=== PATIENT | male | born 1950 | race Caucasian/White ===

== ENCOUNTER → 2018-09-20 09:06 | Outpatient (CLI) | payer MEDICARE, SELFPAY ==
--- NOTE | 2018-09-20 09:11 | XR_ITS ---
XR chest 2V HISTORY: Preop ITS.REASON: Knee replacement ORDERING PHYSICIAN: GALINA Dobson PATIENT AGE: 68 years COMPARISON: PA and lateral chest 02/18/2017 FINDINGS: There is stable mild cardio megaly. The lung marin are well expanded and appear clear of infiltrate. There is no pleural fluid. There are mild degenerative changes mid thoracic spine. IMPRESSION: Mild cardio megaly, no acute chest pathology noted
[2018-09-20 09:32] LABS: Microscopic, Urine URINE MICROSCOPIC (MICROSCOPIC)
[2018-09-20 09:53] LABS: Appearance,Urine CLEAR (Clear); Bilirubin,Urine Negative (Negative); Blood, Urine Negative (Negative); Color,Urine YELLOW (Yellow); Glucose,Urine (UA) Negative (Negative); Ketones,Urine TRACE (Negative); Leukocyte Esterase,Urine Negative (Negative); Nitrate,Urine Negative (Negative); Protein,Urine TRACE (Negative); Specific Gravity, Urine 1.025 (1.005-1.030); Urobilinogen,Urine 0.2 EU/dl (0.2)
[2018-09-20 10:03] LABS: Activated Partial Thrombo Time 28.9 seconds (23.6-34.0); INR 0.99 (0.9-1.1); Prothrombin Time 10.2 seconds (9.4-11.8)
[2018-09-20 10:08] LABS: Basophils # 0.1 K/mm3 (0-0.2); Basophils % 0.7 % (0.1-2.0); Eosinophils # 0.4 K/mm3 (0.0-0.4); Eosinophils % 3.3 % (0.1-12.0); Hematocrit 46.6 % (42.0-52.0); Hemoglobin 15.2 g/dL (14.1-18.0); Lymphocytes # 3.2 K/mm3 (0.7-4.5); Lymphocytes % 25.9 % (10-50); Mean Corpuscular HGB Conc 32.7 g/dL (31.8-35.4); Mean Corpuscular Hemoglobin 29.6 pg (27.0-31.2); Mean Corpuscular Volume 90.4 fl (80-94); Mean Platelet Volume 7.9 fl (7.4-10.4); Monocytes # 0.6 K/mm3 (0.1-1.0); Neutrophils # 8.1 K/mm3 (1.8-7.8); Neutrophils % 65.1 % (37.0-80.0); Platelet Count 282 K/mm3 (142-424); Red Blood Count 5.15 M/mm3 (4.60-6.20); Red Cell Distribution Width 14.5 % (11.5-17.5); White Blood Count 12.5 K/mm3 (4.8-10.8)
[2018-09-20 10:38] LABS: Bacteria,Urine Trace /lpf; Squamous Epithelial Cell,Urine Occasional #/hpf (0-5)
[2018-09-20 11:27] LABS: Anion Gap 16.6 mEq/L (5-15); Blood Urea Nitrogen 20 mg/dL (7-18); Calcium 8.8 mg/dL (8.5-10.1); Carbon Dioxide 25 mmol/L (21.0-32.0); Chloride 101 mmol/L (98-107); Creatinine,Serum 1.29 mg/dL (0.70-1.30); Estimated Glomerular Filt Rate 56 ml/min (>60); GFR (African American) 67 ML/MIN (>60); Glucose 114 mg/dL (74-106); Potassium 4.6 mmoL/L (3.5-5.1); Sodium 138 mmol/L (136-145)
[2018-09-20 13:12] LABS: Hemoglobin A1C 6.2 % (0.0-7.0)
== END ==
PROVIDERS: PCP Physician Assistant; Visit Provider Physician Assistant
DX: Z01.818 Encounter for other preprocedural examination; M17.10 Unilateral primary osteoarthritis, unspecified knee; R73.9 Hyperglycemia, unspecified; T14.8XXA Other injury of unspecified body region, initial encounter; Z79.01 Long term (current) use of anticoagulants
CPT/HCPCS: 36415; 71046; 80048; 81001; 83036; 85025; 85610; 85730

== ENCOUNTER → 2019-07-11 13:24 | Outpatient (CLI) | payer MEDICARE, SELFPAY ==
[2019-07-11 14:39] LABS: Basophils # 0.1 K/mm3 (0-0.2); Basophils % 0.5 % (0.1-2.0); Eosinophils # 0.1 K/mm3 (0.0-0.4); Eosinophils % 1.3 % (0.1-12.0); Hematocrit 46.1 % (42.0-52.0); Hemoglobin 14.2 g/dL (14.1-18.0); Lymphocytes % 23.3 % (10-50); Mean Corpuscular HGB Conc 30.8 g/dL (31.8-35.4); Mean Corpuscular Volume 94.2 fl (80-94); Mean Platelet Volume 9.2 fl (7.4-10.4); Monocytes # 0.6 K/mm3 (0.1-1.0); Neutrophils # 5.7 K/mm3 (1.8-7.8); Neutrophils % 67.9 % (37.0-80.0); Platelet Count 324 K/mm3 (142-424); Red Blood Count 4.89 M/mm3 (4.60-6.20); Red Cell Distribution Width 15.2 % (11.5-17.5); White Blood Count 8.5 K/mm3 (4.8-10.8)
[2019-07-11 15:20] LABS: Alanine Aminotransferase 24 U/L (12-78); Albumin Level 3.9 gm/dL (3.4-5.0); Albumin/Globulin Ratio 1.1 (1.1-1.8); Alkaline Phosphatase 110 U/L (46-116); Anion Gap 16.3 mEq/L (5-15); Aspartate Amino Transferase 15 U/L (15-37); Bilirubin,Total 0.5 mg/dL (0.2-1.0); Blood Urea Nitrogen 23 mg/dL (7-18); Calcium 8.8 mg/dL (8.5-10.1); Carbon Dioxide 24 mmol/L (21.0-32.0); Chloride 100 mmol/L (98-107); Cholesterol 161 mg/dL (140-200); Creatinine,Serum 1.01 mg/dL (0.70-1.30); Estimated Glomerular Filt Rate 73 ml/min (>60); GFR (African American) 89 ML/MIN (>60); Globulin 3.5 gm/dl (1.3-3.2); Glucose 105 mg/dL (74-106); HDL Cholesterol 32 mg/dL (27-67); LDL Cholesterol 97 mg/dL (0-130); Potassium 4.3 mmoL/L (3.5-5.1); Prostate Specific Ag Screen 2.8 ng/mL (0.0-4.0); Sodium 136 mmol/L (136-145); Thyroid Stimulating Hormone 1.98 uIU/ml (0.358-3.740); Total Protein,Serum 7.4 gm/dL (6.4-8.2); Triglycerides 161 mg/dL (30-200); VLDL Cholesterol 32 mg/dL (0-40)
== END ==
PROVIDERS: Visit Provider Physician Assistant
DX: I10 Essential (primary) hypertension (principal); R73.9 Hyperglycemia, unspecified; Z12.5 Encounter for screening for malignant neoplasm of prostate
CPT/HCPCS: 80053; 80061; 84436; 84443; 85025; G0103

== ENCOUNTER → 2020-08-20 14:50 | Outpatient (CLI) | payer MEDICARE, SELFPAY ==
[2020-08-20 15:26] LABS: Basophils # 0.1 K/mm3 (0-0.2); Basophils % 0.6 % (0.1-2.0); Eosinophils # 0.2 K/mm3 (0.0-0.4); Hemoglobin 15.1 g/dL (14.1-18.0); Lymphocytes # 2.3 K/mm3 (0.7-4.5); Lymphocytes % 24.5 % (10-50); Mean Corpuscular HGB Conc 33.7 g/dL (31.8-35.4); Mean Corpuscular Hemoglobin 31.5 pg (27.0-31.2); Mean Corpuscular Volume 93.7 fl (80-94); Mean Platelet Volume 9.8 fl (7.4-10.4); Monocytes # 0.5 K/mm3 (0.1-1.0); Monocytes % 5.4 % (1.7-9.3); Neutrophils # 6.3 K/mm3 (1.8-7.8); Neutrophils % 67.4 % (37.0-80.0); Platelet Count 274 K/mm3 (142-424); Red Cell Distribution Width 14.6 % (11.5-17.5); White Blood Count 9.3 K/mm3 (4.8-10.8)
[2020-08-20 15:55] LABS: Alanine Aminotransferase 25 U/L (12-78); Albumin Level 4.2 g/dl (3.5-5.0); Albumin/Globulin Ratio 1.4 (1.1-1.8); Alkaline Phosphatase 101 U/L (38-126); Anion Gap 15.6 mEq/L (5-15); Aspartate Amino Transferase 27 U/L (17-59); Bilirubin,Total 0.7 mg/dl (0.2-1.3); Blood Urea Nitrogen 21 mg/dl (9-20); Calcium 9.2 mg/dl (8.4-10.2); Carbon Dioxide 24 mmol/L (22.0-30.0); Chloride 100 mmol/L (98-107); Chol/HDL Ratio 6.2 (1-3.5); Cholesterol 174 mg/dl (140-200); Estimated Glomerular Filt Rate 74 ml/min (>60); GFR (African American) 90 ML/MIN (>60); Globulin 2.9 g/dL (1.3-3.2); Glucose 157 mg/dl (74-100); HDL Cholesterol 28 mg/dl (40-60); Potassium 4.6 mmoL/L (3.5-5.1); Sodium 135 mmol/L (136-145); Total Protein,Serum 7.1 g/dl (6.3-8.2); Triglycerides 226 mg/dl (30-150); VLDL Cholesterol 45 mg/dL (0-40)
[2020-08-20 16:07] LABS: Direct LDL Cholesterol 121.48 mg/dL (100-129)
[2020-08-20 16:11] LABS: 25-OH Vitamin D, Total 35.9 ng/mL (30-100)
[2020-08-20 16:12] LABS: Free T4 (Free Thyroxine) 1.26 ng/dl (0.78-2.19)
[2020-08-20 16:26] LABS: Prostate Specific Ag Screen 3.3 ng/ml (0.0-4.0); Thyroid Stimulating Hormone 2.39 uIU/mL (0.465-4.68)
[2020-08-20 17:26] LABS: Hemoglobin A1C 6.3 % (4.0-6.0)
== END ==
PROVIDERS: Visit Provider Physician Assistant
DX: R73.9 Hyperglycemia, unspecified (principal); I50.9 Heart failure, unspecified; Z12.5 Encounter for screening for malignant neoplasm of prostate
CPT/HCPCS: 80053; 80061; 82306; 83036; 84439; 84443; 85025; G0103

== ENCOUNTER → 2021-08-10 17:59 | Outpatient (CLI) | payer MEDICARE, SELFPAY ==
[2021-08-10 18:22] LABS: Basophils # 0.1 K/mm3 (0-0.2); Basophils % 0.6 % (0.1-2.0); Eosinophils # 0.2 K/mm3 (0.0-0.4); Eosinophils % 1.5 % (0.1-12.0); Lymphocytes % 30.8 % (10-50); Mean Corpuscular HGB Conc 33.3 g/dL (31.8-35.4); Mean Corpuscular Hemoglobin 30.5 pg (27.0-31.2); Mean Corpuscular Volume 91.4 fl (80-94); Mean Platelet Volume 9.3 fl (7.4-10.4); Monocytes # 0.5 K/mm3 (0.1-1.0); Monocytes % 5.4 % (1.7-9.3); Neutrophils # 5.9 K/mm3 (1.8-7.8); Neutrophils % 61.7 % (37.0-80.0); Platelet Count 335 K/mm3 (142-424); Red Blood Count 4.92 M/mm3 (4.60-6.20); Red Cell Distribution Width 14.4 % (11.5-17.5); White Blood Count 9.6 K/mm3 (4.8-10.8)
[2021-08-10 18:58] LABS: Alanine Aminotransferase 27 U/L (12-78); Albumin Level 4.4 g/dl (3.5-5.0); Albumin/Globulin Ratio 1.3 (1.1-1.8); Alkaline Phosphatase 113 U/L (38-126); Anion Gap 12.7 mEq/L (5-15); Aspartate Amino Transferase 31 U/L (17-59); Bilirubin,Total 0.5 mg/dl (0.2-1.3); Blood Urea Nitrogen 17 mg/dl (9-20); Calcium 9.3 mg/dl (8.4-10.2); Carbon Dioxide 28 mmol/L (22.0-30.0); Chloride 101 mmol/L (98-107); Chol/HDL Ratio 4.3 (1-3.5); Cholesterol 124 mg/dl (140-200); Estimated Glomerular Filt Rate 83 ml/min (>60); GFR (African American) 101 ML/MIN (>60); Globulin 3.3 g/dL (1.3-3.2); Glucose 91 mg/dl (74-100); HDL Cholesterol 29 mg/dl (40-60); Potassium 4.7 mmoL/L (3.5-5.1); Sodium 137 mmol/L (136-145); Total Protein,Serum 7.7 g/dl (6.3-8.2); Triglycerides 143 mg/dl (30-150); VLDL Cholesterol 29 mg/dL (0-40)
[2021-08-10 19:09] LABS: Direct LDL Cholesterol 105.74 mg/dL (100-129)
[2021-08-10 19:14] LABS: Free T4 (Free Thyroxine) 1.15 ng/dl (0.78-2.19)
== END ==
PROVIDERS: Visit Provider Physician Assistant
DX: R53.83 Other fatigue (principal); E03.9 Hypothyroidism, unspecified
CPT/HCPCS: 80053; 80061; 84439; 84443; 85025

== ENCOUNTER → 2022-08-12 10:50 | Outpatient (CLI) | payer MEDICARE, SELFPAY ==
[2022-08-12 13:14] LABS: Basophils # 0.1 K/mm3 (0-0.2); Basophils % 0.8 % (0.1-2.0); Eosinophils # 0.3 K/mm3 (0.0-0.4); Eosinophils % 2.4 % (0.1-12.0); Hematocrit 46.6 % (42.0-52.0); Lymphocytes # 2.5 K/mm3 (0.7-4.5); Lymphocytes % 19.7 % (10-50); Mean Corpuscular HGB Conc 32.2 g/dL (31.8-35.4); Mean Corpuscular Hemoglobin 29.6 pg (27.0-31.2); Mean Corpuscular Volume 92.1 fl (80-94); Mean Platelet Volume 9.3 fl (7.4-10.4); Monocytes # 0.7 K/mm3 (0.1-1.0); Monocytes % 5.8 % (1.7-9.3); Neutrophils # 9.1 K/mm3 (1.8-7.8); Neutrophils % 71.4 % (37.0-80.0); Platelet Count 329 K/mm3 (142-424); Red Blood Count 5.06 M/mm3 (4.60-6.20); Red Cell Distribution Width 15.4 % (11.5-17.5); White Blood Count 12.7 K/mm3 (4.8-10.8)
[2022-08-12 13:21] LABS: Alanine Aminotransferase 26 U/L (12-78); Albumin Level 4.5 g/dl (3.5-5.0); Albumin/Globulin Ratio 1.6 (1.1-1.8); Alkaline Phosphatase 128 U/L (38-126); Anion Gap 18.6 mEq/L (5-15); Aspartate Amino Transferase 27 U/L (17-59); Bilirubin,Total 0.5 mg/dl (0.2-1.3); Blood Urea Nitrogen 23 mg/dl (9-20); Calcium 9.9 mg/dl (8.4-10.2); Carbon Dioxide 28 mmol/L (22.0-30.0); Chloride 98 mmol/L (98-107); Chol/HDL Ratio 6.3 (1-3.5); Cholesterol 182 mg/dl (140-200); Estimated Glomerular Filt Rate 66 ml/min (>60); GFR (African American) 80 ML/MIN (>60); Globulin 2.9 g/dL (1.3-3.2); Glucose 112 mg/dl (74-100); HDL Cholesterol 29 mg/dl (40-60); Potassium 4.6 mmoL/L (3.5-5.1); Sodium 140 mmol/L (136-145); Total Protein,Serum 7.4 g/dl (6.3-8.2); Triglycerides 250 mg/dl (30-150); VLDL Cholesterol 50 mg/dL (0-40)
[2022-08-12 13:32] LABS: Direct LDL Cholesterol 99.99 mg/dL (100-129)
[2022-08-12 13:51] LABS: Prostate Specific Ag Screen 3.2 ng/ml (0.0-4.0)
== END ==
PROVIDERS: PCP Physician Assistant; Visit Provider Physician Assistant
DX: I50.9 Heart failure, unspecified (principal); I10 Essential (primary) hypertension; E55.9 Vitamin D deficiency, unspecified; R05.9 Cough, unspecified; Z12.5 Encounter for screening for malignant neoplasm of prostate
CPT/HCPCS: 80053; 80061; 82306; 84443; 85025; G0103

== ENCOUNTER → 2023-07-20 15:54 | Outpatient (CLI) | payer MEDICARE, SELFPAY ==
[2023-07-20 14:33] LABS: Basophils % 0.4 % (0.1-2.0); Eosinophils # 0.2 K/mm3 (0.0-0.4); Eosinophils % 2.3 % (0.1-12.0); Hematocrit 45.6 % (42.0-52.0); Hemoglobin 15.5 g/dL (14.1-18.0); Lymphocytes # 2.8 K/mm3 (0.7-4.5); Lymphocytes % 30.2 % (10-50); Mean Corpuscular HGB Conc 33.9 g/dL (31.8-35.4); Mean Corpuscular Hemoglobin 30.7 pg (27.0-31.2); Mean Corpuscular Volume 90.5 fl (80-94); Mean Platelet Volume 8.3 fl (7.4-10.4); Monocytes # 0.5 K/mm3 (0.1-1.0); Monocytes % 5.5 % (1.7-9.3); Neutrophils # 5.6 K/mm3 (1.8-7.8); Neutrophils % 61.5 % (37.0-80.0); Platelet Count 243 K/mm3 (142-424); Red Blood Count 5.04 M/mm3 (4.60-6.20); Red Cell Distribution Width 14.4 % (11.5-17.5); White Blood Count 9.1 K/mm3 (4.8-10.8)
[2023-07-20 15:04] LABS: Alanine Aminotransferase 34 U/L (12-78); Albumin Level 4.3 g/dl (3.5-5.0); Albumin/Globulin Ratio 1.5 (1.1-1.8); Alkaline Phosphatase 106 U/L (38-126); Anion Gap 16.7 mEq/L (5-15); Aspartate Amino Transferase 31 U/L (17-59); Bilirubin,Total 0.6 mg/dl (0.2-1.3); Blood Urea Nitrogen 20 mg/dl (9-20); Calcium 9.2 mg/dl (8.4-10.2); Carbon Dioxide 24 mmol/L (22.0-30.0); Chloride 100 mmol/L (98-107); Chol/HDL Ratio 5.7 (1-3.5); Cholesterol 165 mg/dl (140-200); Estimated Glomerular Filt Rate 83 ml/min (>60); GFR (African American) 100 ML/MIN (>60); Globulin 2.8 g/dL (1.3-3.2); Glucose 111 mg/dl (74-100); HDL Cholesterol 29 mg/dl (40-60); Potassium 4.7 mmoL/L (3.5-5.1); Sodium 136 mmol/L (136-145); Total Protein,Serum 7.1 g/dl (6.3-8.2); Triglycerides 200 mg/dl (30-150); VLDL Cholesterol 40 mg/dL (0-40)
[2023-07-20 15:15] LABS: Direct LDL Cholesterol 103.07 mg/dL (100-129)
[2023-07-20 15:19] LABS: 25-OH Vitamin D, Total 25.9 ng/mL (30-100)
[2023-07-20 15:20] LABS: T4 (Thyroxine) 7.3 ug/dl (5.53-11.0)
[2023-07-21 15:25] LABS: Hemoglobin A1C 6.5 % (4.0-6.0)
== END ==
PROVIDERS: PCP Physician Assistant; Visit Provider Physician Assistant
DX: I11.0 Hypertensive heart disease with heart failure (principal); I50.9 Heart failure, unspecified; R73.9 Hyperglycemia, unspecified; E55.9 Vitamin D deficiency, unspecified; Z68.41 Body mass index [BMI] 40.0-44.9, adult
CPT/HCPCS: 80053; 80061; 82306; 83036; 84436; 84443; 85025

== ENCOUNTER 2024-05-29 14:30 | Outpatient (CLI) | payer MEDICARE, SELFPAY ==
--- NOTE | 2024-05-29 14:41 | CA_ITS ---
FINAL REPORT TECHNIQUE: Color Doppler, duplex Doppler and compression sonography of the right lower extremity venous system was performed. CLINICAL HISTORY: PT C/O LEG CRAMPS RLE,PAIN RT ANKLE/CALF,PT ON ASA FINDINGS: There is no evidence of deep venous thrombosis from the level of the groin to the calf. The veins are patent and compressible. 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 IMPRESSION: No evidence of deep venous thrombosis right lower extremity. 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 Reviewed, Interpreted and Dictated by Mike Puga III, MD Transcribed by Terri Garcia Authenticated and [facility]
[2024-05-29 16:48] LABS: Basophils # 0.1 K/mm3 (0-0.2); Basophils % 0.8 % (0.1-2.0); Eosinophils # 0.3 K/mm3 (0.0-0.4); Eosinophils % 3.3 % (0.1-12.0); Hematocrit 44.6 % (42.0-52.0); Hemoglobin 14.4 g/dL (14.1-18.0); Lymphocytes # 2.8 K/mm3 (0.7-4.5); Lymphocytes % 33.2 % (10-50); Mean Corpuscular HGB Conc 32.2 g/dL (31.8-35.4); Mean Corpuscular Hemoglobin 30.4 pg (27.0-31.2); Mean Corpuscular Volume 94.5 fl (80-94); Mean Platelet Volume 9.5 fl (7.4-10.4); Monocytes # 0.5 K/mm3 (0.1-1.0); Monocytes % 6.2 % (1.7-9.3); Neutrophils # 4.7 K/mm3 (1.8-7.8); Neutrophils % 56.4 % (37.0-80.0); Platelet Count 256 K/mm3 (142-424); Red Blood Count 4.72 M/mm3 (4.60-6.20); Red Cell Distribution Width 14.7 % (11.5-17.5); White Blood Count 8.4 K/mm3 (4.8-10.8)
[2024-05-29 17:07] LABS: Alanine Aminotransferase 70 U/L (12-78); Albumin/Globulin Ratio 1.4 (1.1-1.8); Alkaline Phosphatase 94 U/L (38-126); Anion Gap 12.2 mEq/L (5-15); Aspartate Amino Transferase 136 U/L (17-59); Bilirubin,Total 0.7 mg/dl (0.2-1.3); Blood Urea Nitrogen 18 mg/dl (9-20); Carbon Dioxide 23 mmol/L (22.0-30.0); Chloride 105 mmol/L (98-107); Chol/HDL Ratio 5.9 (1-3.5); Cholesterol 159 mg/dl (140-200); Estimated Glomerular Filt Rate 95 ml/min (>60); GFR (African American) 115 ML/MIN (>60); Globulin 2.8 g/dL (1.3-3.2); Glucose 98 mg/dl (74-100); HDL Cholesterol 27 mg/dl (40-60); Potassium 4.2 mmoL/L (3.5-5.1); Sodium 136 mmol/L (136-145); Total Protein,Serum 6.8 g/dl (6.3-8.2); Triglycerides 216 mg/dl (30-150); VLDL Cholesterol 43 mg/dL (0-40)
[2024-05-29 17:18] LABS: Direct LDL Cholesterol 96.17 mg/dL (100-129)
[2024-05-29 17:25] LABS: 25-OH Vitamin D, Total 61.3 ng/mL (30-100)
[2024-05-29 17:37] LABS: Prostate Specific Ag Screen 3.6 ng/ml (0.0-4.0); Thyroid Stimulating Hormone 1.82 uIU/mL (0.465-4.68)
== END 2024-05-29 23:59 | disposition home or self-care (01) ==
LOC: LAB 14:32
PROVIDERS: PCP Physician Assistant; Visit Provider Physician Assistant
DX: M79.661 Pain in right lower leg; R73.9 Hyperglycemia, unspecified; I10 Essential (primary) hypertension; Z12.5 Encounter for screening for malignant neoplasm of prostate; R53.83 Other fatigue; E78.5 Hyperlipidemia, unspecified; E55.9 Vitamin D deficiency, unspecified
CPT/HCPCS: 80053; 80061; 82306; 84443; 85025; 93971; G0103

== ENCOUNTER 2025-06-18 09:45 | Outpatient (CLI) | payer MEDICARE, SELFPAY ==
[2025-06-18 15:30] LABS: Hematocrit 45.2 % (42.0-52.0); Hemoglobin 14.6 g/dL (14.1-18.0); Immature Granulocytes % 0.2 %; Mean Corpuscular HGB Conc 32.3 g/dL (31.8-35.4); Mean Corpuscular Hemoglobin 29.2 pg (27.0-31.2); Mean Corpuscular Volume 90.4 fl (80-94); Nucleated Red Blood Cells % 0 %; Platelet Count 269 K/mm3 (142-424); Red Blood Count 5.00 M/mm3 (4.60-6.20); Red Cell Distribution Width-SD 49.3 fL; White Blood Count 8.2 K/mm3 (4.8-10.8)
[2025-06-18 16:09] LABS: Albumin Level 4.5 g/dl (3.5-5.0); Chloride 99 mmol/L (98-107)
[2025-06-18 16:10] LABS: Potassium 4.5 mmoL/L (3.5-5.1); Sodium 138 mmol/L (136-145)
[2025-06-18 16:12] LABS: Alanine Aminotransferase 25 U/L (12-78); Albumin/Globulin Ratio 1.7 (1.1-1.8); Anion Gap 17.5 mEq/L (5-15); Aspartate Amino Transferase 28 U/L (17-59); Blood Urea Nitrogen 17 mg/dl (9-20); Carbon Dioxide 26 mmol/L (22.0-30.0); Creatinine,Serum 0.90 mg/dl (0.66-1.25); Estimated Glomerular Filt Rate 82 ml/min (>60); GFR (African American) 100 ML/MIN (>60); Globulin 2.7 g/dL (1.3-3.2); Total Protein,Serum 7.2 g/dl (6.3-8.2)
[2025-06-18 16:13] LABS: Alkaline Phosphatase 99 U/L (38-126); Bilirubin,Total 0.7 mg/dl (0.2-1.3); Calcium 9.4 mg/dl (8.4-10.2); Cholesterol 165 mg/dl (140-200); Glucose 118 mg/dl (74-100); HDL Cholesterol 32 mg/dl (40-60); Triglycerides 167 mg/dl (30-150)
[2025-06-18 16:44] LABS: Hemoglobin A1C 6.5 % (4.0-6.0); Thyroid Stimulating Hormone 2.41 uIU/mL (0.465-4.68)
--- OUTSIDE RECORDS SUMMARY | 2025-06-19 09:55 | XMS_ITS | Encounter Summary ---
Author Organization [email or web address] ([place], [place], [place], [place]) Address [address] [place] [address] Care Team Providers Care Kitchen Cleaner Name Role Phone Unavailable Primary Care Provider Unavailabl e Encounter Details Date Type Department Care Team (Late st Contact Info) Description 10/10/2018 Transcribed Document [facility] Family Medicine [facility] [place] [address] ProviderFlaco MD [facility] [place] [address] Social History Tobacco Use Types Packs/Day Years Used Date Smoking Tobacco: Never Assessed Sex and Gender Information Value Date Recorded Sex Assigned at Male 03/23/2022 7:23 PM CDT Legal Sex Male 7:23 PM CDT Gender Identity Male 03/23/2022 7:23 PM CDT Sexual Orientation Not on file documented as of this encounter Miscellaneous Notes * Cerner Conversion Note - Historical ProviderMD - 10/10/2018 5:00 PM RADIOLOGICAL TECHNOLOGIST Pain Assessment Entered On: 10/11/2018 4:17 EST Performed On: 10/10/2018 19:34 EST by Julien Magallon Rn Intervention Information: acetaminophen Performed by Soniya Lomeli RN on 10/10/2018 18:34:00 EST acetaminophen,1000mg Oral Pain Assessment Pain Assessment : Follow-up assessment Pain Scale Goal : 3 Pain Scale Used : 0-10 Scale Julien Magallon Rn - 10/11/2018 4:17 EST Pain Scale Intensity : 2 Julien Magallon Rn - 10/11/2018 4:17 EST Image 4 - Images currently included in the form version of this document have not been included in the text rendition version of the form. documented in this encounter Plan of Treatment Not on file documented as of this encounter Visit Diagnoses Not on filedocumented in this encounter
--- OUTSIDE RECORDS SUMMARY | 2025-06-19 09:55 | XMS_ITS | Encounter Summary ---
Author Organization [employer] ([place], [place], [place], [place]) Address [address] [place] [address] Care Team Providers Care Molding Machine Tender Name Role Phone Unavailable Primary Care Provider Unavailabl e Encounter Details Date Type Department Care Team (Late st Contact Info) Description 10/11/2018 Transcribed Document [facility] Radiology [address] [place] [address] Rajwinder Gupta MD [address] [place] [address] [address] [place] [id number] Social History Tobacco Use Types Packs/Day Years Used Date Smoking Tobacco: Never Assessed Sex and Gender Information Value Date Recorded Sex Assigned at Male 03/23/2022 7:23 PM CDT Legal Sex Male 7:23 PM CDT Gender Identity Male 03/23/2022 7:23 PM CDT Sexual Orientation Not on file documented as of this encounter Miscellaneous Notes * Cerner Conversion Note - Rajwinder Gupta MD - 10/11/2018 9:51 AM EST DATE OF ADMISSION: 10/09/2018 DATE OF DISCHARGE: 10/11/2018 PRIMARY CARE PROVIDER: Dr. Ziggy Crow. PRINCIPAL DISCHARGE DIAGNOSES: 1. Right total knee arthroplasty. 2. Coronary artery disease. 3. Obesity. PRINCIPAL PROCEDURES: Patient underwent right total knee arthroplasty by Dr. Thorpe on 10/09/2018. ADMISSION HISTORY AND HOSPITAL COURSE: This is a 68-year-old white male with underlying history of CAD. He is followed by Dr. Kong and he has had a previous history of stent placement. Patient also has had progressive DJD with need for intervention. He did not have any prior history of DVT. Patient underwent the procedure as outlined above. During the post hospital stay, patient has continued to do well. He has participated with PT and OT. His blood pressure has been acceptable. His creatinine was at 1.1 and his hemoglobin has been stable. On the day of discharge, patient is doing well. Awake, alert, and oriented and afebrile with blood pressure 120/56, pulse ox is 93% on room air. Lung exam is clear to auscultation. Abdomen exam is benign and soft. At this time. It is felt that he has met with maximum inpatient hospital benefit and he is being discharged home. He has also been seen and evaluated and cleared for discharge by the Orthopedic Services. DISCHARGE DIET: Would be cardiac. DISCHARGE MEDICATIONS: 1. Tylenol 1000 mg t.i.d. for 1 week and then as needed p.r.n. for pain. 2. Baby aspirin 81 mg b.i.d. for the next 6 weeks. 3. Lipitor 20 mg daily. 4. Lisinopril 2.5 mg b.i.d. 5. Aldactone 25 mg b.i.d.; patient will start it if the blood pressure is at or above 105. 6. Bumex 2 mg daily to start after the next 2 days. 7. Colace 100 mg b.i.d. 8. Neurontin 300 mg at bedtime. 9. Metoprolol ER 50 mg at bedtime. 10. Sublingual nitroglycerin, which he takes p.r.n. 11. Oxycodone 5 mg q.4 h. p.r.n. for pain. 12. Tramadol 50 mg q.6 h. p.r.n. for pain. DISCHARGE ACTIVITY: Please see the attached discharge instructions by Dr. Thorpe's service with regards to discharge activity; although, the patient has been advised that he can bear weight as much as tolerated on the affected extremity with passive exertion exercises for 30 minutes t.i.d. and also to call the office if he had to have any drainage that is significant beyond the first seven days of surgery. Patient has also been advised about the signs and symptoms of DVT that he needs to watch for and to seek medical attention if he were to develop any of those. DISCHARGE FOLLOWUP: 1. With Kamaljit De La Torre on 10/26/2018 at 9:30 a.m. 2. All of the discharge instructions have been reviewed at length with the patient. TIME SPENT: In entirety towards the discharge dispositioning including review of the above discharge preparation and care coordination totals at 35 minutes. Rajwinder Gupta M.D. Dict: 10/11/2018 08:51:22 Trans: 10/12/2018 06:44:46 CC1: Rajwinder Gupta M.D. documented in this encounter Plan of Treatment Not on file documented as of this encounter Visit Diagnoses Not on filedocumented in this encounter
--- OUTSIDE RECORDS SUMMARY | 2025-06-19 09:55 | XMS_ITS | Encounter Summary ---
Author Organization [employer] ([place], [place], [place], [place]) Address [address] [place] [address] Care Team Providers Care Route Sales Representative Name Role Phone Unavailable Primary Care Provider Unavailabl e Encounter Details Date Type Department Care Team (Late st Contact Info) Description 10/11/2018 Transcribed Document [facility] [address] [place] [address] ProviderFlaco MD [address] [place] [address] Social History Tobacco Use Types Packs/Day Years Used Date Smoking Tobacco: Never Assessed Sex and Gender Information Value Date Recorded Sex Assigned at Male 03/23/2022 7:23 PM CDT Legal Sex Male 7:23 PM CDT Gender Identity Male 03/23/2022 7:23 PM CDT Sexual Orientation Not on file documented as of this encounter Miscellaneous Notes * Cerner Conversion Note - Historical ProviderMD - 10/11/2018 5:00 AM COUNTER WEIGHER Chart Check - Review Order Profile Entered On: 10/11/2018 4:19 EST Performed On: 10/11/2018 5:00 EST by Julien Magallon Rn Chart Check Chart Reviewed Date and Time : 10/11/2018 4:18 EST [employer] Initiated/Discontinued as Appropriate : Yes All Active Orders Reviewed : Yes Julien Magallon Rn - 10/11/2018 4:18 EST Electronically signed by M[facility] Conversion Load Out Person Cerner at 01/12/2023 10:18 PM CDT documented in this encounter Plan of Treatment Not on file documented as of this encounter Visit Diagnoses Not on filedocumented in this encounter
--- OUTSIDE RECORDS SUMMARY | 2025-06-19 09:55 | XMS_ITS | Encounter Summary ---
Author Organization [employer] ([place], [place], [place], [place]) Address [address] [place] [address] Care Team Providers Care Automobile Service Station Attendant Name Role Phone Unavailable Primary Care Provider Unavailabl e Encounter Details Date Type Department Care Team (Late st Contact Info) Description 10/11/2018 Transcribed Document [facility] [place] [facility] [place] [address] ProviderFlaco MD [facility] [place] [address] Social History Tobacco Use Types Packs/Day Years Used Date Smoking Tobacco: Never Assessed Sex and Gender Information Value Date Recorded Sex Assigned at Male 03/23/2022 7:23 PM CDT Legal Sex Male 7:23 PM CDT Gender Identity Male 03/23/2022 7:23 PM CDT Sexual Orientation Not on file documented as of this encounter Miscellaneous Notes * Cerner Conversion Note - Flaco ProviderMD - 10/11/2018 7:35 AM ANIMAL HEALTH TECHNICIAN Patient: PEDRO PICKARD Age: 68 Years Sex: Male : 1950 Subjective Patient is s/p right TKA. Pain is well controlled. No complaints Objective Vitals & Measurements T: 36.7 ??C HR: 96 HR: 77 (Monitored) RR: 16 BP: 120/56 MAP: 69 SpO2: 93% HT: 177.8 cm WT: 131.82 kg BMI: 41.7 Physical Exam Dressing clean, dry and intact N/V intact distally Gross motor function for the TA, EHL, gastroc and soleus intact No sign of DVT Lab Results Creatinine 1.16, improved from pre op 1.29 Assessment/Plan Unilateral primary osteoarthritis, right knee M17.11, Unilateral primary osteoarthritis, right knee M17.11 1. for discharge 2 . due to patient past medical history of CKD and CAD patient required inpatient hostpitalization 3. Normal therapy and PT protocol 4. Patient stable and ok for discharge documented in this encounter Plan of Treatment Not on file documented as of this encounter Visit Diagnoses Not on filedocumented in this encounter
--- OUTSIDE RECORDS SUMMARY | 2025-06-19 09:55 | XMS_ITS | Encounter Summary ---
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 Name Role Phone Unavailable Primary Care Provider Unavailabl e Encounter Details Date Type Department Care Team (Late st Contact Info) Description 10/11/2018 Transcribed Document [facility] Pending sale to [place] [address] ProviderFlaco MD [address] [place] [id number] Social History Tobacco Use Types Packs/Day Years Used Date Smoking Tobacco: Never Assessed Sex and Gender Information Value Date Recorded Sex Assigned at Male 03/23/2022 7:23 PM CDT Legal Sex Male 7:23 PM CDT Gender Identity Male 03/23/2022 7:23 PM CDT Sexual Orientation Not on file documented as of this encounter Miscellaneous Notes * Cerner Conversion Note - Flaco ProviderMD - 10/11/2018 10:44 AM 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 [address] , [place] [address] Patient Copy Patient Information: Name: PEDRO PICKARD Current Date: 10/11/2018 10:44:27 : 1950 Patient Address: [place] [address] Patient Attending Physician: DREA SIEGEL DO Primary Care Provider: BLU CRUZ (REF)MD-[facility] Primary Care Provider Discharge Diagnosis: Aftercare following knee joint replacement surgery Weight on Admission: 290 lb, 0 oz Comment: Follow-up Instructions: With: Address: When: MORAIMA NG [employer] [facility], [address] [address] [facility] (1) 9:30 AM Comments: Appointment has been made With: Address: When: Follow up with specialist Within 2 weeks Comments: Discharge Instructions: Diet after Discharge: Resume usual diet as tolerated, Do not drink any alcoholic beverages, Other: drink at least 8 glasses of water a day yo prevent constipation. Increase fiber and protein to promote healing. Activity after Discharge: No strenuous activities, No heavy lifting over 10 pounds, Full weight bearing, Other: use walker for each step until told otherwise for your safety per MD and PT. Sleep in knee immobilizer for at least 1-2 weeks Driving after Discharge: Do not drive Showering/Bathing: No tub bathing, soaking, or swimming, Other: May shower on the 3rd day after surgery. [employer] product Press & Seal should be used for showering because incision area must remain completely dry Notify Provider of: Call the surgeon for wound drainage that is present beyond 7 days after surgery. Wound/Incision Care after Discharge: Keep operative site/wound site clean and dry, Other: You may remove the BIB day after surgery and cover with 4x4 gauze squares and tubular netting .Change daily for 5-7 days ISREAL REMOVED IN OFFICE IN 2-3 WEEKS. Wound/Incision Care after Discharge Comment: Continue Tub exercise ([place] with rolled towel or Zero Knee) at home (30 minutes - 3 times per day minimum). The knee should be unsupported during tub exercise. Continue to perform Prone Hangs (as instructed by physical therapy) 3 times per day for 30 minutes each time with a 5 pound weight on ankle. CPM machine - Goal is knee flexion at 110 degrees ANNABEL. Limit standing and limit walking for 4 weeks. Get up 10 times per day and walk approximately 20 feet each time. Elevate the knee and the entire lower extremity for as much as possible for 4 weeks after surgery. Use ice liberally for 30 minutes 3-4 times per day for 4 weeks. May shower on the 3rd day after surgery. [employer] product Press & Seal should be used for showering because incision area must remain completely dry. Do not take any soaking baths until 1 month after surgery. Adhere to any weight bearing restrictions that have been ordered. Take your blood thinning medication as directed. An Bib wrap can be used to cover the wound to maintain compression and decrease swelling. Call the surgeon for wound drainage that is present beyond 7 days after surgery. Motion is more important than strength or walking distance during the first 6 weeks after surgery. Prescribed postoperative pain medications should be weaned as tolerated beginning 72 hours after surgery. Discontinue 12 hours medications first. Try to be off all narcotics by 14 days after surgery. Bilateral ANTONIO hose are to be worn at all times for DVT prophylaxis. Medical Equipment for Home Use: CPM RENTAL [facility] Critical Access Hospital Services: OUT PATIENT PHYSICAL THERAPY AT [facility] 10/12/2018 THURS. AT 8:30 AM [phone] Immunizations Documented During Stay: No Immunizations Found Pain Management: Gabapentin 300 mg tabs, Oxycodone 5mg, Tramadol 50mg tabs tabs will be used for postoperative pain control and should be weaned as the patient can tolerate. polar care 30 minutes on 3-4 times a day do place directly on skin Special Instructions: Bilateral ANTONIO hose are to be worn daily for blood clot prevention. You may remove these for daily skin inspections, but otherwise these are to be worn at all times. Aspirin 81mg twice a day for 45 days Heart Failure Discharge Instructions (if any): Stroke Related Discharge Instructions (if any): Warfarin Related Discharge Instructions (if any): Final Medication List: Printed Prescriptions aspirin (aspirin 81 mg oral delayed release tablet) 1 Tablet(s) Oral Two Times A Day. Refills: 0. docusate (Colace 100 mg oral capsule) 1 Capsule(s) Oral Two Times A Day. Refills: 0. gabapentin (gabapentin 300 mg oral capsule) 1 Capsule(s) Oral At Bedtime. Refills: 0. Other Medications acetaminophen (Tylenol) 1,000 Milligram(s) Oral Three Times A Day. for one week and then as needed for pain not to exceed 3000 mg/day. atorvastatin (Lipitor 20 mg oral tablet) 1 Tablet(s) Oral At Bedtime. Refills: 11. bumetanide (bumetanide 2 mg oral tablet) 1 Tablet(s) Oral Every Day. Patient Instructions: Do not rg for next 2 days lisinopril (lisinopril 2.5 mg oral tablet) 1 Tablet(s) Oral Two Times A Day. metoprolol (Metoprolol Succinate ER) 50 Milligram(s) Oral At Bedtime. nitroglycerin (Nitrostat 0.4 mg sublingual tablet) 1 Tablet(s) SubLINgual every 5 minutes as needed Chest Pain. If chest pain not relieved in 5 minutes after first dose, seek immediate medical attention Not to exceed 3 doses/15 min. Refills: 6. oxyCODONE (oxyCODONE 5 mg oral tablet) 1 Tablet(s) Oral Every 4 Hours as needed Pain (Moderate 4-6). spironolactone (spironolactone 25 mg oral tablet) 1 Tablet(s) Oral Two Times A Day. Start if yourBP is at or above 105. traMADol (traMADol 50 mg oral tablet) 1 Tablet(s) Oral Every 6 Hours. as needed for pain. Patient Allergies: No Known Allergies Medication Instructions: Take your medications faithfully. Do NOT skip medication. Do NOT stop taking medications without the direction of a physician. Carry a list of your medications with you at all times, and take this medication list with you to your first follow up visit. Report any side effects. Avoid herbal remedies unless discussed with your physician. As part of your treatment plan, your physician may have prescribed a limited course of a controlled substance. This medication may be given to help people with moderate or severe pain or for other medical conditions, but there are risks involved with treatment. Common side effects may include nausea, constipation, drowsiness, sweating, itching, dry mouth, and rash. More serious side effects may include cognitive and motor impairment, like problems with thinking, concentrating, alertness, and movement (e.g. slowed reflexes), and driving and operating heavy machinery can be dangerous. It is important for you to talk to your physician if you have these side effects or questions. These controlled substances can produce physical dependence and be habit-forming if taken for an extended period of time, which means that the body has gotten used to them and may experience withdrawal symptoms if they are abruptly stopped. Withdrawal symptoms can include runny nose, sweating, goose bumps, diarrhea, abdominal cramping, rapid heartbeat, difficulty sleeping, and nervousness. Patient education materials: Deep Vein Thrombosis A deep vein thrombosis (DVT) is a blood clot (thrombus) that usually occurs in a deep, larger vein of the lower leg or the pelvis, or in an upper extremity such as the arm. These are dangerous and can lead to serious and even life-threatening complications if the clot travels to the lungs. A DVT can damage the valves in your leg veins so that instead of flowing upward, the blood pools in the lower leg. This is called post-thrombotic syndrome, and it can result in pain, swelling, discoloration, and sores on the leg. What are the causes? A DVT is caused by the formation of a blood clot in your leg, pelvis, or arm. Usually, several things contribute to the formation of blood clots. A clot may develop when: ??? Your blood flow slows down. ??? Your vein becomes damaged in some way. ??? You have a condition that makes your blood clot more easily. What increases the risk? A DVT is more likely to develop in: ??? People who are older, especially over 60 years of age. ??? People who are overweight (obese). ??? People who sit or lie still for a long time, such as during long-distance travel (over 4 hours), bed rest, hospitalization, or during recovery from certain medical conditions like a stroke. ??? People who do not engage in much physical activity (sedentary lifestyle). ??? People who have chronic breathing disorders. ??? People who have a personal or family history of blood clots or blood clotting disease. ??? People who have peripheral vascular disease (PVD), diabetes, or some types of cancer. ??? People who have heart disease, especially if the person had a recent heart attack or has congestive heart failure. ??? People who have neurological diseases that affect the legs (leg paresis). ??? People who have had a traumatic injury, such as breaking a hip or leg. ??? People who have recently had major or lengthy surgery, especially on the hip, knee, or abdomen. ??? People who have had a central line placed inside a large vein. ??? People who take medicines that contain the hormone estrogen. These include control pills and hormone replacement therapy. ??? or during childbirth or the period. ??? Long plane flights (over 8 hours). What are the signs or symptoms? Symptoms of a DVT can include: ??? Swelling of your leg or arm, especially if one side is much worse. ??? Warmth and redness of your leg or arm, especially if one side is much worse. ??? Pain in your arm or leg. If the clot is in your leg, symptoms may be more noticeable or worse when you stand or walk. ??? A feeling of pins and needles, if the clot is in the arm. The symptoms of a DVT that has traveled to the lungs (pulmonary embolism, PE) usually start suddenly and include: ??? Shortness of breath while active or at rest. ??? Coughing or coughing up blood or blood-tinged mucus. ??? Chest pain that is often worse with deep breaths. ??? Rapid or irregular heartbeat. ??? Feeling light-headed or dizzy. ??? Fainting. ??? Feeling anxious. ??? Sweating. There may also be pain and swelling in a leg if that is where the blood clot started. These symptoms may represent a serious problem that is an emergency. Do not wait to see if the symptoms will go away. Get medical help right away. Call your local emergency services (911 in the [place] Do not drive yourself to the hospital.How is this diagnosed? Your health care provider will take a medical history and perform a physical exam. You may also have other tests, including: ??? Blood tests to assess the clotting properties of your blood. ??? Imaging tests, such as CT, ultrasound, MRI, X-ray, and other tests to see if you have clots anywhere in your body. How is this treated? After a DVT is identified, it can be treated. The type of treatment that you receive depends on many factors, such as the cause of your DVT, your risk for bleeding or developing more clots, and other medical conditions that you have. Sometimes, a combination of treatments is necessary. Treatment options may be combined and include: ??? Monitoring the blood clot with ultrasound. ??? Taking medicines by mouth, such as newer blood thinners (anticoagulants), thrombolytics, or warfarin. ??? Taking anticoagulant medicine by injection or through an IV tube. ??? Wearing compression stockings or using different types of?devices. ??? Surgery (rare) to remove the blood clot or to place a filter in your abdomen to stop the blood clot from traveling to your lungs. Treatments for a DVT are often divided into immediate treatment and long-term treatment (up to 3 months after DVT). You can work with your health care provider to choose the treatment program that is best for you. Follow these instructions at home: If you are taking a newer oral anticoagulant:??? Take the medicine every single day at the same time each day. ??? Understand what foods and drugs interact with this medicine. ??? Understand that there are no regular blood tests required when using this medicine. ??? Understand the side effects of this medicine, including excessive bruising or bleeding. Ask your health care provider or pharmacist about other possible side effects. If you are taking warfarin:??? Understand how to take warfarin and know which foods can affect how warfarin works in your body. ??? Understand that it is dangerous to take too much or too little warfarin. Too much warfarin increases the risk of bleeding. Too little warfarin continues to allow the risk for blood clots. ??? Follow your PT and INR blood testing schedule. The PT and INR results allow your health care provider to adjust your dose of warfarin. It is very important that you have your PT and INR tested as often as told by your health care provider. ??? Avoid major changes in your diet, or tell your health care provider before you change your diet. Arrange a visit with a registered dietitian to answer your questions. Many foods, especially foods that are high in vitamin K, can interfere with warfarin and affect the PT and INR results. Eat a consistent amount of foods that are high in vitamin K, such as: ? Spinach, kale, broccoli, cabbage, robert greens, turnip greens, Wall sprouts, peas, cauliflower, seaweed, and parsley. ? Beef liver and pork liver. ? Green tea. ? Soybean oil. ??? Tell your health care provider about any and all medicines, vitamins, and supplements that you take, including aspirin and other ptiu-jah-fyuzzso anti-inflammatory medicines. Be especially cautious with aspirin and anti-inflammatory medicines. Do not take those before you ask your health care provider if it is safe to do so. This is important because many medicines can interfere with warfarin and affect the PT and INR results. ??? Do notstart or stop taking any vpld-pfn-itcudhe or prescription medicine unless your health care provider or pharmacist tells you to do so. If you take warfarin, you will also need to do these things: ??? Hold pressure over cuts for longer than usual. ??? Tell your dentist and other health care providers that you are taking warfarin before you have any procedures in which bleeding may occur. ??? Avoid alcohol or drink very small amounts. Tell your health care provider if you change your alcohol intake. ??? Do notuse tobacco products, including cigarettes, chewing tobacco, and e-cigarettes. If you need help quitting, ask your health care provider. ??? Avoid contact sports. General instructions ??? Take pkcn-dwg-eqixtei and prescription medicines only as told by your health care provider. Anticoagulant medicines can have side effects, including easy bruising and difficulty stopping bleeding. If you are prescribed an anticoagulant, you will also need to do these things: ? Hold pressure over cuts for longer than usual. ? Tell your dentist and other health care providers that you are taking anticoagulants before you have any procedures in which bleeding may occur. ? Avoid contact sports. ??? Wear a medical alert bracelet or carry a medical alert card that says you have had a PE. ??? Ask your health care provider how soon you can go back to your normal activities. Stay active to prevent new blood clots from forming. ??? Make sure to exercise while traveling or when you have been sitting or standing for a long period of time. It is very important to exercise. Exercise your legs by walking or by tightening and relaxing your leg muscles often. Take frequent walks. ??? Wear compression stockings as told by your health care provider to help prevent more blood clots from forming. ??? Do notuse tobacco products, including cigarettes, chewing tobacco, and e-cigarettes. If you need help quitting, ask your health care provider. ??? Keep all follow-up appointments with your health care provider. This is important. How is this prevented? Take these actions to decrease your risk of developing another DVT: ??? Exercise regularly. For at least 30 minutes every day, engage in: ? Activity that involves moving your arms and legs. ? Activity that encourages good blood flow through your body by increasing your heart rate. ??? Exercise your arms and legs every hour during long-distance travel (over 4 hours). Drink plenty of water and avoid drinking alcohol while traveling. ??? Avoid sitting or lying in bed for long periods of time without moving your legs. ??? Maintain a weight that is appropriate for your height. Ask your health care provider what weight is healthy for you. ??? If you are a woman who is over 35 years of age, avoid unnecessary use of medicines that contain estrogen. These include control pills. ??? Do notsmoke, especially if you take estrogen medicines. If you need help quitting, ask your health care provider. If you are hospitalized, prevention measures may include: ??? Early walking after surgery, as soon as your health care provider says that it is safe. ??? Receiving anticoagulants to prevent blood clots.?If you cannot take anticoagulants, other options may be available, such as wearing compression stockings or using different types of devices. Get help right away if: ??? You have new or increased pain, swelling, or redness in an arm or leg. ??? You have numbness or tingling in an arm or leg. ??? You have shortness of breath while active or at rest. ??? You have chest pain. ??? You have a rapid or irregular heartbeat. ??? You feel light-headed or dizzy. ??? You cough up blood. ??? You notice blood in your vomit, bowel movement, or urine. These symptoms may represent a serious problem that is an emergency. Do not wait to see if the symptoms will go away. Get medical help right away. Call your local emergency services (911 in the [place] Do not drive yourself to the hospital. This information is not intended to replace advice given to you by your health care provider. Make sure you discuss any questions you have with your health care provider. Document Released: 09/12/2006 Document Revised: 02/17/2017 Document Reviewed: 01/07/2016 [employer] Interactive Patient Education ? 2017 [employer] Total Knee Replacement Total knee replacement is a surgery to replace your knee joint with a man-made (prosthetic) joint. The man-made joint is called a prosthesis. It replaces parts of the thigh bone (femur), lower leg bone (tibia), and kneecap (patella). This surgery is done to lessen pain and improve knee movement. What happens before the procedure? Ask your doctor about: ? Changing or stopping your normal medicines. This is especially important if you take diabetes medicines or blood thinners. ? Taking medicines such as aspirin and ibuprofen. These medicines can thin your blood. Do not take these medicines before your procedure if your doctor tells you not to. ??? Get all dental care that you need done before your procedure. Plan to not have dental work done for 3 months after your surgery. ??? Follow instructions from your doctor about what you cannot eat or drink. ??? Ask your doctor how your surgical site will be marked or identified. ??? You may be given antibiotic medicine to help prevent infection. ??? If your doctor prescribes physical therapy, do exercises as told. ??? Do notuse any tobacco products, such as cigarettes, chewing tobacco, or e-cigarettes. If you need help quitting, ask your doctor. ??? You may have a physical exam. ??? You may have tests, such as: ? X-rays. ? MRI. ? CT scan. ? Bone scans. ??? You may have a blood or urine sample taken. ??? Plan to have someone take you home after the procedure. ??? If you will be going home right after the procedure, plan to have someone with you for at least 24 hours. It is best to have someone help care for you for at least 4?6 weeks after surgery. What happens during the procedure? To reduce your risk of infection: ? Your health care team will wash or sanitize their hands. ? Your skin will be washed with soap. ??? An IV tube will be put into one of your veins. ??? You will be given one or more of the following: ? Sedative. This is a medicine that makes you relaxed. ? Local anesthetic. This is a medicine to numb the area. ? General anesthetic. This is a medicine that makes you fall asleep. ? Spinal anesthetic. This is a medicine that numbs your body below the waist. ? Regional anesthetic. This is a medicine that numbs everything below the injection site. ??? A cut (incision) will be made in your knee. ??? Damaged parts of your thigh bone, lower leg bone, and kneecap will be removed. ??? A piece of metal (liner) will be placed on your thigh bone. Pieces of plastic will be placed on your lower leg bone and the underside of your kneecap. ??? One or more small tubes (drains) may be placed near your cut to help drain fluid. ??? Your cut will be closed with stitches (sutures), skin glue, or skin tape (adhesive) strips. Medicine may be put on your cut. ??? A bandage (dressing) will be placed over your cut. The procedure may vary among doctors and hospitals. What happens after the procedure? Your blood pressure, heart rate, breathing rate, and blood oxygen level will be monitored often until the medicines you were given have worn off. ??? You may continue to get fluids and medicines through an IV tube. ??? You will have some pain. There will be medicines to help you. ??? You may have fluid coming from a drain. ??? You may have to wear special socks (compression stockings). These help to prevent blood clots and reduce swelling in your legs. ??? You will be told to move around as much as possible. ??? You may be given a continuous passive motion machine to use at home. You will be shown how to use this machine. ??? Do notdrive for 24 hours if you received a sedative. This information is not intended to replace advice given to you by your health care provider. Make sure you discuss any questions you have with your health care provider. Document Released: 12/04/2012 Document Revised: 05/16/2017 Document Reviewed: 08/18/2016 [employer] Interactive Patient Education ? 2017 [employer] Total Knee Replacement, Care After These instructions give you information about caring for yourself after your procedure. Your doctor may also give you more specific instructions. Call your doctor if you have any problems or questions after your procedure. Follow these instructions at home: Medicines ??? Take ejiw-exi-scazwfl and prescription medicines only as told by your doctor. ??? If you were prescribed an antibiotic medicine, take it as told by your doctor. Do not stop taking the antibiotic even if you start to feel better. ??? If you were prescribed a blood thinner (anticoagulant), take it as told by your doctor. If you have a splint or brace: ??? Wear the splint or brace as told by your doctor. Remove it only as told by your doctor. ??? Loosen the splint or brace if your toes tingle, get numb, or turn cold and blue. ??? Do notlet your splint or brace get wet if it is not waterproof. ??? Keep the splint or brace clean. Bathing ??? Do nottake baths, swim, or use a hot tub until your doctor says it is okay. Ask your doctor if you can take showers. You may only be allowed to take sponge baths for bathing. ??? If you have a splint or brace that is not waterproof, cover it with a watertight covering when you take a bath or a shower. ??? Keep your bandage (dressing) dry until your doctor says it can be taken off. Incision care and drain care ??? Check your cut from surgery (incision) and your drain every day for signs of infection. Check for: ? More redness, swelling, or pain. ? More fluid or blood. ? Warmth. ? Pus or a bad smell. ??? Follow instructions from your doctor about how to take care of your cut from surgery. Make sure you: ? Wash your hands with soap and water before you change your bandage. If you cannot use soap and water, use hand white work cleaner. ? Change your bandage as told by your doctor. ? Leave stitches (sutures), skin glue, or skin tape (adhesive) strips in place. They may need to stay in place for 2 weeks or longer. If tape strips get loose and curl up, you may trim the loose edges. Do not remove tape strips completely unless your doctor says it is okay. ??? If you have a drain, follow instructions from your doctor about caring for it. Do not remove the drain tube or any bandages unless your doctor says it is okay. Managing pain, stiffness, and swelling ??? If directed, put ice on your knee. ? Put ice in a plastic bag. ? Place a towel between your skin and the bag. ? Leave the ice on for 20 minutes, 2?3 times per day. ??? If directed, apply heat to the affected area as often as told by your doctor. Use the heat source that your doctor recommends, such as a moist heat pack or a heating pad. ? Place a towel between your skin and the heat source. ? Leave the heat on for 20?30 minutes. ? Remove the heat if your skin turns bright red. This is especially important if you are unable to feel pain, heat, or cold. You may have a greater risk of getting burned. ??? Move your toes often to avoid stiffness and to lessen swelling. ??? Raise (elevate) your knee above the level of your heart while you are sitting or lying down. ??? Wear elastic knee support for as long as told by your doctor. Driving ??? Do notdrive until your doctor says it is okay. Ask your doctor when it is safe to drive if you have a splint or brace on your knee. ??? Do notdrive or use heavy machinery while taking prescription pain medicine. ??? Do notdrive for 24 hours if you received a sedative. Activity ??? Do notlift anything that is heavier than 10 lb (4.5 kg) until your doctor says it is okay. ??? Do notplay contact sports until your doctor says it is okay. ??? Avoid high-impact activities, including running, jumping rope, and jumping jacks. ??? Avoid sitting for a long time without moving. Get up and move around at least every few hours. ??? If physical therapy was prescribed, do exercises as told by your doctor. ??? Return to your normal activities as told by your doctor. Ask your doctor what activities are safe for you. Safety ??? Do notuse your leg to support your body weight until your doctor says that you can. Use crutches or a walker as told by your doctor. General instructions ??? Do nothave any dental work done for at least 3 months after your surgery. When you do have dental work done, tell your dentist about your joint replacement. ??? Do notuse any tobacco products, such as cigarettes, chewing tobacco, or e-cigarettes. If you need help quitting, ask your doctor. ??? Wear special socks (compression stockings) as told by your doctor. ??? If you have been sent home with a knee joint motion machine (continuous passive motion machine), use it as told by your doctor. ??? Drink enough fluid to keep your pee (urine) clear or pale yellow. ??? If you have been told to lose weight, follow instructions from your doctor about how to do this safely. ??? Keep all follow-up visits as told by your doctor. This is important. Contact a doctor if: ??? You have more redness, swelling, or pain around your cut from surgery or your drain. ??? You have more fluid or blood coming from your cut from surgery or your drain. ??? Your cut from surgery or your drain area feels warm to the touch. ??? You have pus or a bad smell coming from your cut from surgery or your drain. ??? You have a fever. ??? Your cut breaks open after your doctor removes your stitches, skin glue, or skin tape strips. ??? Your new joint feels loose. ??? You have knee pain that does not go away. Get help right away if: ??? You have a rash. ??? You have pain in your calf or thigh. ??? You have swelling in your calf or thigh. ??? You have shortness of breath. ??? You have trouble breathing. ??? You have chest pain. ??? Your ability to move your knee is getting worse. This information is not intended to replace advice given to you by your health care provider. Make sure you discuss any questions you have with your health care provider. Document Released: 12/04/2012 Document Revised: 05/16/2017 Document Reviewed: 08/18/2016 [employer] Interactive Patient Education ? [address] [employer] [address] Thorpe's discharge plan for TKA ?? Continue Tub exercise ([place] with rolled towel or Zero Knee) at home (30 minutes - 3 times per day minimum). The knee should be unsupported during tub exercise. ?? Continue to perform Prone Hangs (as instructed by physical therapy) 3 times per day for 30 minutes each time with a 5 pound weight on ankle. ?? CPM machine - Goal is knee flexion at 110 degrees ANNABEL. ?? Limit standing and limit walking for 4 weeks. Get up 10 times per day and walk approximately 20 feet each time. ?? Elevate the knee and the entire lower extremity for as much as possible for 4 weeks after surgery. ?? Use ice liberally for 30 minutes 3-4 times per day for 4 weeks. May shower on the 3rd day after surgery. PRO[employer] product [employer] Se[employer] should be used for showering because incision area must remain completely dry. ?? Do not take any soaking baths until 1 month after surgery. ?? Adhere to any weight bearing restrictions that have been ordered. ?? Take your blood thinning medication as directed. ?? An Bib wrap can be used to cover the wound to maintain compression and decrease swelling. ?? Call the surgeon for wound drainage that is present beyond 7 days after surgery. ?? Motion is more important than strength or walking distance during the first 6 weeks after surgery. ?? Prescribed postoperative pain medications should be weaned as tolerated beginning 72 hours after surgery. Discontinue 12 hours medications first. Try to be off all narcotics by 14 days after surgery. ?? Bilateral ANTONIO hose are to be worn at all times for DVT prophylaxis. Knee Immobilizer A knee immobilizer, also known as a knee brace, supports your knee and keeps you from bending it. The knee brace may be a splint or a cast. Wear your knee brace and remove the knee brace as told by your doctor. Follow these instructions at home: ??? Use powder (such as baby or talcum powder) to help with sweat and rubbing. ??? Adjust the brace as often as needed while wearing it. It should be firm but not tight. Signs that the brace is too tight include: ? Puffiness (swelling). ? Numbness. ? Color change in your foot or ankle. ? Increased pain. ??? While resting, keep your leg above the level of your heart. Use pillows for support. ??? Remove the knee brace to bathe and sleep. Get help right away if: ??? There is more pain or puffiness in the knee, foot, or ankle. ??? You have problems because of the brace or the brace breaks. This information is not intended to replace advice given to you by your health care provider. Make sure you discuss any questions you have with your health care provider. Document Released: 06/21/2009 Document Revised: 02/17/2017 Document Reviewed: 05/06/2014 [employer] Interactive Patient Education ? 2017 [employer]. Infection Control in the Home If you have an infection or you are taking care of someone who has an infection, it is important to know how to keep the infection from spreading. Follow these guidelines to help stop the spread of infection, and talk to your health care provider. How are infections spread? In order for an infection to spread, the following must be present: ??? A germ. This may be a virus, bacteria, fungus, or parasite. ??? A place for the germ to live. This may be: ? On or in a person, animal, plant, or food. ? In soil or water. ? On surfaces, such as a door handle. ??? A susceptible host. This is a person or animal who does not have resistance (immunity) to the germ. ??? A way for the germ to enter the host. This may occur by: ? Direct contact. This may happen by making contact?such as shaking hands or hugging?with an infected person or animal. Some germs can also travel through the air and spread to you if an infected person coughs or sneezes on you or near you. ? Indirect contact. This is when the germ enters the host through contact with an infected object. Examples include eating contaminated food, drinking contaminated water, or touching a contaminated surface with your hands and then touching your face, nose, or mouth soon after that. How can I help to prevent infection from spreading? There are several things that you can do to help prevent infection from spreading. Hand Washing It is very important to wash your hands correctly, following these steps: 1. Wet your hands with clean, running water. 2. Apply soap to your hands. Liquid soap is better than bar soap. 3. Rub your hands together quickly to create lather. 4. Keep rubbing your hands together for at least 20 seconds. Thoroughly scrub all parts of your hands, including under your fingernails and between your fingers. 5. Rinse your hands with clean, running water until all of the soap is gone. 6. Dry your hands with an air dryer or a clean paper or cloth towel, or let your hands air-dry. Do not use your clothing or a soiled towel to dry your hands. 7. If you are in a public restroom, use your towel to turn off the water faucet and to open the bathroom door. Make sure to wash your hands: ??? Before: ? Visiting a baby or anyone with a weakened or lowered defense (immune) system. ? Putting in and taking out any contact lenses. ??? After: ? Working or playing outside. ? Touching an animal or its toys or leash. ? Handling livestock. ? Using the bathroom or helping a child or adult to use the bathroom. ? Using household all round butcher or toxic chemicals. ? Touching or taking out the garbage. ? Touching anything dirty around your home. ? Handling soiled clothes or rags. ? Taking care of a sick child. This includes touching used tissues, toys, and clothes. ? Sneezing, coughing, or blowing your nose. ? Using public transportation. ? Shaking hands. ? Using a phone, including your mobile phone. ? Touching money. ??? Before and after: ? Preparing food. ? Preparing a bottle for a baby. ? Feeding a baby or a young child. ? Eating. ? Visiting or taking care of someone who is sick. ? Changing a diaper. ? Changing a bandage (dressing) or taking care of an injury or wound. ? Giving or taking medicine. Taking Care of Your Home??? Make sure that you have enough cleaning supplies at all times. These include: ? Disinfectants. ? Reusable cleaning cloths. Wash these after each use. ? Paper towels. ? Utility gloves. Replace your gloves if they are cracked or torn or if they start to peel. ??? Use bleach safely. Never mix it with other cleaning products, especially those that contain ammonia. This mixture can create a dangerous gas that may be deadly. ??? Take care of your cleaning supplies. Toilet brushes, mops, and sponges can breed germs. Soak them in bleach and water for 5 minutes after each use. ??? Do notpour used mop water down the sink. Pour it down the toilet instead. ??? Maintain proper ventilation in your home. ??? If you have a pet, ensure that your pet stays clean. Do not let people with weak immune systems touch bird droppings, fish tank water, or a litter box. ? If you have a cat, be sure to change the litter every day. ??? In the bathroom, make sure you: ? Provide liquid soap. ? Change towels and washcloths frequently. Avoid sharing towels and washcloths. ? Change toothbrushes often and store them separately in a clean, dry place. ? Disinfect the toilet. ? Clean the tub, shower, and sink with standard cleaning products. ? Mop the floor with a standard school cleaner. ? Do notshare personal items, such as razors, toothbrushes, drinking glasses, deodorant, lomeli, brushes, towels, and washcloths. ??? In the kitchen, make sure you: ? Store food carefully. ? Refrigerate leftovers promptly in covered containers. ? Throw out stale or spoiled food. ? Clean the inside of your refrigerator each week. ? Keep your refrigerator set at 40?F (4?C) or less, and set your freezer at 0?F (?18?C) or less. ? Thaw foods in the refrigerator or microwave, not at room temperature. ? Serve foods at the proper temperature. Do not eat raw meat. Make sure it is cooked to the appropriate temperature.?Cook eggs until they are firm. ? Wash fruits and vegetables under running water. ? Use separate cutting boards, plates, and utensils for raw foods and cooked foods. ? Keep work surfaces clean. ? Use a clean spoon each time you sample food while cooking. ? Wash your dishes in hot, soapy water. Air-dry your dishes or use a acquisitions librarian. ? Do notshare forks, cups, or spoons during meals. ??? Wear gloves if laundry is visibly soiled. ??? Change linens each week or whenever they are soiled. ??? Do notshake soiled linens. Doing that may send germs into the air. Put dressings, sanitary or incontinence pads, diapers, and gloves in plastic garbage bags for disposal. This information is not intended to replace advice given to you by your health care provider. Make sure you discuss any questions you have with your health care provider. Document Released: 06/21/2009 Document Revised: 02/11/2017 Document Reviewed: 05/15/2015 [employer] Interactive Patient Education ? 2017 [employer] How to Use Compression Stockings Compression stockings are elastic socks that squeeze the legs. They help to increase blood flow to the legs, decrease swelling in the legs, and reduce the chance of developing blood clots in the lower legs. Compression stockings are often used by people who: ??? Are recovering from surgery. ??? Have poor circulation in their legs. ??? Are prone to getting blood clots in their legs. ??? Have varicose veins. ??? Sit or stay in bed for long periods of time. How to use compression stockings Before you put on your compression stockings: ??? Make sure that they are the correct size. If you do not know your size, ask your health care provider. ??? Make sure that they are clean, dry, and in good condition. ??? Check them for rips and tears. Do not put them on if they are ripped or torn. Put your stockings on first thing in the morning, before you get out of bed. Keep them on for as long as your health care provider advises. When you are wearing your stockings: ??? Keep them as smooth as possible. Do not allow them to bunch up. It is especially important to prevent the stockings from bunching up around your toes or behind your knees. ??? Do notroll the stockings downward and leave them rolled down. This can decrease blood flow to your leg. ??? Change them right away if they become wet or dirty. When you take off your stockings, inspect your legs and feet. Anything that does not seem normal may require medical attention. Look for: ??? Open sores. ??? Red spots. ??? Swelling. Information and tips ??? Do notstop wearing your compression stockings without talking to your health care provider first. ??? Wash your stockings every day with mild detergent in cold or warm water. Do not use bleach. Air-dry your stockings or dry them in a clothes dryer on low heat. ??? Replace your stockings every 3?6 months. ??? If skin moisturizing is part of your treatment plan, apply lotion or cream at night so that your skin will be dry when you put on the stockings in the morning. It is harder to put the stockings on when you have lotion on your legs or feet. Contact a health care provider if: Remove your stockings and seek medical care if: ??? You have a feeling of pins and needles in your feet or legs. ??? You have any new changes in your skin. ??? You have skin lesions that are getting worse. ??? You have swelling or pain that is getting worse. Get help right away if: ??? You have numbness or tingling in your lower legs that does not get better right after you take the stockings off. ??? Your toes or feet become cold and blue. ??? You develop open sores or red spots on your legs that do not go away. ??? You see or feel a warm spot on your leg. ??? You have new swelling or soreness in your leg. ??? You are short of breath or you have chest pain for no reason. ??? You have a rapid or irregular heartbeat. ??? You feel light-headed or dizzy. This information is not intended to replace advice given to you by your health care provider. Make sure you discuss any questions you have with your health care provider. Document Released: 07/10/2010 Document Revised: 02/09/2017 Document Reviewed: 08/20/2015 [employer] Interactive Patient Education ? 2017 [employer] How to walk with a walker The best way to walk with a walker depends on whether you are using a standard walker or a front-wheeled walker. A standard walker has rubber tips on the ends of all four legs. A front-wheeled walker has wheels on the ends of the front legs and rubber tips on the ends of the back legs. ??? Do notuse your walker on stairs or an escalator unless you have been trained by a physical therapist or unless your health care provider approves. To Walk With a Standard Walker: 1. network support technician your walker. Do not slide your standard walker. 2. Set down your walker, one step-length in front of you. Make sure that all four legs of the walker touch the ground at the same time. Your toes should be farther forward than the back legs of your walker. 3. Hold on to the walker for support, and step your weaker leg into the middle of the walker. 4. Step your stronger leg forward to land next to your weaker leg. 5. Repeat this process for each step. To Walk With a Front-Wheeled Walker:1. Slide your front-wheeled walker one step-length in front of you. Your toes should be farther forward than the back legs of your walker. 2. Hold on to the walker for support, and step your weaker leg into the middle of the walker. 3. Step your stronger leg forward to land next to your weaker leg. 4. Repeat the process for each step. Tips??? Always keep both feet within the width of the walker's legs or wheels. ??? When using your walker, you should not feel like you need to lean forward or to the side to keep your hands on the handgrips. ??? Make sure you are following any weight-bearing instructions that your health care provider has given you. ??? If you have a standard walker: ? Do notslide your walker when you are moving. ??? If you have a front-wheeled walker: ? Be careful not to let the walker get too far ahead of you as you walk. ? If your walker does not glide well over carpet, consider cutting an X into two tennis balls and placing the balls over the back legs of your walker. How to stand up with a walker 1. Put your walker in front of you. 2. Slide forward in your chair. 3. Position your legs so that your weaker leg is ahead of you and your stronger leg is bent and near your chair. 4. Position your hands. ??? If your chair has armrests, put each hand on an armrest. ??? If there are no armrests, put the hand opposite your weaker leg on the chair seat, and put the other hand on the center of the walker's crossbar. 5. Lean forward and push up from your chair. 6. Rise by straightening your stronger leg. 7. Steady yourself. 8. Carefully move your hands to the handgrips of the walker. Tips??? Do notpull on the walker when you stand up. This may cause it to tip. ??? Sit in a firm chair whenever you can. A low seat or an overstuffed chair or sofa is hard to get out of. How to sit down with a walker To Sit Down in a Seat That Has Armrests: 1. Back up toward your seat, using your walker, until you feel the back of your legs touch the chair. 2. Carefully reach your hands behind you and put each hand on an armrest. 3. Slowly lower yourself into the seat. To Sit Down in a Seat Without Armrests:1. Back up toward the side of the seat, using your walker, until you feel the back of your legs touch the chair. 2. Use one hand to hold on to the back of the chair, and use the other hand to hold on to the front of the seat. 3. Slowly lower yourself into the seat. How to use a walker on a curb or step To Use a Walker to Step Up:1. Put all four legs of the walker on the curb or step. 2. Get your feet as close to the curb or step as you can. 3. Test the steadiness of the walker by pressing down on the handgrips. 4. If the walker is steady, press down on it with your hands as you step up with your stronger leg. 5. Step up with your weaker leg. To Use a Walker to Step Down: 1. Put all four legs of the walker on the surface that is lower than the curb or step. 2. Get your feet as close to the curb or step as you can. 3. Test the steadiness of the walker by pressing down on the handgrips. 4. If the walker is steady, press down on it with your hands as you step down with your weaker leg. 5. Step down with your stronger leg. This information is not intended to replace advice given to you by your health care provider. Make sure you discuss any questions you have with your health care provider. Document Released: 09/12/2006 Document Revised: 02/09/2017 Document Reviewed: 03/26/2016 [employer] Interactive Patient Education ? 2017 [employer] Hand Washing Introduction Germs like bacteria, viruses, and parasites are found everywhere. They can be in the air and water, and they can be on surfaces like food, door handles, and your skin. Every day, your hands touch germs. Many of these germs can make you and your family sick. Washing your hands is one of the best ways to lower your risk of getting and sharing germs. When should I wash my hands or use a hand-washing alcohol gel? You should wash your hands whenever you think they are dirty. You should also wash your hands: ??? Before:? Visiting a baby or anyone with a weakened or lowered defense (immune) system. ? Putting in and taking out any contact lenses. ??? After:? Working or playing outside. ? Touching an animal or its toys or leash. ? Handling livestock, such as cows or sheep. ? Using the bathroom. ? Using household all round butcher or poisonous chemicals. ? Touching or taking out the garbage. ? Touching anything dirty around your home. ? Handling dirty clothes or rags. ? Taking care of a sick child. This includes touching used tissues, toys, and clothes. ? Sneezing, coughing, or blowing your nose. ? Using public transportation. ? Shaking hands. ? Using a phone, including your mobile phone. ? Touching money. ??? Before and after:? Preparing food. ? Preparing a bottle for a baby. ? Feeding a baby or young child. ? Eating. ? Visiting or taking care of someone who is sick. ? Changing a diaper. ? Changing a bandage (dressing). ? Taking care of an injury or wound. ? Giving or taking medicine. If you are preparing food, hand-washing alcohol gels are not recommended as a replacement for hand washing. What is the right way to wash my hands? Wet your hands with clean, running water. ??? Apply liquid soap or bar soap to your hands. ??? Rub your hands together quickly to create lather. ??? Keep rubbing your hands together for at least 20 seconds. Thoroughly scrub all parts of your hands, including under your fingernails and between your fingers. ??? Rinse your hands with clean, running water. Do this until all the soap is gone. ??? Dry your hands using an air dryer or a clean paper or cloth towel, or let your hands air-dry. Do not use your clothing or a dirty towel to dry your hands. ??? If you are in a public restroom, use your towel:? To turn off the water faucet. ? To open the bathroom door. This information is not intended to replace advice given to you by your health care provider. Make sure you discuss any questions you have with your health care provider. Document Released: 08/25/2009 Document Revised: 02/17/2017 Document Reviewed: 02/07/2015 ? 2017 [facility] Fall Prevention in the Home Introduction Falls can cause injuries. They can happen to people of all ages. There are many things you can do to make your home safe and to help prevent falls. What can I do on the outside of my home? Regularly fix the edges of walkways and driveways and fix any cracks. ??? Remove anything that might make you trip as you walk through a door, such as a raised step or threshold. ??? Trim any bushes or trees on the path to your home. ??? Use bright outdoor lighting. ??? Clear any walking paths of anything that might make someone trip, such as rocks or tools. ??? Regularly check to see if handrails are loose or broken. Make sure that both sides of any steps have handrails. ??? Any raised decks and porches should have guardrails on the edges. ??? Have any leaves, snow, or ice cleared regularly. ??? Use sand or salt on walking paths during winter. ??? Clean up any spills in your garage right away. This includes oil or grease spills. What can I do in the bathroom? Use night lights. ??? Install grab bars by the toilet and in the tub and shower. Do not use towel bars as grab bars. ??? Use non-skid mats or decals in the tub or shower. ??? If you need to sit down in the shower, use a plastic, non-slip stool. ??? Keep the floor dry. Clean up any water that spills on the floor as soon as it happens. ??? Remove soap buildup in the tub or shower regularly. ??? Attach bath mats securely with double-sided non-slip rug tape. ??? Do nothave throw rugs and other things on the floor that can make you trip. What can I do in the bedroom? Use night lights. ??? Make sure that you have a light by your bed that is easy to reach. ??? Do notuse any sheets or blankets that are too big for your bed. They should not hang down onto the floor. ??? Have a firm chair that has side arms. You can use this for support while you get dressed. ??? Do nothave throw rugs and other things on the floor that can make you trip. What can I do in the kitchen? Clean up any spills right away. ??? Avoid walking on wet floors. ??? Keep items that you use a lot in oohx-ai-kyppj places. ??? If you need to reach something above you, use a strong step stool that has a grab bar. ??? Keep electrical cords out of the way. ??? Do notuse floor kyrgyz or wax that makes floors slippery. If you must use wax, use non-skid floor wax. ??? Do nothave throw rugs and other things on the floor that can make you trip. What can I do with my stairs? Do notleave any items on the stairs. ??? Make sure that there are handrails on both sides of the stairs and use them. Fix handrails that are broken or loose. Make sure that handrails are as long as the stairways. ??? Check any carpeting to make sure that it is firmly attached to the stairs. Fix any carpet that is loose or worn. ??? Avoid having throw rugs at the top or bottom of the stairs. If you do have throw rugs, attach them to the floor with carpet tape. ??? Make sure that you have a light switch at the top of the stairs and the bottom of the stairs. If you do not have them, ask someone to add them for you. What else can I do to help prevent falls? Wear shoes that:? Do nothave high heels. ? Have rubber bottoms. ? Are comfortable and fit you well. ? Are closed at the toe. Do not wear sandals. ??? If you use a stepladder:? Make sure that it is fully opened. Do not climb a closed stepladder. ? Make sure that both sides of the stepladder are locked into place. ? Ask someone to hold it for you, if possible. ??? Clearly holly and make sure that you can see:? Any grab bars or handrails. ? First and last steps. ? Where the edge of each step is. ??? Use tools that help you move around (mobility aids) if they are needed. These include:? Canes. ? Walkers. ? Scooters. ? Crutches. ??? Turn on the lights when you go into a dark area. Replace any light bulbs as soon as they burn out. ??? Set up your furniture so you have a clear path. Avoid moving your furniture around. ??? If any of your floors are uneven, fix them. ??? If there are any pets around you, be aware of where they are. ??? Review your medicines with your doctor. Some medicines can make you feel dizzy. This can increase your chance of falling. Ask your doctor what other things that you can do to help prevent falls. This information is not intended to replace advice given to you by your health care provider. Make sure you discuss any questions you have with your health care provider. Document Released: 07/09/2010 Document Revised: 02/17/2017 Document Reviewed: 10/17/2015 ? 2017 [facility] Cryotherapy Introduction WHAT IS CRYOTHERAPY? Cryotherapy, or cold therapy, is a treatment that uses cold temperatures to treat an injury or medical condition. It includes using cold packs or ice packs to reduce pain and swelling. Only use cryotherapy if your doctor says it is okay. HOW DO I USE CRYOTHERAPY? Place a towel between the cold source and your skin. ??? Apply the cold source for no more than 20 minutes at a time. ??? Check your skin after 5 minutes to make sure there are no signs of a poor response to cold or skin damage. Check for:? White spots on your skin. Your skin may look blotchy or mottled. ? Skin that looks blue or pale. ? Skin that feels waxy or hard. ??? Repeat these steps as many times each day as told by your doctor. HOW CAN I MAKE A COLD PACK?When using a cold pack at home to reduce pain and swelling, you can use: ??? A silica gel cold pack that has been left in the freezer. You can buy this online or in stores. ??? A plastic bag of frozen vegetables. ??? A sealable plastic bag that has been filled with crushed ice. Always wrap the pack in a dry or damp towel to avoid direct contact with your skin. WHEN SHOULD I CALL MY DOCTOR?Call your doctor if: ??? You start to have white spots on your skin. This may give your skin a blotchy or mottled look. ??? Your skin turns blue or pale. ??? Your skin becomes waxy or hard. ??? Your swelling gets worse. This information is not intended to replace advice given to you by your health care provider. Make sure you discuss any questions you have with your health care provider. Document Released: 02/28/2009 Document Revised: 02/17/2017 Document Reviewed: 05/26/2016 ? 2017 Elsevier Medication Leaflets: aspirin (oral) ( pir in) Arthritis Pain, Aspir 81, Aspir-Low, Freddy Childrens Aspirin, Durlaza, Ecotrin, Ecpirin, Fasprin, Halfprin, Miniprin What is the most important information I should know about aspirin? You should not use aspirin if you have a bleeding disorder such as hemophilia, a recent history of stomach or intestinal bleeding, or if you are allergic to an NSAID (non-steroidal anti-inflammatory drug). Aspirin can cause Reba's syndrome, a serious and sometimes fatal condition in children. What is aspirin? Aspirin is a salicylate (ce-AQI-em-ate). It works by reducing substances in the body that cause pain, fever, and inflammation. Aspirin is used to treat pain, and reduce fever or inflammation. Aspirin is sometimes used to treat or prevent heart attacks, strokes, and chest pain (angina). Aspirin should be used for cardiovascular conditions only under the supervision of a doctor. Aspirin may also be used for purposes not listed in this medication guide. What should I discuss with my healthcare provider before taking aspirin? Do not give this medicine to a child or teenager with a fever, flu symptoms, or chicken pox. Aspirin can cause Reba's syndrome, a serious and sometimes fatal condition in children. You should not use aspirin if you are allergic to it, or if you have: ? a recent history of stomach or intestinal bleeding; ?? a bleeding disorder such as hemophilia; or ?? if you have ever had an asthma attack or severe allergic reaction after taking aspirin or an NSAID (non-steroidal anti-inflammatory drug). Tell your doctor if you have ever had: ? asthma or seasonal allergies; ?? stomach ulcers; ?? liver disease; ?? kidney disease; ?? a bleeding or blood clotting disorder; ?? gout; or ?? heart disease, high blood pressure, or congestive heart failure. Taking aspirin during late may cause bleeding in the mother or the baby during delivery. Tell your doctor if you are or plan to become . You should not breast-feed while using this medicine. How should I take aspirin? Use exactly as directed on the label, or as prescribed by your doctor. Take with food if aspirin upsets your stomach. Do not crush, chew, break, or open an enteric-coated or delayed-release pill. Swallow it whole. The chewable tablet form of aspirin must be chewed before swallowing. If you use the orally disintegrating tablet or the dispersible tablet, follow all dosing instructions provided with your medicine. If you need surgery, tell your surgeon you currently use this medicine. You may need to stop for a short time. Do not take this medicine if you smell a strong vinegar odor in the aspirin bottle. The medicine may no longer be effective. Store at room temperature away from moisture and heat. What happens if I miss a dose? Since aspirin is used when needed, you may not be on a dosing schedule. Skip any missed dose if it's almost time for your next dose. Do not use two doses at one time. What happens if I overdose? Seek emergency medical attention or call the Poison Help line at . Overdose symptoms may include temporary hearing loss, seizure (convulsions), or coma. What should I avoid while taking aspirin? Avoid alcohol. Heavy drinking can increase your risk of stomach bleeding. If you are taking aspirin to prevent heart attack or stroke, avoid also taking ibuprofen (Advil, Motrin). Ibuprofen may make aspirin less effective. If you must use both medications, take the ibuprofen at least 8 hours before or 30 minutes after you take the aspirin (non-enteric coated form). Ask a doctor or pharmacist before using other medicines for pain, fever, swelling, or cold/flu symptoms. They may contain ingredients similar to aspirin (such as magnesium salicylate, ibuprofen, ketoprofen, or naproxen). What are the possible side effects of aspirin? Get emergency medical help if you have signs of an allergic reaction: hives; difficult breathing; swelling of your face, lips, tongue, or throat. Stop using aspirin and call your doctor at once if you have: ? ringing in your ears, confusion, hallucinations, rapid breathing, seizure (convulsions); ?? severe nausea, vomiting, or stomach pain; ?? bloody or tarry stools, coughing up blood or vomit that looks like coffee grounds; ?? fever lasting longer than 3 days; or ?? swelling, or pain lasting longer than 10 days. Common side effects may include: ? upset stomach, heartburn; ?? drowsiness; or ?? mild headache. This is not a complete list of side effects and others may occur. Call your doctor for medical advice about side effects. You may report side effects to FDA at 8-043-NBE-7002. What other drugs will affect aspirin? Ask your doctor before using aspirin if you take an antidepressant. Taking certain antidepressants with aspirin may cause you to bruise or bleed easily. Ask a doctor or pharmacist before using aspirin with any other medications, especially: ? a blood thinner (warfarin, Coumadin, Jantoven), or other medication used to prevent blood clots; or ?? other salicylates such as Nuprin Backache Caplet, Kaopectate, KneeRelief, Pamprin Cramp Formula, Pepto-Bismol, Tricosal, Trilisate, and others. This list is not complete. Other drugs may affect aspirin, including prescription and cgkg-hxp-uamtheo medicines, vitamins, and herbal products. Not all possible drug interactions are listed here. Where can I get more information? Your pharmacist can provide more information about aspirin. Remember, keep this and all other medicines out of the reach of children, never share your medicines with others, and use this medication only for the indication prescribed. Every effort has been made to ensure that the information provided by [employer]. ('[employer]') is accurate, up-to-date, and complete, but no guarantee is made to that effect. Drug information contained herein may be time sensitive. [employer] information has been compiled for use by healthcare practitioners and consumers in the [place] and therefore [employer] does not warrant that uses outside of the [place] are appropriate, unless specifically indicated otherwise. [employer] drug information does not endorse drugs, diagnose patients or recommend therapy. [facility] drug information is an informational resource designed to assist licensed healthcare practitioners in caring for their patients and/or to serve consumers viewing this service as a supplement to, and not a substitute for, the expertise, skill, knowledge and judgment of healthcare practitioners. The absence of a warning for a given drug or drug combination in no way should be construed to indicate that the drug or drug combination is safe, effective or appropriate for any given patient. [facility] does not assume any responsibility for any aspect of healthcare administered with the aid of information [employer] provides. The information contained herein is not intended to cover all possible uses, directions, precautions, warnings, drug interactions, allergic reactions, or adverse effects. If you have questions about the drugs you are taking, check with your doctor, nurse or pharmacist. Copyright [id number] [employer]. Version: 15.. Revision Date: 12/26/2017. docusate (oral/rectal) (DOK ue sate) Colace, Diocto, Dioeze, Doc-Q-Lace, Docu, Docu Soft, Doculase, Docuprene, Docusil, Docusoft S, DocuSol, DOK, DSS, Dulcolax Stool Softener, Enemeez Mini, Rosalio-Tin, Octycine-250, Pedia-Lax Stool Softener, Saleem Stool Softener, Promolaxin, Silace, Surfak Stool Softener, Lynn-Q-Lax, Vacuant What is the most important information I should know about docusate? You should not use docusate if you have a blockage in your intestines. Do not use docusate while you are sick with nausea, vomiting, or severe stomach pain. You should not take mineral oil while using docusate. What is docusate? Docusate is a stool softener. It makes bowel movements softer and easier to pass. Docusate is used to treat or prevent constipation, and to reduce pain or rectal damage caused by hard stools or by straining during bowel movements. documented in this encounter Plan of Treatment Not on file documented as of this encounter Visit Diagnoses Not on filedocumented in this encounter
--- OUTSIDE RECORDS SUMMARY | 2025-06-19 09:55 | XMS_ITS | Encounter Summary ---
Author Organization [employer] ([place], [place], [place], [place]) Address [address] [place] [address] Care Team Providers Care Client Service Supervisor Name Role Phone Unavailable Primary Care Provider Unavailabl e Encounter Details Date Type Department Care Team (Late st Contact Info) Description 10/10/2018 Transcribed Document [facility] [place] [facility] [place] [address] ProviderFlaco MD [facility] [place] [address] Social History Tobacco Use Types [...] Conversion Note - Historical ProviderMD - 10/10/2018 9:49 AM 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 Pre Procedure Adult Entered On: 10/10/2018 9:52 EST Performed On: 10/10/2018 9:49 EST by RAMIRO BANUELOS RN Height and Weight, Clinical Dosing Height Source : Measured Height Entry Format : [place] Height, Feet : 5 ft(Converted to: 152 cm, 60 Inch) Height, Inches : 10 Inch(Converted to: 0 ft 10 Inch, 25.40 cm) Clinical Height : 177.8 cm Weight Source : Standing scale Weight Entry Format : [place] Clinical Dosing Weight : 131.82 kg Weight, Pounds : 290 lb Body Surface Area (BSA) : 2.45 m2 Body Mass Index : 41.7 kg/m2 (>HHI) [place] Body Weight : 72 kg RAMIRO BANUELOS RN - 10/10/2018 9:49 EST Health Histories Smoking Status : Never (less than 100 in lifetime; none in last 30 days) Smokeless Tobacco Status : Never RAMIRO BANUELOS RN - 10/10/2018 9:49 EST Social History (As Of: 10/10/2018 10:42:59 EST) Tobacco: Use in Last 12 Months: No. (Last Updated: 07/05/2017 07:01:11 EDT by HOWARD MENESES RN) Never (less than 100 in lifetime) Smoking Status. Never Smokeless Tobacco Status. (Last Updated: 09/29/2018 15:11:26 EST by Emily Taylor RN) Alcohol: Use in Last 12 Months: Yes. Days/Week: 2. # Drinks/Day: 2. Total Drinks/Week: 4. Date/Time of Last Drink: 08/12/13. (Last Updated: 08/17/2013 07:10:12 EST by CHERIE GOODMAN RN) Alcohol Use History Yes. Alcohol Use Frequency Socially. (Last Updated: 09/29/2018 15:11:44 EST by Emily Taylor RN) Substance Abuse: Drug Use Hx: No. Use in Last 12 Months: No. (Last Updated: 07/05/2017 07:01:37 EDT by HOWARD MENESES RN) Drug Use Hx: No. Use in Last 12 Months: No. (Last Updated: 09/29/2018 15:11:49 EST by Emily Taylor RN) Nutrition/Health: Regular, Caffeine intake amount: 4 cups per day - coffee. (Last Updated: 09/29/2018 15:12:06 EST by Emily Taylor RN) Home/Environment: Lives with Spouse. (Last Updated: 09/29/2018 15:12:23 EST by Emily Taylor RN) Infectious Disease History Infectious Disease History : Chicken pox/Shingles, Measles, Scarlet fever Isolation Needed : Standard Fever/Chills Last 48 Hours : No Travel To Regions with Travel Advisories : No Travel Outside [place] Within Last 30 Days : No Contact With Traveler to Advisory Region : No Exposure to Contagious Illness : No Tuberculosis Symptoms : None RAMIRO BANUELOS RN - 10/10/2018 9:49 EST Anesthesia/Transfusion History Family History of Anesthesia Reaction : No prior transfusion(s) Blood Transfusion Acceptable to Patient : Yes Transfusion History : Prior anesthesia without reaction Family History of Anesthesia Reaction : None RAMIRO BANUELOS RN - 10/10/2018 9:49 EST Functional Assessment Living Situation : Home Patient Lives With : Spouse Persons Assisting Patient at Home : Spouse Current Daily Living Assistance : None Sensory Deficits : None Current Home Treatments : None Home Equipment : None Professional Skilled Services : None Special Services and Community Resources : None RAMIRO BANUELOS RN - 10/10/2018 10:38 EST Mobility Assistance Prior to Admission : Independent SANDY Hx Falls Immediate/Within 3 Months : No RAMIRO BANUELOS RN - 10/10/2018 10:33 EST Psychosocial History Currently in Unsafe Situation : No Do You Have a Support System? : Yes Tried to Harm Yourself in the Past? : No Thoughts of Harming/Killing Yourself : No RAMIRO BANUELOS RN - 10/10/2018 9:49 EST Advance Directive Patient has Advance Directive *Q : Yes, Advance Directive not with the patient Advance Directive Type : Living will, Medical durable power of assistant county attorney (proxy) Medical Durable Power of Shadow Graph Weight Operator Name : No Copy Advance Directive Verified/on Chart : No RAMIRO BANUELOS RN - 10/10/2018 9:49 EST Teaching/Learning Assessment Barriers To Learning : None evident Individuals Taught : Patient, Spouse Readiness to Learn : Cooperative Baseline Knowledge of Topic : Good Readiness to Learn : Explanation, Printed materials Learning Style Preferences Patient : Printed materials, Verbal explanation Learning Style Preferences Family : Printed materials, Verbal explanation RAMIRO BANUELOS RN - 10/10/2018 9:49 EST Education Topics, Periop Preadmission Perioperative Education Grid Arrival Time/Place : Verbalizes understanding Falls : Verbalizes understanding IV's : Verbalizes understanding NPO Status/Directions : Verbalizes understanding Pain Management : Verbalizes understanding Preprocedure Preparations : Verbalizes understanding Preprocedure Tests/Labs : Verbalizes understanding Responsible Adult : Verbalizes understanding Take/Hold Medications Pre-Procedure : Verbalizes understanding RAMIRO BANUELOS RN - 10/10/2018 9:49 EST General Info Arrived From : Home Mode of Arrival on Unit : Ambulatory Patient Arrival Date/Time : 10/10/2018 8:45 EST Legal Guardian : Spouse Support Person/Patient Transitional Studies Instructor : Yes Support Person/Pt Rep Name : Radha spouse Support Person/Pt Rep Contact Information : [phone] Want Family/Rep/Phys Notified of Admit : No Emergency Contact #1 : Radha Pickard Emergency Contact #1 Emergency Contact #1 Relationship : spouse Emergency Contact #2 : . Emergency Contact #2 Phone Number : . Emergency Contact #2 Relationship : . Information Obtained From : Patient Primary Language : Amharic Preferred Communication Mode : Verbal Communication Barrier : None Currently Lactating : N/A Status : N/A RAMIRO BANUELOS RN - 10/10/2018 9:49 EST Sleep Apnea Risk Assmt Hx of Obstructive Sleep Apnea Diagnosis : No Snore Loudly : Yes Tired, Fatigued, or Sleepy During Day : No Observed Stopping Breathing During Sleep : No Have/Are Being Treated for Hypertension : Yes STOP Sleep Apnea Risk Level Score : 2 STOP Sleep Apnea Risk Level : High RAMIRO BANUELOS RN - 10/10/2018 9:49 EST Chris Scale Chris Sensory Perception : No impairment Chris Moisture : Rarely moist Chris Activity : Walks frequently Chris Mobility : Slightly limited Chris Nutrition : Excellent Chris Friction and Shear : No apparent problem Chris Score : 22 RAMIRO BANUELOS RN - 10/10/2018 9:49 EST Oxygen Therapy Oxygen Therapy Mode : Room air RAMIRO BANUELOS RN - 10/10/2018 9:49 EST Pain Assessment Pain Assessment : Initial assessment Pain Scale Used : 0-10 Scale RAMIRO BANUELOS RN - 10/10/2018 10:33 EST Fall Risk Scales ABCs Fall Injury Risk Identification : Surgery ABC Fall Injury Risk : Moderate to high injury risk SANDY Hx Falls Immediate/Within 3 Months : No Sandy Secondary Diagnosis : Yes SANDY Use of Ambulatory Aid : None SANDY IV Therapy or IV Access : Yes Sandy Gait/Transferring : Normal, bedrest, immobile Sandy Mental Status : Oriented to own ability Sandy Fall Risk Score : 35 SANDY Fall Scale Risk Level : 25-45 Medium Risk [place] Fall Interventions : Adequate lighting, Bed in low position, Call device within reach, Hourly comfort/safety rounds, Non-slip footwear, Personal items within reach, Upper side-rails up, Wheels locked RAMIRO BANUELOS, RN - 10/10/2018 10:38 EST Fall Risk Education Grid Call light use : Verbalizes understanding Nonskid Footwear Use : Verbalizes understanding Siderails use/risks : Verbalizes understanding RAMIRO BANUELOS RN - 10/10/2018 10:38 EST Barriers to Learning : None evident Individuals Taught : Patient, Spouse Readiness to Learn : Cooperative Baseline Knowledge of Topic : Good Teaching Method : Printed materials Learning Style Preferences Family : Printed materials, Verbal explanation Learning Style Preferences Patient : Printed materials, Verbal explanation Teaching Evaluation : Verbalizes understanding RAMIRO BANUELOS RN - 10/10/2018 10:38 EST Education Topics, Day of Surgery DayofSurgery Education Grid Anesthesia/Sedation : Verbalizes understanding Fall Risks : Verbalizes understanding Family Instructions : Verbalizes understanding IV's : Verbalizes understanding Medication Instructions : Verbalizes understanding Pain Management : Verbalizes understanding Responsible Adult : Verbalizes understanding RAMIRO BANUELOS RN - 10/10/2018 10:38 EST Valuables and Belongings Valuables and Belongings : Clothing, Personal devices Clothing : Common streetwear Clothing Disposition : With family Personal Device Disposition : With family, Other: OS CONTACT LENS Personal Devices : Contact lenses RAMIRO BANUELOS RN - 10/10/2018 10:33 EST Pain Scale Intensity : 0 RAMIRO BANUELOS RN - 10/10/2018 10:33 EST Image 4 - Images currently included in the form version of this document have not been included in the text rendition version of the form. [place] Coma Darek Best Motor Response : Obey commands [place] Best Verbal Response : Oriented Darek Eye Opening Response : Spontaneous Darek Coma Score : 15 RAMIRO BANUELOS RN - 10/10/2018 9:49 EST Electronically signed by Emanuel Mercedes Conversion Mechanical Facilities Technician Cerner at 01/12/2023 10:30 PM CDT documented in this encounter Plan of Treatment Not on file documented as of this encounter Visit Diagnoses Not on filedocumented in this encounter
--- OUTSIDE RECORDS SUMMARY | 2025-06-19 09:55 | XMS_ITS | Encounter Summary ---
Author Organization [email or web address] ([place], [place], [place], [place]) Address [address] [place] [address] Care Team Providers Care Supervisor Briar Shop Name Role Phone Unavailable Primary Care Provider Unavailabl e Encounter Details Date Type Department Care Team (Late st Contact Info) Description 10/11/[address] [facility] [place] [facility] [place] [address] ProviderFlaco MD [address] [place] [address] Social History Tobacco Use Types Packs/Day Years Used Date Smoking Tobacco: Never Assessed Sex and Gender Information Value Date Recorded Sex Assigned at Male 03/23/2022 7:23 PM CDT Legal Sex Male 7:23 PM CDT Gender Identity Male 03/23/2022 7:23 PM CDT Sexual Orientation Not on file documented as of this encounter Miscellaneous Notes * Cerner Conversion Note - Flaco ProviderMD - 10/11/2018 10:35 AM ICE CUTTER [address] , [place] [address] Patient Copy Patient Information: Name: PEDRO PICKARD Current Date: 10/11/2018 10:35:17 : 1950 Patient Address: [place] [id number] Patient Attending Physician: DREA SIEGEL DO Primary Care Provider: [facility] (REF[facility] Primary Care Provider Discharge Diagnosis: Aftercare following knee joint replacement surgery Weight on Admission: 290 lb, 0 oz Comment: Follow-up Instructions: With: Address: When: MORAIMA NG [facility], [address] [place] [address] [facility] (1) 9:30 AM Comments: Appointment [...] over 10 pounds, Full weight bearing, Other: Continue Jabari at home all times when not performing PT/HEP TID Prone Hangs, patient shown how to perform CPM machine 0-110 Goal- Knee flexion 110 degrees ANNABEL-Foll... Driving after Discharge: Do not drive Showering/Bathing: No tub bathing, soaking, or swimming, Other: May shower on the 3rd day after surgery. Glad [employer] product Press & Seal should be used for showering because incision area must remain completely dry Notify Provider of: Call the surgeon for wound drainage that is present beyond 7 days after surgery. Wound/Incision Care after Discharge: Keep operative site/wound site clean and dry, Other: You may remove the BIB day after surgery and cover with 4x4 gauze squares and tubular netting . ISREAL REMOVED IN OFFICE IN 2-3 WEEKS. Wound/Incision Care after Discharge Comment: Continue Tub exercise ([place] with rolled towel or Zero Knee) at [...] shower on the 3rd day after surgery. Glad brand product Press & Seal should be used [...] for Home Use: CPM RENTAL [facility] A WALKER [facility] Services: OUT PATIENT PHYSICAL THERAPY AT [facility] 10/12/2018 THURS. AT 8:30 AM [phone] Immunizations Documented During Stay: No Immunizations Found [...] kale, broccoli, cabbage, robert greens, turnip greens, [place] sprouts, peas, cauliflower, seaweed, and parsley. ? Beef liver and pork liver. ? Green tea. ? Soybean oil. ??? Tell your health care provider about any and all medicines, vitamins, and supplements that you take, including aspirin and other ryhx-yom-rvwwafu anti-inflammatory medicines. Be especially cautious with aspirin and anti-inflammatory medicines. Do not take those before you ask your health care provider if it is safe to do so. This is important because many medicines can interfere with warfarin and affect the PT and INR results. ??? Do notstart or stop taking any eaul-yiv-vlbrqaa or prescription medicine unless your health care [...] Avoid contact sports. General instructions ??? Take wxdv-qpl-elrfafs and prescription medicines only as told by [...] 09/12/2006 Document Revised: 02/17/2017 Document Reviewed: 01/07/2016 Elsevier Interactive Patient Education ? 2017 [employer] Total Knee Replacement Total knee replacement [...] 12/04/2012 Document Revised: 05/16/2017 Document Reviewed: 08/18/2016 Granular Interactive Patient Education ? 2017 [employer] Total Knee Replacement, Care After These instructions give you information about caring for yourself after your procedure. Your doctor may also give you more specific instructions. Call your doctor if you have any problems or questions after your procedure. Follow these instructions at home: Medicines ??? Take zdya-gil-hiosuvg and prescription medicines only as told by [...] cannot use soap and water, use hand digital traffic coordinator. ? Change your bandage as told by [...] 12/04/2012 Document Revised: 05/16/2017 Document Reviewed: 08/18/2016 Granular Interactive Patient Education ? [address] Thorpe's discharge plan for TKA ?? Continue Tub exercise ([place] with rolled towel or Zero Knee) at [...] shower on the 3rd day after surgery. [employer] product Press & Seal should be used [...] 06/21/2009 Document Revised: 02/17/2017 Document Reviewed: 05/06/2014 Granular Interactive Patient Education ? 2016 [employer]. Infection Control in the Home If you [...] to use the bathroom. ? Using household medical physicist or toxic chemicals. ? Touching or taking [...] ? Mop the floor with a standard parts cleaner. ? Do notshare personal items, such [...] water. Air-dry your dishes or use a environmental protection officer. ? Do notshare forks, cups, or spoons [...] 06/21/2009 Document Revised: 02/11/2017 Document Reviewed: 05/15/2015 Granular Interactive Patient Education ? 2017 [employer] How to Use Compression Stockings Compression [...] 07/10/2010 Document Revised: 02/09/2017 Document Reviewed: 08/20/2015 Granular Interactive Patient Education ? 2017 [employer] How to walk with a walker [...] To Walk With a Standard Walker: 1. flight superintendent your walker. Do not slide your standard [...] 03/26/2016 Elsevier Interactive Patient Education ? 2017 [employer] Hand Washing Introduction Germs like bacteria, [...] ? Using the bathroom. ? Using household medical physicist or poisonous chemicals. ? Touching or taking [...] Revised: 02/17/2017 Document Reviewed: 02/07/2015 ? 2017 Elsevier Fall Prevention in the Home Introduction Falls [...] items that you use a lot in yrjm-gl-gdzxy places. ??? If you need to reach something above you, use a strong step stool that has a grab bar. ??? Keep electrical cords out of the way. ??? Do notuse floor cook islander or wax that makes floors slippery. If [...] Revised: 02/17/2017 Document Reviewed: 10/17/2015 ? 2017 Elsevier Cryotherapy Introduction WHAT IS CRYOTHERAPY? Cryotherapy, or [...] Revised: 02/17/2017 Document Reviewed: 05/26/2016 ? 2017 Granular Medication Leaflets: aspirin (oral) ( pir in) [...] What is aspirin? Aspirin is a salicylate (zf-DDW-dm-ate). It works by reducing substances in the [...] may report side effects to FDA at 3-571-WNP-4592. What other drugs will affect aspirin? Ask [...] drugs may affect aspirin, including prescription and vjln-klt-ybxdnih medicines, vitamins, and herbal products. Not all [...] to ensure that the information provided by [employer]. ('[employer]') is accurate, up-to-date, and complete, but no guarantee is made to that effect. Drug information contained herein may be time sensitive. [employer] information has been compiled for use by healthcare practitioners and consumers in the [place] and therefore [employer] does not warrant that uses outside of the [place] are appropriate, unless specifically indicated otherwise. [employer] drug information does not endorse drugs, diagnose patients or recommend therapy. [employer] drug information is an informational resource designed [...] effective or appropriate for any given patient. [facility] does not assume any responsibility for any aspect of healthcare administered with the aid of information [employer] provides. The information contained herein is not intended to cover all possible uses, directions, precautions, warnings, drug interactions, allergic reactions, or adverse effects. If you have questions about the drugs you are taking, check with your doctor, nurse or pharmacist. Copyright 9743-7942 [employer]. Version: 15.. Revision Date: 12/26/2017. docusate (oral/rectal) [...]
--- OUTSIDE RECORDS SUMMARY | 2025-06-19 09:55 | XMS_ITS | Encounter Summary ---
Author Organization [facility] ([place], [place], [place], [place]) Address [address] [place] [address] Care Team Providers Care International Flight Attendant Name Role Phone Unavailable Primary Care Provider Unavailabl e Encounter Details Date Type Department Care Team (Late st Contact Info) Description 10/11/2018 Transcribed Document [facility] [place] Family Medicine [facility] [place] [address] ProviderFlaco MD [address] [place] [address] Social History Tobacco Use Types Packs/Day Years Used Date Smoking Tobacco: Never Assessed Sex and Gender Information Value Date Recorded Sex Assigned at Male 03/23/2022 7:23 PM CDT Legal Sex Male 7:23 PM CDT Gender Identity Male 03/23/2022 7:23 PM CDT Sexual Orientation Not on file documented as of this encounter Miscellaneous Notes * Cerner Conversion Note - Flaco ProviderMD - 10/11/2018 8:56 AM KNITTING INSPECTOR Nursing Discharge Summary Entered On: 10/11/2018 8:57 EST Performed On: 10/11/2018 8:56 EST by Judith Rodriguez RN Discharge Documentation Discharge Date/Time : 10/11/2018 11:15 EST Judith Rodriguez RN - 10/11/2018 10:42 EST Patient Disposition, General : Discharge Discharge To : Home with ambulatory/outpatient follow-up Mode Of Departure, General Discharge : Private vehicle Accompanied By, Discharge : Care provider IV Discontinued : Yes Personal Belongings With Patient : Yes Prescriptions Given to Patient : Yes Discharge Instructions Reviewed With, Opportunity For Questions Given : Patient, Care provider Patient Education Completed : Yes Number of Prescriptions Given : 5 Teaching Method : Demonstration, Explanation, Printed materials Teaching Evaluation : Verbalizes understanding Judith Rodriguez RN - 10/11/2018 8:56 EST Electronically signed by Mago [facility] Conversion Test Deskman Cerner at 01/12/2023 10:10 PM CDT documented in this encounter Plan of Treatment Not on file documented as of this encounter Visit Diagnoses Not on filedocumented in this encounter
--- OUTSIDE RECORDS SUMMARY | 2025-06-19 09:55 | XMS_ITS | Encounter Summary ---
Author Organization [employer] ([place], [place], [place], [place]) Address [address] [place] [address] Care Team Providers Care Service Plumber Name Role Phone Unavailable Primary Care Provider Unavailabl e Encounter Details Date Type Department Care Team (Late st Contact Info) Description 10/11/2018 Transcribed Document [facility] [place] [address] [place] [address] ProviderFlaco MD [address] [place] [address] Social History Tobacco Use Types [...] - Flaco ProviderMD - 10/11/2018 10:44 AM DAIRY PROCESSING SUPERVISOR Patient Education Materials Follows: Dr. Thorpe's discharge plan for TKA ?? Continue Tub exercise ([place] with rolled towel or Zero Knee) at [...] shower on the 3rd day after surgery. [employer] product Press & Seal should be used [...] worn at all times for DVT prophylaxis. Dermatology Cryotherapy Introduction WHAT IS CRYOTHERAPY? Cryotherapy, or [...] Revised: 02/17/2017 Document Reviewed: 05/26/2016 ? 2017 [place] [facility] Infection Control in the Home If you [...] to use the bathroom. ? Using household choir teacher or toxic chemicals. ? Touching or taking [...] ? Mop the floor with a standard ware cleaner. ? Do notshare personal items, such [...] water. Air-dry your dishes or use a nail professional. ? Do notshare forks, cups, or spoons [...] 06/21/2009 Document Revised: 02/11/2017 Document Reviewed: 05/15/2015 [employer] Patient Education ? 2017 [employer] Hand Washing Introduction Germs like bacteria, [...] ? Using the bathroom. ? Using household choir teacher or poisonous chemicals. ? Touching or taking [...] 02/17/2017 Document Reviewed: 02/07/2015 ? 2017 [employer] Deep Vein Thrombosis A deep vein thrombosis [...] kale, broccoli, cabbage, robert greens, turnip greens, [place] sprouts, peas, cauliflower, seaweed, and parsley. ? Beef liver and pork liver. ? Green tea. ? Soybean oil. ??? Tell your health care provider about any and all medicines, vitamins, and supplements that you take, including aspirin and other lhyl-pjb-qrgrosc anti-inflammatory medicines. Be especially cautious with aspirin and anti-inflammatory medicines. Do not take those before you ask your health care provider if it is safe to do so. This is important because many medicines can interfere with warfarin and affect the PT and INR results. ??? Do notstart or stop taking any bsey-zio-dybvnqn or prescription medicine unless your health care [...] Avoid contact sports. General instructions ??? Take pfio-bwl-odufkbx and prescription medicines only as told by [...] 09/12/2006 Document Revised: 02/17/2017 Document Reviewed: 01/07/2016 [employer] Patient Education ? 2017 [employer] Total Knee Replacement Total knee replacement [...] 12/04/2012 Document Revised: 05/16/2017 Document Reviewed: 08/18/2016 [employer] Patient Education ? 2017 [employer] Total Knee Replacement, Care After These instructions give you information about caring for yourself after your procedure. Your doctor may also give you more specific instructions. Call your doctor if you have any problems or questions after your procedure. Follow these instructions at home: Medicines ??? Take qzfu-zpw-nnfruhn and prescription medicines only as told by [...] cannot use soap and water, use hand rail washer. ? Change your bandage as told by [...] 12/04/2012 Document Revised: 05/16/2017 Document Reviewed: 08/18/2016 [employer] Patient Education ? 2017 [employer] Knee Immobilizer A knee immobilizer, also known [...] 06/21/2009 Document Revised: 02/17/2017 Document Reviewed: 05/06/2014 [employer] Patient Education ? 2017 [employer] How to walk with a walker The [...] To Walk With a Standard Walker: 1. registered occupational therapist your walker. Do not slide your standard [...] 03/26/2016 [employer] Interactive Patient Education ? 2017 [employer] Physical Medicine and Rehabilitation How to Use Compression Stockings Compression stockings [...] 07/10/2010 Document Revised: 02/09/2017 Document Reviewed: 08/20/2015 [employer] Patient Education ? 2017 [employer] Preventive Medicine Fall Prevention in the Home Introduction Falls [...] items that you use a lot in patl-gu-aigen places. ??? If you need to reach something above you, use a strong step stool that has a grab bar. ??? Keep electrical cords out of the way. ??? Do notuse floor swedish or wax that makes floors slippery. If [...] 02/17/2017 Document Reviewed: 10/17/2015 ? 2017 [employer] documented in this encounter Plan of Treatment Not on file documented as of this encounter Visit Diagnoses Not on filedocumented in this encounter
--- OUTSIDE RECORDS SUMMARY | 2025-06-19 09:55 | XMS_ITS | Encounter Summary ---
Author Organization [employer] ([place], [place], [place], [place]) Address [address] [place] [address] Care Team Providers Care Clinical Nurse Name Role Phone Unavailable Primary Care Provider Unavailabl e Encounter Details Date Type Department Care Team (Late st Contact Info) Description 10/10/2018 Transcribed Document [facility] [place] [address] ProviderFlaco MD [place] [address] Social History Tobacco Use Types Packs/Day Years Used Date Smoking Tobacco: Never Assessed Sex and Gender Information Value Date Recorded Sex Assigned at Male 03/23/2022 7:23 PM CDT Legal Sex Male 7:23 PM CDT Gender Identity Male 03/23/2022 7:23 PM CDT Sexual Orientation Not on file documented as of this encounter Miscellaneous Notes * Cerner Conversion Note - Flaco ProviderMD - 10/10/2018 12:45 PM ROASTER SUPERVISOR ANDRY Main OR IntraOp Summary Primary Physician: BABAR WORRELL MD-ORT Finalized Date/Time: 10/10/18 14:21:41 Pt. Name: PEDRO PICKARD /Sex: 1950 Male Med Rec #: [id number] Physician: BABAR WORRELL MD-ORT Financial #: [id number] Pt. Type: I Room/Bed: [facility]/4 Admit/Disch: 10/09/18 10:38:00 - Institution: [facility] [place] IntraOp Case Attendance Entry 1 Entry 2 Entry 3 Case Attendee BABAR WORRELL RENFROE, REBECCA, Lauren Delgadillo RN MD-ORT Role Performed Surgeon/Proceduralist, BLANKET MAKER/Nurse Geospatial Technologist Bar Finish Operator, First First Time In 10/10/18 12:42:00 10/10/18 12:14:00 10/10/18 12:14:00 Time Out 10/10/18 13:58:00 10/10/18 12:34:00 10/10/18 13:58:00 Procedure Knee Total Joint Knee Total Joint Knee Total Joint Replacement Replacement Replacement Other Attendee Superficial Wound Closed By: Last Modified By: Lauren Mccullough RN Bland, Jordyn A, RN Bland, Jordyn A, RN 10/10/18 14:21:39 10/10/18 14:21:39 10/10/18 14:21:39 Entry 4 Entry 5 Entry 6 Case Attendee HEATHER OTT Rosalie, Maryellen Cooper, Scrub Supervisor Hanging And Trimming Tech Role Performed Scrub, First Scrub, Second Assistive Personnel Time In 10/10/18 12:14:00 10/10/18 12:14:00 10/10/18 12:14:00 Time Out 10/10/18 13:58:00 10/10/18 13:58:00 10/10/18 13:58:00 Procedure Knee Total Joint Knee Total Joint Knee Total Joint Replacement Replacement Replacement Other Attendee Superficial Wound Closed By: Last Modified By: Lauren Mccullough RN Bland, Jordyn A, RN Bland, Jordyn A, RN 10/10/18 14:21:39 10/10/18 14:21:39 10/10/18 14:21:39 Entry 7 Entry 8 Entry 9 Case Attendee NIKIA HOOD, SADI HIGUERA, PAC OTHER, ATTENDEE Role Performed Rotary Dryer Operator, First Physician assistant basketball coach Vendor Time In 10/10/18 12:14:00 10/10/18 12:14:00 10/10/18 12:14:00 Time Out 10/10/18 13:58:00 10/10/18 13:58:00 10/10/18 13:58:00 Procedure Knee Total Joint Knee Total Joint Knee Total Joint Replacement Replacement Replacement Other Attendee GIGI PACHECO Superficial Wound Closed By: Last Modified By: Lauren Mccullough RN Bland, Jordyn A RN Lauren Mccullough RN 10/10/18 14:21:39 10/10/18 14:21:39 10/10/18 14:21:39 Entry 10 Entry 11 Entry 12 Case Attendee LUZ WELLS, BLANKET MAKER LINDA PAZ, LAURA GODFREY, SEUN Role Performed BLANKET MAKER/Nurse Geospatial Technologist BLANKET MAKER/Nurse Geospatial Technologist Don, Second Time In 10/10/18 12:30:00 10/10/18 12:57:00 10/10/18 13:11:00 Time Out 10/10/18 12:59:00 10/10/18 13:58:00 10/10/18 13:35:00 Procedure Knee Total Joint Knee Total Joint Knee Total Joint Replacement Replacement Replacement Other Attendee BLANKET MAKER BREAK Superficial Wound Closed By: Last Modified By: Lauren Mccullough RN Bland, Jordyn A, RN Bland, Jordyn A, RN 10/10/18 14:21:39 10/10/18 14:21:39 10/10/18 14:21:39 [facility] IntraOp Case Attendance Audit 10/10/18 14:21:39 Technical Education Teacher: ELLIE Modifier: ELLIE 1 <+> Time Out 1 <*> Procedure Knee Total Joint Replacement 2 <*> Procedure Knee Total Joint Replacement 3 <+> Time Out 3 <*> Procedure Knee Total Joint Replacement 4 <+> Time Out 4 <*> Procedure Knee Total Joint Replacement 5 <+> Time Out 5 <*> Procedure Knee Total Joint Replacement 6 <+> Time Out 6 <*> Procedure Knee Total Joint Replacement 7 <+> Time Out 7 <*> Procedure Knee Total Joint Replacement 8 <+> Time Out 8 <*> Procedure Knee Total Joint Replacement 9 <+> Time Out 9 <*> Procedure Knee Total Joint Replacement 10 <*> Procedure Knee Total Joint Replacement 11 <+> Time Out 11 <*> Procedure Knee Total Joint Replacement 12 <*> Procedure Knee Total Joint Replacement 10/10/18 13:39:33 Technical Education Teacher: ELLIE Modifier: ELLIE 12 <+> Time Out 12 <*> Procedure Knee Total Joint Replacement 10/10/18 13:14:43 Technical Education Teacher: ELLIE Modifier: ELLIE <+> 12 Case Attendee <+> 12 Role Performed <+> 12 Time In <+> 12 Procedure 10/10/18 13:04:04 Technical Education Teacher: LELIE Modifier: ELLIE 2 <+> Time Out 2 <*> Procedure Knee Total Joint Replacement 10 <+> Time Out 10 <*> Procedure Knee Total Joint Replacement <+> 11 Case Attendee <+> 11 Role Performed <+> 11 Time In <+> 11 Procedure 10/10/18 12:44:21 Technical Education Teacher: ELLIE Modifier: ELLIE 1 <*> Time In 10/10/18 12:42:00 1 <*> Procedure Knee Total Joint Replacement 2 <+> Time In 2 <*> Procedure Knee Total Joint Replacement 3 <+> Time In 3 <*> Procedure Knee Total Joint Replacement 4 <+> Time In 4 <*> Procedure Knee Total Joint Replacement 5 <+> Time In 5 <*> Procedure Knee Total Joint Replacement 6 <+> Time In 6 <*> Procedure Knee Total Joint Replacement 7 <+> Time In 7 <*> Procedure Knee Total Joint Replacement 8 <+> Time In 8 <*> Procedure Knee Total Joint Replacement 9 <+> Time In 9 <*> Procedure Knee Total Joint Replacement 10 <*> Procedure Knee Total Joint Replacement [facility] IntraOp Case Times Entry 1 Patient In Room Time 10/10/18 12:14:00 Out Room Time 10/10/18 13:58:00 Anesthesia Start Time 10/10/18 12:14:00 Stop Time 10/10/18 13:58:00 Anesthesia Ready 10/10/18 12:14:00 Surgery / Procedure Times Start Time 10/10/18 12:45:00 Stop Time 10/10/18 13:53:00 Last Modified By: Lauren Mccullough RN 10/10/18 14:21:28 [facility] IntraOp Case Times Audit 10/10/18 14:21:28 Technical Education Teacher: ELLIE Modifier: ELLIE <+> 1 Out Room Time <+> 1 Stop Time 10/10/18 13:55:11 Technical Education Teacher: ELLIE Modifier: ELLIE <+> 1 Stop Time 10/10/18 12:45:05 Technical Education Teacher: ELLIE Modifier: ELLIE <+> 1 Start Time [facility] IntraOp Cautery Entry 1 ESU Identification Cautery Type Monopolar ESU ID Number [id number] ID Type Hospital Number Cautery Settings Cut Setting 70 Coag Setting 70 ESU Grounding Pad Ground Pad Type Adult Grounding Pad Site Right Upper Abdomen Grounding Pad Lauren Mccullough RN Applied By Grounding Pad Site Warm, dry and intact Skin Condition Before Cautery Grounding Pad Site Unchanged, Warm, dry Skin Condition and intact After Cautery Last Modified By: Lauren Mccullough RN 10/10/18 12:39:41 [facility] IntraOp Communication Entry 1 Communication To Family/Significant other Comment START Communication By Lauren Mccullough RN Date and Time 10/10/18 12:45:00 Last Modified By: Lauren Mccullough RN 10/10/18 12:45:11 [facility] IntraOp Counts Verification Entry 1 Entry 2 Procedure Knee Total Joint Knee Total Joint Replacement Replacement Count Info Count Type Sponge, Sharps, Sponge, Sharps Miscellaneous Counts Verification Baseline/pre-procedure Before wound closure Sequence Count Results Correct, surgeon Correct, surgeon notified notified If Incorrect or Waived complete the Counts Action Taken form: If Intentional Retention, complete the Intential Retention form: Counts Performed By Count Performed By HEATHER OTT BENJAMIN P (Scrub) Count Performed By Lauren Mccullough RN LEININGER, SUSAN, RN (RN) Last Modified By: Lauren Mccullough RN Bland, Jordyn A, RN 10/10/18 12:39:24 10/10/18 13:35:17 [facility] IntraOp Counts Verification Audit 10/10/18 13:35:17 Technical Education Teacher: ELLIE Modifier: ELLIE <+> 2 Procedure <+> 2 Count Type <+> 2 Counts Verification Sequence <+> 2 Count Results <+> 2 Count Performed By (Scrub) <+> 2 Count Performed By (RN) [facility] IntraOp Counts Final Entry 1 Procedure Knee Total Joint Replacement Final Count Info Count Type Sponge, Sharps, Miscellaneous Counts Verification Skin Closure/end of Sequence procedure Count Results Correct, surgeon notified Counts Performed By Count Performed By Josi Dick, (Scrub) Supervisor Hanging And Trimming Count Performed By Lauren Mccullough RN (RN) Last Modified By: Lauren Mccullough RN 10/10/18 13:39:51 [facility] IntraOp Cultures and Spec Summary Entry 1 Cultrures and Specimens Specimen Ordered: Yes Specimens Types Pathology Specimen(s) Labeled Pathology and Sent to Last Modified By: Lauren Mccullough RN 10/10/18 12:39:48 [facility] IntraOp Departure from OR Entry 1 Integumentary Assessment Integumentary WDL Assessment WDL Transfer/Handoff Transfer to PACU Phase I Handoff Method Bedside/Face to face Post-op Transport Bed (including Via specialty) Patient Transport LINDA PAZ CRNA, Accompanied by Lauren Mccullough RN Last Modified By: Lauren Mccullough RN 10/10/18 13:39:57 [facility] IntraOp Drains and Tubes Entry 1 Device Type Hemovac Size 1/8 Drain/Tube Activity Inserted Device Location RIGHT KNEE Method of Drainage Compression Last Modified By: Lauren Mccullough RN 10/10/18 12:39:56 [facility] IntraOp Dressing and Packing Entry 1 Type Dressing Location RIGHT KNEE Wound Dressing Item Bib, 4x4's, Xeroform, Webril, Steristrip Supplemental Limb immobilizer, Cold Applications pack Applied By SADI ARANGO PAC Last Modified By: Lauren Mccullough RN 10/10/18 12:40:09 [facility] IntraOp Fire Risk Assessment Entry 1 Fire Info Surgical Site or 0- No Incision Above the Xyphoid Open O2 Source 0- No (Mask or Cannula) Available Ignition 1- Yes (ESU, Laser, Light Source) Fire Risk 1 Assessment Score Fire Score Fire Risk Yes Assessment Complete Fire Risk Lauren Mccullough RN Assessment Verified By Fire Risk 10/10/18 12:10:00 Assessment Verified Date/Time Fire Risk Standard Fire Yes Safety Precautions Followed Last Modified By: Lauren Mccullough RN 10/10/18 12:40:02 [facility] IntraOp General Case Water Treatment Plant Supervisor 1 Case Information OR OR 06 SJE Case Level 1 Room Verified Yes Wound Class I - Clean Specialty SN Orthopedic Anesthesia Type General ASA Class 3 Diagnosis Preop Diagnosis DJD RIGHT KNEE Postop Same As Preop No Postop Diagnosis DICTATED BY MD Last Modified By: Lauren Mccullough RN 10/10/18 12:41:09 [facility] IntraOp Implant Log Entry 1 Entry 2 Entry 3 Type Implant (Synthetic) Implant (Synthetic) Implant (Synthetic) Implant Log Implant Type Bone Cement Hardware Hardware Tissue Implant Type Implant CEMENT BONE COBALT HV BEARING TIB SZ PATELLA THIN Identification [id number] Description Implant Quantity 2 1 1 Implant Site RIGHT KNEE RIGHT KNEE RIGHT KNEE Implant Identification Model Number Implant Identification Serial Number Implant [id number] Identification Lot Number Implant Dj Surg:[employer] Biomet Biomet Identification Med:Vahid Mortgage Processor Name: Implant [id number] Identification Catalog Number Implant Size Implant Has an Yes Yes Yes Expiration Date Implant Expiration 04/19/19 07/19/23 08/23/22 Date Wasted Radioactive Material Time Implanted Tissue Implant Continue for Tissue Implant Documentation Tissue Identification Number Graft Prep Per Mortgage Processor Instructions: Tissue Preparation Method: Reconstitution Solution: Reconstitution Solution Lot Number Reconstitution Solution Expiration Date: Thawing Solution Thawing Solution Lot Number Thawing Solution Expiration Date Preparation Materials, Other Preparation Materials, Other Lot Number Preparation Materials, Other Expiration Date Tissue Prepared/Processed By Mortgage Processor Paperwork Completed Implant Type Comment Last Modified By: Lauren Mccullough RN Bland, Jordyn A, RN Bland, Jordyn A, RN 10/10/18 13:16:24 10/10/18 13:15:40 10/10/18 13:17:03 Entry 4 Entry 5 Type Implant (Synthetic) Implant (Synthetic) Implant Log Implant Type Hardware Hardware Tissue Implant Type Implant TY TIB I-BEAM FIX COMP FEM CR INTLOK Identification BIOMET [id number] [place] [id number] Description Implant Quantity 1 1 Implant Site RIGHT KNEE RIGHT KNEE Implant Identification Model Number Implant Identification Serial Number Implant [id number] Identification Lot Number Implant Biomet Biomet Identification Mortgage Processor Name: Implant [id number] Identification Catalog Number Implant Size Implant Has an Yes Yes Expiration Date Implant Expiration 08/03/28 06/24/28 Date Wasted Radioactive Material Time Implanted Tissue Implant Continue for Tissue Implant Documentation Tissue Identification Number Graft Prep Per Mortgage Processor Instructions: Tissue Preparation Method: Reconstitution Solution: Reconstitution Solution Lot Number Reconstitution Solution Expiration Date: Thawing Solution Thawing Solution Lot Number Thawing Solution Expiration Date Preparation Materials, Other Preparation Materials, Other Lot Number Preparation Materials, Other Expiration Date Tissue Prepared/Processed By Mortgage Processor Paperwork Completed Implant Type Comment Last Modified By: Lauren Mccullough RN Bland, Jordyn A, RN 10/10/18 13:17:49 10/10/18 13:18:50 [facility] IntraOp Implant Log Audit 10/10/18 13:18:50 Technical Education Teacher: ELLIE Modifier: JORDYNBLAND <+> 5 Implant Identification Description <+> 5 Implant Identification Lot Number <+> 5 Implant Identification Mortgage Processor Name: <+> 5 Implant Expiration Date <+> 5 Implant Identification Catalog Number 10/10/18 13:17:49 Technical Education Teacher: LAURENBLAND Modifier: JORDYNBLAND <+> 4 Implant Identification Description <+> 4 Implant Identification Lot Number <+> 4 Implant Identification Mortgage Processor Name: <+> 4 Implant Expiration Date <+> 4 Implant Identification Catalog Number 10/10/18 13:17:03 Technical Education Teacher: LAURENBLAND Modifier: JORDYNBLAND <+> 3 Implant Identification Description <+> 3 Implant Identification Lot Number <+> 3 Implant Identification Mortgage Processor Name: <+> 3 Implant Expiration Date <+> 3 Implant Identification Catalog Number 10/10/18 13:16:24 Technical Education Teacher: LAURENBLAND Modifier: JORDYNBLAND <+> 1 Implant Identification Description <+> 1 Implant Identification Lot Number <+> 1 Implant Identification Mortgage Processor Name: <+> 1 Implant Expiration Date <+> 1 Implant Identification Catalog Number 10/10/18 13:15:40 Technical Education Teacher: ELLIE Modifier: JORDYNBLAND <+> 2 Implant Identification Description <+> 2 Implant Identification Lot Number <+> 2 Implant Identification Mortgage Processor Name: <+> 2 Implant Expiration Date <+> 2 Implant Identification Catalog Number [facility] IntraOp Intraoperative Assessment Entry 1 Handoff Method Bedside/Face to face Valid History / Yes Physical in Chart Preoperative Yes Checklist Reviewed/Evaluated Allergies Reviewed Yes Patient is Latex No Sensitive Isolation Not applicable Precautions Noted Level of WDL Consciousness (WDL = Alert, Oriented to Person, Place, and Time) Skin Assessment Yes Verified Present Upon IVs Arrival to OR Last Modified By: Lauren Mccullough RN 10/10/18 12:41:42 [facility] IntraOp Intraoperative Equipment Entry 1 Type Equipment Equipment Equipment Nanda Suction System Intraop Monitoring Antiembolic Devices Antiembolic Devices Sequential compression device, knee high Antiembolic Device Left Location Scopes Photo/Video Documentation Photo No Video No Last Modified By: Lauren Mccullough RN 10/10/18 12:41:48 [facility] IntraOp Medication Admin Entry 1 Entry 2 Entry 3 Medication/Irrigant TRANEXAMIC ACID hydrogen peroxide 3% - vancomycin 1Gm vial - 1000MG/10 ML [id number] Combo Med List Time Administered Route of TOPICALW/ 25ML NACL IRRIGANT TOPICAL Administration Dose Dose 1000 1 Unit of Measure mg gram Volume 10 ML BOTTLE Administered By BABAR WORRELL CHRISTENSEN, CHRISTIAN, CHRISTENSEN, CHRISTIAN, MD-ORT -ORT -ORT Procedure Irrigation Irrigant Volume In Irrigant Volume Out Last Modified By: Lauren Mccullough RN Bland, Jordyn A, RN Bland, Jordyn A, RN 10/10/18 12:41:59 10/10/18 12:41:59 10/10/18 12:41:59 Entry 4 Medication/Irrigant ANESTHETIC COCKTAIL-GM Combo Med List Time Administered Route of INJECTION Administration Dose Dose Unit of Measure Volume Administered By BABAR WORRELL MD-ORT Procedure Irrigation Irrigant Volume In Irrigant Volume Out Last Modified By: Lauren Mccullough RN 10/10/18 12:41:59 [facility] IntraOp Patient Positioning Entry 1 Procedure Knee Total Joint Replacement Body Position Supine Left Arm Position Secured on padded arm board Right Arm Position Secured on padded arm board Left Leg Position Uncrossed, parallel Right Leg Position Uncrossed, parallel Feet Uncrossed Yes Pressure Points Yes Checked Positioning Devices Foot Rest, Pillows, Safety Strap, Chest, Sand bags Device Position FOOT PROP ON BED AT PATIENT'S MID CALF AND ANKLE; LATERAL POST AT TOURNIQUET LEVEL Positioned By NIKIA HOOD CSA, RENFROE, REBECCA, ABDOULAYE, Lauren Mccullough, SEUN Position Verified Positioning Yes Verified by Anesthesia Positioning Yes Verified by Surgeon Last Modified By: Lauren Mccullough RN 10/10/18 12:42:14 [facility] IntraOp Sign In Entry 1 Patient, Site, Yes Procedure Identified Surgical Consent Yes Confirmed Relevant Surgical Yes Documents Available Surgical Site Yes Marked by person performing procedure Anesthesia Machine Yes Check Completed Medication Checks Yes Completed Airway Difficult Yes Airway/Aspiration Intervention Equipment Available Blood Loss Risk Yes Blood Loss Yes Intervention Equipment Prepared and Ready Hypothermia Risk Yes Warming Measures Yes Taken Last Modified By: Lauren Mccullough RN 10/10/18 12:42:16 [facility] Intra Op Sign Out Entry 1 RN Confirmation Surgical Yes Procedure(s) Identified Instrument, Sponge Yes and Sharps Counts Correct/Documented Equipment Problems N/A Documented Specimen Labeled Yes Correctly Urinary Catheter N/A Documented in IView Felix Patient Yes Recovery Concerns Reviewed with Anesthesia Provider, Surgeon and RN Felix Patient Yes Management Concerns Reviewed with Anesthesia Provider, Surgeon and RN Safety Checklist Yes Elements Complete? RN Sign Out Lauren Mccullough RN Signature RN Sign Out 10/10/18 13:58:00 Signature Date/Time Plan of Care Outcome - Fire Risk OUTCOME STATEMENT: Goal met Patient is free from injury related to surgical fire Plan of Care Outcome - Pt Positioning OUTCOME STATEMENT: Goal met Absence of signs and symptoms of positioning injury. Plan of Care Outcome - Skin Prep OUTCOME STATEMENT: Goal met Intraoperative care is consistent with measures to prevent infection Plan of Care Outcome - Xray/Images OUTCOME STATEMENT: N/A Absence of observable signs or symptoms of radiation injury Plan of Care Outcome - Counts OUTCOME STATEMENT: Goal met Absence of signs and symptoms of injury related to extraneous objects Last Modified By: Lauren Mccullough RN 10/10/18 14:21:37 [facility] Intra Op Sign Out Audit 10/10/18 14:21:37 Technical Education Teacher: ELLIE Modifier: ELLIE <+> 1 RN Sign Out Signature Date/Time [facility] IntraOp Skin Prep Entry 1 Procedure Knee Total Joint Replacement Prescribed Yes Pre-Surgical Prep Completed Prep Area RIGHT LEG AND FOOT Intraop Prep Prep Agents DuraPrep, Alcohol Prep by Lauren Mccullough RN Hair Removal Methods No hair removal performed Last Modified By: Lauren Mccullough RN 10/10/18 12:42:35 [facility] IntraOp Surgical Procedures Entry 1 Procedure Knee Total Joint Replacement Additional RIGHT TOTAL KNEE Procedure ARTHROPLASTY Description Primary Procedure Yes Primary Surgeon BABAR WORRELL MD-ORT Start 10/10/18 12:45:00 Stop 10/10/18 13:53:00 Anesthesia Type General Specialty SN Orthopedic Wound Class I - Clean Last Modified By: Lauren Mccullough RN 10/10/18 13:55:12 [facility] IntraOp Surgical Procedures Audit 10/10/18 13:55:12 Technical Education Teacher: ELLIE Modifier: ELLIE <+> 1 Start <+> 1 Stop [facility] IntraOp Temp Regulation Devices Entry 1 Temp Regulation Temperature Forced Air Warming Regulation Device device Temperature Upper body Regulation Site Temperature BRANDI, LINDA, BLANKET MAKER Regulation Device Applied by Last Modified By: Lauren Mccullough RN 10/10/18 12:42:42 [facility] IntraOp Time Out Entry 1 Procedure to be Knee Total Joint Performed Replacement Time Out Time Out Pause Time 10/10/18 12:42:00 All activity Yes suspended (unless life threatening emergency) Team Verbally Correct patient Confirms Information identity, Correct side and site are marked, Consent form is present and accurate, Agreement on the procedure to be done, Correct patient position, Relevant images/results properly labeled/appropriately displayed, Confirm antibiotics have been administered, Confirm the skin prep has dried, Confirm prosthesis/implant/devic e is present, Performed in location of procedure after prepped/draped Antibiotic Yes Prophylaxis Administered Or In Progress Within the Last 60 Minutes Beta Meghan Yes Administered Venous Yes Thromboembolism Prophylaxis Required Anticipated Critical Events Surgeon None expected Anesthesia Provider None expected Nursing Assures Sterility of instruments, Implant Availability Essential Imaging Yes Labeled and Displayed Last Modified By: Lauren Mccullough RN 10/10/18 12:44:15 [facility] IntraOp Time Out Audit 10/10/18 12:44:15 Technical Education Teacher: ELLIE Modifier: ELLIE 1 <+> Time Out Pause Time 1 <*> Procedure to be Performed Knee Total Joint Replacement [facility] IntraOp Tourniquet Entry 1 Type Pneumatic Setting 350 mmHg Pheumatic Yes Tourniquet Checked Per Protocol Size 34 inches Placement Thigh, right upper Skin Protection - Yes Padded Under Cuff Applied By NIKIA HOOD, CSA Removed By SADI ARANGO, PAC Times Start Time 10/10/18 12:44:00 Stop Time 10/10/18 13:51:00 Last Modified By: Lauren Mccullough RN 10/10/18 13:51:27 [facility] IntraOp Tourniquet Audit 10/10/18 13:51:27 Technical Education Teacher: ELLIE Modifier: ELLIE 1 <*> Setting 350 mmHg 1 <*> Applied By NIKIA HOOD, CSA 1 <*> Removed By SADI ARANGO, PAC 1 <*> Placement Thigh, right upper 1 <*> Type Pneumatic 1 <*> Pheumatic Tourniquet Checked Per Yes Protocol 1 <*> Size 34 inches 1 <*> Skin Protection - Padded Under Cuff Yes 1 <*> Start Time 10/10/18 12:44:00 1 <+> Stop Time 10/10/18 12:44:37 Technical Education Teacher: ELLIE Modifier: ELLIE <+> 1 Start Time Case Comments <None> Finalized By: Lauren Mccullough, RN Document Signatures Signed By: Lauren Mccullough RN 10/10/18 14:21 documented in this encounter Plan of Treatment Not on file documented as of this encounter Visit Diagnoses Not on filedocumented in this encounter
--- OUTSIDE RECORDS SUMMARY | 2025-06-19 09:55 | XMS_ITS | Encounter Summary ---
Author Organization [employer] ([place], [place], [place], [place]) Address [address] [place] [address] Care Team Providers Care Stock Patcher Name Role Phone Unavailable Primary Care Provider Unavailabl e Encounter Details Date Type Department Care Team (Late st Contact Info) Description 10/11/2018 Transcribed Document [facility] [place] [facility] [place] [address] ProviderFlaco MD [address] [place] [id number] Social History Tobacco Use Types Packs/Day [...] - Historical ProviderMD - 10/11/2018 5:00 AM RAMPMAN Pain Assessment Entered On: 10/11/2018 7:47 EST Performed On: 10/11/2018 7:22 EST by Noni Carreon Rn Intervention Information: acetaminophen Performed by Julien Magallon Rn on 10/11/2018 06:22:00 EST acetaminophen,1000mg Oral Pain Assessment Pain Assessment : Follow-up assessment Pain Scale Goal : 3 Pain Scale Used : 0-10 Scale Noni Carreon Rn - 10/11/2018 7:46 EST Pain Scale Intensity : 3 Noni Carreon Rn - 10/11/2018 7:46 EST Image 4 - Images currently included in the form version of this document have not been included in the text rendition version of the form. documented in this encounter Plan of Treatment Not on file documented as of this encounter Visit Diagnoses Not on filedocumented in this encounter
--- OUTSIDE RECORDS SUMMARY | 2025-06-19 09:56 | XMS_ITS | Encounter Summary ---
Author Organization [employer] ([place], [place], [place], [place]) Address [address] [place] [address] Care Team Providers Care Finished Cloth Checker Name Role Phone Unavailable Primary Care Provider Unavailabl e Encounter Details Date Type Department Care Team (Late st Contact Info) Description 09/29/2018 Transcribed Document [facility] [place] [facility] [place] [address] ProviderFlaco MD [facility] [place] [address] Social History Tobacco Use Types Packs/Day Years Used Date Smoking Tobacco: Never Assessed Sex and Gender Information Value Date Recorded Sex Assigned at Male 03/23/2022 7:23 PM CDT Legal Sex Male 7:23 PM CDT Gender Identity Male 03/23/2022 7:23 PM CDT Sexual Orientation Not on file documented as of this encounter Miscellaneous Notes * Cerner Conversion Note - Flaco ProviderMD - 09/29/2018 3:10 PM PHOTOENGRAVING FINISHER PAT Adult Entered On: 09/29/2018 15:17 EST Performed On: 09/29/2018 15:10 EST by Emily Taylor RN Vital Measurements Temperature Source : Temporal artery scanning Temperature Mode : Fahrenheit Temperature, Fahrenheit : 98.0 Deg F Clinical Temperature, C : 36.7 Deg C Pulse Method : Non-Invasive BP Device Peripheral Pulse Rate : 93 bpm Respiratory Rate : 18 Breaths/Min Blood Pressure Location : Arm, right upper Blood Pressure Source : Non-Invasive BP Device Blood Pressure Position : Sitting Systolic Blood Pressure : 148 mmHg (HI) Diastolic Blood Pressure : 86 mmHg Oxygen Saturation : 93 % (LOW) Emily Taylor, SEUN - 09/29/2018 15:10 EST Height and Weight, Clinical Dosing Height Source : Measured Height Entry Format : Moffat Height, Feet : 5 ft(Converted to: 152 cm, 60 Inch) Height, Inches : 10 Inch(Converted to: 0 ft 10 Inch, 25.40 cm) Clinical Height : 177.8 cm Weight Source : Standing scale Weight Entry Format : Moffat Clinical [facility] Weight : 131.82 kg Weight, Pounds : 290 lb Body Surface Area (BSA) : 2.45 m2 Body Mass Index : 41.7 kg/m2 (>HHI) [place] Body Weight : 72 kg Emily Taylor RN - 09/29/2018 15:10 EST Health Histories Smoking Status : Never (less than 100 in lifetime; none in last 30 days) Smokeless Tobacco Status : Never Emily Taylor RN - 09/29/2018 15:10 EST Social History (As Of: 09/29/2018 15:17:48 EST) Tobacco: Use in Last 12 Months: No. (Last Updated: 07/05/2017 07:01:11 EDT by HOWARD MENESES, SEUN) Never (less than 100 in lifetime) Smoking Status. Never Smokeless Tobacco Status. (Last Updated: 09/29/2018 15:11:26 EST by Emily Taylor RN) Alcohol: Use in Last 12 Months: Yes. Days/Week: 2. # Drinks/Day: 2. Total Drinks/Week: 4. Date/Time of Last Drink: 08/12/13. (Last Updated: 08/17/2013 07:10:12 EST by CHEIRE GOODMAN RN) Alcohol Use History Yes. Alcohol Use Frequency Socially. (Last Updated: 09/29/2018 15:11:44 EST by Emily Taylor RN) Substance Abuse: Drug Use Hx: No. Use in Last 12 Months: No. (Last Updated: 07/05/2017 07:01:37 EDT by HOWARD MENESES, SEUN) Drug Use Hx: No. Use in Last 12 Months: No. (Last Updated: 09/29/2018 15:11:49 EST by Emily Taylor, SEUN) Nutrition/Health: Regular, Caffeine intake amount: 4 cups per day - coffee. (Last Updated: 09/29/2018 15:12:06 EST by Emily Taylor RN) Home/Environment: Lives with Spouse. (Last Updated: 09/29/2018 15:12:23 EST by Emily Taylor, SEUN) Infectious Disease History Infectious Disease History : Chicken pox/Shingles, Measles, Scarlet fever Fever/Chills Last 48 Hours : No Travel To Regions with Travel Advisories : No Travel Outside [place] Within Last 30 Days : No Contact With Traveler to Advisory Region : No Tuberculosis Symptoms : None Emily Taylor RN - 09/29/2018 15:10 EST Anesthesia/Transfusion History Family History of Anesthesia Reaction : No prior transfusion(s) Blood Transfusion Acceptable to Patient : Yes Transfusion History : Prior anesthesia without reaction Family History of Anesthesia Reaction : None Emily Taylor RN - 09/29/2018 15:10 EST Functional Assessment Functional ADL Evaluation Index EBN Bathing : Independent (2) Dressing : Independent (2) Toileting : Independent (2) Transferring Bed or Chair : Independent (2) Continence : Independent (2) Feeding : Independent (2) Emily Taylor RN - 09/29/2018 15:10 EST ADL Index Score : 12 Emily Taylor RN - 09/29/2018 15:10 EST Advance Directive Patient has Advance Directive *Q : Yes, Advance Directive not with the patient Advance Directive Type : Living will, Medical durable power of traffic law attorney (proxy) Medical Durable Power of Steffen House Supervisor Name : No Copy Advance Directive Verified/on Chart : No Emily Taylor RN - 09/29/2018 15:10 EST Psychosocial History Currently in Unsafe Situation : No Tried to Harm Yourself in the Past? : No Thoughts of Harming/Killing Yourself : No Emily Taylor RN - 09/29/2018 15:10 EST Teaching/Learning Assessment Barriers To Learning : None evident Individuals Taught : Patient Readiness to Learn : Cooperative Readiness to Learn : Explanation, Printed materials Learning Style Preferences Patient : Printed materials, Verbal explanation Emily Taylor RN - 09/29/2018 15:10 EST Education Topics, Periop Preadmission Perioperative Education Grid Arrival Time/Place : Verbalizes understanding CHG Preoperative Bathing/Cloths : Verbalizes understanding Infection Control : Verbalizes understanding NPO Status/Directions : Verbalizes understanding Preprocedure Preparations : Verbalizes understanding Preprocedure Tests/Labs : Verbalizes understanding Remove Body Piercings : Verbalizes understanding Responsible Adult : Verbalizes understanding Take/Hold Medications Pre-Procedure : Verbalizes understanding Emily Taylor RN - 09/29/2018 15:10 EST General Info 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 Emergency Contact #2 Phone Number : . Emergency Contact #2 Relationship : . Primary Language : Indian Preferred Communication Mode : Verbal Communication Barrier : None Emily Taylor RN - 09/29/2018 15:10 EST Chris Scale Chris Sensory Perception : Slightly limited Chris Moisture : Rarely moist Chris Activity : Walks occasionally Chris Mobility : Slightly limited Chris Nutrition : Adequate Chris Friction and Shear : No apparent problem Chris Score : 19 Emily Taylor RN - 09/29/2018 15:10 EST Sleep Apnea Risk Assmt Hx of Obstructive Sleep Apnea Diagnosis : No Snore Loudly : Yes Tired, Fatigued, or Sleepy During Day : No Observed Stopping Breathing During Sleep : No Have/Are Being Treated for Hypertension : Yes STOP Sleep Apnea Risk Level Score : 2 STOP Sleep Apnea Risk Level : High Emily Taylor RN - 09/29/2018 15:10 EST documented in this encounter Plan of Treatment Not on file documented as of this encounter Visit Diagnoses Not on filedocumented in this encounter
--- OUTSIDE RECORDS SUMMARY | 2025-06-19 09:56 | XMS_ITS | Encounter Summary ---
Author Organization [employer] ([place], [place], [place], [place]) Address [address] [place] [address] Care Team Providers Care Underwater Hunter Trapper Name Role Phone Unavailable Primary Care Provider Unavailabl e Encounter Details Date Type Department Care Team (Late st Contact Info) Description 11/22/2018 Transcribed Document [facility] [place] [address] [place] [address] ProviderFlaco MD [address] [place] [address] Social History Tobacco Use Types Packs/Day Years Used Date Smoking Tobacco: Never Assessed Sex and Gender Information Value Date Recorded Sex Assigned at Male 03/23/2022 7:23 PM CDT Legal Sex Male 7:23 PM CDT Gender Identity Male 03/23/2022 7:23 PM CDT Sexual Orientation Not on file documented as of this encounter Miscellaneous Notes * Cerner Conversion Note - Flaco Oneill MD - 11/22/2018 10:14 AM GREENHOUSE SUPERINTENDENT Patient Education Materials Follows: What to expect after the Procedure: After the procedure, it is common to have: ?? Pain and swelling. ?? A small amount of blood or clear fluid coming from your incision for up to 7 days. ?? It is normal to have a moderate amount of bleeding from the site of the drain that was pulled on the morning after surgery. You can hold pressure on the area for 3-5 minutes and cover with a bandage as needed. Diet: ?? Resume usual diet ?? No alcoholic beverages while taking pain medication ?? Drink 8-10 glasses of water a day to prevent constipation from pain medication ?? Increase fiber to help prevent constipation. Straining can cause increased pressure and pain in your incision area ?? Increase protein to promote healing Driving: ?? Do not drive until your health care provider approves. Ask your health care provider when it is safe to drive if you have an immobilizer on your knee. ?? Do not drive or operate heavy machinery while taking prescription pain medicine. ?? Do not drive for 24 hours if you received a sedative. Activity: ?? Do not lift anything that is heavier than 10 lb (4.5 kg) until your health care provider approves. ?? No strenuous activity ?? Avoid high-impact activities, including running, jumping rope, and jumping jacks. ?? Avoid sitting for a long time without moving. Get up and move around at least every few hours. ?? Keep legs elevated while seated and place surgery leg on 2-3 pillows, this will decrease swelling ?? Continue doing blue foam and zapata basin ???tub time?? 3 times a day for 30 minutes at a time. More often is better. ?? Continue using walker until cleared by physical therapy Bathing: ?? Do not take baths, swim, or use a hot tub for one month after surgery. ?? May shower on the third day after surgery by covering incision with Glad Brand Press and Seal saran wrap. After showering, dry off completely BEFORE removing saran wrap. ?? Use Press and Seal saran wrap to shower for one month after surgery ?? You must be seated to shower until you are no longer using the walker Other: ?? Remove SUSHANT wrap on the second day after surgery. Cover incision with 4x4 gauze squares and retainer netting, then put on compression stocking. Change 4x4 gauze squares and netting daily for 5-7 days until drainage stops ?? Hold all NSAIDS (ibuprofen, motrin, advil, alleve, mobic) until you follow up with your primary care provider ?? Continue Aspirin 81mg twice a day for 45 days to help prevent blood clots ?? Wear compression stockings on both legs for 6 weeks. Only remove to shower and inspect skin then put back on ?? Use ice therapy for 20-30 minutes at a time and leave off for 20-30 minutes at a time. Always keep a towel or cloth between the ice pack and your skin ?? Continue to use Incentive Spirometer 10 times an hour while awake for one month to help prevent pneumonia Contact a health care provider if: ?? You have more redness, swelling, or pain around your incision. ?? You have more fluid or blood coming from your incision. ?? Your incision or drain site feels warm to the touch. ?? You have pus or a bad smell coming from your incision. ?? You have a fever. ?? Your incision breaks open after your health care provider removes your sutures, skin glue, or adhesive tape. ?? Your prosthesis feels loose. ?? You have knee pain that does not go away. DVT: Blood Clot Blood clots are a common risk after an orthopedic surgery Symptoms: ?? Swelling of your leg or arm, especially if one side is much worse. ?? Warmth and redness of your leg or arm, especially if one side is much worse. ?? Pain in your arm or leg. If the clot is in your leg, symptoms may be more noticeable or worse when you stand or walk. ?? A feeling of pins and needles, if the clot is in the arm. The symptoms of a DVT that has traveled to the lungs (pulmonary embolism, PE) usually start suddenly and include: ?? Shortness of breath while active or at rest. ?? Coughing or coughing up blood or blood-tinged mucus. ?? Chest pain that is often worse with deep breaths. ?? Rapid or irregular heartbeat. ?? Feeling light-headed or dizzy. ?? Fainting. ?? Feeling anxious. ?? Sweating. There may also be pain and swelling in a leg if that is where the blood clot started. How is this prevented? ?? Exercise regularly. For at least 30 minutes every day, engage in: ? Activity that involves moving your arms and legs. ? Activity that encourages good blood flow through your body by increasing your heart rate. ?? Exercise your arms and legs every hour during long-distance travel (over 4 hours). ?? Drink plenty of water and avoid drinking alcohol while traveling. ?? Avoid sitting or lying in bed for long periods of time without moving your legs. ?? Maintain a weight that is appropriate for your height. Ask your health care provider what weight is healthy for you. ?? If you are a woman who is over 35 years of age, avoid unnecessary use of medicines that contain estrogen. These include control pills. ?? Do not smoke, especially if you take estrogen medicines. If you need help quitting, ask your health care provider. ?? Wear compression stockings (if told by your health care provider) to help prevent blood clots from forming. High Fiber/High Protein Diet High fiber foods: To prevent constipation ?? Grains Whole-grain breads. Multigrain cereal. Oats and oatmeal. Brown rice. Barley. Bulgur wheat. Millet. Bran muffins. Popcorn. Jerome wafer crackers. ?? Vegetables Sweet potatoes. Spinach. Kale. Artichokes. Cabbage. Broccoli. Green peas. Carrots. Squash. ?? Fruits Berries. Pears. Apples. Oranges. Avocados. Prunes and raisins. Dried figs. ?? Meats and Other Protein Sources [place], kidney, mayers, and soy beans. Split peas. Lentils. Nuts and seeds. ?? Dairy Fiber-fortified yogurt. ?? Beverages Fiber-fortified soy milk. Fiber-fortified orange juice. ?? Other Fiber bars. High-protein foods: To promote healing High-protein foods contain 4 grams (4 g) or more of protein per serving. They include: ?? Beef, ground sirloin (cooked) ??? 3 oz have 24 g of protein. ?? Cheese (hard) ??? 1 oz has 7 g of protein. ?? Chicken breast, boneless and skinless (cooked) ??? 3 oz have 13.4 g of protein. ?? Cottage cheese ??? 1/2 cup has 13.4 g of protein. ?? Egg ??? 1 egg has 6 g of protein. ?? Fish, filet (cooked) ??? 1 oz has 6???7 g of protein. ?? Garbanzo beans (canned or cooked) ??? 1/2 cup has 6???7 g of protein. ?? Kidney beans (canned or cooked) ??? 1/2 cup has 6???7 g of protein. ?? Spears (cooked) ??? 3 oz has 24 g of protein. ?? Milk ??? 1 cup (8 oz) has 8 g of protein. ?? Nuts (peanuts, pistachios, almonds) ??? 1 oz has 6 g of protein. ?? Peanut butter ??? 1 oz has 7???8 g of protein. ?? Pork tenderloin (cooked) ??? 3 oz has 18.4 g of protein. ?? Pumpkin seeds ??? 1 oz has 8.5 g of protein. ?? Soybeans (roasted) ??? 1 oz has 8 g of protein. ?? Soybeans (cooked) ??? 1/2 cup has 11 g of protein. ?? Soy milk ??? 1 cup (8 oz) has 5???10 g of protein. ?? Soy or vegetable shelia ??? 1 shelia has 11 g of protein. ?? Blue Point seeds ??? 1 oz has 5.5 g of protein. ?? Tofu (firm) ??? 1/2 cup has 20 g of protein. ?? Tuna (canned in water) ??? 3 oz has 20 g of protein. ?? Yogurt ??? 6 oz has 8 g of protein. Fall Prevention ?? Use night lights. ?? Install grab bars by the toilet and in the tub and shower. Do not use towel bars as grab bars. ?? Use non-skid mats or decals on the floor of the tub or shower. ?? If you need to sit down while you are in the shower, use a plastic, non-slip stool. ?? Keep the floor dry. Immediately clean up any water that spills on the floor. ?? Remove soap buildup in the tub or shower on a regular basis. ?? Remove throw rugs and other tripping hazards from the floor. ?? Place frequently used items in [id number] places ?? Keep electrical cables out of the way. ?? Do not leave any items on the stairs. ?? Make sure that there are handrails on both sides of the stairs. Fix handrails that are broken or loose. Make sure that handrails are as long as the stairways. ?? Check any carpeting to make sure that it is firmly attached to the stairs. Fix any carpet that is loose or worn. ?? Avoid having throw rugs at the top or bottom of stairways, or secure the rugs with carpet tape to prevent them from moving. ?? Wear closed-toe shoes that fit well and support your feet. Wear shoes that have rubber soles or low heels. ?? Use mobility aids as needed, such as canes, walkers, scooters, and crutches. ?? Turn on lights if it is dark. Replace any light bulbs that burn out. ?? Set up furniture so that there are clear paths. Keep the furniture in the same spot. ?? Be aware of any and all pets. ?? Review your medicines with your healthcare provider. Some medicines can cause dizziness or changes in blood pressure, which increase your risk of falling. Hand Washing You should wash your hands whenever you think they are dirty. You should also wash your hands: ?? After: ? Working or playing outside. ? Touching an animal or its toys or leash. ? Handling livestock. ? Using the bathroom. ? Using household diver assistant or toxic chemicals. ? Touching or taking out the garbage. ? Touching anything dirty around your home. ? Handling soiled clothes or rags. ? Taking care of a sick child. This includes touching used tissues, toys, and clothes. ? Sneezing, coughing, or blowing your nose. ? Using public transportation. ? Shaking hands. ? Using a phone, including your mobile phone. ? Touching money. ?? Before and after: ? Preparing food. ? Feeding a baby or young child. ? Eating. ? Visiting or taking care of someone who is sick. ? Changing a diaper. ? Changing a bandage (dressing) or taking care of an injury or wound. ? Giving or taking medicine. If soap and clean water are not available, use an alcohol-based wipe, spray, or hand gel. Use a hand-sanitizing agent that contains at least 60% alcohol. If you are preparing food, hand sanitizers are not recommended as a substitute for hand washing. Walker Use To Walk With a Front-Wheeled Walker: 1. Slide your front-wheeled walker one step-length in front of you. Your toes should be farther forward than the back legs of your walker. 2. Hold on to the walker for support, and step your weaker (surgery) leg into the middle of the walker. 3. Step your stronger leg forward to land next to your weaker leg. 4. Repeat the process for each step. ?? Always keep both feet within the width of the walker's legs or wheels. ?? When using your walker, you should not feel like you need to lean forward or to the side to keep your hands on the handgrips. ?? Make sure you are following any weight-bearing instructions that your health care provider has given you. ?? Be careful not to let the walker get too far ahead of you as you walk. ?? If your walker does not glide well over carpet, consider cutting an X into two tennis balls and placing the balls over the back legs of your walker. To Use a Walker to Step Up: 1. Put all four legs of the [...] 5. Step down with your stronger leg. Knee Immobilizer Brace: ?? Adjust the brace as often as needed while wearing it. It should be firm but not tight. Signs that the brace is too tight include: ? Puffiness (swelling). ? Numbness. ? Color change in your foot or ankle. ? Increased pain. documented in this encounter Plan of Treatment Not on file documented as of this encounter Visit Diagnoses Not on filedocumented in this encounter
--- OUTSIDE RECORDS SUMMARY | 2025-06-19 09:56 | XMS_ITS | Encounter Summary ---
Author Organization [employer] ([place], [place], [place], [place]) Address [address] [place] [address] Care Team Providers Care Immigration Case Manager Name Role Phone Unavailable Primary Care Provider Unavailabl e Encounter Details Date Type Department Care Team (Late st Contact Info) Description 11/28/2019 Transcribed Document [facility] [place] [facility] [place] [address] ProviderFlaco MD [address] [place] [id number] Social History Tobacco Use Types Packs/Day Years Used Date Smoking Tobacco: Never Assessed Sex and Gender Information Value Date Recorded Sex Assigned at Male 03/23/2022 7:23 PM CDT Legal Sex Male 7:23 PM CDT Gender Identity Male 03/23/2022 7:23 PM CDT Sexual Orientation Not on file documented as of this encounter Miscellaneous Notes * Cerner Conversion Note - Flaco ProviderMD - 11/28/2019 5:11 PM TRANSMITTER CHIEF Total Joints Assessment Entered On: 11/28/2019 17:12 EST Performed On: 11/28/2019 17:11 EST by Noni Carreon RN Surgical Services JR UZMA. Knee Survey 1. How severe is your knee stiffness after first wakening in the morning? : Mild 2. Twisting/pivoting on your knee : Moderate 3. Straightening knee fully : None 4. Going up or down stairs : Mild 5. Standing upright : None 6. Rising from sitting : None 7. Bending to floor/pick up worker an object : Mild KOOS Raw Score (ref) : 5 Noni Carreon RN Surgical Services - 11/28/2019 17:11 EST PROMIS Global Health Scale In general, would you say your health is: : Good In general, would you say your quality of life is: : Good In general, how would you rate your physical health? : Good In general, how would you rate your mental health, including your mood and your ability to think? : Very good In general, how would you rate your satisfaction with your social activities and relationships? : Very good In general, please rate how well you carry out your usual social activities and roles. (This includes activities at home, at work and in your community, and responsibilities as a parent, child, spouse, employee, friend, etc.) : Very good To what extent are you able to carry out your everyday physical activities such as walking, climbing stairs, carrying groceries, or moving a chair? : Mostly How often have you been bothered by emotional problems such as feeling anxious, depressed or irritable? : Never How would you rate your fatigue on average? : Mild How would you rate your pain on average? : 2 Global Physical Health Score (ref) : 15 Global Mental Health Score (ref) : 16 Noni Carreon RN Surgical Services - 11/28/2019 17:11 EST documented in this encounter Plan of Treatment Not on file documented as of this encounter Visit Diagnoses Not on filedocumented in this encounter
--- OUTSIDE RECORDS SUMMARY | 2025-06-19 09:56 | XMS_ITS | Encounter Summary ---
Author Organization [employer] ([place], [place], [place], [place]) Address [address] [place] [address] Care Team Providers Care Fire Extinguisher Sprinkler Inspector Name Role Phone Unavailable Primary Care Provider Unavailabl e Encounter Details Date Type Department Care Team (Late st Contact Info) Description 11/22/2018 Transcribed Document [facility] [place] [facility] [place] [address] ProviderFlaco MD [address] [place] [id number] Social History Tobacco Use Types Packs/Day Years Used Date Smoking Tobacco: Never Assessed Sex and Gender Information Value Date Recorded Sex Assigned at Male 03/23/2022 7:23 PM CDT Legal Sex Male 7:23 PM CDT Gender Identity Male 03/23/2022 7:23 PM CDT Sexual Orientation Not on file documented as of this encounter Miscellaneous Notes * Cerner Conversion Note - Historical ProviderMD - 11/22/2018 12:00 AM TUNE UP MECHANIC Pain Assessment Entered On: 11/22/2018 2:00 EST Performed On: 11/22/2018 0:37 EST by Shauna Collazo RN Intervention Information: traMADol Performed by Shauna Collazo RN on 11/21/2018 23:37:00 EST traMADol,50mg Oral Pain Assessment Pain Assessment : Follow-up assessment Pain Scale Used : FACES Pain Intervention, Drug : Medicated Pain Improved by Intervention : Yes Shauna Collazo RN - 11/22/2018 2:00 EST Pain Scale Intensity : 1 Shauna Collazo RN - 11/22/2018 2:00 EST Image 4 - Images currently included in the form version of this document have not been included in the text rendition version of the form. documented in this encounter Plan of Treatment Not on file documented as of this encounter Visit Diagnoses Not on filedocumented in this encounter
--- OUTSIDE RECORDS SUMMARY | 2025-06-19 09:56 | XMS_ITS | Encounter Summary ---
Author Organization [facility] ([place], [place], [place], [place]) Address [address] [place] [address] Care Team Providers Care Police Chief Name Role Phone Unavailable Primary Care Provider Unavailabl e Encounter Details Date Type Department Care Team (Late st Contact Info) Description 10/10/2018 Transcribed Document [facility] [place] Family Medicine [facility] [place] [address] ProviderFlaco MD [facility] [place] [address] Social History Tobacco Use Types [...] Conversion Note - Flaco ProviderMD - 10/10/2018 4:38 PM [employer] Evaluation, Occupational Therapy Entered On: 10/11/2018 12:00 EST Performed On: 10/11/2018 8:32 EST by FELICITAS MONTGOMERY OTR/L General Information, OT Visit Type, OT : Initial evaluation Patient Orders : Order Date Order Ordering 10/10/2018 16:39 OT Evaluation and Treatment Ordered By: BABAR WORRELL MD-ORT 10/10/2018 16:39 OT Treatment Instructions Ordered By: BABAR WORRELL MD-ORT Active Diagnoses : 10/11/2018 00:00 Aftercare following joint replacement surgery Therapy Diagnosis, OT : reduced mobility Admission Date : 10/09/2018 10:38 Assisted by, OT : Physical Therapist Personal Devices : Personal Devices Contact lenses Assistive Devices : Assistive Devices No Devices Recorded Precautions in Place : Fall prevention measures FELICITAS MONTGOMERY OTR/L - 10/11/2018 11:53 EST General Status Patient Received Status : Up in chair, Chair alarm activated Treatment Start Time : 10/11/2018 8:32 EST Patient Left Status : RN/PCT informed, Communication board completed, All needs met and within reach, Other: in PT gym. RN/PCT Informed Comment : nursing ok'd tx. id and verified. Treatment End Time : 10/11/2018 8:48 EST Treatment Time : 16 Minute(s) FELICITAS MONTGOMERY OTR/L - 10/11/2018 11:53 EST History and Environment, OT Living Situation, Therapy : Home Patient Lives With : Spouse Persons Assisting Patient at Home : Spouse Professional Skilled Services : None Persons Providing Information : Patient Home Equipment, Therapy : Cane, Walker Cane : Cane, single point Walker : Walker, front wheel Home Setup : One story Stairs : Yes Stair Location(s) : Outside Outside Stairs, Number of Steps : 1 Railing Outside : No FELICITAS MONTGOMERY OTR/Ted - 10/11/2018 11:53 EST Prior LOF Bathing, OT : Independent Prior LOF Bed Mobility : Independent Prior LOF Upper Body Dressing, OT : Independent Prior LOF Lower Body Dressing, OT : Independent Prior LOF Toileting : Independent Prior LOF Transfer : Independent Prior LOF Grooming, OT : Independent Prior LOF for IADLs, OT : Independent FELICITAS MONTGOMERY OTR/Ted - 10/11/2018 11:53 EST Upper Extremity Upper Extremity Dominance : Right Right UE Active ROM : WFL Right UE Strength : WFL Left UE Active ROM : WFL Left UE Strength : WFL Upper Extremity Strength Impaired : No Fine Motor Coordination Impaired : No FELICITAS MONTGOMERY OTR/Ted - 10/11/2018 11:53 EST Self Care/Home Management, OT Self Feeding Assist Level, OT : Independent, complete Grooming Assist Level, OT : Independent, complete Bathing Assist Level, OT : Supervision or set-up Upper Body Dressing Assist Level, OT : Independent, complete Lower Body Dressing Assist Level, OT : Supervision or set-up Toileting Assist Level : Supervision or set-up Toileting Device : [id number] commode Toilet Transfer Assist Level : Supervision or set-up Toilet Transfer Device : Belt, gait, Walker, rolling, [id number] commode FELICITAS MONTGOMERY OTR/Ted - 10/11/2018 11:53 EST Mobility Device/Prosthesis/Wt Bearing Weight Bearing Status Maintained : Yes Weight Bearing Status : As tolerated Functional Mobility Device : Gait belt, Walker, front wheel Functional Mobility with Brace/Splint : No FELICITAS MONTGOMERY OTR/Ted - 10/11/2018 11:53 EST Functional Mobility Mobility Grid Sit to Stand : Supervision/set-up Stand to Sit : Supervision/set-up FELICITAS MONTGOMERY OTR/Ted - 10/11/2018 11:53 EST AM PAC Daily Activity Putting On/Taking Off Lower Body Clothes : None Bathing (Washing, Rinsing, Drying) : A little Toileting Includes Toilet, Bedpan, Urinal : None Putting On/Taking Off Upper Clothing : None Taking Care of Grooming : None Eating Meals : None AM-PAC Daily Activity Raw Score : 23 AM-PAC Daily Activity Standardized Score : 51.12 AM-PAC Daily Activity CMS 0-100% Score : 15.86 % FELICITAS MONTGOMERY OTR/Ted - 10/11/2018 11:53 EST Image 3 - Images currently included in the form version of this document have not been included in the text rendition version of the form. Functional Limitation Reporting, OT Functional Limitation Visit Type, OT : Initial evaluation Severity Determination Method, OT : Clinical Judgment, AM PAC Daily Activity Self Care G8987 - Current Mod, OT : 1 - 19% impaired, limited or restricted (CI) Self Care G8988 - Proj Goal Mod, OT : 1 - 19% impaired, limited or restricted (CI) Self Care G8989 - Discharge Mod, OT : 1 - 19% impaired, limited or restricted (CI) FELICITSA MONTGOMERY OTR/Ted 10/11/2018 11:53 EST Activity Tolerance, OT Activity Comment : GOOD FELICITAS MONTGOMERY OTR/Ted 10/11/2018 11:53 EST Cognition Assessment, OT Orientation : Oriented x 4 FELICITAS MONTGOMERY OTR/Ted 10/11/2018 11:53 EST Education OT Occupational Therapy Education Grid Activity of Daily Living Training : Verbalizes understanding, Returns demonstration Functional Mobility Training : Verbalizes understanding, Returns demonstration Home Safety : Verbalizes understanding (Comment: home safety and car transfer handout [ALEXSANDRA MONTGOMERYARACELY Campbell/Ted - 10/11/2018 11:53 EST] ) Role of Occupational Therapy : Verbalizes understanding FELICITSA MONTGOMERYARACELY/Ted - 10/11/2018 11:53 EST Indication Assessment, OT Occupational Therapy Indicated : No Occupational Therapy Not Indicated : No skilled services indicated FELICITAS MONTGOMERYARACELY/Ted - 10/11/2018 11:53 EST Plan of Care, OT OT Tx Plan/Goals Established w Patient : No Reason OT Treatment/Plan Not Established : see OT eval Plan of Care Comment, OT : see OT eval FELICITAS MONTGOMERY ARACELY Snider/Ted - 10/11/2018 11:53 EST Treatment Note Subjective Comment : pt ok'd tx. Additional Objective Information : EVAL = 8 min ADL = 8 min Pt educated on ADL transfers and LBDressing techniques at RW level, home safety, car transfers. Assessment : Pt is set-up/SBA with ADL transfers and LB self care tasks. Pt is scheduled to DC home today. No further skilled OT needs at this level of care. Plan for Treatment : OT eval only. ALEXSANDRA MONTGOMERYARACELY Campbell/Ted - 10/11/2018 11:53 EST Pain Assessment Pain Scaled Used : 0-10 Pain scale Pain Score Pre-Intervention : 2 Pain Score During-Intervention : 2 Pain Score Post-Intervention. : 2 Location : Knee, right FELICITAS MONTGOMERY ARACELY Snider/Ted - 10/11/2018 11:53 EST Image 1 - Images currently included in the form version of this document have not been included in the text rendition version of the form. Anticipated Discharge Needs, OT/PT Anticipated Discharge to : Other: to be determined. Recommend Continued Therapy at Discharge : Yes VALENTINAFELICITAS OTR/Ted - 10/11/2018 11:53 EST [place] OT Charges OT Selfcare/Hm Mgmt Ea 15 Min : 1 OT Eval Low Complexity : 1 VALENTINAFELICITAS OTR/Ted - 10/11/2018 11:53 EST Electronically signed by [facility] Conversion Y[employer] D[employer]ner at 01/12/2023 10:33 PM CDT documented in this encounter Plan of Treatment Not on file documented as of this encounter Visit Diagnoses Not on filedocumented in this encounter
--- OUTSIDE RECORDS SUMMARY | 2025-06-19 09:56 | XMS_ITS | Encounter Summary ---
Author Organization [facility] ([place], [place], [place], [place]) Address [address] [place] [address] Care Team Providers Care Demonstrator [employer] Name Role Phone Unavailable Primary Care Provider Unavailabl e Encounter Details Date Type Department Care Team (Late st Contact Info) Description 11/22/2018 Transcribed Document [facility] Family Medicine [facility] [place] [address] ProviderFlaco MD [address] [place] [id number] Social History Tobacco Use Types Packs/Day Years Used Date Smoking Tobacco: Never Assessed Sex and Gender Information Value Date Recorded Sex Assigned at Male 03/23/2022 7:23 PM CDT Legal Sex Male 7:23 PM CDT Gender Identity Male 03/23/2022 7:23 PM CDT Sexual Orientation Not on file documented as of this encounter Miscellaneous Notes * Cerner Conversion Note - Flaco ProviderMD - 11/22/2018 10:20 AM FACILITY MANAGER HISTOLOGY [address] , [place] [address] Patient Copy Patient Information: Name: PEDRO PICKARD Current Date: 11/22/2018 10:20:32 : 1950 Patient Address: [place] [id number] Patient Attending Physician: TESHA MCCLAIN MD Primary Care Provider: BLU CRUZ (REF)[facility] Primary Care Provider Discharge Diagnosis: S/P knee replacement Weight on Admission: 285 lb, 0 oz Comment: Follow-up Instructions: With: Address: When: Follow up with primary care provider Within 5 to 7 days Comments: we recommend no NSAIDs due to chronic kidney disease and you should follow up with PCP regarding this. With: Address: When: M[facility] [address] [facility], [address] [place], [place] [id number] [facility] (1) 9:00 AM Comments: Appointment has been made Discharge Instructions: Medical Equipment for Home Use: CPM and Walker already at pts home. Home Health Services: Pt has appointment for Out Patient Physical Therapy at [facility] for 11/23 he will take a copy of order with him. Immunizations Documented During Stay: No Immunizations Found Heart Failure Discharge Instructions (if any): Stroke Related Discharge Instructions (if any): Warfarin Related Discharge Instructions (if any): Final Medication List: Printed Prescriptions aspirin (aspirin 81 mg oral delayed release tablet) 1 Tablet(s) Oral Two Times A Day. Refills: 0. Other Medications acetaminophen (Tylenol) 1,000 Milligram(s) Oral Three Times A Day. for one week and then as needed for pain not to exceed 3000 mg/day. atorvastatin (Lipitor 20 mg oral tablet) 1 Tablet(s) Oral At Bedtime. Refills: 11. bumetanide (bumetanide 2 mg oral tablet) 1 Tablet(s) Oral Every Day. Refills: 0. docusate (Colace 100 mg oral capsule) 1 Capsule(s) Oral Every Day as needed as needed for constipation. Refills: 2. gabapentin (gabapentin 300 mg oral capsule) 1 Capsule(s) Oral At Bedtime. Refills: 0. lisinopril (lisinopril 2.5 mg oral tablet) 1 Tablet(s) Oral Two Times A Day. Refills: 0. metoprolol (Metoprolol Succinate ER 50 mg oral tablet, extended release) 1 Tablet(s) Oral At Bedtime. nitroglycerin (Nitrostat 0.4 mg sublingual tablet) 1 Tablet(s) SubLINgual every 5 minutes as needed Chest Pain. oxyCODONE (oxyCODONE 5 mg oral capsule) 1-2 Cap mg Oral Q4-6H; as needed for pain. Refills: 0. spironolactone (spironolactone 25 mg oral tablet) 1 Tablet(s) Oral Two Times A Day. Start if yourBP is at or above 105. Refills: 0. traMADol (traMADol 50 mg oral tablet) 1-2 Tab Oral Q4-6H; as needed as needed for pain. Refills: 0. Patient Allergies: No Known Allergies Medication Instructions: [...] difficulty sleeping, and nervousness. Patient education materials: Chronic Kidney Disease, Adult Chronic kidney disease (CKD) occurs when the kidneys are damaged during a period of 3 or more months. The kidneys are two organs that do many important jobs in the body, which include: ??? Removing wastes and extra fluids from the blood. ??? Making hormones that maintain the amount of fluid in your tissues and blood vessels. ??? Maintaining the right amount of fluids and chemicals in the body. A small amount of kidney damage may not cause problems, but a large amount of damage may make it difficult or impossible for the kidneys to work the way they should. If steps are not taken to slow down the kidney damage or stop it from getting worse, the kidneys may stop working permanently (end stage kidney disease). Most of the time, CKD does not go away, but it can often be controlled. People who have CKD can usually live normal lives. What are the causes? The most common causes of this condition are diabetes and high blood pressure (hypertension). Other causes include: ??? Heart and blood vessel (cardiovascular) disease. ??? Kidney diseases: ? Glomerulonephritis. ? Interstitial nephritis. ? Polycystic kidney disease. ? Renal vascular disease. ??? Diseases that affect the immune system. ??? Genetic diseases. ??? Medicines that damage the kidneys, such as anti-inflammatory medicines. ??? Poisoning. ??? Being around or in contact with poisonous (toxic) substances. ??? A kidney or urinary infection that occurs again (recurs). ??? Vasculitis. ??? Repeat kidney infections. ??? A problem with urine flow that may be caused by: ? Cancer. ? Having kidney stones more than one time. ? An enlarged prostate in males. What increases the risk? This condition is more likely to develop in people who are: ??? Older than age 60. ??? Female. ??? Of -[place] descent. ??? Current smokers or former smokers. ??? Obese. You may also have an increased risk for CKD if you have a family history of CKD?or you?frequently take medicines that are damaging to the kidneys. What are the signs or symptoms? Symptoms develop slowly and may not be obvious until the kidney damage becomes severe. It is possible to have a kidney disease for years without showing any symptoms. Symptoms of this condition can include: ??? Swelling (edema) of the face, legs, ankles, or feet. ??? Numbness, tingling, or loss of feeling (sensation) in the hands or feet. ??? Tiredness (lethargy). ??? Nausea or vomiting. ??? Confusion or trouble concentrating. ??? Problems with urination, such as: ? Painful or burning feeling during urination. ? Decreased urine production. ? Frequent urination, especially at night. ? Bloody urine. ??? Muscle twitches and cramps, especially in the legs. ??? Shortness of breath. ??? Weakness. ??? Constant itchiness. ??? Loss of appetite. ??? Metallic taste in the mouth. ??? Trouble sleeping. ??? Pale lining of the eyelids and surface of the eye (conjunctiva). How is this diagnosed? This condition may be diagnosed with various tests. Tests may include: ??? Blood tests. ??? Urine tests. ??? Imaging tests. ??? A test in which a sample of tissue is removed from the kidneys to be looked at under a microscope (kidney biopsy). These test results will help your health care provider determine what class of CKD you have. How is this treated? Most cases of CKD cannot be cured. Treatment usually involves relieving symptoms and preventing or slowing the progression of the disease. Treatment may include: ??? A special diet, which may require you to avoid alcohol, salty foods (sodium), and foods that are high in potassium, calcium, and protein. ??? Medicines: ? To lower blood pressure. ? To relieve low blood count (anemia). ? To relieve swelling. ? To protect your bones. ? To improve the balance of electrolytes in your blood. ??? Removing toxic waste from the body by using hemodialysis or peritoneal dialysis if the kidneys can no longer do their job (kidney failure). ??? Management of other conditions that are causing your CKD or making it worse. Follow these instructions at home: ??? Follow your prescribed diet. ??? Take rjrd-hno-avvbgqj and prescription medicines only as told by your health care provider. ? Do nottake any new medicines unless approved by your health care provider. Many medicines can worsen your kidney damage. ? Do nottake any vitamin and mineral supplements unless approved by your health care provider. Many nutritional supplements can worsen your kidney damage. ? The dose of some medicines that you take may need to be adjusted. ??? Do notuse any tobacco products, such as cigarettes, chewing tobacco, and e-cigarettes. If you need help quitting, ask your health care provider. ??? Keep all follow-up visits as told by your health care provider. This is important. ??? Keep track of your blood pressure. Report changes in your blood pressure as told by your health care provider. ??? Achieve and maintain a healthy weight. If you need help with this, ask your health care provider. ??? Start or continue an exercise plan. Try to exercise at least 30 minutes a day, 5 days a week. ??? Stay current with immunizations as told by your health care provider. Where to find more information: ??? [place] [employer] of Kidney Patients: www.aakp.org ??? National Kidney Foundation: www.kidney.org ??? [place] [employer]: www.akfinc.org ??? Life Options Rehabilitation Program: www.lifeoptions.org and www.kidneyschool.org Contact a health care provider if: ??? Your symptoms get worse. ??? You develop new symptoms. Get help right away if: ??? You develop symptoms of end-stage kidney disease, which include: ? Headaches. ? Abnormally dark or light skin. ? Numbness in the hands or feet. ? Easy bruising. ? Frequent hiccups. ? Chest pain. ? Shortness of breath. ? End of menstruation in women. ??? You have a fever. ??? You have decreased urine production. ??? You have pain or bleeding when you urinate. This information is not intended to replace advice given to you by your health care provider. Make sure you discuss any questions you have with your health care provider. Document Released: 06/21/2009 Document Revised: 02/17/2017 Document Reviewed: 05/11/2013 [employer] Interactive Patient Education ? 2017 [employer] What to expect after the Procedure: After [...] Barley. Bulgur wheat. Millet. Bran muffins. Popcorn. Mary Alice wafer crackers. ?? Vegetables Sweet potatoes. Spinach. Kale. Artichokes. Cabbage. Broccoli. Green peas. Carrots. Squash. ?? Fruits Berries. Pears. Apples. Oranges. Avocados. Prunes and raisins. Dried figs. ?? Meats and Other Protein Sources [place], kidney, mayers, and soy beans. Split peas. [...] shelia has 11 g of protein. ?? [place] seeds ??? 1 oz has 5.5 g [...] floor. ?? Place frequently used items in bqsl-wv-ejadd places ?? Keep electrical cables out of [...] ? Using the bathroom. ? Using household facility manager histology or toxic chemicals. ? Touching or taking [...] your foot or ankle. ? Increased pain. Medication Leaflets: gabapentin (GA ba PEN tin) Gralise, Horizant, Neurontin What is the most important information I should know about gabapentin? Some people have thoughts about suicide while taking this medicine. Children taking gabapentin may have behavior changes. Stay alert to changes in your mood or symptoms. Report any new or worsening symptoms to your doctor. Do not stop using gabapentin suddenly, even if you feel fine. What is gabapentin? Gabapentin is an anti-epileptic drug, also called an anticonvulsant. It affects chemicals and nerves in the body that are involved in the cause of seizures and some types of pain. Gabapentin is used in adults to treat nerve pain caused by herpes virus or shingles (herpes zoster). The Horizant brand of gabapentin is also used to treat restless legs syndrome (RLS). The Neurontin brand of gabapentin is also used to treat seizures in adults and children who are at least 3 years old. Use only the brand and form of gabapentin your doctor has prescribed. Check your medicine each time you get a refill to make sure you receive the correct form. Gabapentin may also be used for purposes not listed in this medication guide. What should I discuss with my healthcare provider before taking gabapentin? You should not use gabapentin if you are allergic to it. To make sure gabapentin is safe for you, tell your doctor if you have ever had: ? kidney disease (or if you are on dialysis); ?? diabetes; ?? depression, a mood disorder, or suicidal thoughts or actions; ?? a seizure (unless you take gabapentin to treat seizures); ?? liver disease; ?? heart disease; or ?? (for patients with RLS) if you are a day sleeper or work a warehouse worker 2nd shift. Some people have thoughts about suicide while taking this medicine. Your doctor should check your progress at regular visits. Your family or other caregivers should also be alert to changes in your mood or symptoms. It is not known whether this medicine will harm an unborn baby. Tell your doctor if you are or plan to become . Seizure control is very important during , and having a seizure could harm both mother and baby. Do not start or stop taking gabapentin for seizures without your doctor's advice, and tell your doctor right away if you become . Gabapentin can pass into breast milk, but effects on the nursing baby are not known. Tell your doctor if you are breast-feeding. How should I take gabapentin? Follow all directions on your prescription label. Do not take this medicine in larger or smaller amounts or for longer than recommended. The Horizant brand of gabapentin should not be taken during the day. For best results, take Horizant with food at about 5:00 in the evening. Both Gralise and Horizant should be taken with food. Neurontin can be taken with or without food. If you break a Neurontin tablet and take only half of it, take the other half at your next dose. Any tablet that has been broken should be used as soon as possible or within a few days. Do not crush, chew, or break an extended-release tablet. Swallow it whole. Measure liquid medicine with the dosing syringe provided, or with a special dose-measuring spoon or medicine cup. If you do not have a dose-measuring device, ask your pharmacist for one. If your doctor changes your brand, strength, or type of gabapentin, your dosage needs may change. Ask your pharmacist if you have any questions about the new kind of gabapentin you receive at the pharmacy. Do not stop using gabapentin suddenly, even if you feel fine. Stopping suddenly may cause increased seizures. Follow your doctor's instructions about tapering your dose. Wear a medical alert tag or carry an ID card stating that you have seizures. Any medical care provider who treats you should know that you take seizure medication. This medicine can cause unusual results with certain medical tests. Tell any doctor who treats you that you are using gabapentin. Store gabapentin tablets and capsules at room temperature away from light and moisture. Store the liquid medicine in the refrigerator. Do not freeze. What happens if I miss a dose? Take the missed dose as soon as you remember. Be sure to take the medicine with food. Skip the missed dose if it is almost time for your next scheduled dose. Do not take extra medicine to make up the missed dose. What happens if I overdose? Seek emergency medical attention or call the Poison Help line at . What should I avoid while taking gabapentin? This medicine may impair your thinking or reactions. Be careful if you drive or do anything that requires you to be alert. Avoid taking an antacid within 2 hours before or after you take gabapentin. Antacids can make it harder for your body to absorb gabapentin. Drinking alcohol with this medicine can cause side effects. What are the possible side effects of gabapentin? Get emergency medical help if you have signs of an allergic reaction: hives; difficult breathing; swelling of your face, lips, tongue, or throat. Seek medical treatment if you have a serious drug reaction that can affect many parts of your body. Symptoms may include: skin rash, fever, swollen glands, flu-like symptoms, muscle aches, severe weakness, unusual bruising, or yellowing of your skin or eyes. This reaction may occur several weeks after you began using gabapentin. Report any new or worsening symptoms to your doctor, such as: mood or behavior changes, anxiety, panic attacks, trouble sleeping, or if you feel impulsive, irritable, agitated, hostile, aggressive, restless, hyperactive (mentally or physically), depressed, or have thoughts about suicide or hurting yourself. Call your doctor at once if you have: ? increased seizures; ?? severe weakness or tiredness; ?? problems with balance or muscle movement; ?? upper stomach pain; ?? chest pain, new or worsening cough with fever, trouble breathing; ?? severe tingling or numbness; ?? rapid eye movement; or ?? kidney problems--little or no urination, painful or difficult urination, swelling in your feet or ankles. Some side effects are more likely in children taking gabapentin. Contact your doctor if the child taking this medicine has any of the following side effects: ? changes in behavior; ?? memory problems; ?? trouble concentrating; or ?? acting restless, hostile, or aggressive. Common side effects may include: ? headache, dizziness, drowsiness, tiredness; ?? swelling in your hands or feet; ?? problems with your eyes; ?? coordination problems; or ?? (in children) fever, nausea, vomiting. This is not a complete list of side effects and others may occur. Call your doctor for medical advice about side effects. You may report side effects to FDA at 1-872-MMS-9666. What other drugs will affect gabapentin? Taking gabapentin with other drugs that make you sleepy can worsen this effect. Ask your doctor before taking a sleeping pill, narcotic medication, muscle relaxer, or medicine for anxiety, depression, or seizures. Other drugs may interact with gabapentin, including prescription and vkbs-hup-mztxmxx medicines, vitamins, and herbal products. Tell your doctor about all your current medicines and any medicine you start or stop using. Where can I get more information? Your pharmacist can provide more information about gabapentin. Remember, keep this and all other medicines out of the reach of children, never share your medicines with others, and use this medication only for the indication prescribed. Every effort has been made to ensure that the information provided by [employer]') is accurate, up-to-date, and complete, but no guarantee is made to that effect. Drug information contained herein may be time sensitive. [employer] information has been compiled for use by healthcare practitioners and consumers in the [place] and therefore [employer] does not warrant that uses outside of the [place] are appropriate, unless specifically indicated otherwise. [employer]'s drug information does not endorse drugs, diagnose patients or recommend therapy. [employer] drug information is an informational resource designed [...] effective or appropriate for any given patient. [facility] does not assume any responsibility for any aspect of healthcare administered with the aid of information [facility] provides. The information contained herein is not intended to cover all possible uses, directions, precautions, warnings, drug interactions, allergic reactions, or adverse effects. If you have questions about the drugs you are taking, check with your doctor, nurse or pharmacist. Copyright 1823-[address] [facility]. Version: 14.. Revision Date: 07/05/2017. oxycodone (ox i KOE done) Oxaydo, OxyCONTIN, Oxyfast, Roxicodone, Xtampza ER What is the most important information I should know about oxycodone? MISUSE OF OPIOID MEDICINE CAN CAUSE ADDICTION, OVERDOSE, OR . Keep the medication in a place where others cannot get to it. Taking opioid medicine during may cause life-threatening withdrawal symptoms in the . Fatal side effects can occur if you use opioid medicine with alcohol, or with other drugs that cause drowsiness or slow your breathing. What is oxycodone? Oxycodone is an opioid pain medication used to treat moderate to severe pain. The extended-release form of oxycodone is for afbkrt-izn-llvtu treatment of pain and should not be used on an as-needed basis for pain. Oxycodone may also be used for purposes not listed in this medication guide. What should I discuss with my healthcare provider before using oxycodone? You should not use oxycodone if you are allergic to it, or if you have: ? severe asthma or breathing problems; or ?? a blockage in your stomach or intestines. You should not use oxycodone unless you are already using a similar opioid medicine and are tolerant to it. Most brands of oxycodone are not approved for use in people under 18. OxyContin should not be given to a child younger than 11 years old. Tell your doctor if you have ever had: ? a head injury, or seizures; ?? drug or alcohol addiction, or mental illness; ?? liver or kidney disease; ?? urination problems; or ?? problems with your gallbladder, pancreas, or thyroid. If you use opioid medicine while you are , your baby could become dependent on the drug. This can cause life-threatening withdrawal symptoms in the baby after it is born. Babies born dependent on opioids may need medical treatment for several weeks. Do not breast-feed. Oxycodone can pass into breast milk and may cause drowsiness, breathing problems, or in a nursing baby. How should I use oxycodone? Follow the directions on your prescription label and read all medication guides. Never use oxycodone in larger amounts, or for longer than prescribed. Tell your doctor if you feel an increased urge to take more of this medicine. Never share opioid medicine with another person, especially someone with a history of drug abuse or addiction. MISUSE CAN CAUSE ADDICTION, OVERDOSE, OR . Keep the medication in a place where others cannot get to it. Selling or giving away opioid medicine is against the law. Stop taking all other druvkx-dwx-toakc narcotic pain medicines when you start taking extended-release oxycodone. Take oxycodone with food. Swallow the capsule or tablet whole to avoid exposure to a potentially fatal overdose. Do not crush, chew, break, open, or dissolve. Never crush or break an oxycodone pill to inhale the powder or mix it into a liquid to inject the drug into your vein. This can cause in . Measure liquid medicine carefully. Use the dosing syringe provided, or use a medicine dose-measuring device (not a kitchen spoon). You should not stop using oxycodone suddenly. Follow your doctor's instructions about tapering your dose. Store at room temperature, away from heat, moisture, and light. Keep track of your medicine. Oxycodone is a drug of abuse and you should be aware if anyone is using your medicine improperly or without a prescription. Do not keep leftover opioid medication. Just one dose can cause in someone using this medicine accidentally or improperly. Ask your pharmacist where to locate a drug take-back disposal program. If there is no take-back program, flush the unused medicine down the toilet. What happens if I miss a dose? Since oxycodone is used for pain, you are not likely to miss a dose. Skip any missed dose if it is almost time for your next dose. Do not use two doses at one time. What happens if I overdose? Seek emergency medical attention or call the Poison Help line at . An oxycodone overdose can be fatal, especially in a child or other person using the medicine without a prescription. Overdose can cause severe muscle weakness, pinpoint pupils, very slow breathing, extreme drowsiness, or coma. What should I avoid while using oxycodone? Do not drink alcohol. Dangerous side effects or could occur. Avoid driving or operating machinery until you know how oxycodone will affect you. Dizziness or severe drowsiness can cause falls or other accidents. Avoid medication errors. Always check the brand and strength of oxycodone you get from the pharmacy. What are the possible side effects of oxycodone? Get emergency medical help if you have signs of an allergic reaction: hives; difficult breathing; swelling of your face, lips, tongue, or throat. Opioid medicine can slow or stop your breathing, and may occur. A person caring for you should seek emergency medical attention if you have slow breathing with long pauses, blue colored lips, or if you are hard to wake up. Call your doctor at once if you have: ? noisy breathing, sighing, shallow breathing; ?? a slow heart rate or weak pulse; ?? a light-headed feeling, like you might pass out; ?? confusion, unusual thoughts or behavior; ?? seizure (convulsions); or ?? low cortisol levels-- nausea, vomiting, loss of appetite, dizziness, worsening tiredness or weakness. Seek medical attention right away if you have symptoms of serotonin syndrome, such as: agitation, confusion, fever, sweating, fast heart rate, chest pain, feeling short of breath, muscle stiffness, trouble walking, or feeling faint. Serious side effects may be more likely in older adults and those who are malnourished or debilitated. Long-term use of opioid medication may affect fertility (ability to have children) in men or women. It is not known whether opioid effects on fertility are permanent. Common side effects may include: ? drowsiness, headache, dizziness, tiredness; or ?? constipation, stomach pain, nausea, vomiting. This is not a complete list of side effects and others may occur. Call your doctor for medical advice about side effects. You may report side effects to FDA at 0-943-QHC-0696. What other drugs will affect oxycodone? You may have breathing problems or withdrawal symptoms if you start or stop taking certain other medicines. Tell your doctor if you also use an antibiotic, antifungal medication, heart or blood pressure medication, seizure medication, or medicine to treat HIV or hepatitis C. Opioid medication can interact with many other drugs and cause dangerous side effects or . Be sure your doctor knows if you also use: ? cold or allergy medicines, bronchodilator asthma/COPD medication, or a diuretic ('water pill'); ?? medicines for motion sickness, irritable bowel syndrome, or overactive bladder; ?? other narcotic medications--opioid pain medicine or prescription cough medicine; ?? a sedative like Valium--diazepam, alprazolam, lorazepam, Xanax, Klonopin, Versed, and others; ?? drugs that make you sleepy or slow your breathing--a sleeping pill, muscle relaxer, medicine to treat mood disorders or mental illness; or ?? drugs that affect serotonin levels in your body--a stimulant, or medicine for depression, Parkinson's disease, migraine headaches, serious infections, or nausea and vomiting. This list is not complete and many other drugs may affect oxycodone. This includes prescription and ztnf-ylb-tychfwb medicines, vitamins, and herbal products. Not all possible drug interactions are listed here. Where can I get more information? Your pharmacist can provide more information about oxycodone. Remember, keep this and all other medicines out of the reach of children, never share your medicines with others, and use this medication only for the indication prescribed. Every effort has been made to ensure that the information provided by [employer]') is accurate, up-to-date, and complete, but no guarantee is made to that effect. Drug information contained herein may be time sensitive. [employer] information has been compiled for use by healthcare practitioners and consumers in the [place] and therefore [employer] does not warrant that uses outside of the [place] are appropriate, unless specifically indicated otherwise. [employer]'s drug information does not endorse drugs, diagnose patients or recommend therapy. [employer] drug information is an informational resource designed [...] effective or appropriate for any given patient. [facility] does not assume any responsibility for any aspect of healthcare administered with the aid of information [facility] provides. The information contained herein is not intended to cover all possible uses, directions, precautions, warnings, drug interactions, allergic reactions, or adverse effects. If you have questions about the drugs you are taking, check with your doctor, nurse or pharmacist. Copyright 6138-4447 [facility]. Version: 13.02. Revision Date: 08/23/2018. tramadol (TRAM a dol) ConZip, Ultram, Ultram ER What is the most important information I should know about tramadol? MISUSE OF THIS MEDICINE CAN CAUSE ADDICTION, OVERDOSE, OR . Keep the medication in a place where others cannot get to it. Tramadol should not be given to a child younger than 12 years old. Ultram ER should not be given to anyone younger than 18 years old. Taking tramadol during may cause life-threatening withdrawal symptoms in the . Fatal side effects can occur if you use tramadol with alcohol, or with other drugs that cause drowsiness or slow your breathing. What is tramadol? Tramadol is an pain medicine similar to an opioid (sometimes called, a narcotic). Tramadol is used to treat moderate to severe pain. The extended-release form of this medicine is for osgdpo-mbl-qstym treatment of pain. This form of tramadol is not for use on an as-needed basis for pain. Tramadol may also be used for purposes not listed in this medication guide. What should I discuss with my healthcare provider before taking tramadol? You should not take tramadol if you are allergic to it, or if you have: ? severe asthma or breathing problems; ?? a blockage in your stomach or intestines; ?? if you have recently used alcohol, sedatives, tranquilizers, or narcotic medications; or ?? if you have used an MAO inhibitor in the past 14 days (such as isocarboxazid, linezolid, methylene blue injection, phenelzine, rasagiline, selegiline, or tranylcypromine). Tramadol should not be given to a child younger than 12 years old. Ultram ER should not be given to anyone younger than 18 years old. Do not give tramadol to anyone younger than 18 years old who recently had surgery to remove the tonsils or adenoids. Seizures have occurred in some people taking tramadol. Talk with your doctor about your seizure risk, which may be higher if you have ever had: ? a head injury, epilepsy or other seizure disorder; ?? drug or alcohol addiction; or ?? a metabolic disorder. Tell your doctor if you have ever had: ? liver or kidney disease; ?? a stomach disorder; or ?? mental illness, or suicide attempt. If you use tramadol while you are , your baby could become dependent on the drug. This can cause life-threatening withdrawal symptoms in the baby after it is born. Babies born dependent on habit-forming medicine may need medical treatment for several weeks. Do not breast-feed. Tramadol can pass into breast milk and cause drowsiness, breathing problems, or in a nursing baby. How should I take tramadol? Follow the directions on your prescription label and read all medication guides. Never use tramadol in larger amounts, or for longer than prescribed. Tell your doctor if you feel an increased urge to take more of this medicine. Never share this medicine with another person, especially someone with a history of drug abuse or addiction. MISUSE CAN CAUSE ADDICTION, OVERDOSE, OR . Keep the medicine in a place where others cannot get to it. Selling or giving away tramadol is against the law. Stop taking all other czduin-vkc-bhirw narcotic pain medications when you start taking tramadol. Tramadol can be taken with or without food, but take it the same way each time. Swallow the capsule or tablet whole to avoid exposure to a potentially fatal overdose. Do not crush, chew, break, open, or dissolve. Never crush or break a tramadol pill to inhale the powder or mix it into a liquid to inject the drug into your vein. This practice has resulted in . Do not stop using tramadol suddenly, or you could have unpleasant withdrawal symptoms. Ask your doctor how to safely stop using tramadol. Store at room temperature away from moisture and heat. Keep track of your medicine. You should be aware if anyone is using it improperly or without a prescription. Do not keep leftover opioid medication. Just one dose can cause in someone using this medicine accidentally or improperly. Ask your pharmacist where to locate a drug take-back disposal program. If there is no take-back program, flush the unused medicine down the toilet. What happens if I miss a dose? Since tramadol is used for pain, you are not likely to miss a dose. Skip any missed dose if it is almost time for your next dose. Do not use two doses at one time. What happens if I overdose? Seek emergency medical attention or call the Poison Help line at . A tramadol overdose can be fatal, especially in a child or other person using the medicine without a prescription. Overdose symptoms may include slow heart rate, severe drowsiness, cold and clammy skin, very slow breathing, or coma. What should I avoid while taking tramadol? Do not drink alcohol. Dangerous side effects or could occur. Avoid driving or hazardous activity until you know how this medicine will affect you. Dizziness or drowsiness can cause falls, accidents, or severe injuries. What are the possible side effects of tramadol? Get emergency medical help if you have signs of an allergic reaction (hives, difficult breathing, swelling in your face or throat) or a severe skin reaction (fever, sore throat, burning in your eyes, skin pain, red or purple skin rash that spreads and causes blistering and peeling). This medicine can slow or stop your breathing, and may occur. A person caring for you should seek emergency medical attention if you have slow breathing with long pauses, blue colored lips, or if you are hard to wake up. Call your doctor at once if you have: ? noisy breathing, sighing, shallow breathing; ?? a slow heart rate or weak pulse; ?? a light-headed feeling, like you might pass out; ?? seizure (convulsions); or ?? low cortisol levels--nausea, vomiting, loss of appetite, dizziness, worsening tiredness or weakness. Seek medical attention right away if you have symptoms of serotonin syndrome, such as: agitation, hallucinations, fever, sweating, shivering, fast heart rate, muscle stiffness, twitching, loss of coordination, nausea, vomiting, or diarrhea. Serious side effects may be more likely in older adults and those who are overweight, malnourished, or debilitated. Long-term use of opioid medication may affect fertility (ability to have children) in men or women. It is not known whether opioid effects on fertility are permanent. Common side effects may include: ? dizziness, drowsiness; ?? headache; or ?? constipation, nausea, vomiting, stomach pain. This is not a complete list of side effects and others may occur. Call your doctor for medical advice about side effects. You may report side effects to FDA at 7-180-SGE-7772. What other drugs will affect tramadol? You may have breathing problems or withdrawal symptoms if you start or stop taking certain other medicines. Tell your doctor if you also use an antibiotic, antifungal medication, heart or blood pressure medication, seizure medication, or medicine to treat HIV or hepatitis C. Opioid medication can interact with many other drugs and cause dangerous side effects or . Be sure your doctor knows if you also use: ? cold or allergy medicines, bronchodilator asthma/COPD medication, or a diuretic ('water pill'); ?? medicines for motion sickness, irritable bowel syndrome, or overactive bladder; ?? other narcotic medications--opioid pain medicine or prescription cough medicine; ?? a sedative like Valium--diazepam, alprazolam, lorazepam, Xanax, Klonopin, Versed, and others; ?? drugs that make you sleepy or slow your breathing--a sleeping pill, muscle relaxer, medicine to treat mood disorders or mental illness; or ?? drugs that affect serotonin levels in your body--a stimulant, or medicine for depression, Parkinson's disease, migraine headaches, serious infections, or nausea and vomiting. This list is not complete and many other drugs may affect tramadol. This includes prescription and kosp-zsb-lpaepop medicines, vitamins, and herbal products. Not all possible drug interactions are listed here. Where can I get more information? Your doctor or pharmacist can provide more information about tramadol. Remember, keep this and all other medicines out of the reach of children, never share your medicines with others, and use this medication only for the indication prescribed. Every effort has been made to ensure that the information provided by [employer]') is accurate, up-to-date, and complete, but no guarantee is made to that effect. Drug information contained herein may be time sensitive. [employer] information has been compiled for use by healthcare practitioners and consumers in the [place] and therefore [employer] does not warrant that uses outside of the [place] are appropriate, unless specifically indicated otherwise. [employer]'s drug information does not endorse drugs, diagnose patients or recommend therapy. [employer] drug information is an informational resource designed [...] effective or appropriate for any given patient. [employer] does not assume any responsibility for any aspect of healthcare administered with the aid of information [employer] provides. The information contained herein is not intended to cover all possible uses, directions, precautions, warnings, drug interactions, allergic reactions, or adverse effects. If you have questions about the drugs you are taking, check with your doctor, nurse or pharmacist. Copyright 7385-0104 [employer]. Version: 18.02. Revision Date: 08/23/2018. CIGARETTE SMOKING: The facts are clear, cigarette smoking will shorten your life. Smoking can cause many illnesses along the way. As a healthcare provider, we recommend that you stop smoking. Assistance with quitting is available by contacting 2-890-LSSH-NOW. This is a free resource providing counseling, support, and referral. Or you may contact your personal physician. 4 WAYS TO GET AHEAD OF SEPSIS SEPSIS is a MEDICAL EMERGENCY. Time matters! Infections put you and your family at risk for a life-threatening condition called sepsis. Sepsis is the body???s extreme response to an infection. It is life-threatening, and without timely treatment, sepsis can rapidly lead to tissue damage, organ failure, and . Sepsis happens when an infection you already have???in your skin, lungs, urinary tract or somewhere else???triggers a chain reaction throughout your body. 1 PREVENT INFECTIONS Take good care of chronic conditions. Talk to your doctor about getting the recommended vaccines. 2 PRACTICE GOOD HYGIENE Wash your hands frequently. Keep cuts or open sores clean and covered until they are healed. 3 KNOW THE SYMPTOMS Confusion or disorientation Shortness of breath High heart rate Fever, shivering, or feeling very cold Extreme pain or discomfort Clammy or sweaty skin 4 ACT FAST Get medical care IMMEDIATELY if you suspect sepsis or if you have an infection that???s not getting better or is getting worse. To learn more about sepsis and how to prevent infections, visit www.cdc.gov/sepsis. STROKE is an EMERGENCY [employer] ACT F.A.S.T! FACE ?? Facial droop ?? Uneven smile ARM ?? Arm numbness ?? Arm weakness SPEECH ?? Slurred speech ?? Difficulty speaking or understanding TIME ?? Call 911 and get to the hospital immediately Have the ambulance go to the nearest stroke center. STROKE Risk Factors High blood pressure High cholesterol Heart Disease Diabetes Smoking Heavy alcohol use Physical inactivity and obesity Atrial Fibrillation (irregular heartbeat) Family history of stroke Reminder: Be sure to sign up for the [employer] patient portal, which gives you 18/04 access to your medical information ??? including these discharge instructions ??? using your computer, smartphone, or tablet. Just go to [employer] to get started. Questions? Call . [facility] would like to thank you for allowing us to assist you with your healthcare needs. MARY Arrieta STEPHEN RAY, (or c s s representative) have received the above patient education materials/instructions and have verbalized understanding: Patient Signature _ Date/Time Patient School Bus Monitor Signature (if needed) Date/Time Clinician/Hospital School Bus Monitor Signature (if needed) Date/Time Electronically signed by Interface, [facility] Conversion Researcher Cerner at 01/12/2023 10:18 PM CDT documented in this encounter Plan of Treatment Not on file documented as of this encounter Visit Diagnoses Not on filedocumented in this encounter
--- OUTSIDE RECORDS SUMMARY | 2025-06-19 09:56 | XMS_ITS | Encounter Summary ---
Author Organization [employer] ([place], [place], [place], [place]) Address [address] [place] [address] Care Team Providers Care Highway Landscape Architect Name Role Phone Unavailable Primary Care Provider Unavailabl e Encounter Details Date Type Department Care Team (Late st Contact Info) Description 10/10/2018 Transcribed Document [facility] [place] Family Medicine [facility] [place] [address] ProviderFlaco MD [facility] [place] [place] [address] Social History Tobacco Use Types [...] Conversion Note - Historical ProviderMD - 10/10/2018 11:31 AM A&P MECHANIC Peripheral Nerve Block Entered On: 10/10/2018 11:34 EST Performed On: 10/10/2018 11:31 EST by Ana Mosqueda Nurse - cedric Peripheral Nerve Block Site Marked and Visible : Yes Peripheral Nerve Block Start Date/Time : 10/10/2018 11:10 EST Verbally Confirm Pt, Site, and Procedure : Yes Site Preparation : Chlorhexidine (Hibiclens) Peripheral Nerve Block : Other: ADDUCTOR CANAL Laterality : Right Peripheral Nerve Block Performed by : CAPRICE STRICKLAND DO-ANS Medication Delivery Method : Single Shot Peripheral Nerve Block Assisted by : Ana Mosqueda Nurse - other Ultra sound used during insertion : Yes Nerve Block Activity, Patient Tolerance : Good Peripheral Nerve Block Comment : PRE OP NERVE BLOCK PER SURGEON REQUEST Peripheral Nerve Block End Date/Time : 10/10/2018 11:25 EST Ana Mosqueda Nurse - other - 10/10/2018 11:31 EST Electronically signed by Mago, [facility] Conversion Cost Consultant Cerner at 01/12/2023 10:16 PM CDT documented in this encounter Plan of Treatment Not on file documented as of this encounter Visit Diagnoses Not on filedocumented in this encounter
--- OUTSIDE RECORDS SUMMARY | 2025-06-19 09:56 | XMS_ITS | Encounter Summary ---
Author Organization [email or web address] ([place], [place], [place], [place]) Address [address] [place] [address] Care Team Providers Care [employer] Industrial Arts Teacher Name Role Phone Unavailable Primary Care Provider Unavailabl e Encounter Details Date Type Department Care Team (Late st Contact Info) Description 10/10/2018 Transcribed Document [facility] [place] [facility] [place] [address] ProviderFlaco MD [facility] [place] [address] Social History Tobacco Use Types [...] - Flaco ProviderMD - 10/10/2018 12:45 PM MACHINIST [facility] OR PACU Summary Primary Physician: BABAR WORRELL MD-ORT Finalized Date/Time: 10/10/18 16:26:46 Pt. Name: PEDRO PICKARD LESLYE GrimmB./Sex: 1950 Male Med Rec #: [id number] Physician: BABAR WORRELL MD-ORT Financial #: [id number] Pt. Type: I Room/Bed: [facility] Admit/Disch: 10/09/18 10:38:00 - Institution: [facility] OR PACU Case Times Entry 1 In PACU I 10/10/18 14:00:00 Ready for PACU 10/10/18 14:30:00 Discharge Discharge from PACU 10/10/18 16:25:00 I Last Modified By: Freda Archer, Rn 10/10/18 16:25:33 [facility] OR PACU Acuity Entry 1 Start Time 10/10/18 14:31:00 Stop Time 10/10/18 16:25:00 Acuity Level E PACU Acuity I Last Modified By: Freda Archer Rn 10/10/18 16:26:43 Finalized By: Freda Archer, Rn Document Signatures Signed By: Freda Archer Rn 10/10/18 16:26 Electronically signed by Mago [facility] Conversion Injection Press Operator Cerner at 01/12/2023 10:36 PM CDT documented in this encounter Plan of Treatment Not on file documented as of this encounter Visit Diagnoses Not on filedocumented in this encounter
--- OUTSIDE RECORDS SUMMARY | 2025-06-19 09:56 | XMS_ITS | Encounter Summary ---
Author Organization [employer] ([place], [place], [place], [place]) Address [address] [place] [address] Care Team Providers Care Die Maker Name Role Phone Unavailable Primary Care Provider Unavailabl e Encounter Details Date Type Department Care Team (Late st Contact Info) Description 10/09/[address] [facility] [place] Family Medicine [facility] [place] [address] ProviderFlaco MD [address] [place] [address] Social History Tobacco Use Types Packs/Day Years Used Date Smoking Tobacco: Never Assessed Sex and Gender Information Value Date Recorded Sex Assigned at Male 03/23/2022 7:23 PM CDT Legal Sex Male 7:23 PM CDT Gender Identity Male 03/23/2022 7:23 PM CDT Sexual Orientation Not on file documented as of this encounter Miscellaneous Notes * Cerner Conversion Note - Flaco ProviderMD - 10/09/2018 12:37 PM LIFT ELECTRICIAN Patient: PEDRO PICKARD Age: 68 Years Sex: Male : 1950 Discharge Plan Discharge: Home Procedure: Right TKA Complications: None DVT Prophylaxis: Aspirin 81 mg tabs, 1 BID for 45 days. Script written, on chart WB Status: WBAT Therapy goals: Hospital ROM Continue Jabari at home all times when not performing PT/HEP TID Prone Hangs, patient shown how to perform CPM machine 0-110 Goal- Knee flexion 110 degrees ANNABEL F/U in clinic 2-3 weeks Discharge Instructions: 1)Elevate the knee and the entire lower extremity for as much as possible for 6 weeks and use ice liberally for 30 minutes 3-4 times a day. 2)Patient may shower on the 3rd day after surgery, but must keep the wound or dressing completely dry until discussed on first post op visit. The patient should not take any soaking baths until 1 month after surgery. 3) Patient may bear as much weight as tolerated on the affected extremity. TUBS (passive exertion) exercises for 30 minutes TID are effective initially after surgery, but after the 1st week, the patient should progress to prone hangs to help with knee straightening postoperatively. 4) Patient will be on blood thinner for 4 to 6 weeks after surgery. The blood thinner may vary for each patient. 5) You may remove the SUSHANT day after surgery and leave the incision uncovered if it is completely dry. ISREAL REMOVED IN OFFICE IN 2-3 WEEKS. 6) An SUSHANT wrap can be used to cover the wound to maintain compression and decrease swelling. 7) Call for wound drainage that is present beyond 7 days after surgery. 9) Motion is more important than strength or walking distance during the first 6 weeks after surgery. 10) Gabapentin 300 mg tabs, Oxycodone 5mg, Tramadol 50mg tabs tabs will be used for postoperative pain control and should be weaned as the patient can tolerate. Discharge Medications Home Medications (8) Active bumetanide 2 mg oral tablet 2 mg = 1 Tab, Oral, Daily diphenhydrAMINE 50 mg, Oral, At Bedtime Lipitor 20 mg oral tablet 20 mg = 1 Tab, Oral, At Bedtime lisinopril 2.5 mg oral tablet 2.5 mg = 1 Tab, Oral, BID Metoprolol Succinate ER 50 mg, Oral, At Bedtime Nitrostat 0.4 mg sublingual tablet 0.4 mg = 1 Tab, PRN, SubLINgual, Q5Min spironolactone 25 mg oral tablet 25 mg = 1 Tab, Oral, BID Oxycodone 5mg 1-2 tabs every 6 hours PRN pain Tramadol 50mg 1 tab Q 6hrs PRN ECASA 81mg BID x 6 weeks Colace 100mg 1 tab daily Gabapentin 300mg 1 tab QHS No mobic, pre op creatineine 1.29 documented in this encounter Plan of Treatment Not on file documented as of this encounter Visit Diagnoses Not on filedocumented in this encounter
--- OUTSIDE RECORDS SUMMARY | 2025-06-19 09:56 | XMS_ITS | Encounter Summary ---
Author Organization [employer] ([place], [place], [place], [place]) Address [address] [place] [address] Care Team Providers Care Admissions Dean Name Role Phone Unavailable Primary Care Provider Unavailabl e Encounter Details Date Type Department Care Team (Late st Contact Info) Description 11/22/2018 Transcribed Document [facility] Family Medicine [place] [address] ProviderFlaco MD [address] [place] [address] Social History Tobacco Use Types Packs/Day Years Used Date Smoking Tobacco: Never Assessed Sex and Gender Information Value Date Recorded Sex Assigned at Male 03/23/2022 7:23 PM CDT Legal Sex Male 7:23 PM CDT Gender Identity Male 03/23/2022 7:23 PM CDT Sexual Orientation Not on file documented as of this encounter Miscellaneous Notes * Cerner Conversion Note - Flaco ProviderMD - 11/22/2018 8:44 AM [place] [address] [facility] [place] [address] Patient Copy Patient Information: Name: PEDRO PICKARD Current Date: 11/22/2018 08:44:10 : 1950 Patient Address: [place] [address] Patient Attending Physician: TESHA MCCLAIN MD Primary Care Provider: BLU CRUZ (REF)[facility] Primary Care Provider Discharge Diagnosis: S/P knee replacement Weight on Admission: 285 lb, 0 oz Comment: Follow-up Instructions: With: Address: When: MORAIMA NG [address] [place] [address], [address]LO[address] [place] [id number] [facility] (1) 9:00 AM Comments: Appointment has been made Discharge Instructions: Immunizations Documented During Stay: No Immunizations Found Heart Failure Discharge Instructions (if any): Stroke Related Discharge Instructions (if any): Warfarin Related Discharge Instructions (if any): Final Medication List: Other Medications acetaminophen (Tylenol) 1,000 Milligram(s) Oral Three Times A Day. for one week and then as needed for pain not to exceed 3000 mg/day. aspirin (aspirin 81 mg oral delayed release tablet) 1 Tablet(s) Oral Two Times A Day. Refills: 0. atorvastatin (Lipitor 20 mg oral tablet) 1 Tablet(s) Oral At Bedtime. Refills: 11. bumetanide (bumetanide 2 mg oral tablet) 1 Tablet(s) Oral Every Day. gabapentin (gabapentin 300 mg oral capsule) 1 Capsule(s) Oral At Bedtime. Refills: 0. lisinopril (lisinopril 2.5 mg oral tablet) 1 Tablet(s) Oral Two Times A Day. meloxicam (Mobic 15 mg oral tablet) 1 Tablet(s) Oral Every Day. metoprolol (Metoprolol Succinate ER) 50 Milligram(s) [...] difficulty sleeping, and nervousness. Patient education materials: What to expect after the Procedure: After [...] Barley. Bulgur wheat. Millet. Bran muffins. Popcorn. [place] wafer crackers. ?? Vegetables Sweet potatoes. Spinach. Kale. Artichokes. Cabbage. Broccoli. Green peas. Carrots. Squash. ?? Fruits Berries. Pears. Apples. Oranges. Avocados. Prunes and raisins. Dried figs. ?? Meats and Other Protein Sources [place], kidney, mayers, and soy beans. Split peas. [...] shelia has 11 g of protein. ?? Naranjito seeds ??? 1 oz has 5.5 g [...] floor. ?? Place frequently used items in dzpw-sp-qakph places ?? Keep electrical cables out of [...] ? Using the bathroom. ? Using household transport nurse or toxic chemicals. ? Touching or taking [...] are a day sleeper or work a maintenance mechanic 2nd shift. Some people have thoughts about [...] may report side effects to FDA at 2-967-MPR-8408. What other drugs will affect gabapentin? Taking gabapentin with other drugs that make you sleepy can worsen this effect. Ask your doctor before taking a sleeping pill, narcotic medication, muscle relaxer, or medicine for anxiety, depression, or seizures. Other drugs may interact with gabapentin, including prescription and biez-kzv-afgmtdd medicines, vitamins, and herbal products. Tell your [...] to ensure that the information provided by [employer]. ('[employer]') is accurate, up-to-date, and complete, but no guarantee is made to that effect. Drug information contained herein may be time sensitive. [employer] information has been compiled for use by healthcare practitioners and consumers in the [place] and therefore [employer] does not warrant that uses outside of the [place] are appropriate, unless specifically indicated otherwise. [employer] drug information does not endorse drugs, diagnose patients or recommend therapy. [employer] drug information is an informational resource designed [...] effective or appropriate for any given patient. [facility] does not assume any responsibility for any aspect of healthcare administered with the aid of information [facility] provides. The information contained herein is not intended to cover all possible uses, directions, precautions, warnings, drug interactions, allergic reactions, or adverse effects. If you have questions about the drugs you are taking, check with your doctor, nurse or pharmacist. Copyright 2269-6079 [facility]. Version: 14.. Revision Date: 07/05/2017. oxycodone (ox [...] The extended-release form of oxycodone is for jrkgpl-ebg-lnwol treatment of pain and should not be [...] against the law. Stop taking all other cknqqb-dcn-uxuxb narcotic pain medicines when you start taking [...] may report side effects to FDA at 5-957-KRS-9705. What other drugs will affect oxycodone? You [...] may affect oxycodone. This includes prescription and dfkz-pgo-dstybyk medicines, vitamins, and herbal products. Not all [...] to ensure that the information provided by [employer]') is accurate, up-to-date, and complete, but no guarantee is made to that effect. Drug information contained herein may be time sensitive. [employer] information has been compiled for use by healthcare practitioners and consumers in the [place] and therefore [employer] does not warrant that uses outside of the [place] are appropriate, unless specifically indicated otherwise. [employer]'s drug information does not endorse drugs, diagnose patients or recommend therapy. [employer] drug information is an informational resource designed [...] effective or appropriate for any given patient. [facility] does not assume any responsibility for any aspect of healthcare administered with the aid of information [facility] provides. The information contained herein is not intended to cover all possible uses, directions, precautions, warnings, drug interactions, allergic reactions, or adverse effects. If you have questions about the drugs you are taking, check with your doctor, nurse or pharmacist. Copyright 1278-3413 [facility]. Version: 13.02. Revision Date: 08/23/2018. tramadol (TRAM [...] extended-release form of this medicine is for rjijyd-lsp-qwdwm treatment of pain. This form of tramadol [...] against the law. Stop taking all other rgecww-yjs-zjriq narcotic pain medications when you start taking [...] may report side effects to FDA at 7-099-GDW-2689. What other drugs will affect tramadol? You [...] may affect tramadol. This includes prescription and kuau-seu-xobspsm medicines, vitamins, and herbal products. Not all [...] to ensure that the information provided by [employer]') is accurate, up-to-date, and complete, but no guarantee is made to that effect. Drug information contained herein may be time sensitive. [employer] information has been compiled for use by healthcare practitioners and consumers in the [place] and therefore [employer] does not warrant that uses outside of the [place] are appropriate, unless specifically indicated otherwise. [employer] drug information does not endorse drugs, diagnose patients or recommend therapy. [employer] drug information is an informational resource designed [...] effective or appropriate for any given patient. [employer] does not assume any responsibility for any aspect of healthcare administered with the aid of information [employer] provides. The information contained herein is not intended to cover all possible uses, directions, precautions, warnings, drug interactions, allergic reactions, or adverse effects. If you have questions about the drugs you are taking, check with your doctor, nurse or pharmacist. Copyright 8236-6450 [employer]. Version: 18.02. Revision Date: 08/23/2018. CIGARETTE SMOKING: The facts are clear, cigarette smoking will shorten your life. Smoking can cause many illnesses along the way. As a healthcare provider, we recommend that you stop smoking. Assistance with quitting is available by contacting 9-307-SSLL-NOW. This is a free resource providing counseling, [...] Be sure to sign up for the My [employer] patient portal, which gives you 18/04 access to your medical information ??? including these discharge instructions ??? using your computer, smartphone, or tablet. Just go to [employer] to get started. Questions? Call . [facility] would like to thank you for allowing us to assist you with your healthcare needs. IMARY STEPHEN RAY, (or auto service representative) have received the above patient education materials/instructions and have verbalized understanding: Patient Signature _ Date/Time Patient Orthopedic Physical Therapist Signature (if needed) Date/Time Clinician/Hospital Orthopedic Physical Therapist Signature (if needed) Date/Time Electronically signed by Mago, [facility] Conversion Corporate Event Planner Cerner at 01/12/2023 10:34 PM CDT documented in this encounter Plan of Treatment Not on file documented as of this encounter Visit Diagnoses Not on filedocumented in this encounter
--- OUTSIDE RECORDS SUMMARY | 2025-06-19 09:56 | XMS_ITS | Encounter Summary ---
Author Organization [employer] ([place], [place], [place], [place]) Address [address] [place] [address] Care Team Providers Care Kitchen Porter Name Role Phone Unavailable Primary Care Provider Unavailabl e Encounter Details Date Type Department Care Team (Late st Contact Info) Description 11/21/2018 Transcribed Document [facility] Family Medicine [facility] [place] [address] ProviderFlaco MD [place] [address] Social History Tobacco Use Types Packs/Day Years Used Date Smoking Tobacco: Never Assessed Sex and Gender Information Value Date Recorded Sex Assigned at Male 03/23/2022 7:23 PM CDT Legal Sex Male 7:23 PM CDT Gender Identity Male 03/23/2022 7:23 PM CDT Sexual Orientation Not on file documented as of this encounter Miscellaneous Notes * Cerner Conversion Note - Flaco ProviderMD - 11/21/2018 3:59 PM [employer] Evaluation, Physical Therapy Entered On: 11/21/2018 17:17 EST Performed On: 11/21/2018 16:32 EST by Dharmesh Lacy, Physical Therapist General Information, PT Visit Type, PT : Initial evaluation Patient Orders : Order Date Order Ordering 11/21/2018 16:01 PT Treatment Instructions Ordered By: BABAR WORRELL MD-ORT 11/21/2018 16:01 PT Evaluation and Treatment Ordered By: BABAR WORRELL MD-ORT 11/21/2018 16:01 PT Treatment Instructions Ordered By: BABAR WORRELL MD-ORT 11/21/2018 16:01 PT Treatment Instructions Ordered By: BABAR WORRELL MD-ORT 11/21/2018 16:01 PT Treatment Instructions Ordered By: BABAR WORRELL MD-ORT 11/21/2018 16:01 PT Treatment Instructions Ordered By: BABAR WORRELL MD-ORT 11/21/2018 16:01 PT Treatment Instructions Ordered By: BABAR WORRELL MD-ORT Active Diagnoses : No Qualifying Diagnoses Therapy Diagnosis, PT : Aftercare following LTKA Admission Date : 11/20/2018 08:29 Personal Devices : Personal Devices No Devices Recorded Assistive Devices : Assistive Devices No Devices Recorded General Information Comment, PT : Pt is a 68 yo M s/p LTKA. PMH: HTN, Insomnia, stented coronary artery, viral cardial myopathy. Dharmesh Lacy Physical Therapist - 11/21/2018 17:00 EST General Status Patient Received Status : Supine in bed, Bed alarm activated Treatment Start Time : 11/21/2018 16:17 EST Patient Left Status : Up in chair, Chair alarm activated, RN/PCT informed, Family/Visitors at bedside, Communication board completed, All needs met and within reach RN/PCT Informed Comment : RN Ok'd Pt Tx Treatment End Time : 11/21/2018 16:32 EST Treatment Time : 15 Minute(s) Dharmesh Lacy Physical Therapist - 11/21/2018 17:00 EST History and Environment Patient Lives With : Spouse Persons Assisting Patient at Home : Spouse Professional Skilled Services : None Dharmesh Lacy Physical Therapist - 11/21/2018 17:00 EST Prior Level of Function PT GRID Prior LOF Ambulation, Household : Independent Prior LOF Ambulation, Community : Independent Prior LOF Bed Mobility : Independent Prior LOF Toileting : Independent Prior LOF Transfer : Independent Dharmesh Lacy Physical Therapist - 11/21/2018 17:00 EST Prior LOF Assist with ADL Comment : Pt reached full IND following his RTKA 6 weeks ago History and Environment Comment, PT : Pt lives at home with spouse in a 1 story home with 1 TRISHA. DME: RW, raised toilet seat, CPM, WC. Dharmesh Lacy Physical Therapist - 11/21/2018 17:00 EST Lower Extremity LLE Active ROM : Impaired Left LE Active Assist ROM : Impaired LLE Passive ROM : Impaired Left LE Strength : Impaired Lower Extremity Comment : LLE 0-100deg knee flexion Dharmesh Lacy Physical Therapist - 11/21/2018 17:00 EST Functional Mobility Functional MobilityComment : Pt completed supine to sit with CGA/MinAx1. Sit to stand with CGA. Dharmesh Lacy Physical Therapist - 11/21/2018 17:00 EST AM [facility] Basic Mobility Turning Over in Bed : None Sit Down On/Stand Up From Chair w/ Arms : None Move Back Lying to Sitting Side of Bed : A little Moving To/From a Bed to Chair : None Need to Walk in Hospital Room : A little Climbing 3-5 Steps with a Railing : A little AM-[facility] Basic Mobility Raw Score : 21 AM-[facility] Basic Mobility CMS 0-100% Score : 28.9 % Dharmesh Lacy, Physical Therapist - 11/21/2018 17:00 EST Image 1 - Images currently included in the form version of this document have not been included in the text rendition version of the form. Functional Limitation Reporting, PT Functional Limitation Visit Type, PT : Initial evaluation Severity Determination Method, PT : Clinical Judgment, AM [facility] Basic Mobility Mobility G8978 - Current Mod, PT : 20 - 39% impaired, limited or restricted (CJ) Mobility G8979 - Proj Goal Mod, PT : 20 - 39% impaired, limited or restricted (CJ) Dharmesh Lacy, Physical Therapist - 11/21/2018 17:00 EST Gait Training/Assessment, PT Weight Bearing Order Status : WBAT Gait Training Comment : Pt amb 5' from bed to chair with RW and CGA showing decreased step length, increased lateral sway and poor foot clearance Dharmesh Lacy, Physical Therapist - 11/21/2018 17:00 EST Neuromuscular Reeducation, PT Balance Comment : Pt shows Fair sitting and standing balance. Dharmesh Lacy Physical Therapist - 11/21/2018 17:00 EST Neurological/Sensory Overall Sensory Response : Impaired Dharmesh Lacy, Physical Therapist - 11/21/2018 17:00 EST Activity Tolerance, PT Activity Comment : Decreased due to balance and strength deficits Dharmesh Lacy, Physical Therapist - 11/21/2018 17:00 EST Cognition Assessment, PT Orientation : Oriented x 4 Attention Assessment : Present Dharmesh Lacy Physical Therapist - 11/21/2018 17:00 EST [facility] Topics Physical Therapy Education Grid Balance Training : Returns demonstration, Needs further teaching Bed Mobility Training : Returns demonstration, Needs further teaching Gait Training : Returns demonstration, Needs further teaching Home Program/Exercises : Returns demonstration, Needs further teaching Neuromuscular Reeducation : Returns demonstration, Needs further teaching Therapeutic Exercises : Returns demonstration, Needs further teaching Use of Assistive Device : Returns demonstration, Needs further teaching Dharmesh Lacy, Physical Therapist - 11/21/2018 17:00 EST Indication Assesessment, PT Physical Therapy Indicated : Yes PT Problem List : Impaired, bed mobility, Impaired, coordination/proprioception, Impaired, endurance tolerance, Impaired, gait, Impaired, stair mobility, Impaired, standing balance, Impaired, strength Dharmesh Lacy Physical Therapist - 11/21/2018 17:00 EST Plan of Care, PT PT Tx Plan/Goals Established w Patient : Yes PT Frequency Rehab : Daily, twice (bid) PT Duration Rehab : Seven Days PT Treatments Planned : Balance training, Bed mobility training, Gait training, Safety education, Stair training, Therapeutic exercises Dharmesh Lacy Physical Therapist - 11/21/2018 17:00 EST Correction Goals Other PT LTG Grid Goal #1 Goal #2 Goal #3 Other : Pt will complete 1 step with RW and CGA to safely enter the home Pt will amb 50' with RW and SBA to amb safely at household distances Pt will demonstrate HEP with 100% competence to improve strength Date to Meet : 11/28/2018 EST 11/28/2018 EST 11/28/2018 EST Goal Status : Initial goal Initial goal Initial goal Dharmesh Lacy Physical Therapist - 11/21/2018 17:00 EST Dharmesh Lacy Physical Therapist - 11/21/2018 17:00 EST Dharmesh Lacy Physical Therapist - 11/21/2018 17:00 EST Treatment Note Subjective Comment : Pt alert and oriented agreeable to Tx Patient's Response to Treatment : Good Additional Objective Information : See eval Educated on Ankle pumps, quad and glute sets Assessment : Pt tolerated treatment well showing primary deficits in strength and balance. Plan for Treatment : CONTINUE Dharmesh Lacy Physical Therapist - 11/21/2018 17:00 EST Pain Assessment Pain Scaled Used : 0-10 Pain scale Pain Score Pre-Intervention : 3 Pain Score During-Intervention : 3 Pain Score Post-Intervention. : 3 Dharmesh Lacy Physical Therapist - 11/21/2018 17:00 EST Image 1 - Images currently included in the form version of this document have not been included in the text rendition version of the form. [facility] PT Charges PT Eval Low Complexity : 1 Dharmesh Lacy Physical Therapist - 11/21/2018 17:00 EST Electronically signed by Mago [facility] Conversion Intensive Care Anaesthetist Cerner at 01/12/2023 10:26 PM CDT documented in this encounter Plan of Treatment Not on file documented as of this encounter Visit Diagnoses Not on filedocumented in this encounter
--- OUTSIDE RECORDS SUMMARY | 2025-06-19 09:56 | XMS_ITS | Encounter Summary ---
Author Organization [employer] ([place], [place], [place], [place]) Address [address] [place] [address] Care Team Providers Care Medical Education Specialist Name Role Phone Unavailable Primary Care Provider Unavailabl e Encounter Details Date Type Department Care Team (Late st Contact Info) Description 11/22/2018 Transcribed Document [facility] Family Medicine [address] [place] [address] ProviderFlaco MD [facility] [place] [address] Social History Tobacco Use Types [...] Conversion Note - Historical ProviderMD - 11/22/2018 5:00 AM SENIOR ASSET MANAGER Chart Check - Review Order Profile Entered On: 11/22/2018 5:03 EST Performed On: 11/22/2018 5:00 EST by Shauna Collazo RN Chart Check Chart Reviewed Date and Time : 11/22/2018 5:03 EST Power[employer]ans Initiated/Discontinued as Appropriate : Yes All Active Orders Reviewed : Yes Shauna Collazo RN - 11/22/2018 5:03 EST Electronically signed by Mago [facility] Conversion Manager Privacy Cerner at 01/12/2023 10:37 PM CDT documented in this encounter Plan of Treatment Not on file documented as of this encounter Visit Diagnoses Not on filedocumented in this encounter
--- OUTSIDE RECORDS SUMMARY | 2025-06-19 09:56 | XMS_ITS | Encounter Summary ---
Author Organization [employer] ([place], [place], [place], [place]) Address [address] [place] [address] Care Team Providers Care Fiber Picker Name Role Phone Unavailable Primary Care Provider Unavailabl e Encounter Details Date Type Department Care Team (Late st Contact Info) Description 11/21/2018 Transcribed Document [facility] [place] [facility] [place] [address] ProviderFlaco MD [facility] [place] [address] Social History Tobacco Use Types [...] - Flaco ProviderMD - 11/21/2018 3:59 PM INSURANCE ADVISOR Education-(VTE) / (DVT) Entered On: 11/22/2018 1:59 EST Performed On: 11/21/2018 20:00 EST by Shauna Collazo RN Teaching/Learning Assessment Barriers To Learning : None evident Individuals Taught : Patient Readiness to Learn : Cooperative Baseline Knowledge of Topic : Good Readiness to Learn : Demonstration, Explanation Learning Style Preferences Patient : Demonstration, Printed materials, Verbal explanation Learning Style Preferences Family : Demonstration, Printed materials, Verbal explanation Shauna Collazo RN - 11/22/2018 1:59 EST Education Topics: VTE/DVT Education Topics: VTE/DVT Activity Limitations/Expectations : Verbalizes understanding Antiembolic hose : Verbalizes understanding VTE/DVT prophylaxis : Verbalizes understanding Foot Pumps : Verbalizes understanding Medications : Verbalizes understanding Sequential Compression Device : Verbalizes understanding Risk for developing a VTE : Verbalizes understanding Signs and symptoms of a VTE : Verbalizes understanding Treatment/prophylaxis for VTE : Verbalizes understanding Encourage early ambulation : Verbalizes understanding Shauna Collazo RN - 11/22/2018 1:59 EST Electronically signed by Mago [facility] Conversion Junior Systems Analyst Cerner at 01/12/2023 10:29 PM CDT documented in this encounter Plan of Treatment Not on file documented as of this encounter Visit Diagnoses Not on filedocumented in this encounter
--- OUTSIDE RECORDS SUMMARY | 2025-06-19 09:56 | XMS_ITS | Encounter Summary ---
Author Organization [employer] ([place], [place], [place], [place]) Address [address] [place] [address] Care Team Providers Care Cnc Router Operator Name Role Phone Unavailable Primary Care Provider Unavailabl e Encounter Details Date Type Department Care Team (Late st Contact Info) Description 11/22/2018 Transcribed Document [facility] [place] [facility] [place] [address] ProviderFlaco MD [address] [place] [address] Social History Tobacco Use Types Packs/Day Years Used Date Smoking Tobacco: Never Assessed Sex and Gender Information Value Date Recorded Sex Assigned at Male 03/23/2022 7:23 PM CDT Legal Sex Male 7:23 PM CDT Gender Identity Male 03/23/2022 7:23 PM CDT Sexual Orientation Not on file documented as of this encounter Miscellaneous Notes * Cerner Conversion Note - Flaco ProviderMD - 11/22/2018 10:13 AM THREAD CUTTER [address] , [place] [address] Patient Copy Patient Information: Name: PEDRO PICKARD Current Date: 11/22/2018 10:13:40 : 1950 Patient Address: [place] [id number] Patient Attending Physician: TESHA MCCLAIN MD Primary Care Provider: BLU CRUZ (REF)[facility] Primary Care Provider Discharge Diagnosis: S/P knee replacement Weight on Admission: 285 lb, 0 oz Comment: Follow-up Instructions: With: Address: When: Follow up with primary care provider Within 2 to 3 days With: Address: When: MORAIMA NG [address] [place] [address] Business (1) 9:00 AM Comments: Appointment has been made Discharge Instructions: Medical Equipment for Home Use: CPM and Walker already at pts home. Home Health Services: Pt has appointment for Out Patient Physical [facility] at [facility] for . 11/23 he will take a copy of [...] 1 Tablet(s) Oral At Bedtime. Refills: 11. docusate (Colace 100 mg oral capsule) 1 Capsule(s) Oral Every Day as needed as needed for constipation. Refills: 2. gabapentin (gabapentin 300 mg oral capsule) 1 Capsule(s) Oral At Bedtime. Refills: 0. nitroglycerin (Nitrostat 0.4 mg sublingual tablet) 1 Tablet(s) SubLINgual every 5 minutes as needed Chest Pain. oxyCODONE (oxyCODONE 5 mg oral capsule) 1-2 Cap mg Oral Q4-6H; as needed for pain. Refills: 0. traMADol (traMADol 50 mg oral [...] Barley. Bulgur wheat. Millet. Bran muffins. Popcorn. Maxatawny wafer crackers. ?? Vegetables Sweet potatoes. Spinach. Kale. Artichokes. Cabbage. Broccoli. Green peas. Carrots. Squash. ?? Fruits Berries. Pears. Apples. Oranges. Avocados. Prunes and raisins. Dried figs. ?? Meats and Other Protein Sources Mcclure, kidney, mayers, and soy beans. Split peas. [...] shelia has 11 g of protein. ?? Guayanilla seeds ??? 1 oz has 5.5 g [...] floor. ?? Place frequently used items in ibqt-jn-nelqj places ?? Keep electrical cables out of [...] ? Using the bathroom. ? Using household equine dentist or toxic chemicals. ? Touching or taking [...] are a day sleeper or work a caustic cresylate shift superintendent. Some people have thoughts about suicide while [...] may report side effects to FDA at 6-564-KDW-6001. What other drugs will affect gabapentin? Taking gabapentin with other drugs that make you sleepy can worsen this effect. Ask your doctor before taking a sleeping pill, narcotic medication, muscle relaxer, or medicine for anxiety, depression, or seizures. Other drugs may interact with gabapentin, including prescription and ahus-cpt-yzqmhnh medicines, vitamins, and herbal products. Tell your [...] to ensure that the information provided by [employer]. ('[employer]') is accurate, up-to-date, and complete, but no guarantee is made to that effect. Drug information contained herein may be time sensitive. [employer] information has been compiled for use by healthcare practitioners and consumers in the [place] and therefore [employer] does not warrant that uses outside of the [place] are appropriate, unless specifically indicated otherwise. [facility] drug information does not endorse drugs, diagnose patients or recommend therapy. [facility] drug information is an informational resource designed [...] effective or appropriate for any given patient. [employer] does not assume any responsibility for any aspect of healthcare administered with the aid of information [facility] provides. The information contained herein is not intended to cover all possible uses, directions, precautions, warnings, drug interactions, allergic reactions, or adverse effects. If you have questions about the drugs you are taking, check with your doctor, nurse or pharmacist. Copyright 0867-0950 [employer]. Version: 14.01. Revision Date: 07/05/2017. oxycodone (ox i KOE [...] The extended-release form of oxycodone is for qlowwv-odf-ucclx treatment of pain and should not be [...] against the law. Stop taking all other sftnqg-yyn-mjxyx narcotic pain medicines when you start taking [...] may report side effects to FDA at 0-042-YOS-0703. What other drugs will affect oxycodone? You [...] may affect oxycodone. This includes prescription and kbrx-ebn-nwlyydt medicines, vitamins, and herbal products. Not all [...] to ensure that the information provided by [employer]. ('[employer]') is accurate, up-to-date, and complete, but no guarantee is made to that effect. Drug information contained herein may be time sensitive. [employer] information has been compiled for use by healthcare practitioners and consumers in the [place] and therefore [employer] does not warrant that uses outside of the [place] are appropriate, unless specifically indicated otherwise. [facility] drug information does not endorse drugs, diagnose patients or recommend therapy. [facility] drug information is an informational resource designed [...] appropriate for any given patient. [facility] does not assume any responsibility for any aspect of healthcare administered with the aid of information [facility] provides. The information contained herein is not intended to cover all possible uses, directions, precautions, warnings, drug interactions, allergic reactions, or adverse effects. If you have questions about the drugs you are taking, check with your doctor, nurse or pharmacist. Copyright 6595-7237 [facility]. Version: 13.02. Revision Date: 08/23/2018. tramadol (TRAM a dol) Saranyap, Ultram, Ultram ER What is the most [...] extended-release form of this medicine is for cykcir-ujn-mgwys treatment of pain. This form of tramadol [...] against the law. Stop taking all other orbvug-qfq-lamau narcotic pain medications when you start taking [...] may report side effects to FDA at 5-588-HBU-9479. What other drugs will affect tramadol? You [...] may affect tramadol. This includes prescription and gghu-ben-jzmfbhl medicines, vitamins, and herbal products. Not all [...] to ensure that the information provided by [employer]. ('[employer]') is accurate, up-to-date, and complete, but no guarantee is made to that effect. Drug information contained herein may be time sensitive. [employer] information has been compiled for use by healthcare practitioners and consumers in the [place] and therefore [employer] does not warrant that uses outside of the [place] are appropriate, unless specifically indicated otherwise. [employer] drug information does not endorse drugs, diagnose patients or recommend therapy. [facility] drug information is an informational resource designed [...] appropriate for any given patient. [facility] does not assume any responsibility for any aspect of healthcare administered with the aid of information [facility] provides. The information contained herein is not intended to cover all possible uses, directions, precautions, warnings, drug interactions, allergic reactions, or adverse effects. If you have questions about the drugs you are taking, check with your doctor, nurse or pharmacist. Copyright 3838-2766 [employer]. Version: 18.02. Revision Date: 08/23/2018. CIGARETTE SMOKING: The facts are clear, cigarette smoking will shorten your life. Smoking can cause many illnesses along the way. As a healthcare provider, we recommend that you stop smoking. Assistance with quitting is available by contacting 4-275-SUOR-NOW. This is a free resource providing counseling, [...] Be sure to sign up for the [employer] patient portal, which gives you 18/04 access to your medical information ??? including these discharge instructions ??? using your computer, smartphone, or tablet. Just go to Doctor Evidence to get started. Questions? Call . [facility] would like to thank you for allowing us to assist you with your healthcare needs. MARY Arrieta STEPHEN RAY, (or representative government relations) have received the above patient education materials/instructions and have verbalized understanding: Patient Signature _ Date/Time Patient Commercial Trailer Truck Driver Signature (if needed) Date/Time Clinician/Hospital Commercial Trailer Truck Driver Signature (if needed) Date/Time documented in this encounter Plan of Treatment Not on file documented as of this encounter Visit Diagnoses Not on filedocumented in this encounter
--- OUTSIDE RECORDS SUMMARY | 2025-06-19 09:56 | XMS_ITS | Encounter Summary ---
Author Organization [employer] ([place], [place], [place], [place]) Address [address] [place] [address] Care Team Providers Care Brickmason Name Role Phone Unavailable Primary Care Provider Unavailabl e Encounter Details Date Type Department Care Team (Late st Contact Info) Description 11/22/2018 Transcribed Document [facility] [place] [facility] [place] [address] ProviderFlaco MD [facility] [place] [address] Social History Tobacco Use Types [...] Conversion Note - Historical ProviderMD - 11/22/2018 7:05 AM SENIOR OFFICE ASSISTANT Patient: PEDRO PICKARD Age: 68 Years Sex: Male : 1950 Subjective Patient is s/p left TKA. pain is well controlled. no further complatins Objective Vitals & Measurements T: 36.5 ??C TMIN: 36.4 ??C TMAX: 36.8 ??C HR: 103(Monitored) RR: 16 BP: 99/53 SpO2: 95% HT: 177.8 cm WT: 129.55 kg BMI: 41 Physical Exam Dressing clean, dry and intact N/V intact distally Gross motor function for the TA, EHL, gastroc and soleus intact No sign of DVT Assessment/Plan S/P knee replacement Z96.659 1. ok for discharge home today with 2. standard TKA rehab and therapy proctols documented in this encounter Plan of Treatment Not on file documented as of this encounter Visit Diagnoses Not on filedocumented in this encounter
--- OUTSIDE RECORDS SUMMARY | 2025-06-19 09:56 | XMS_ITS | Encounter Summary ---
Author Organization [id number] ([place], [place], [place], [place]) Address [address] [place] [address] Care Team Providers Care Enrolled Nurse Name Role Phone Unavailable Primary Care Provider Unavailabl e Encounter Details Date Type Department Care Team (Late st Contact Info) Description 11/22/2018 Transcribed Document [facility] [place] [facility] [place] [address] ProviderFlaco MD [place] [address] Social History Tobacco Use Types [...] Conversion Note - Historical ProviderMD - 11/22/2018 8:43 AM INTEGRATED SPECIALIST Nursing Discharge Summary Entered On: 11/22/2018 8:44 EST Performed On: 11/22/2018 8:43 EST by Prachi Banuelos RN Discharge Documentation Patient Disposition, General : Discharge Discharge To : Home with ambulatory/outpatient follow-up Mode Of Departure, General Discharge : Private vehicle Accompanied By, Discharge : Care provider IV Discontinued : Yes Personal Belongings With Patient : Yes Prescriptions Given to Patient : Yes Discharge Instructions Reviewed With, Opportunity For Questions Given : Patient Teaching Method : Demonstration, Explanation, Printed materials Teaching Evaluation : Verbalizes understanding Prachi Banuelos RN - 11/22/2018 8:43 EST Electronically signed by Mago [facility] Conversion Revenue Inspector Cerner at 01/12/2023 10:20 PM CDT documented in this encounter Plan of Treatment Not on file documented as of this encounter Visit Diagnoses Not on filedocumented in this encounter
--- OUTSIDE RECORDS SUMMARY | 2025-06-19 09:56 | XMS_ITS | Encounter Summary ---
Author Organization [employer] ([place], [place], [place], [place]) Address [address] [place] [address] Care Team Providers Care Service Tester Name Role Phone Unavailable Primary Care Provider Unavailabl e Encounter Details Date Type Department Care Team (Late st Contact Info) Description 11/22/2018 Transcribed Document [facility] Family Medicine [address] [place] [address] ProviderFlaco MD [facility] [place] [address] Social History Tobacco Use Types [...] Conversion Note - Historical ProviderMD - 11/22/2018 2:00 AM GREETING CARD WRITER Solderer Assembler Details Entered On: 11/22/2018 2:00 EST Performed On: 11/22/2018 2:00 EST by Shauna Collazo RN Order Details Transport Mode Order Detail : Wheelchair Isolation Precautions Order Detail : Standard Precautions Order Detail : N/A IV Order Detail : 1 Oxygen Order Detail : 0 Nurse Collect Order Detail : 0 Lift/Transfer : Minimal Central Line Order Detail : No Room Service : Not Appropriate Arterial Line : No Shauna Collazo RN - 11/22/2018 2:00 EST Electronically signed by Emanuel Mercedes Conversion Burglar Alarm Superintendent Cerner at 01/12/2023 10:37 PM CDT documented in this encounter Plan of Treatment Not on file documented as of this encounter Visit Diagnoses Not on filedocumented in this encounter
--- OUTSIDE RECORDS SUMMARY | 2025-06-19 09:56 | XMS_ITS | Encounter Summary ---
Author Organization [employer] ([place], [place], [place], [place]) Address [address] [place] [address] Care Team Providers Care Multimedia Authoring Specialist Name Role Phone Unavailable Primary Care Provider Unavailabl e Encounter Details Date Type Department Care Team (Late st Contact Info) Description 09/28/2018 Transcribed Document [facility] [place] [address] [place] [address] ProviderFlaco MD [facility] [place] [address] Social History Tobacco Use Types Packs/Day Years Used Date Smoking Tobacco: Never Assessed Sex and Gender Information Value Date Recorded Sex Assigned at Male 03/23/2022 7:23 PM CDT Legal Sex Male 7:23 PM CDT Gender Identity Male 03/23/2022 7:23 PM CDT Sexual Orientation Not on file documented as of this encounter Miscellaneous Notes * Cerner Conversion Note - Historical ProviderMD - 09/28/2018 9:48 AM NUTRITION SERVICES ASSOCIATE Orthopedic Nurse Navigator Entered On: 10/02/2018 16:35 EST Performed On: 09/28/2018 9:48 EST by Nohelia Dong animal keeper head Nurse Navigator Assessment Attended Joint Academy : Yes Joint AcademyType : Online [employer] Date : 09/28/2018 EST Nohelia Dong RN - 10/02/2018 16:34 EST Electronically signed by Mago [facility] Conversion Resident Services Supervisor Cerner at 01/12/2023 10:34 PM CDT documented in this encounter Plan of Treatment Not on file documented as of this encounter Visit Diagnoses Not on filedocumented in this encounter
--- OUTSIDE RECORDS SUMMARY | 2025-06-19 09:56 | XMS_ITS | Encounter Summary ---
Author Organization [employer] ([place], [place], [place], [place]) Address [address] [place] [address] Care Team Providers Care Track Dresser Name Role Phone Unavailable Primary Care Provider Unavailabl e Encounter Details Date Type Department Care Team (Late st Contact Info) Description 10/10/2018 Transcribed Document [facility] [place] [facility] [place] [address] ProviderFlaco MD [facility] [place] [address] Social History Tobacco Use Types [...] Conversion Note - Historical ProviderMD - 10/10/2018 11:00 PM THIRD STEEL POURER Pain Assessment Entered On: 10/11/2018 4:18 EST Performed On: 10/11/2018 2:18 EST by Julien Magallon Rn Intervention Information: acetaminophen Performed by Julien Magallon Rn on 10/11/2018 01:18:00 EST acetaminophen,1000mg Oral Pain Assessment Pain Assessment : Follow-up assessment Pain Scale Goal : 3 Pain Scale Used : 0-10 Scale Julien Magallon Rn - 10/11/2018 4:18 EST Pain Scale Intensity : 1 Julien Magallon Rn - 10/11/2018 4:18 EST Image 4 - Images currently included in the form version of this document have not been included in the text rendition version of the form. Electronically signed by Emanuel Mercedes Conversion Sugarcane Research Technician Cerner at 01/12/2023 10:24 PM CDT documented in this encounter Plan of Treatment Not on file documented as of this encounter Visit Diagnoses Not on filedocumented in this encounter
--- OUTSIDE RECORDS SUMMARY | 2025-06-19 09:56 | XMS_ITS | Encounter Summary ---
Author Organization [employer] ([place], [place], [place], [place]) Address [address] [place] [address] Care Team Providers Care Drum Sealer Name Role Phone Unavailable Primary Care Provider Unavailabl e Encounter Details Date Type Department Care Team (Late st Contact Info) Description 11/22/2018 Transcribed Document [facility] [place] [facility] [place] [address] ProviderFlaco MD [facility] [place] [address] Social History Tobacco Use Types [...] Conversion Note - Historical ProviderMD - 11/22/2018 8:38 AM FACILITY MAINTENANCE SUPERVISOR Discharge Summary, OT Entered On: 11/22/2018 8:39 EST Performed On: 11/22/2018 8:38 EST by OCHOA KWONG OTR/Ted Discharge Summary, OT Reason for Discharge : Discharged from hospital, All goals met Discharge Summary Comment, OT : pt met 2/2 acute care OT goals and will discharge home today with his and outpt rehab, progressed to S for LB ADL and transfers OCHOA KWONG OTR/Ted - 11/22/2018 8:38 EST AM PAC Daily Activity Putting On/Taking Off Lower Body Clothes : A little Bathing (Washing, Rinsing, Drying) : A little Toileting Includes Toilet, Bedpan, Urinal : None Putting On/Taking Off Upper Clothing : None Taking Care of Grooming : None Eating Meals : None AM-PAC Daily Activity Raw Score : 22 AM-PAC Daily Activity Standardized Score : 47.10 AM-PAC Daily Activity CMS 0-100% Score : 25.80 % OCHOA KWONG OTR/L - 11/22/2018 8:38 EST Image 3 - Images currently included in the form version of this document have not been included in the text rendition version of the form. Functional Limitation Reporting, OT Functional Limitation Visit Type, OT : At time of discharge Severity Determination Method, OT : Clinical Judgment, AM PAC Daily Activity Self Care G8988 - Proj Goal Mod, OT : 20 - 39% impaired, limited or restricted (CJ) Self Care G8989 - Discharge Mod, OT : 20 - 39% impaired, limited or restricted (CJ) OCHOA KWONG OTR/Ted - 11/22/2018 8:38 EST documented in this encounter Plan of Treatment Not on file documented as of this encounter Visit Diagnoses Not on filedocumented in this encounter
--- OUTSIDE RECORDS SUMMARY | 2025-06-19 09:56 | XMS_ITS | Encounter Summary ---
Author Organization [employer] ([place], [place], [place], [place]) Address [address] [place] [address] Care Team Providers Care Speech Clinician Name Role Phone Unavailable Primary Care Provider Unavailabl e Encounter Details Date Type Department Care Team (Late st Contact Info) Description 11/22/2018 Transcribed Document [facility] [place] Family Medicine [address] [place] [address] ProviderFlaco MD [address] [place] [address] Social History Tobacco Use Types [...] Conversion Note - Historical ProviderMD - 11/22/2018 9:19 AM REHAB DIRECTOR OCCUPATIONAL THERAPIST Discharge Instructions Entered On: 11/22/2018 9:20 EST Performed On: 11/22/2018 9:19 EST by Charlotte Hoffmann, Case Management-Document Restorer DC Instructions HWD Medical Equipment For Home Use : CPM and Walker already at pts home. Home Health Services : Pt has appointment for Out Patient Physical Therapy at [facility] for . 11/23 he will take a copy of order with him. Charlotte Hoffmann, Case Management-Document Restorer - 11/22/2018 9:19 EST Electronically signed by [facility]ago [facility] Conversion Sealer Aircraft Cerner at 01/12/2023 10:27 PM CDT documented in this encounter Plan of Treatment Not on file documented as of this encounter Visit Diagnoses Not on filedocumented in this encounter
--- OUTSIDE RECORDS SUMMARY | 2025-06-19 09:56 | XMS_ITS | Encounter Summary ---
Author Organization [employer] ([place], [place], [place], [place]) Address [address] [place] [address] Care Team Providers Care Rubber Goods Supervisor Name Role Phone Unavailable Primary Care Provider Unavailabl e Encounter Details Date Type Department Care Team (Late st Contact Info) Description 09/29/2018 Transcribed Document [facility] [place] Family Medicine [facility] [place] [address] ProviderFlaco MD [facility] [place] [address] Social History Tobacco Use Types [...] Conversion Note - Flaco ProviderMD - 09/29/2018 10:05 AM STAMPER BLOCKER Patient: PEDRO PICKARD Age: 68 Years Sex: Male : 1950 Chief Complaint Right Knee Pain PCP Celeste Tay History of Present Illness This patient is a pleasant 68 yo WM who presents with right knee pain. The pain has been going on for 10 years but has gotten progressively worse. He describes it as a sharp pain. It is now to the point that it is affecting his ADLs. He has tried NSAIDs and injections without relief of his pain. He has fallen. He has not used an assistive device. He saw Dr Thorpe who evaluated him and determined that he has severe DJD affecting the right knee. Pt was offered a Right Total Knee Arthroplasty and agreed to the procedure. Pt denies a h/o DVT/PE. No trouble with anesthesia in the past. No respiratory conditions including COPD/DARIAN/asthma. Review of Systems Constitutional: Neg for fevers or chills. Eyes: Neg for blurry vision or change in vision. ENT: Neg for sore throat, ear pain, or dizziness. Cardiac: Neg for chest pain or dyspnea on exertion. Respiratory: Neg for shortness of breath. Gastrointestinal: Neg for nausea, vomiting, diarrhea, or constipation. Musculoskeletal: Pos for right knee pain. Neurologic: Neg for headaches or seizures. Psychiatric: Neg for anxiety and depression. Integumentary: Neg for rash. Physical Exam Vitals & Measurements 148/86 93% 18 93 BMI 41.7 Constitutional: This is a pleasant 68 yo WM in no acute distress. HEENT: Normocephalic, atraumatic. PEERLA. Extraocular muscles intact. Conjunctiva pink without exudate. Oropharynx pink and moist. Neck supple. No JVD. Cardiac: SI, S2. RRR. No M/R/G. Respiratory: Lungs CTA bilaterally. No wheezes, rales, or rhonchi. Abdomen: Soft, nontender, nondistended. Active bowel sounds. No visible masses. Musculoskeletal: Right Knee ROM 2-115. Integumentary: Skin is pink, warm and dry. No rashes. Neurologic: CN II-XII grossly intact. Psychiatric: Judgment and affect appropriate. Assessment/Plan 1. Preoperative Evaluation- Right Knee Pain secondary to DJD: Proceed with surgery as scheduled with Dr Thorpe on 10/10/2017. Pt underwent preoperative laboratory workup and diagnostic studies. This included a medical evaluation from his PCP who provided him with clearance to proceed with surgery. 2. Hypertension- Continue Lisinopril, Spironolactone and Metoprolol. 3. CAD- Pt received cardiac clearance from Dr Kong. 4. Hyperlipidemia- Continue Atorvastatin. BASED ON THE PATIENT'S HISTORY OF CAD, I FEEL THAT THIS PATIENT SHOULD REQUIRE INPATIENT HOSPITALIZATION UNLESS DEEMED OTHERWISE APPROPRIATE BY THE ORTHOPEDIC SURGEON GIVEN THE COMPLEXITY OF THE OPERATION. Problem List/Past Medical History At risk for sleep apnea Insomnia Stented coronary artery Procedure/Surgical History ORIF to left elbow, stent placement, tonsils. Medications Home aspirin, 81 mg, Oral, Daily bumetanide 2 mg oral tablet, 2 mg, 1 Tab, Oral, Daily diphenhydrAMINE, 50 mg, Oral, At Bedtime Lipitor 20 mg oral tablet, 20 mg, 1 Tab, Oral, At Bedtime, 11 refills lisinopril 2.5 mg oral tablet, 2.5 mg, 1 Tab, Oral, BID Metoprolol Succinate ER, 50 mg, Oral, At Bedtime Nitrostat 0.4 mg sublingual tablet, 0.4 mg, 1 Tab, SubLINgual, Q5Min, PRN, 6 refills spironolactone 25 mg oral tablet, 25 mg, 1 Tab, Oral, BID Allergies No Known Allergies Social History Alcohol Alcohol Use History Yes. Alcohol Use Frequency Socially. Use in Last 12 Months: Yes. Days/Week: 2. # Drinks/Day: 2. Total Drinks/Week: 4. Date/Time of Last Drink: 08/12/13. Home/Environment Lives with Spouse. Nutrition/Health Regular, Caffeine intake amount: 4 cups per day - coffee. Substance Abuse Drug Use Hx: No. Use in Last 12 Months: No. Drug Use Hx: No. Use in Last 12 Months: No. Tobacco Never (less than 100 in lifetime) Smoking Status. Never Smokeless Tobacco Status. Use in Last 12 Months: No. Family History Pt mother from Breast Cancer at 60. Pt father at 85 from a SD. Lab Results WBCs- 12.5 Hbg- 15.2 Hct- 46.6 Plts- 282 Glucose- 114 Na- 138 K- 4.6 BUN- 20 Cr- 1.29 GFR- 56 Hbg A1C- 6.2 PT- 10.2 INR- 0.99 PTT- 28.9 UA is neg for nitrites and LE Diagnostic Results EKG- NSR, 74 CXR- Mild Cardiomegaly, NAD Electronically signed by Emanuel Mercedes Conversion Inspector Integrated Circuits Cerner at 01/12/2023 10:19 PM CDT documented in this encounter Plan of Treatment Not on file documented as of this encounter Visit Diagnoses Not on filedocumented in this encounter
--- OUTSIDE RECORDS SUMMARY | 2025-06-19 09:56 | XMS_ITS | Encounter Summary ---
Author Organization [employer] ([place], [place], [place], [place]) Address [address] [place] [address] Care Team Providers Care Air Force Pilot Name Role Phone Unavailable Primary Care Provider Unavailabl e Encounter Details Date Type Department Care Team (Late st Contact Info) Description 11/22/2018 Transcribed Document [facility] [place] Family Medicine [facility] [place] [address] ProviderFlaco MD [address] [place] [address] Social History Tobacco Use Types Packs/Day Years Used Date Smoking Tobacco: Never Assessed Sex and Gender Information Value Date Recorded Sex Assigned at Male 03/23/2022 7:23 PM CDT Legal Sex Male 7:23 PM CDT Gender Identity Male 03/23/2022 7:23 PM CDT Sexual Orientation Not on file documented as of this encounter Miscellaneous Notes * Cerner Conversion Note - Flaco ProviderMD - 11/22/2018 10:14 AM USABILITY STRATEGIST [address] , [place] [address] Patient Copy Patient Information: Name: PEDRO PICKARD Current Date: 11/22/2018 10:14:44 : 1950 Patient Address: [place] [address] Patient Attending Physician: TESHA MCCLAIN MD Primary Care Provider: [facility] (REF[facility] Primary Care Provider Discharge Diagnosis: S/P knee replacement Weight on Admission: 285 lb, 0 oz Comment: Follow-up Instructions: With: Address: When: Follow up with primary care provider Within 2 to 3 days With: Address: When: M[facility]A [facility] [address] [facility] [place] [address] Business (1) 9:00 AM Comments: Appointment has been made Discharge Instructions: Medical Equipment for Home Use: CPM and Walker already at pts home. Home Health Services: Pt has appointment for Out Patient Physical Therapy at [facility] for . 11/23 he will take a [...] Barley. Bulgur wheat. Millet. Bran muffins. Popcorn. [place] wafer crackers. ?? Vegetables Sweet potatoes. Spinach. Kale. Artichokes. Cabbage. Broccoli. Green peas. Carrots. Squash. ?? Fruits Berries. Pears. Apples. Oranges. Avocados. Prunes and raisins. Dried figs. ?? Meats and Other Protein Sources Trooper, kidney, mayers, and soy beans. Split peas. [...] shelia has 11 g of protein. ?? Wheeler seeds ??? 1 oz has 5.5 g [...] floor. ?? Place frequently used items in fhqs-ef-bjqzg places ?? Keep electrical cables out of [...] ? Using the bathroom. ? Using household data analysis intern or toxic chemicals. ? Touching or taking [...] are a day sleeper or work a shift production associate. Some people have thoughts about suicide while [...] may report side effects to FDA at 3-034-ILD-5705. What other drugs will affect gabapentin? Taking gabapentin with other drugs that make you sleepy can worsen this effect. Ask your doctor before taking a sleeping pill, narcotic medication, muscle relaxer, or medicine for anxiety, depression, or seizures. Other drugs may interact with gabapentin, including prescription and suux-coz-ydqthcs medicines, vitamins, and herbal products. Tell your [...] to ensure that the information provided by [employer]. ('[employer]') is accurate, up-to-date, and complete, but no guarantee is made to that effect. Drug information contained herein may be time sensitive. [employer] information has been compiled for use by healthcare practitioners and consumers in the [place] and therefore [employer] does not warrant that uses outside of the [place] are appropriate, unless specifically indicated otherwise. [employer] drug information does not endorse drugs, diagnose patients or recommend therapy. [employer] drug information is an informational resource designed [...] effective or appropriate for any given patient. [employer] does not assume any responsibility for any aspect of healthcare administered with the aid of information [facility] provides. The information contained herein is not intended to cover all possible uses, directions, precautions, warnings, drug interactions, allergic reactions, or adverse effects. If you have questions about the drugs you are taking, check with your doctor, nurse or pharmacist. Copyright 4097-4170 [employer]. Version: 14.01. Revision Date: 07/05/2017. oxycodone (ox [...] The extended-release form of oxycodone is for fbzbmn-vet-jdoei treatment of pain and should not be [...] against the law. Stop taking all other jnital-lde-asqyd narcotic pain medicines when you start taking [...] may report side effects to FDA at 4-662-GUV-2328. What other drugs will affect oxycodone? You [...] may affect oxycodone. This includes prescription and nipf-yht-ewuienb medicines, vitamins, and herbal products. Not all [...] to ensure that the information provided by [employer]. ('[employer]') is accurate, up-to-date, and complete, but no guarantee is made to that effect. Drug information contained herein may be time sensitive. [employer] information has been compiled for use by healthcare practitioners and consumers in the [place] and therefore [employer] does not warrant that uses outside of the [place] are appropriate, unless specifically indicated otherwise. [employer] drug information does not endorse drugs, diagnose patients or recommend therapy. For Your [employer] drug information is an informational resource designed [...] effective or appropriate for any given patient. [facility] does not assume any responsibility for any aspect of healthcare administered with the aid of information [facility] provides. The information contained herein is not intended to cover all possible uses, directions, precautions, warnings, drug interactions, allergic reactions, or adverse effects. If you have questions about the drugs you are taking, check with your doctor, nurse or pharmacist. Copyright 2208-9382 The [facility] My [employer]. Version: 13.02. Revision Date: 08/23/2018. tramadol (TRAM [...] extended-release form of this medicine is for yctirk-kek-tbbir treatment of pain. This form of tramadol [...] against the law. Stop taking all other yghuuo-rlf-fyvnq narcotic pain medications when you start taking [...] may report side effects to FDA at 9-133-PSK-4524. What other drugs will affect tramadol? You [...] may affect tramadol. This includes prescription and cozi-eos-xoucwbu medicines, vitamins, and herbal products. Not all [...] to ensure that the information provided by [employer]. ('[employer]') is accurate, up-to-date, and complete, but no guarantee is made to that effect. Drug information contained herein may be time sensitive. [employer] information has been compiled for use by healthcare practitioners and consumers in the [place] and therefore [employer] does not warrant that uses outside of the [place] are appropriate, unless specifically indicated otherwise. [employer]'s drug information does not endorse drugs, diagnose patients or recommend therapy. [facility] drug information is an informational resource designed [...] effective or appropriate for any given patient. [facility] does not assume any responsibility for any aspect of healthcare administered with the aid of information [facility] provides. The information contained herein is not intended to cover all possible uses, directions, precautions, warnings, drug interactions, allergic reactions, or adverse effects. If you have questions about the drugs you are taking, check with your doctor, nurse or pharmacist. Copyright 6795-2352 [employer]. Version: 18.02. Revision Date: 08/23/2018. CIGARETTE SMOKING: The facts are clear, cigarette smoking will shorten your life. Smoking can cause many illnesses along the way. As a healthcare provider, we recommend that you stop smoking. Assistance with quitting is available by contacting 0-908-MCVO-NOW. This is a free resource providing counseling, [...] Be sure to sign up for the [employer] patient portal, which gives you 18/04 access to your medical information ??? including these discharge instructions ??? using your computer, smartphone, or tablet. Just go to [employer]uitive to get started. Questions? Call . [facility] would like to thank you for allowing us to assist you with your healthcare needs. MARY Arrieta STEPHEN RAY, (or account manager sales representative) have received the above patient education materials/instructions and have verbalized understanding: Patient Signature _ Date/Time Patient Venetian Blind Worker Signature (if needed) Date/Time Clinician/Hospital Venetian Blind Worker Signature (if needed) Date/Time documented in this encounter Plan of Treatment Not on file documented as of this encounter Visit Diagnoses Not on filedocumented in this encounter
--- OUTSIDE RECORDS SUMMARY | 2025-06-19 09:56 | XMS_ITS | Clinical Summary ---
[facility] Address [address] [place] [address] Care Team Providers Care Removable Prosthodontist Name Role Phone Celeste Tay Primary Care Provider [phone] Allergies Active Allergy Reactions Criticality Noted Date Comments Bee Venom Swelling Low 04/02/2013 Medications ASPIRIN 81 PO Take 81 mg by mouth Every Morning. Did not stop for surgery per athletics teacher Active diphenhydrAMINE (BENADRYL) 50 MG capsule Take 1 capsule by mouth At Night As Needed. Active atorvastatin (LIPITOR) 20 MG tablet Take 1 tablet by mouth Every Night. Active bumetanide (BUMEX) 2 MG tablet Take 1 tablet by mouth Every Morning. Active metoprolol succinate XL (TOPROL-XL) 50 MG 24 hr tablet Take 1 tablet by mouth Every Night. Active nitroglycerin (NITROSTAT) 0.[address] 1 tablet under the tongue Every 5 (Five) Minutes As Needed for Chest Pain. Never used Active sacubitril-vals jack (Entresto) 97-103 MG tablet Take 1 tablet by mouth 2 (Two) Times a Day. Active clopidogrel (Plavix) 75 MG tablet Take 1 tablet by mouth Daily. 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 Never 03/08/2025 Q2: How many drinks containi ng alcohol do you have on a typical day when you are drinking? Patient does not drink Q3: How often do you have si x or more drinks on one occasion? Never 03/08/2025 Abuse Screen Answer Date Recorded Feels Unsafe at Home or Work/School no 03/08/2025 Feels Threatened by Someone no 02/24 Does Anyone Try to Keep You From Having Contact with Others or Doing Things Outside Your Home? no 03/08/2025 Physical Signs of Abuse Present no 03/08/2025 Housing Stability Answer Date Recorded Current Living Arrangements home 02/24 Potentially Unsafe Housing Conditions Not on shilo e 03/08/2025 Family and Community Support Answer Balaji e Recorded Help with Day-to-Day Activities Not on file 07/07/2023 Lonely or Isolated Not on file 07/07/2023 Employment Answer Date Recorded Do you want help finding or keeping work or a colleen b? Not on file 07/07/2023 Disabilities Answer Date Recorded Difficulty Concentrating, Remembering or Making Decisions no 03/08/2025 Difficulty Managing Errands Independently no 03/08/2025 Education Answer Date Recorded Help with school or training? Not on file Preferred Language Not on file 07/07/2023 Sex and Gender Information Value Date Recorded Sex Assigned at Not on file Legal Sex Male 1:50 PM EST Gender Identity Not on file Sexual Orientation Not on file Last Filed Vital Signs Vital Sign Reading Time Taken Comments Blood Pressure 120/72 03/08/2025 3:00 PM EDT Pulse 70 03/08/2025 3:01 PM EDT Temperature 36.2 C (97.1 F) 03/08/2025 7:40 AM EDT Respiratory Rate 20 03/08/2025 1:20 PM EDT Oxygen Saturation 91% 03/08/2025 3:01 PM EDT Inhaled Oxygen Concentration - - Weight 131 kg (287 lb 12.8 oz) 03/08/2025 7:40 A M EDT Height 177.8 cm (5' 10 ) 03/08/2025 7:40 AM EDT Body Mass Index 41.3 03/08/2025 7:40 AM EDT Plan of Treatment Health Maintenance Due Date Last Done Comments LIPID PANEL 1950 COLOGUARD 1996 COLON CANCER SCREENING 5 YEA R SIGMOIDOSCOPY 1996 COLONOSCOPY 1996 COLORECTAL CANCER SCREENING 1996 CT COLONOGRAPHY 1996 FECAL OCCULT BLOOD TEST 1996 FIT Testing (1 year) 1996 ANNUAL WELLNESS VISIT 08/27/2020 HEPATITIS C SCREENING 08/27/2020 INFLUENZA VACCINE 04/26/2025 06/26/2024, , 08/10/2021, Additional history exists ZOSTER VACCINE (2 of 2) 04/26/2025 03/01/2025 COVID-19 Vaccine (5 - 2023-2 5 season) 2025 06/26/2024, 07/29/2021, 12/24/2020, Additional history exists TDAP/TD VACCINES (2 - Td or Tdap) 03/01/2035 025 Pneumococcal Vaccine 50+ Completed 019, 08/03/2017, 08/03/2017 Medical Devices Implanted Type Area Medical Records Supervisor Device Identifier Shelf Expiration Date Model / Serial / Lot Glenosphere Univers Revers Modular 28mm 42pls4 - [id number] Implanted:Qty: 1 on 10/03/2020 by Rashard Perez MD at [facility] Implant Right: Shoulder ARTHREX [id number] 08/25/2024 [id number] 42LAT / / [id number] Scrw Lk Jamie Univers Revers Periph 5.5x16mm - [id number] Implanted:Qty: 1 on 10/03/2020 by Rashard Perez MD at [facility] Implant Right: Shoulder ARTHREX [id number] 11/23/2024 [id number] / / [id number] Scrw Lk Jamie Univers Revers Periph 5.5x36mm - [id number] Implanted:Qty: 1 on 10/03/2020 by Rashard Perez MD at [facility] Implant Right: Shoulder ARTHREX [id number] 08/25/2024 [id number] / / [id number] Cup Sut Univers Revers 42 Ntrl - [id number] Implanted:Qty: 1 on 10/03/2020 by Rashard Perez MD at [facility] Implant Right: Shoulder ARTHREX [id number] 12/24/2024 [id number] 2CPC / / [id number] Stem Hum Univers Revers Henderson Sz12 - [id number] Implanted:Qty: 1 on 10/03/2020 by Rashard Perez MD at [facility] Implant Right: Shoulder ARTHREX [id number] 03/25/2025 [id number] S / / [id number] Insrt Hum Univers Revers Cnstr 42 Pls6 Lg - [id number] Implanted:Qty: 1 on 10/03/2020 by Rashard Perez MD at [facility] Implant Right: Shoulder ARTHREX [id number] 08/25/2024 [id number] 6C / / [id number] Sut Fw #2 W/Tpr Ndl / Cir 38in 97cm 26.5mm Chucho - [id number] Implanted:Qty: 2 on 10/03/2020 by Rashard Perez MD at [facility] Implant Right: Shoulder ARTHREX [id number] / / Totl Shldr Rev S4 - [id number] Implanted:Qty: 1 on 10/03/2020 by Rashard Perez MD at [facility] Implant Right: Shoulder ARTHREX CAPREVSH [id number] HREX / / Hemost Abs Surgicel 4x8in - [id number] Implanted:Qty: 1 on 10/03/2020 by Rashard Perez MD at [facility] Implant Right: Shoulder ETHICON DIV OF J AND J 1950 / / Scrw Centrl Jamie Univers Revers 20mm - [id number] Implanted:Qty: 1 on 10/03/2020 by Rashard Perez MD at [facility] Implant Right: Shoulder ARTHREX [id number] 01/23/2025 [id number] S / / [id number] Baseplt Jamie Univers Revers Modular 28mm Pls2 - [id number] Implanted:Qty: 1 on 10/03/2020 by Rashard Perez MD at [facility] Implant Right: Shoulder ARTHREX [id number] 07/26/2024 [id number] 2 / / [id number] Scrw Nl Jamie Univers Revers Periph 4.5x32mm - [id number] Implanted:Qty: 1 on 10/03/2020 by Rashard Perez MD at [facility] Implant Right: Shoulder ARTHREX [id number] 02/23/2025 [id number] NL / / [id number] Scrw Nl Jamie Univers Revers Periph 4.5x40mm - [id number] Implanted:Qty: 1 on 10/03/2020 by Rashard Perez MD at [facility] Implant Right: Shoulder ARTHREX [id number] 02/23/2025 [id number] NL / / [id number] Stentgr Endoprosth Viabahn Ro Hep 8f 9mm [id number] - [id number] - [id number] Implanted:Qty: 1 on 03/08/2025 by Paddy Gama MD at [facility] Implant [employer] 07/04/2026 [id number] / [id number] / Stentgr Endoprosth Viabahn Ro Hep 8f 9mm [id number] - [id number] - [id number] Implanted:Qty: 1 on 03/08/2025 by Paddy Gama MD at [facility] Implant [employer] 01/03/2026 [id number] / [id number] / Knee Replacement Elbow Replacement Cardiac Stents Dental Implants Insurance MEDICARE A & B Member Subscriber Plan / Payer (Ef fective 2016-Present) Name:Pedro Pickard Member ID:[id number] Relation to Subscriber:Self Name:Pedro Pickard Subscriber ID:[id number] Payer ID:[id number] Group ID:Not on file Type:Not on file Address: [address] HEALTH CARE OPTIONS Advance Directives * CPR (Attempt to Resuscitate) (Latest Code Status on File) Date Activated Date Inactivated Comments 10/03/2020 5:35 PM 10/04/2020 3:06 PM Question Answer Comments Code Status (Patient has no pulse and is not breathing): CPR (Attempt to Resuscitate) Medical Interventions (Patie nt has pulse or is breathing): Full Care Teams Removable Prosthodontist Relationship Specialty Start Date End Date Celeste Tay PA PCP - General Physician Rotary Cutter Operator 10/02/20
--- OUTSIDE RECORDS SUMMARY | 2025-06-19 09:56 | XMS_ITS | Encounter Summary ---
Author Organization [employer] ([place], [place], [place], [place]) Address [address] [place] [address] Care Team Providers Care Airframe Technician Name Role Phone Unavailable Primary Care Provider Unavailabl e Encounter Details Date Type Department Care Team (Late st Contact Info) Description 11/22/2018 Transcribed Document [facility] [place] [facility] [place] [address] ProviderFlaco MD [address] [place] [address] Social History Tobacco Use Types Packs/Day Years Used Date Smoking Tobacco: Never Assessed Sex and Gender Information Value Date Recorded Sex Assigned at Male 03/23/2022 7:23 PM CDT Legal Sex Male 7:23 PM CDT Gender Identity Male 03/23/2022 7:23 PM CDT Sexual Orientation Not on file documented as of this encounter Miscellaneous Notes * Cerner Conversion Note - Historical ProviderMD - 11/22/2018 9:17 AM COMPRESSOR STATION OPERATOR Discharge Summary, PT Entered On: 11/22/2018 9:19 EST Performed On: 11/22/2018 9:17 EST by RAFAEL SHIN PT Discharge Summary Discharge Summary Provider Notified : Nursing Reason for Discharge : Discharged from hospital, All goals met Discharged to, Therapy : Home, with home health Discharge Equipment, PT : Walker Discharge Summary Comment, PT : Patient discharging to home with HHPT to follow having met 3/3 acute care therapy goals. Patient is mod I with bed mobility, transfers and household ambulation with RW, supervision for community ambulation with RW and steps. See final note for [facility]. RAFAEL SHIN, PT - 11/22/2018 9:17 EST documented in this encounter Plan of Treatment Not on file documented as of this encounter Visit Diagnoses Not on filedocumented in this encounter
--- OUTSIDE RECORDS SUMMARY | 2025-06-19 09:56 | XMS_ITS | Encounter Summary ---
Author Organization [employer] ([place], [place], [place], [place]) Address [address] [place] [address] Care Team Providers Care Burlap Bag Sewer Name Role Phone Unavailable Primary Care Provider Unavailabl e Encounter Details Date Type Department Care Team (Late st Contact Info) Description 11/22/2018 Transcribed Document [facility] [place] [facility] [place] [address] ProviderFlaco MD [address] [place] [address] Social History Tobacco Use Types Packs/Day Years Used Date Smoking Tobacco: Never Assessed Sex and Gender Information Value Date Recorded Sex Assigned at Male 03/23/2022 7:23 PM CDT Legal Sex Male 7:23 PM CDT Gender Identity Male 03/23/2022 7:23 PM CDT Sexual Orientation Not on file documented as of this encounter Miscellaneous Notes * Cerner Conversion Note - Flaco ProviderMD - 11/22/2018 10:12 AM MEDICAL TECHNOLOGIST CLINICAL [address] , [place] [address] Patient Copy Patient Information: Name: PEDRO PICKARD Current Date: 11/22/2018 10:12:31 : 1950 Patient Address: [place] [address] Patient Attending Physician: TESHA MCCLAIN MD Primary Care Provider: BLU CRUZ (REF)[facility] Primary Care Provider Discharge Diagnosis: S/P knee replacement Weight on Admission: 285 lb, 0 oz Comment: Follow-up Instructions: With: Address: When: Follow up with primary care provider Within 2 to 3 days With: Address: When: MORAIMA NG [address] [facility] [place] [address] Business (1) 9:00 AM Comments: Appointment has been made Discharge Instructions: Medical Equipment for Home Use: CPM and Walker already at pts home. Home Health Services: Pt has appointment for Out Patient Physical Therapy at [facility] for . 11/23 he will take a [...] Barley. Bulgur wheat. Millet. Bran muffins. Popcorn. [place] wafer crackers. ?? Vegetables Sweet potatoes. Spinach. Kale. Artichokes. Cabbage. Broccoli. Green peas. Carrots. Squash. ?? Fruits Berries. Pears. Apples. Oranges. Avocados. Prunes and raisins. Dried figs. ?? Meats and Other Protein Sources [place], kidney, mayers, and soy beans. Split [...] shelia has 11 g of protein. ?? [place] seeds ??? 1 oz has 5.5 g [...] floor. ?? Place frequently used items in vmjy-hc-qytlg places ?? Keep electrical cables out of [...] ? Using the bathroom. ? Using household vending supervisor or toxic chemicals. ? Touching or taking [...] a day sleeper or work a shift foreman. Some people have thoughts about suicide while [...] may report side effects to FDA at 5-276-[place]-3146. What other drugs will affect gabapentin? Taking gabapentin with other drugs that make you sleepy can worsen this effect. Ask your doctor before taking a sleeping pill, narcotic medication, muscle relaxer, or medicine for anxiety, depression, or seizures. Other drugs may interact with gabapentin, including prescription and pwky-gkj-vekciim medicines, vitamins, and herbal products. Tell your [...] to ensure that the information provided by [employer]. ('Multum') is accurate, up-to-date, and complete, but no guarantee is made to that effect. Drug information contained herein may be time sensitive. ixigo information has been compiled for use by healthcare practitioners and consumers in the [place] and therefore ixigo does not warrant that uses outside of the [place] are appropriate, unless specifically indicated otherwise. [employer] drug information does not endorse drugs, diagnose patients or recommend therapy. [employer] drug information is an informational resource designed [...] effective or appropriate for any given patient. [employer]igo does not assume any responsibility for any aspect of healthcare administered with the aid of information [facility] provides. The information contained herein is not intended to cover all possible uses, directions, precautions, warnings, drug interactions, allergic reactions, or adverse effects. If you have questions about the drugs you are taking, check with your doctor, nurse or pharmacist. Copyright 7661-1577 [employer]. Version: 14.01. Revision Date: 07/05/2017. oxycodone (ox [...] The extended-release form of oxycodone is for pmkyln-fjq-kydfh treatment of pain and should not be [...] against the law. Stop taking all other haojza-ywq-rhfhf narcotic pain medicines when you start taking [...] may report side effects to FDA at 9-957-JQJ-4674. What other drugs will affect oxycodone? You [...] may affect oxycodone. This includes prescription and yqam-dpe-gccohee medicines, vitamins, and herbal products. Not all [...] to ensure that the information provided by [employer]-Bot. ('Multum') is accurate, up-to-date, and complete, but no guarantee is made to that effect. Drug information contained herein may be time sensitive. ixigo information has been compiled for use by healthcare practitioners and consumers in the [place] and therefore ixigo does not warrant that uses outside of the [place] are appropriate, unless specifically indicated otherwise. [employer] drug information does not endorse drugs, diagnose patients or recommend therapy. [employer] drug information is an informational resource designed [...] patient. [facility] does not assume any responsibility for any aspect of healthcare administered with the aid of information [facility] provides. The information contained herein is not intended to cover all possible uses, directions, precautions, warnings, drug interactions, allergic reactions, or adverse effects. If you have questions about the drugs you are taking, check with your doctor, nurse or pharmacist. Copyright 6220-9605 [facility]. Version: 13.02. Revision Date: 08/23/2018. tramadol (TRAM [...] extended-release form of this medicine is for wpfbek-jkg-vcfjn treatment of pain. This form of tramadol [...] against the law. Stop taking all other yaazfy-nri-feoug narcotic pain medications when you start taking [...] may report side effects to FDA at 4-565-XIB-1599. What other drugs will affect tramadol? You [...] may affect tramadol. This includes prescription and olwf-xpb-yhuvryo medicines, vitamins, and herbal products. Not all [...] to ensure that the information provided by [employer]-Bot. ('Multum') is accurate, up-to-date, and complete, but no guarantee is made to that effect. Drug information contained herein may be time sensitive. ixigo information has been compiled for use by healthcare practitioners and consumers in the [place] and therefore ixigo does not warrant that uses outside of the [place] are appropriate, unless specifically indicated otherwise. ixigo's drug information does not endorse drugs, diagnose patients or recommend therapy. [facility] drug information is an informational resource designed [...] patient. [facility] does not assume any responsibility for any aspect of healthcare administered with the aid of information [facility] provides. The information contained herein is not intended to cover all possible uses, directions, precautions, warnings, drug interactions, allergic reactions, or adverse effects. If you have questions about the drugs you are taking, check with your doctor, nurse or pharmacist. Copyright 4986-8015 [employer]-Bot. Version: 18.02. Revision Date: 08/23/2018. CIGARETTE SMOKING: The facts are clear, cigarette smoking will shorten your life. Smoking can cause many illnesses along the way. As a healthcare provider, we recommend that you stop smoking. Assistance with quitting is available by contacting 0-436-FLIX-NOW. This is a free resource providing counseling, [...] Be sure to sign up for the [employer] patient portal, which gives you 18/04 access to your medical information ??? including these discharge instructions ??? using your computer, smartphone, or tablet. Just go to Compliance 360 to get started. Questions? Call . [facility] would like to thank you for allowing us to assist you with your healthcare needs. MARY Arrieta STEPHEN RAY, (or phone representative) have received the above patient education materials/instructions and have verbalized understanding: Patient Signature _ Date/Time Patient Jde Developer Signature (if needed) Date/Time Clinician/Hospital Jde Developer Signature (if needed) Date/Time documented in this encounter Plan of Treatment Not on file documented as of this encounter Visit Diagnoses Not on filedocumented in this encounter
--- OUTSIDE RECORDS SUMMARY | 2025-06-19 09:56 | XMS_ITS | Clinical Summary ---
Author Organization [employer] ([place], [place], [place], [place]) Address [address] [place] [address] Care Team Providers Care Rn Pacu Name Role Phone Unavailable Primary Care Provider Unavailabl e Social History Tobacco Use Types Packs/Day Years Used Date Smoking Tobacco: Never Assessed Sex and Gender Information Value Date Recorded Sex Assigned at Male 03/23/2022 7:23 PM CDT Legal Sex Male 7:23 PM CDT Gender Identity Male 03/23/2022 7:23 PM CDT Sexual Orientation Not on file Plan of Treatment Not on file
--- OUTSIDE RECORDS SUMMARY | 2025-06-19 09:56 | XMS_ITS | Encounter Summary ---
Author Organization [employer] ([place], [place], [place], [place]) Address [address] [place] [address] Care Team Providers Care Computer Art Instructor Name Role Phone Unavailable Primary Care Provider Unavailabl e Encounter Details Date Type Department Care Team (Late st Contact Info) Description 10/10/2018 Transcribed Document [facility] [place] [facility] [place] [address] ProviderFlaco MD [facility] [place] [address] Social History Tobacco Use Types [...] Conversion Note - Historical ProviderMD - 10/10/2018 4:36 PM PRACTICE ADMINISTRATOR Admission History, Adult Entered On: 10/10/2018 16:38 EST Performed On: 10/10/2018 16:36 EST by Soniya Lomeli RN Advance Directive Patient has Advance Directive *Q : Yes, Advance Directive not with the patient Advance Directive Type : Living will, Medical durable power of assistant county attorney (proxy) Medical Durable Power of Public Health Training Assistant Name : No Copy Advance Directive Verified/on Chart : No Soniya Lomeli RN - 10/10/2018 16:36 EST Anesthesia/Transfusion History Family History of Anesthesia Reaction : No prior transfusion(s) Blood Transfusion Acceptable to Patient : Yes Transfusion History : Prior anesthesia without reaction Family History of Anesthesia Reaction : None Soniya Lomeli RN - 10/10/2018 16:36 EST Anticipated Discharge Needs Discharge To, Anticipated : Home Soniya Lomeli RN - 10/10/2018 16:36 EST Education Topics, Admission Orientation DCP GENERIC CODE Advance Directives : Verbalizes understanding Allergy Band Applied : Verbalizes understanding Assessment/Vital Signs : Verbalizes understanding Bed Control : Verbalizes understanding Call Light : Verbalizes understanding Confidentiality : Verbalizes understanding Diet/Room Service : Verbalizes understanding Fall Prevention : Verbalizes understanding Hand Hygiene : Verbalizes understanding Healthcare Provider Visit : Verbalizes understanding ID Band Applied : Verbalizes understanding Isolation Precautions : Verbalizes understanding Orientation to Room/Bathroom : Verbalizes understanding Patient Bill of Rights : Verbalizes understanding Patient Rights/Responsibilities : Verbalizes understanding Patient Safety : Verbalizes understanding Personal Privacy Code : Verbalizes understanding Rapid Response Initiated by Patient/Family : Verbalizes understanding Rounding : Verbalizes understanding Siderails use/risks : Verbalizes understanding Skin Precautions : Verbalizes understanding Smoking Policy : Verbalizes understanding Telemetry Monitoring : Verbalizes understanding Television/Phone : Verbalizes understanding Visiting Policy : Verbalizes understanding Soniya Lomeli RN - 10/10/2018 16:36 EST Functional Assessment Living Situation : Home Patient Lives With : Spouse Persons Assisting Patient at Home : Spouse Current Daily Living Assistance : None Mobility Assistance Prior to Admission : Independent Current Home Treatments : None Home Equipment : None Professional Skilled Services : None Special Services and Community Resources : None Soniya Lomeli RN - 10/10/2018 16:36 EST General Info Arrived From : Home Mode of Arrival on Unit : Ambulatory Legal Guardian : Spouse Support Person/Patient Dental Technician Apprentice : Yes Support Person/Pt Rep Name : Radha spouse Support Person/Pt Rep Contact Information : [phone] Want Family/Rep/Phys Notified of Admit : No Emergency Contact #1 : Radha Pickard Emergency Contact #1 Emergency Contact #1 Relationship : spouse Emergency Contact #2 : . Emergency Contact #2 Phone Number : . Emergency Contact #2 Relationship : . Information Obtained From : Patient Primary Language : Faroese Preferred Communication Mode : Verbal Communication Barrier : None Currently Lactating : N/A Status : N/A Soniya Lomeli RN - 10/10/2018 16:36 EST Fall Risk Scales ABCs Fall Injury Risk Identification : Surgery ABC Fall Injury Risk : Moderate to high injury risk Injury Moderate to High Risk Interventions : Bed alarm on, Chair alarm on, Specialty low bed, Supervise toileting as indicated, Transport methods appropriate to patient, Wrist band (fall risk) on per policy SANDY Hx Falls Immediate/Within 3 Months : No Sandy Secondary Diagnosis : Yes SANDY Use of Ambulatory Aid : Bed rest/Nurse assist SANDY IV Therapy or IV Access : Yes Sandy Gait/Transferring : Weak Sandy Mental Status : Oriented to own ability Sandy Fall Risk Score : 45 SANDY Fall Scale Risk Level : 25-45 Medium Risk Hazard Fall Interventions : Adequate lighting, Bed in low position, Call device within reach, Fall prevention handout/education per facility policy, Frequent orientation to call device, Frequent orientation to surroundings, Hourly comfort/safety rounds, Non-slip footwear, Personal items within reach, Reinforced to call for assistance before getting out of bed, Room free of clutter/spills, Upper side-rails up, Wheels locked, Wires/Cords secured Soniya Lomeli RN - 10/10/2018 16:36 EST Fall Risk Education Grid Alarms : Verbalizes understanding Assistive Equipment Use : Verbalizes understanding Bed Height/Stabilization : Verbalizes understanding Call light use : Verbalizes understanding Door Open : Verbalizes understanding Environmental Management : Verbalizes understanding Eyeglasses Use : Verbalizes understanding Fall Community Resources : Verbalizes understanding Fall Contract/Letter : Verbalizes understanding Fall Prevention in the Home : Verbalizes understanding Fall Prevention Protocol : Verbalizes understanding Hearing Aid Use : Verbalizes understanding Home Risk Assessment : Verbalizes understanding Need Constant Observation : Verbalizes understanding Night Light Use : Verbalizes understanding Nonskid Footwear Use : Verbalizes understanding Notification of Staff When Leaving : Verbalizes understanding Orthostatic Hypotension Precautions : Verbalizes understanding Personal Article Availability : Verbalizes understanding Prevention Responsibility Family : Verbalizes understanding Prevention Responsibility Patient : Verbalizes understanding Risk Alert Methods : Verbalizes understanding Risk Factors : Verbalizes understanding Safety Aids : Verbalizes understanding Siderails use/risks : Verbalizes understanding Special Assistive Devices : Verbalizes understanding Staff Responsiveness : Verbalizes understanding Symptom Identification & Action Plan *Q : Verbalizes understanding Symptom Reporting : Verbalizes understanding Toileting Schedule : Verbalizes understanding Transfer/Mobility Techniques : Verbalizes understanding Urinal/Bedpan Availability : Verbalizes understanding Wait for Assistance : Verbalizes understanding Wheelchair Safety : Verbalizes understanding Soniya Lomeli RN - 10/10/2018 16:36 EST Barriers to Learning : None evident Individuals Taught : Patient, Spouse Readiness to Learn : Cooperative Baseline Knowledge of Topic : Limited Teaching Method : Demonstration Learning Style Preferences Family : Printed materials, Verbal explanation Learning Style Preferences Patient : Printed materials, Verbal explanation Teaching Evaluation : Verbalizes understanding Fall Risk Scale Calc Temp : 0 Soniya Lomeli RN - 10/10/2018 16:36 EST Health Histories Smoking Status : Never (less than 100 in lifetime; none in last 30 days) Smokeless Tobacco Status : Never Soniya Lomeli RN - 10/10/2018 16:36 EST Social History (As Of: 10/10/2018 16:38:38 EST) Tobacco: Use in Last 12 Months: [...] (Last Updated: 09/29/2018 15:11:44 EST by Emily Taylor, SEUN) Substance Abuse: Drug Use Hx: No. Use in Last 12 Months: No. (Last Updated: 07/05/2017 07:01:37 EDT by HOWARD MENESES, SEUN) Drug Use Hx: No. Use in Last 12 Months: No. (Last Updated: 09/29/2018 15:11:49 EST by Emily Taylor, SEUN) Nutrition/Health: Regular, Caffeine intake amount: 4 cups per day - coffee. (Last Updated: 09/29/2018 15:12:06 EST by Emily Taylor, SEUN) Home/Environment: Lives with Spouse. (Last Updated: 09/29/2018 15:12:23 EST by Emily Taylor, SEUN) Height and Weight, Clinical Dosing Height Source : Measured Height Entry Format : [place] Height, Feet : 5 ft(Converted to: 152 cm, 60 Inch) Height, Inches : 10 Inch(Converted to: 0 ft 10 Inch, 25.40 cm) Clinical Height : 177.8 cm Weight Source : Standing scale Weight Entry Format : [place] Clinical Dosing Weight : 131.82 kg Weight, Pounds : 290 lb Body Surface Area (BSA) : 2.45 m2 Body Mass Index : 41.7 kg/m2 (>HHI) [place] Body Weight : 72 kg Soniya Lomeli RN - 10/10/2018 16:36 EST Infectious Disease History Infectious Disease History : Chicken pox/Shingles, Measles, Scarlet fever Isolation Needed : Standard Fever/Chills Last 48 Hours : No Travel To Regions with Travel Advisories : No Travel Outside [place] Within Last 30 Days : No Contact With Traveler to Advisory Region : No Exposure to Contagious Illness : No Tuberculosis Symptoms : None Soniya Lomeli RN - 10/10/2018 16:36 EST Tetanus Immunization Status Previous Tetanus Immunizations : No qualifying data available. Tetanus Immunization : Unknown Soniya Lomeli RN - 10/10/2018 16:36 EST Influenza Vaccine Asmt, Adult Previous Vaccines from Immunization Schedule : No qualifying data available. Influenza Immunization, Current Season : Yes Soniya Lomeli RN - 10/10/2018 16:36 EST Pneumococcal Vaccine Previous Vaccines from Immunization Schedule : No qualifying data available. Pneumonia Immunization Received : Yes Soniya Lomeli RN - 10/10/2018 16:36 EST Order Details Transport Mode Order Detail : Wheelchair Isolation Precautions Order Detail : Standard Precautions Order Detail : N/A IV Order Detail : 1 Oxygen Order Detail : 0 Nurse Collect Order Detail : 0 Lift/Transfer : Moderate assist Central Line Order Detail : No Room Service : Not Appropriate Arterial Line : No Soniya Lomeli RN - 10/10/2018 16:36 EST Nutrition History Eating Poorly Due to Decreased Appetite : No Unplanned Weight Loss in Past 3-6 Months : No Malnutrition Screening Tool Total(mal) : 0 Malnutrition Screening Tool Risk Level : Patient not at risk Soniya Lomeli RN - 10/10/2018 16:36 EST Psychosocial History Currently in Unsafe Situation : No Do You Have a Support System? : Yes Tried to Harm Yourself in the Past? : No Thoughts of Harming/Killing Yourself : No Soniya Lomeli RN - 10/10/2018 16:36 EST Sleep Apnea Risk Assmt Hx of Obstructive Sleep Apnea Diagnosis : No Snore Loudly : Yes Tired, Fatigued, or Sleepy During Day : No Observed Stopping Breathing During Sleep : No Have/Are Being Treated for Hypertension : Yes STOP Sleep Apnea Risk Level Score : 2 STOP Sleep Apnea Risk Level : High Soniya Lomeli RN - 10/10/2018 16:36 EST Valuables and Belongings Valuables and Belongings : Clothing, Personal devices Clothing : Common streetwear Clothing Disposition : With family Personal Device Disposition : With family, Other: OS CONTACT LENS Personal Devices : Contact lenses Soniya Lomeli RN - 10/10/2018 16:36 EST documented in this encounter Plan of Treatment Not on file documented as of this encounter Visit Diagnoses Not on filedocumented in this encounter
--- OUTSIDE RECORDS SUMMARY | 2025-06-19 09:56 | XMS_ITS | Encounter Summary ---
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 Al Kong ORTHOPEDIC SURGEON: Dr. Odell Thorpe. Chief Complaint * Worsening Right Knee pain History of Present Illness Mr. Pickard is a 68 year-old white male with DJD , CAD and hypertenison who presented with worsening right knee pain. Patient has had worsening right knee pain for several years which has gotten progressively worse The right knee pain has gotten progressively worse. He describes his pain is dull aching. Patient right in seeds without improvement. He tried conservative measures. He denies trauma to the right knee. Patient was referred to Dr. Olivares who determined that He has severe degenerative joint disease affecting the right knee, and he recommended replacement Patient with morbid obesity but no chronic lung disease. No history of blood clotting disorders Patient underwent right total knee arthroplasty on 10/10/2018 without immediate complications. No bleeding. Pain is controlled. Patient is morbidly obese without DARIAN Family History Pt mother from Breast Cancer at 60. Pt father at 85 from a [place]. Review of Systems Constitutional: No fever, No chills, No weakness. Eye: No recent visual problem, No discharge. Ear/Nose/Mouth/Throat: No decreased hearing, No nasal congestion, No sore throat. Respiratory: No shortness of breath, No cough, No sputum production, No wheezing. Cardiovascular: No chest pain, No peripheral edema. Gastrointestinal: No nausea, No vomiting, No diarrhea, No heartburn, No abdominal pain, No hematemesis. Genitourinary: No dysuria, No hematuria. Hematology/Lymphatics: No bruising tendency. Endocrine: No excessive thirst, No polyuria, No cold intolerance. Immunologic: Not immunocompromised, No recurrent fevers. Musculoskeletal: Joint pain, right knee pain, No neck pain. Integumentary: No rash, No pruritus, No dryness. Neurologic: No numbness, No tingling. Psychiatric: No anxiety, No depression, Not suicidal. VASCULAR: No claudication Health Status Allergies: Allergic Reactions (Selected) No Known Allergies, Allergies (1) Active Reaction No Known Allergies None Documented Current medications: (Selected) Inpatient Medications Ordered Benadryl: 12.5 mg, Oral, At Bedtime, PRN: Insomnia Benadryl: 25 mg, Oral, Q4H, PRN: Itching Colace: 100 mg, Oral, BID DuoNeb 0.5 mg-2.5 mg/3 mL inhalation solution: 3 mL, Nebulized Inhalation, RT_Q3H, PRN: Dyspnea Fleet Enema: 133 mL, Rectal, 1-Time, PRN: Constipation Lipitor: 20 mg, Oral, At Bedtime Metoprolol Succinate ER: 50 mg, Oral, At Bedtime Nitrostat: 0.4 mg, SubLINgual, Q5Min, PRN: Chest Pain Protonix: 40 mg, Oral, Daily Senokot S: 2 Tab, Oral, At Bedtime Sodium Chloride 0.9% intravenous solution 1,000 mL: 100 mL/Hr, IntraVENous, Stop: 10/11/18 0:37:00 EST Tylenol: 1,000 mg, Oral, Q6HInt Zofran: 4 mg, IV Push, Q4H, PRN: Nausea/Vomiting aspirin: 81 mg, Oral, BID bisacodyl: 10 mg, Rectal, 1-Time, PRN: Constipation cloNIDine: 0.1 mg, Oral, Q4H, PRN: Hypertension dexamethasone: 10 mg, IV Push, 1-Time gabapentin: 300 mg, Oral, At Bedtime metoclopramide: 5 mg, IV Push, Q4H, PRN: Nausea/Vomiting multivitamin: 1 Tab, Oral, Daily naloxone: 0.1 mg, IV Push, Q5Min, PRN: Oversedation oxyCODONE: 10 mg, Oral, Q4H, PRN: Pain (Severe 7-10) oxyCODONE: 5 mg, Oral, Q4H, PRN: Pain (Moderate 4-6) senna: 8.6 mg, Oral, At Bedtime, PRN: Constipation traMADol: 50 mg, Oral, Q6H traZODone: 50 mg, Oral, At Bedtime, PRN: Sleep Prescriptions Prescribed Lipitor 20 mg oral tablet: 1 Tab, Oral, At Bedtime, 30 Tab, 11 Refill(s) Nitrostat 0.4 mg sublingual tablet: 1 Tab, SubLINgual, Q5Min, If chest pain not relieved in 5 minutes after first dose, seek immediate medical attention Not to exceed 3 doses/15 min, PRN: Chest Pain, 100 Tab, 6 Refill(s) Documented Medications Documented Metoprolol Succinate ER: 50 mg, Oral, At Bedtime, 0 Refill(s) aspirin: 81 mg, Oral, Daily bumetanide 2 mg oral tablet: 1 Tab, Oral, Daily, 0 Refill(s) diphenhydrAMINE: 50 mg, Oral, At Bedtime, 0 Refill(s) lisinopril 2.5 mg oral tablet: 1 Tab, Oral, BID, 0 Refill(s) spironolactone 25 mg oral tablet: 1 Tab, Oral, BID, 180 Tab, 0 Refill(s), Medications (26) Active Scheduled: (11) acetaminophen 500 mg tab 1,000 mg 2 Tab, Oral, Q6HInt aspirin EC 81 mg tab 81 mg 1 Tab, Oral, BID atorvastatin 20 mg tab 20 mg 1 Tab, Oral, At Bedtime dexamethasone 10 mg/1 mL inj 10 mg 1 mL, IV Push, 1-Time docusate sodium 100 mg cap 100 mg 1 Cap, Oral, BID gabapentin 300 mg cap 300 mg 1 Cap, Oral, At Bedtime metoprolol succinate XL 50 mg tab 50 mg 1 Tab, Oral, At Bedtime multiple vitamin (Thera) tab 1 Tab, Oral, Daily pantoprazole EC 40 mg tab 40 mg 1 Tab, Oral, Daily senna/docusate 8.6/50 mg tab 2 Tab, Oral, At Bedtime traMADol 50 mg tab 50 mg 1 Tab, Oral, Q6H Continuous: (1) NaCl 0.9% 1,000 mL 1,000 mL, IntraVENous, 100 mL/Hr PRN: (14) albuterol-ipratropium inh 3 mL 3 mL, Nebulized Inhalation, RT_Q3H bisacodyl 10 mg supp 10 mg 1 Supp, Rectal, 1-Time cloNIDine 0.1 mg tab 0.1 mg 1 Tab, Oral, Q4H diphenhydrAMINE 25 mg tab 25 mg 1 Tab, Oral, Q4H diphenhydrAMINE 25 mg tab 12.5 mg 0.5 Tab, Oral, At Bedtime metoclopramide 10 mg/2 mL inj 5 mg 1 mL, IV Push, Q4H Na biphos-Na phos 19 g-7 g enema 133 mL, Rectal, 1-Time naloxone 0.4 mg/1 mL inj 0.1 mg 0.25 mL, IV Push, Q5Min nitroglycerin 0.4 mg tab # 25 btl 0.4 mg 1 Tab, SubLINgual, Q5Min ondansetron 4 mg/2 mL inj 4 mg 2 mL, IV Push, Q4H oxyCODONE 5 mg tab 5 mg 1 Tab, Oral, Q4H oxyCODONE 5 mg tab 10 mg 2 Tab, Oral, Q4H senna 8.6 mg tab 8.6 mg 1 Tab, Oral, At Bedtime traZODone 50 mg tab 50 mg 1 Tab, Oral, At Bedtime Problem list: Medical At risk for sleep apnea / IMO [id number] / Confirmed Insomnia / SNOMED CT 437432823 / Confirmed Stented coronary artery / SNOMED CT 2581638490 / Confirmed, Active Problems (7) At risk for sleep apnea High blood pressure Impaired vision Insomnia Sinusitis Stented coronary artery Viral cardiomyopathy Histories Past Medical History: No past medical history items have been selected or recorded. Family History: No family history items have been selected or recorded., Family History Pt mother from Breast Cancer at 60. Pt father at 85 from a [place]. Procedure history: ORIF to left elbow. tonsils. stent placement. WISDOM TEETH REMOVED. HEART CATH WITH STENTS TIMES 2. Social History Social & Psychosocial Habits Alcohol 08/17/2013 Alcohol Use in Last Twelve Months Yes Days Per Week of Alcohol Use 2 Number of Drinks per Day 2 Total Drinks Per Week 4 Date/Time of Last Drink 08/12/13 09/29/2018 Alcohol Use History, Social Habits Yes Alcohol Use Frequency Socially Home/Environment 09/29/2018 Lives with: Spouse Nutrition/Health 09/29/2018 Type of diet: Regular Caffeine intake amount: 4 cups per day - coffee Substance Abuse 07/05/2017 Recreational Drug Use History No Recreational Drug Use Last 12 Months No 09/29/2018 Recreational Drug Use History No Recreational Drug Use Last 12 Months No Tobacco 07/05/2017 Tobacco Use Within Last Twelve Months No 09/29/2018 Smoking Status Never (less than 100 in l Smokeless Tobacco Status Never . Physical Examination VS/Measurements Vitals Signs (last 24 hrs) Last Charted Minimum Maximum Temp 97.1 (OCT 10 22:30) 97.1 (OCT 10 22:30) 98 (OCT 10 20:32) Mon HR 106 (OCT 10 22:30) 68 (OCT 10 11:25) 106 (OCT 10 22:30) Resp Rate 16 (OCT 10:30) 16 (OCT 10 11:25) 18 (OCT 10 09:05) SBP 123 (OCT 10 22:30) 113 (OCT 10:) H 151 (OCT 10 09:05) DBP L 58 (OCT 10:30) L 47 (OCT 10:) 87 (OCT 10 09:) MAP 74 (OCT 10:30) 70 (OCT 10 14:05) 95 (OCT 10 15:45) SpO2 95 (OCT 10 22:30) L 91 (OCT 10 14:10) 99 (OCT 10 14:45) General: Alert and oriented, No acute distress. Eye: Pupils are equal, round and reactive to light, Extraocular movements are intact, Normal conjunctiva. HENT: Ear: Within normal limits. Nose: Both nostrils, Within normal limits. Neck: Supple, Non-tender, No jugular venous distention, No lymphadenopathy, No thyromegaly. Respiratory: Breath sounds are equal, Symmetrical chest wall expansion, No chest wall tenderness. Respirations: Not tachypneic. Pattern: Regular. Breath sounds: Bilateral, No rales present, No rhonchi present, No wheezes present. Breath sounds: No rales present. Cardiovascular: S1, S2, No murmur, Tachycardia, Non-displaced PMI. Arterial pulses: Bilateral, Posterior tibial, Dorsalis pedis, 3+. Capillary refill: Within normal limits. Gastrointestinal: Soft, Non-tender, Non-distended, Normal bowel sounds, No organomegaly. Genitourinary: No costovertebral angle tenderness. Musculoskeletal: Normal range of motion, Normal strength, No tenderness, No swelling. Integumentary: Warm. Neurologic: Alert, Oriented, Normal sensory, Normal motor function, Cranial Nerves II-XII are grossly intact. Cognition and Speech: Oriented, Speech clear and coherent. Psychiatric: Cooperative, Appropriate mood & affect. Review / Management Results review: Labs (Last four charted values) HB 13.8 (OCT 10) HCT 41.8 (OCT 10) Na L 133 (OCT 10) K 4.4 (OCT 10) Cl 102 (OCT 10) CO2 23 (OCT 10) BUN 21 (OCT 10) Cr H 1.38 (OCT 10) Glu R H 193 (OCT 10) Ca L 8.2 (OCT 10) . OCT 10 19:45 L 133 102 21 / H 193 4.4 23 H 1.38 \ Diagnostic Results EKG- NSR, 74 CXR- Mild Cardiomegaly, NAD RADIOLOGIC IMAGING: CXR- Mild Cardiomegaly, NAD Impression and Plan ASSESSMENT AND PLANS: S/P Right Total Knee Arthroplasty done by Dr. Odell Thorpe on 10/10/2018 no immediate postoperative complications Consult Physical Therapy Knee immobilzer has been applied post-operatively I gave patient teaching for incentive spirometer use Advanced Degenerative join disease DJD, with severe osteoarthritis of the right knee, status post replacement Started on aspirin and acetaminophen postoperatively No Celebrex or Mobic due to slight increase increatinine Acute on chronic right knee pain status post replacement. Acetaminophen protocol every 6 hour for the immediate postoperative period Gabapentin 300 mg one tablet at bedtime Oxycodone: Every 4 hours as needed for breakthrough pain Coronary Artery disease ( stable ) followed by Dr. Kong Essential hypertension: I temporarily held the Lisinopril and spironolactone while in the hospital, o avoid increase in creatinine and kidney functions I resumed Metoprol ER Monitor vital signs and manage accordingly Morbid obesity, secondary to excess caloric intake Encourage weight loss. Consult nutrition Gastrointistinal ( GI ) prophylaxis : Patient is placed on Protonix. DEEP VEIN THROMBOSIS ( DVT ) prophylaxis: Aspirin 81 mg one tablet oral Twice daily ( as per Ortho ) Patient is placed on sequential compression devices ( Compression Boots ) while in bed. Early ambulation with physical therapy postoperatively. CODE STATUS: FULL code. I gave the patient teaching for incentive spirometer use physical therapy is consulted for evaluation and treatment TIME SPENT : 45 minutes in evaluation Electronically signed by Emanuel Mercedes Conversion Certified Lactation Counselor Beatriz at 01/12/2023 10:37 PM CDT documented in this encounter Plan of Treatment Not on file documented as of this encounter Visit Diagnoses Not on filedocumented in this encounter
--- OUTSIDE RECORDS SUMMARY | 2025-06-19 09:56 | XMS_ITS | Encounter Summary ---
Author Organization [email or web address] ([place], [place], [place], [place]) Address [address] [place] [address] Care Team Providers Care Air Chief Marshal Name Role Phone Unavailable Primary Care Provider Unavailabl e Encounter Details Date Type Department Care Team (Late st Contact Info) Description 11/21/2018 Transcribed Document [facility] [place] [facility] [place] [address] ProviderFlaco MD [facility] [place] [address] Social History Tobacco Use Types Packs/Day Years Used Date Smoking Tobacco: Never Assessed Sex and Gender Information Value Date Recorded Sex Assigned at Male 03/23/2022 7:23 PM CDT Legal Sex Male 7:23 PM CDT Gender Identity Male 03/23/2022 7:23 PM CDT Sexual Orientation Not on file documented as of this encounter Miscellaneous Notes * Cerner Conversion Note - Historical ProviderMD - 11/21/2018 5:25 PM STEM MAKER Peripheral Nerve Block Entered On: 11/21/2018 17:26 EST Performed On: 11/21/2018 17:25 EST by Ana Mosqueda Nurse - other Peripheral Nerve Block Site Marked and Visible : Yes Peripheral Nerve Block Start Date/Time : 11/21/2018 11:10 EST Verbally Confirm Pt, Site, and Procedure : Yes Site Preparation : Chlorhexidine (Hibiclens) Peripheral Nerve Block : Other: ADDUCTOR CANAL Laterality : Left Peripheral Nerve Block Performed by : FABIANA WILLIS MD Medication Delivery Method : Single Shot Peripheral Nerve Block Assisted by : Ana Mosqueda Nurse - other Nerve Block Activity, Patient Tolerance : Good Peripheral Nerve Block Comment : PRE OP NERVE BLOCK PER SURGEON REQUEST Peripheral Nerve Block End Date/Time : 11/21/2018 11:20 EST Ana Mosqueda Nurse - other - 11/21/2018 17:25 EST documented in this encounter Plan of Treatment Not on file documented as of this encounter Visit Diagnoses Not on filedocumented in this encounter
--- OUTSIDE RECORDS SUMMARY | 2025-06-19 09:56 | XMS_ITS | Encounter Summary ---
Author Organization [employer] ([place], [place], [place], [place]) Address [address] [place] [address] Care Team Providers Care Medicare Interviewer Name Role Phone Unavailable Primary Care Provider Unavailabl e Encounter Details Date Type Department Care Team (Late st Contact Info) Description 10/10/2018 Transcribed Document [facility] [place] [address] ProviderFlaco MD [facility] [place] [address] Social History Tobacco Use Types [...] - Flaco ProviderMD - 10/10/2018 12:45 PM RN CCU [facility] Main OR PreOp Summary Primary Physician: BABAR WORRELL MD-ORLizeth Finalized Date/Time: 10/10/18 16:30:55 Pt. Name: PEDRO PICKARD LESLYE GrimmB./Sex: 1950 Male Med Rec #: [id number] Physician: BABAR WORRELL MD-ORT Financial #: [id number] Pt. Type: I Room/Bed: [facility]/ Admit/Disch: 10/09/18 10:38:00 - Institution: [facility] [place] PreOp Case Times Entry 1 In Preop 10/10/18 08:45:00 Ready for Holding n/a Room Patient Ready for 10/10/18 10:16:00 Surgery Patient Out of Preop 10/10/18 12:12:00 Patient Out of 10/10/18 12:12:00 Holding Room Last Modified By: Yas Merida RN 10/10/18 16:30:53 SJLacie PreOp Case Times Audit 10/10/18 16:30:53 Resaw Carriage Operator: LILLIAN Modifier: COMFORT <+> 1 Patient Out of Preop <+> 1 Patient Out of Holding Room Finalized By: Yas Merida, RN Document Signatures Signed By: Yas Merida RN 10/10/18 16:30 documented in this encounter Plan of Treatment Not on file documented as of this encounter Visit Diagnoses Not on filedocumented in this encounter
--- OUTSIDE RECORDS SUMMARY | 2025-06-19 09:56 | XMS_ITS | Encounter Summary ---
Author Organization [employer] ([place], [place], [place], [place]) Address [address] [place] [address] Care Team Providers Care Mold Closer Name Role Phone Unavailable Primary Care Provider Unavailabl e Encounter Details Date Type Department Care Team (Late st Contact Info) Description 11/21/2018 Transcribed Document [facility], [facility] [place] [address] ProviderFlaco MD [facility] [place] [address] Social History Tobacco Use Types [...] Conversion Note - Flaco ProviderMD - 11/21/2018 12:22 PM [employer] [facility] [place] IntraOp Summary Primary Physician: BABAR WORRELL MD-ORT Finalized Date/Time: 11/22/18 12:45:30 Pt. Name: PEDRO HERNANDEZ LESLYE /Sex: 1950 Male Med Rec #: [id number] Physician: BABAR WORRELL MD-ORT Financial #: [id number] Pt. Type: O Room/Bed: [facility]/1 Admit/Disch: 11/21/18 04:57:00 - 11/22/18 10:44:00 Institution: [facility] [place] IntraOp Case Attendance Entry 1 Entry 2 Entry 3 Case Attendee BABAR WORRELL LEININGER, SUSAN, Edelmira Sanchez Rn MD-ORT Role Performed Surgeon/Proceduralist, Printer Slotter Operator, Second Printer Slotter Operator, First First Time In 11/21/18 11:53:00 11/21/18 12:19:00 11/21/18 11:53:00 Time Out 11/21/18 13:09:00 11/21/18 13:41:00 11/21/18 13:41:00 Procedure Knee Total Joint Knee Total Joint Knee Total Joint Replacement Replacement Replacement Other Attendee Superficial Wound Closed By: Last Modified By: Edelmira Rich Rn Daskalakis, Hope, Rn Daskalakis, Hope, Eugene 11/21/18 13:48:13 11/21/18 13:47:54 11/21/18 13:47:54 Entry 4 Entry 5 Entry 6 Case Attendee LAURA CURRIE, CAPRICE JOYCE DO-ANS [place], Sarah Role Performed Printer Slotter Operator, Second Anesthesiologist Scrub, Second Time In 11/21/18 12:20:00 11/21/18 11:53:00 11/21/18 11:53:00 Time Out 11/21/18 12:51:00 11/21/18 13:41:00 11/21/18 13:13:00 Procedure Knee Total Joint Knee Total Joint Knee Total Joint Replacement Replacement Replacement Other Attendee Superficial Wound Closed By: Last Modified By: Edelmira Rich Rn Daskalakis, Hope, Rn Daskalakis, Hope, Eugene 11/21/18 13:47:54 11/21/18 13:47:54 11/21/18 13:47:54 Entry 7 Entry 8 Entry 9 Case Attendee NIKIA HOOD, JUDY OTHER, ATTENDEE #1 SADI ARANGO, PAC Role Performed Assistive Personnel Vendor Physician special ed assistant Time In 11/21/18 11:53:00 11/21/18 12:26:00 11/21/18 12:48:00 Time Out 11/21/18 13:41:00 11/21/18 13:41:00 11/21/18 13:41:00 Procedure Knee Total Joint Knee Total Joint Knee Total Joint Replacement Replacement Replacement Other Attendee JORDAN AVENDANO Superficial Wound Closed By: Last Modified By: Edelmira Rich Rn Daskalakis, Hope, Rn Daskalakis, Hope, Rn 11/21/18 13:47:54 02/26/19 13:47:54 11/21/18 13:47:54 Entry 10 Entry 11 Case Attendee Maryellen Cooper, Scrub Sharp, Leo Tech Role Performed Scrub, First Scrub, Third Time In 11/21/18 11:53:00 11/21/18 12:46:00 Time Out 11/21/18 12:51:00 11/21/18 13:41:00 Procedure Knee Total Joint Knee Total Joint Replacement Replacement Other Attendee Superficial Wound Closed By: Last Modified By: Edelmira Rich, Rn Edelmira Rich, Rn 11/21/18 13:47:54 11/21/18 13:47:54 [facility] IntraOp Case Attendance Audit 11/21/18 13:48:13 Director Building: [id number] Modifier: [id number] <*> Time Out 11/21/18 13:41:00 1 <*> Procedure Knee Total Joint Replacement 11/21/18 13:47:54 Director Building: [id number] Modifier: [id number] <+> Time Out 1 <*> Procedure Knee Total Joint Replacement 2 <+> Time Out 2 <*> Procedure Knee Total Joint Replacement 3 <+> Time Out 3 <*> Procedure Knee Total Joint Replacement 4 <*> Procedure Knee Total Joint Replacement 5 <+> Time Out 5 <*> Procedure Knee Total Joint Replacement 6 <*> Procedure Knee Total Joint Replacement 7 <+> Time Out 7 <*> Procedure Knee Total Joint Replacement 8 <+> Time Out 8 <*> Procedure Knee Total Joint Replacement 9 <+> Time Out 9 <*> Procedure Knee Total Joint Replacement 10 <*> Procedure Knee Total Joint Replacement 11 <+> Time Out 11 <*> Procedure Knee Total Joint Replacement 11/21/18 13:13:59 Director Building: [id number] Modifier: [id number] <+> Time Out 6 <*> Procedure Knee Total Joint Replacement 11/21/18 12:51:58 Director Building: [id number] Modifier: [id number] <+> Time Out 4 <*> Procedure Knee Total Joint Replacement 9 <*> Time In 11/21/18 12:34:00 9 <*> Procedure Knee Total Joint Replacement 10 <+> Time Out 10 <*> Procedure Knee Total Joint Replacement <+> 11 Case Attendee <+> 11 Role Performed <+> 11 Time In <+> 11 Procedure 11/21/18 12:40:12 Director Building: [id number] Modifier: [id number] <*> Procedure Knee Total Joint Replacement 2 <*> Procedure Knee Total Joint Replacement 3 <*> Procedure Knee Total Joint Replacement 4 <*> Procedure Knee Total Joint Replacement 5 <*> Procedure Knee Total Joint Replacement 6 <*> Procedure Knee Total Joint Replacement 7 <*> Procedure Knee Total Joint Replacement 8 <*> Procedure Knee Total Joint Replacement 9 <*> Procedure Knee Total Joint Replacement 10 <+> Time In 10 <*> Procedure Knee Total Joint Replacement 11/21/18 12:40:09 Director Building: [id number] Modifier: [id number] <+> 10 Case Attendee <+> 10 Role Performed <+> 10 Procedure 11/21/18 12:35:04 Director Building: [id number] Modifier: [id number] <+> 9 Case Attendee <+> 9 Role Performed <+> 9 Time In <+> 9 Procedure 11/21/18 12:32:41 Director Building: [id number] Modifier: [id number] <+> 1 Procedure 2 <*> Procedure Knee Total Joint Replacement 3 <+> Time In 3 <*> Procedure Knee Total Joint Replacement 4 <*> Procedure Knee Total Joint Replacement 5 <+> Time In 5 <*> Procedure Knee Total Joint Replacement 6 <+> Time In 6 <*> Procedure Knee Total Joint Replacement 7 <+> Time In 7 <*> Procedure Knee Total Joint Replacement 8 <*> Procedure Knee Total Joint Replacement 11/21/18 12:28:35 Director Building: [id number] Modifier: [id number] <+> 3 Case Attendee <+> 3 Role Performed <+> 3 Procedure <+> 4 Case Attendee <+> 4 Role Performed <+> 4 Time In <+> 4 Procedure <+> 5 Case Attendee <+> 5 Role Performed <+> 5 Procedure <+> 6 Case Attendee <+> 6 Role Performed <+> 6 Procedure <+> 7 Case Attendee <+> 7 Role Performed <+> 7 Procedure <+> 8 Case Attendee <+> 8 Role Performed <+> 8 Time In <+> 8 Procedure <+> 8 Other Attendee [facility] IntraOp Case Times Entry 1 Patient In Room Time 11/21/18 11:53:00 Out Room Time 11/21/18 13:41:00 Anesthesia Start Time 11/21/18 11:53:00 Stop Time 11/21/18 13:41:00 Anesthesia Ready 11/21/18 11:53:00 Surgery / Procedure Times Start Time 11/21/18 12:22:00 Stop Time 11/21/18 13:41:00 Last Modified By: Edelmira Rich Rn 11/21/18 13:41:25 [facility] IntraOp Case Times Audit 11/21/18 13:41:25 Director Building: [id number] Modifier: [id number] <+> 1 Out Room Time <+> 1 Stop Time <+> 1 Stop Time 11/21/18 12:30:41 Director Building: [id number] Modifier: [id number] <+> 1 Start Time [facility] IntraOp Cautery Entry 1 ESU Identification Cautery Type Monopolar ESU ID Number [id number] ID Type Hospital Number Cautery Settings Cut Setting 70 Coag Setting 70 ESU Grounding Pad Ground Pad Type Adult Grounding Pad Edelmira Rich Rn Applied By Grounding Pad Site Intact Skin Condition Before Cautery Grounding Pad Site Unchanged Skin Condition After Cautery Last Modified By: Edelmira Rich Rn 11/21/18 12:34:50 [facility] IntraOp Cautery Audit 11/21/18 12:34:50 Director Building: [id number] Modifier: [id number] <+> 1 ID Number [facility] IntraOp Communication Entry 1 Communication To Family/Significant other Communication By LAURA CURRIE RN Date and Time 11/21/18 12:31:00 Last Modified By: Edelmira Rich Rn 11/21/18 12:31:30 [facility] IntraOp Counts Verification Entry 1 Entry 2 Procedure Knee Total Joint Knee Total Joint Replacement Replacement Count Info Count Type Sponge Sponge, Sharps, Miscellaneous Counts Verification Baseline/pre-procedure Before wound closure Sequence Count Results Correct, surgeon Correct, surgeon notified notified If Incorrect or Waived complete the Counts Action Taken form: If Intentional Retention, complete the Intential Retention form: Counts Performed By Count Performed By Lacy Watson Mark (Scrub) Count Performed By Edelmira Rich Rn Daskalakis, Hope Rn (RN) Last Modified By: Edelmira Rich Rn Daskalakis, Hope, Rn 11/21/18 12:41:40 11/21/18 13:32:08 [facility] IntraOp Counts Verification Audit 11/21/18 13:32:08 Director Building: [id number] Modifier: [id number] <+> 2 Procedure <+> 2 Count Type <+> 2 Counts Verification Sequence <+> 2 Count Results <+> 2 Count Performed By (Scrub) <+> 2 Count Performed By (RN) 11/21/18 12:41:40 Director Building: [id number] Modifier: [id number] <*> Procedure Knee Total Joint Replacement 1 <+> Count Performed By (Scrub) 1 <+> Count Performed By (RN) [facility] IntraOp Counts Final Entry 1 Procedure Knee Total Joint Replacement Final Count Info Count Type Sponge, Sharps, Miscellaneous Counts Verification Skin Closure/end of Sequence procedure Count Results Correct, surgeon notified Counts Performed By Count Performed By Leo Nuñez (Scrub) Count Performed By Edelmira Rich Rn (RN) Last Modified By: Edelmira Rich Rn 11/21/18 13:32:28 [facility] IntraOp Cultures and Spec Summary Entry 1 Cultrures and Specimens Specimen Ordered: Yes Specimen(s) Labeled Pathology and Sent to Last Modified By: Edelmira Rich Rn 11/21/18 12:32:17 [facility] IntraOp Departure from OR Entry 1 Integumentary Assessment Integumentary WDL Assessment WDL Transfer/Handoff Transfer to PACU Phase I Handoff Method Bedside/Face to face Post-op Transport Bed (including Via specialty) Patient Transport Edelmira Rich Rn, Accompanied by CAPRICE STRICKLAND DO-ANS Last Modified By: Edelmira Rich Rn 11/21/18 13:14:12 [facility] IntraOp Drains and Tubes Entry 1 Device Type Hemovac Size 1/8 Drain/Tube Activity Inserted Device Location OPSITE Method of Drainage Compression Last Modified By: Edelmira Rich Rn 11/21/18 12:30:27 [facility] IntraOp Dressing and Packing Entry 1 Type Dressing Location OPSITE Wound Dressing Item Bib, 4x4's, Xeroform, Webril, Steristrip Supplemental Limb immobilizer, Cold Applications pack Last Modified By: Edelmira Rich Rn 11/21/18 12:34:12 [facility] IntraOp Fire Risk Assessment Entry 1 Fire Info Surgical Site or 0- No Incision Above the Xyphoid Open O2 Source 0- No (Mask or Cannula) Available Ignition 1- Yes (ESU, Laser, Light Source) Fire Risk 1 Assessment Score Fire Score Fire Risk Yes Assessment Complete Fire Risk LAURA CURRIE RN Assessment Verified By Fire Risk 11/21/18 12:21:00 Assessment Verified Date/Time Fire Risk Standard Fire Yes Safety Precautions Followed Last Modified By: Edelmira Rich Rn 11/21/18 12:31:17 [facility] IntraOp General Case Outreach Representative 1 Case Information OR OR 09 [facility] [place] Case Level 1 Room Verified Yes Wound Class I - Clean Specialty SN Orthopedic Anesthesia Type General ASA Class 3 Diagnosis Preop Diagnosis DEGENERATIVE JOINT DISEASE LEFT KNEE Postop Same As Preop Yes Postop Diagnosis DEGENERATIVE JOINT DISEASE LEFT KNEE Last Modified By: Edelmira Rich Rn 11/21/18 12:31:54 [facility] IntraOp Implant Log Entry 1 Entry 2 Entry 3 Type Implant (Synthetic) Implant (Synthetic) Implant (Synthetic) Implant Log Implant Type Hardware Bone Cement Hardware Tissue Implant Type Implant PATELLA STD CEMENT BONE COBALT HV TIB BEAR ANT STBL LEE Identification [id number] Description Implant Quantity 1 2 1 Implant Site LEFT KNEE LEFT KNEE LEFT KNEE Implant Identification Model Number Implant Identification Serial Number Implant [id number] Identification Lot Number Implant Biomet Dj Surg:Encore Biomet Identification Med:[place] Title Assistant Name: Implant [id number] Identification Catalog Number Implant Size Implant Has an Yes Yes Yes Expiration Date Implant Expiration 10/26/19 02/09/20 01/21/23 Date Wasted Radioactive Material Time Implanted Tissue Implant Continue for Tissue Implant Documentation Tissue Identification Number Graft Prep Per Title Assistant Instructions: Tissue Preparation Method: Reconstitution Solution: Reconstitution Solution Lot Number Reconstitution Solution Expiration Date: Thawing Solution Thawing Solution Lot Number Thawing Solution Expiration Date Preparation Materials, Other Preparation Materials, Other Lot Number Preparation Materials, Other Expiration Date Tissue Prepared/Processed By Title Assistant Paperwork Completed Implant Type Comment Last Modified By: Edelmira Rich Rn Daskalakis, Hope, Rn Daskalakis, Hope, Rn 11/21/18 13:13:04 11/21/18 13:13:04 11/21/18 13:13:04 Entry 4 Entry 5 Type Implant (Synthetic) Implant (Synthetic) Implant Log Implant Type Hardware Hardware Tissue Implant Type Implant TY TIB I-BEAM FIX COMP FEM CR INTLOK Identification BIOMET [id number] [facility] [id number] Description Implant Quantity 1 1 Implant Site LEFT KNEE LEFT KNEE Implant Identification Model Number Implant Identification Serial Number Implant [id number] Identification Lot Number Implant Biomet Biomet Identification Title Assistant Name: Implant [id number] Identification Catalog Number Implant Size Implant Has an Yes Yes Expiration Date Implant Expiration 09/21/28 09/09/28 Date Wasted Radioactive Material Time Implanted Tissue Implant Continue for Tissue Implant Documentation Tissue Identification Number Graft Prep Per Title Assistant Instructions: Tissue Preparation Method: Reconstitution Solution: Reconstitution Solution Lot Number Reconstitution Solution Expiration Date: Thawing Solution Thawing Solution Lot Number Thawing Solution Expiration Date Preparation Materials, Other Preparation Materials, Other Lot Number Preparation Materials, Other Expiration Date Tissue Prepared/Processed By Title Assistant Paperwork Completed Implant Type Comment Last Modified By: Edelmira Rich Rn Mellin, Renee, RN 11/21/18 13:13:04 11/22/18 12:39:59 [facility] [place] IntraOp Implant Log Audit 11/22/18 12:39:59 Director Building: [id number] Modifier: [id number] <*> Implant Identification Description [id number] <+> Implant Identification Title Assistant Name: 5 <+> Implant Identification Catalog Number 11/21/18 13:13:04 Director Building: [id number] Modifier: [id number] <+> Implant Identification Description 1 <+> Implant Identification Lot Number 1 <+> Implant Identification Title Assistant Name: 1 <+> Implant Expiration Date 1 <*> Implant Site LEFT KNEE 1 <*> Implant Quantity 2 1 <+> Implant Identification Catalog Number 1 <*> Implant Type Bone Cement 1 <+> Implant Has an Expiration Date 1 <*> Type Implant (Synthetic) 2 <+> Implant Identification Description 2 <+> Implant Identification Lot Number 2 <+> Implant Identification Title Assistant Name: 2 <+> Implant Expiration Date 2 <*> Implant Site LEFT KNEE 2 <*> Implant Quantity 1 2 <+> Implant Identification Catalog Number 2 <*> Implant Type Hardware 2 <+> Implant Has an Expiration Date 2 <*> Type Implant (Synthetic) 3 <+> Implant Identification Description 3 <+> Implant Identification Lot Number 3 <+> Implant Identification Title Assistant Name: 3 <+> Implant Expiration Date 3 <*> Implant Site LEFT KNEE 3 <*> Implant Quantity 1 3 <+> Implant Identification Catalog Number 3 <*> Implant Type Hardware 3 <+> Implant Has an Expiration Date 3 <*> Type Implant (Synthetic) 4 <+> Implant Identification Description 4 <+> Implant Identification Lot Number 4 <+> Implant Identification Title Assistant Name: 4 <+> Implant Expiration Date 4 <*> Implant Site LEFT KNEE 4 <*> Implant Quantity 1 4 <+> Implant Identification Catalog Number 4 <*> Implant Type Hardware 4 <+> Implant Has an Expiration Date 4 <*> Type Implant (Synthetic) 5 <+> Implant Identification Description 5 <+> Implant Identification Lot Number 5 <+> Implant Expiration Date 5 <*> Implant Site LEFT KNEE 5 <*> Implant Quantity 1 5 <*> Implant Type Hardware 5 <+> Implant Has an Expiration Date 5 <*> Type Implant (Synthetic) [facility] IntraOp Intraoperative Assessment Entry 1 Handoff Method Bedside/Face to face Valid History / Yes Physical in Chart Preoperative Yes Checklist Reviewed/Evaluated Allergies Reviewed Yes Patient is Latex No Sensitive Isolation Not applicable Precautions Noted Level of WDL Consciousness (WDL = Alert, Oriented to Person, Place, and Time) Skin Assessment Yes Verified Present Upon IVs Arrival to OR Last Modified By: Edelmira Rich Rn 11/21/18 12:32:23 [facility] IntraOp Intraoperative Equipment Entry 1 Type Equipment Equipment Equipment Nanda Suction System Intraop Monitoring Antiembolic Devices Antiembolic Devices Sequential compression device, knee high Scopes Photo/Video Documentation Photo No Video No Last Modified By: Edelmira Rich Rn 11/21/18 12:31:59 [facility] IntraOp Medication Admin Entry 1 Entry 2 Entry 3 Medication/Irrigant TRANEXAMIC ACID ANESTHETIC hydrogen peroxide 3% - 1000MG/10 ML COCKTAIL-GM [id number] Combo Med List Time Administered Route of TOPICALW/ 25ML NACL TOPICAL ON OPERATIVE Administration SITE Dose Dose 1000 60 Unit of Measure mg ml Volume 10 ML QS Administered By BABAR WORRELL, GM, BAABR, BABAR WORRELL MD-ORT -ORT -ORT Procedure Irrigation Irrigant Volume In Irrigant Volume Out Last Modified By: Edelmira Rich Rn Daskalakis, Hope, Rn Daskalakis, Hope, Rn 11/21/18 12:33:54 11/21/18 12:33:54 11/21/18 12:33:54 Entry 4 Medication/Irrigant vancomycin 1Gm vial - [id number] Combo Med List Time Administered Route of TOPICAL Administration Dose Dose 1 Unit of Measure gram Volume Administered By BABAR WORRELL MD-ORT Procedure Irrigation Irrigant Volume In Irrigant Volume Out Last Modified By: Edelmira Rich Rn 11/21/18 12:33:54 [facility] IntraOp Patient Positioning Entry 1 Procedure [...] LATERAL POST AT TOURNIQUET LEVEL Positioned By Edelmira Rich Rn, NIKIA HOOD CSA, CAPRICE STRICKLAND, CUONG Position Verified Positioning Yes Verified by Anesthesia Positioning Yes Verified by Surgeon Last Modified By: Edelmira Rich Rn 11/21/18 12:32:38 [facility] IntraOp Sign In Entry 1 Patient, Site, Yes Procedure Identified Surgical Consent Yes Confirmed Relevant Surgical Yes Documents Available Surgical Site Yes Marked by person performing procedure Anesthesia Machine Yes Check Completed Medication Checks Yes Completed Allergies No Airway Difficult No Airway/Aspiration Risk Difficult Yes Airway/Aspiration Intervention Equipment Available Blood Loss Risk Yes Blood Loss Yes Intervention Equipment Prepared and Ready Blood Identifiers Not applicable Verified Per Policy Hypothermia Risk Yes Warming Measures Yes Taken Last Modified By: Edelmira Rich Rn 11/21/18 12:32:52 [facility] Intra Op Sign Out Entry 1 [...] Checklist Yes Elements Complete? RN Sign Out Edelmira Rich Rn Signature RN Sign Out 11/21/18 13:41:00 Signature Date/Time Plan of Care Outcome - [...] related to extraneous objects Last Modified By: Edelmira Rich Rn 11/21/18 13:48:26 [facility] Intra Op Sign Out Audit 11/21/18 13:48:26 Director Building: [id number] Modifier: [id number] <+> 1 RN Sign Out Signature Date/Time [facility] IntraOp Skin Prep Entry 1 Procedure Knee Total Joint Replacement Prescribed Yes Pre-Surgical Prep Completed Prep Area OPERATIVE LEG AND FOOT Intraop Prep Prep Agents DuraPrep, Alcohol Prep by Edelmira Rich Rn Hair Removal Last Modified By: Edelmira Rich Rn 11/21/18 12:31:55 [facility] IntraOp Surgical Procedures Entry 1 Procedure Knee Total Joint Replacement Additional LEFT TOTAL KNEE Procedure ARTHROPLASTY Description Primary Procedure Yes Primary Surgeon BABAR WORRELL MD-ORT Start 11/21/18 12:22:00 Stop 11/21/18 13:41:00 Anesthesia Type General Specialty SN Orthopedic Wound Class I - Clean Last Modified By: Edelmira Rich Rn 11/21/18 13:48:27 [facility] IntraOp Surgical Procedures Audit 11/21/18 13:48:27 Director Building: [id number] Modifier: [id number] <+> 1 Stop [facility] IntraOp Temp Regulation Devices Entry 1 Temp Regulation Temperature Forced Air Warming Regulation Device device Temperature Upper body Regulation Site Temperature CAPRICE STRICKLAND DO-ANS Regulation Device Applied by Last Modified By: Edelmira Rich Rn 11/21/18 12:32:07 [facility] IntraOp Time Out Entry 1 Procedure to be Knee Total Joint Performed Replacement Time Out Time Out Pause Time 11/21/18 12:21:00 All activity Yes suspended (unless life threatening [...] present, Performed in location of procedure after prepped/draped, Performed before each procedure if multiple procedures Antibiotic Yes Prophylaxis Administered Or In Progress Within the Last 60 Minutes Beta Meghan Yes Administered Venous Yes Thromboembolism Prophylaxis Required Anticipated Critical Events Surgeon None expected Anesthesia Provider None expected Nursing Assures Sterility of instruments, Implant Availability Essential Imaging Yes Labeled and Displayed Last Modified By: Edelmira Rich Rn 11/21/18 12:31:05 [facility] IntraOp Time Out Audit 11/21/18 12:31:05 Director Building: [id number] Modifier: [id number] <*> Beta Meghan Administered Yes 1 <*> All activity suspended (unless life Yes threatening emergency) 1 <*> Venous Thromboembolism Prophylaxis Yes Required 1 <*> Antibiotic Prophylaxis Administered Yes Or In Progress Within the Last 60 Minutes 1 <*> Surgeon None expected 1 <*> Anesthesia Provider None expected 1 <*> Nursing Assures Sterility of instruments, Implant Availability 1 <*> Essential Imaging Labeled and Yes Displayed 1 <+> Time Out Pause Time 1 <*> Procedure to be Performed Knee Total Joint Replacement 1 <*> Team Verbally Confirms Information Correct patient identity, Correct side and site are marked, Consent form is present and accurate, Agreement on the procedure to be done, Correct patient position, Relevant images/results properly labeled/appropriately displayed, Confirm antibiotics have been administered, Confirm the skin prep has dried, Confirm prosthesis/implant/device is present, Performed in location of procedure after prepped/draped, Performed before each procedure if multiple procedures [facility] IntraOp Tourniquet Entry 1 Type Pneumatic Serial/Unit Number [id number] Setting 350 mmHg Pheumatic Yes Tourniquet Checked Per Protocol Size 34 inches Placement Thigh, left upper Skin Protection - Yes Padded Under Cuff Applied By NIKIA HOOD, CSA Removed By SADI ARANGO, PAC Times Start Time 11/21/18 12:24:00 Stop Time 11/21/18 13:38:00 Total Time 74 calculated manually (Mins) Last Modified By: Edelmira Rich Rn 11/21/18 13:38:14 [facility] IntraOp Tourniquet Audit 11/21/18 13:38:14 Director Building: [id number] Modifier: [id number] <+> 1 Removed By <+> 1 Total Time calculated manually (Mins) <+> 1 Stop Time 11/21/18 12:30:20 Director Building: [id number] Modifier: [id number] <+> 1 Applied By <+> 1 Serial/Unit Number Case Comments <None> Finalized By: Aide Alvarado RN Document Signatures Signed By: Edelmira Rich Rn 11/21/18 13:48 Aide Alvarado RN 11/22/18 12:40 Aide Alvarado RN 11/22/18 12:45 Unfinalized History Date/Time Username Reason for Unfinalizing Freetext Reason for Unfinalizing 11/22/18 12:39 ME[facility]R Chart Audit 11/22/18 12:45 [facility] Electronically signed by Emanuel Mercedes Conversion Motor Vehicle Operator Road Supervisor Cerner at 01/12/2023 10:36 PM CDT documented in this encounter Plan of Treatment Not on file documented as of this encounter Visit Diagnoses Not on filedocumented in this encounter
--- OUTSIDE RECORDS SUMMARY | 2025-06-19 09:56 | XMS_ITS | Encounter Summary ---
Author Organization [employer] ([place], [place], [place], [place]) Address [address] [place] [address] Care Team Providers Care Gasoline Plant Operator Name Role Phone Unavailable Primary Care Provider Unavailabl e Encounter Details Date Type Department Care Team (Late st Contact Info) Description 10/10/2018 Transcribed Document [facility] [place] [facility] [place] [address] ProviderFlaco MD [facility] [place] [address] Social History Tobacco Use Types [...] Conversion Note - Historical ProviderMD - 10/10/2018 6:00 PM TRANSFER CAR OPERATOR DRIER Pain Assessment Entered On: 10/11/2018 4:18 EST Performed On: 10/10/2018 19:34 EST by Julien Magallon Rn Intervention Information: traMADol Performed by Soniya Lomeli RN on 10/10/2018 18:34:00 EST traMADol,50mg Oral Pain Assessment Pain Assessment [...] form. Electronically signed by Emanuel Mercedes Conversion Mold Cleaning And Storage Supervisor Cerner at 01/12/2023 10:37 PM CDT documented in this encounter Plan of Treatment Not on file documented as of this encounter Visit Diagnoses Not on filedocumented in this encounter
--- OUTSIDE RECORDS SUMMARY | 2025-06-19 09:56 | XMS_ITS | Encounter Summary ---
Author Organization [employer] ([place], [place], [place], [place]) Address [address] [place] [address] Care Team Providers Care Registered Account Administrator Name Role Phone Unavailable Primary Care Provider Unavailabl e Encounter Details Date Type Department Care Team (Late st Contact Info) Description 11/22/2018 Transcribed Document [facility] [place] [facility] [place] [address] ProviderFlaco MD [address] [place] [address] Social History Tobacco Use Types Packs/Day Years Used Date Smoking Tobacco: Never Assessed Sex and Gender Information Value Date Recorded Sex Assigned at Male 03/23/2022 7:23 PM CDT Legal Sex Male 7:23 PM CDT Gender Identity Male 03/23/2022 7:23 PM CDT Sexual Orientation Not on file documented as of this encounter Miscellaneous Notes * Cerner Conversion Note - Flaco ProviderMD - 11/22/2018 9:20 AM ASSISTANT PROFESSOR OF PHYSICS [place] [address] [facility] [place] [address] Patient Copy Patient Information: Name: PEDRO PICKARD Current Date: 11/22/2018 09:20:41 : 1950 Patient Address: [place] [address] Patient Attending Physician: TESHA MCCLAIN MD Primary Care Provider: BLU CRUZ (REF)[facility] Primary Care Provider Discharge Diagnosis: S/P knee replacement Weight on Admission: 285 lb, 0 oz Comment: Follow-up Instructions: With: Address: When: MORAIMA NG [address] [place] [address], [address]LO[address] [place] [id number] [facility] (1) 9:00 AM Comments: Appointment has been made Discharge Instructions: Medical Equipment for Home Use: CPM and Walker already at pts home. Home Health Services: Pt has appointment for Out Patient Physical Therapy at [facility] for . 11/23 he will [...] Barley. Bulgur wheat. Millet. Bran muffins. Popcorn. [place]den wafer crackers. ?? Vegetables Sweet potatoes. Spinach. Kale. Artichokes. Cabbage. Broccoli. Green peas. Carrots. Squash. ?? Fruits Berries. Pears. Apples. Oranges. Avocados. Prunes and raisins. Dried figs. ?? Meats and Other Protein Sources [place], kidney, mayers, and soy beans. Split peas. [...] has 11 g of protein. ?? [place] seeds ??? 1 oz has 5.5 g [...] floor. ?? Place frequently used items in nkqs-rn-woegw places ?? Keep electrical cables out of [...] ? Using the bathroom. ? Using household marketing operations consultant or toxic chemicals. ? Touching or taking [...] are a day sleeper or work a mine shifter. Some people have thoughts about suicide while [...] may report side effects to FDA at 4-079-YIY-5251. What other drugs will affect gabapentin? Taking gabapentin with other drugs that make you sleepy can worsen this effect. Ask your doctor before taking a sleeping pill, narcotic medication, muscle relaxer, or medicine for anxiety, depression, or seizures. Other drugs may interact with gabapentin, including prescription and feqe-gxa-rmeiqgd medicines, vitamins, and herbal products. Tell your [...] to ensure that the information provided by [employer]. ('Mult[employer]') is accurate, up-to-date, and complete, but no guarantee is made to that effect. Drug information contained herein may be time sensitive. [employer] information has been compiled for use by healthcare practitioners and consumers in the [place] and therefore [employer] does not warrant that uses outside of the [place] are appropriate, unless specifically indicated otherwise. [employer]'s drug information does not endorse drugs, diagnose patients or recommend therapy. [employer]'s drug information is an informational resource designed [...] effective or appropriate for any given patient. [facility] does not assume any responsibility for any aspect of healthcare administered with the aid of information [facility] provides. The information contained herein is not intended to cover all possible uses, directions, precautions, warnings, drug interactions, allergic reactions, or adverse effects. If you have questions about the drugs you are taking, check with your doctor, nurse or pharmacist. Copyright 6298-3646 [facility] [employer] [facility]. Version: 14.. Revision Date: 07/05/2017. oxycodone (ox [...] The extended-release form of oxycodone is for kgeuwu-qgk-ztaxj treatment of pain and should not be [...] against the law. Stop taking all other jmcobn-bxh-geaof narcotic pain medicines when you start taking [...] may report side effects to FDA at 9-336-TMO-6490. What other drugs will affect oxycodone? You [...] may affect oxycodone. This includes prescription and lpky-kds-rtvgsqt medicines, vitamins, and herbal products. Not all [...] to ensure that the information provided by [employer]. ('[employer]') is accurate, up-to-date, and complete, but no guarantee is made to that effect. Drug information contained herein may be time sensitive. [employer] information has been compiled for use by healthcare practitioners and consumers in the [place] and therefore [employer]ouch does not warrant that uses outside of the [place] are appropriate, unless specifically indicated otherwise. [employer]'s drug information does not endorse drugs, diagnose patients or recommend therapy. [employer] drug information is an informational resource designed [...] effective or appropriate for any given patient. [facility] does not assume any responsibility for any aspect of healthcare administered with the aid of information [facility] provides. The information contained herein is not intended to cover all possible uses, directions, precautions, warnings, drug interactions, allergic reactions, or adverse effects. If you have questions about the drugs you are taking, check with your doctor, nurse or pharmacist. Copyright 0336-7981 [employer]. Version: 13.02. Revision Date: 08/23/2018. tramadol (TRAM a dol) Domenico, Ultram, Ultram ER What is the most [...] extended-release form of this medicine is for ofukhm-ouu-umpem treatment of pain. This form of tramadol [...] against the law. Stop taking all other ttjxyb-nmz-pfbcm narcotic pain medications when you start taking [...] may report side effects to FDA at 5-872-EXV-7236. What other drugs will affect tramadol? You [...] may affect tramadol. This includes prescription and pnin-nji-rnlsise medicines, vitamins, and herbal products. Not all [...] to ensure that the information provided by [employer]. ('Multum') is accurate, up-to-date, and complete, but no guarantee is made to that effect. Drug information contained herein may be time sensitive. [employer]ouch information has been compiled for use by healthcare practitioners and consumers in the [place] and therefore Vouch does not warrant that uses outside of the [place] are appropriate, unless specifically indicated otherwise. [employer] drug information does not endorse drugs, diagnose patients or recommend therapy. [employer] drug information is an informational resource designed [...] effective or appropriate for any given patient. V[employer] does not assume any responsibility for any aspect of healthcare administered with the aid of information V[employer] provides. The information contained herein is not intended to cover all possible uses, directions, precautions, warnings, drug interactions, allergic reactions, or adverse effects. If you have questions about the drugs you are taking, check with your doctor, nurse or pharmacist. Copyright 4927-7582 [employer]. Version: 18.02. Revision Date: 08/23/2018. CIGARETTE SMOKING: The facts are clear, cigarette smoking will shorten your life. Smoking can cause many illnesses along the way. As a healthcare provider, we recommend that you stop smoking. Assistance with quitting is available by contacting 5-359-DACC-NOW. This is a free resource providing counseling, [...] Be sure to sign up for the [employer] patient portal, which gives you 18/04 access to your medical information ??? including these discharge instructions ??? using your computer, smartphone, or tablet. Just go to itembase to get started. Questions? Call . [facility] would like to thank you for allowing us to assist you with your healthcare needs. MARY Arrieta STEPHEN RAY, (or pharmaceutical sales representative) have received the above patient education materials/instructions and have verbalized understanding: Patient Signature _ Date/Time Patient Dental Amalgam Processor Signature (if needed) Date/Time Clinician/Hospital Dental Amalgam Processor Signature (if needed) Date/Time documented in this encounter Plan of Treatment Not on file documented as of this encounter Visit Diagnoses Not on filedocumented in this encounter
--- OUTSIDE RECORDS SUMMARY | 2025-06-19 09:56 | XMS_ITS | Encounter Summary ---
Author Organization [id number] ([place], [place], [place], [place]) Address [address] [place] [address] Care Team Providers Care Customer Program Specialist Name Role Phone Unavailable Primary Care Provider Unavailabl e Encounter Details Date Type Department Care Team (Late st Contact Info) Description 10/10/2018 Transcribed Document [facility] [place] [facility] [place] [address] ProviderFlaco MD [facility] [place] [address] Social History Tobacco Use Types [...] Conversion Note - Historical ProviderMD - 10/10/2018 9:14 AM RESOURCE RECOVERY SPECIALIST Pediatric Growth Entered On: 10/10/2018 9:14 EST Performed On: 10/10/2018 9:14 EST by Fang Lanza Care Asst-Health Unit Coord Height and Weight, Clinical Dosing Height Source : Measured Height Entry Format : [place] Height, Feet : 5 ft(Converted to: 152 cm, 60 Inch) Height, Inches : 10 Inch(Converted to: 0 ft 10 Inch, 25.40 cm) Clinical Height : 177.8 cm Weight Source : Standing scale Weight Entry Format : [place] Clinical Dosing Weight : 131.82 kg Weight, Pounds : 290 lb Body Surface Area (BSA) : 2.45 m2 Body Mass Index : 41.7 kg/m2 (>HHI) [place] Body Weight : 72 kg Fang Lanza Care Asst-Health Unit Coord - 10/10/2018 9:14 EST documented in this encounter Plan of Treatment Not on file documented as of this encounter Visit Diagnoses Not on filedocumented in this encounter
--- OUTSIDE RECORDS SUMMARY | 2025-06-19 09:56 | XMS_ITS | Encounter Summary ---
Author Organization [employer] ([place], [place], [place], [place]) Address [address] [place] [address] Care Team Providers Care Animal Cruelty Investigation Supervisor Name Role Phone Unavailable Primary Care Provider Unavailabl e Encounter Details Date Type Department Care Team (Late st Contact Info) Description 11/28/2019 Transcribed Document [facility] [place] [address] ProviderFlaco MD [place] [address] Social History Tobacco Use Types Packs/Day Years Used Date Smoking Tobacco: Never Assessed Sex and Gender Information Value Date Recorded Sex Assigned at Male 03/23/2022 7:23 PM CDT Legal Sex Male 7:23 PM CDT Gender Identity Male 03/23/2022 7:23 PM CDT Sexual Orientation Not on file documented as of this encounter Miscellaneous Notes * Cerner Conversion Note - Historical ProviderMD - 11/28/2019 5:11 PM PLANT ATTENDANT Orthopedic Nurse Navigator Entered On: 11/28/2019 17:13 EST Performed On: 11/28/2019 17:11 EST by Noni Carreon RN Surgical Services Orthopedic Nurse Navigator Assessment Joint Navigator Assessment Note : 1 year post op surveys. Noni Carreon RN Surgical Services - 11/28/2019 17:11 EST documented in this encounter Plan of Treatment Not on file documented as of this encounter Visit Diagnoses Not on filedocumented in this encounter
--- OUTSIDE RECORDS SUMMARY | 2025-06-19 09:56 | XMS_ITS | Encounter Summary ---
Author Organization [employer] ([place], [place], [place], [place]) Address [address] [place] [address] Care Team Providers Care Laser Machine Operator Name Role Phone Unavailable Primary Care Provider Unavailabl e Encounter Details Date Type Department Care Team (Late st Contact Info) Description 10/10/2018 Transcribed Document [facility] [place] Medicine [facility] [place] [address] ProviderFlaco MD [facility] [place] [address] Social History Tobacco Use Types [...] - Flaco ProviderMD - 10/10/2018 4:38 PM SOCIAL MEDIA COMMUNITY MANAGER Evaluation, Physical Therapy Entered On: 10/11/2018 11:30 EST Performed On: 10/11/2018 11:14 EST by RAFAEL SHIN, PT General Information, PT Visit Type, PT : Initial evaluation Patient Orders : Order Date Order Ordering 10/10/2018 16:39 PT Evaluation and Treatment Ordered By: BABAR WORRELL MD-ORT 10/10/2018 16:39 PT Treatment Instructions Ordered By: BABAR WORRELL MD-ORT 10/10/2018 16:39 PT Treatment Instructions Ordered By: BABAR WORRELL MD-ORT 10/10/2018 16:39 PT Treatment Instructions Ordered By: BABAR WORRELL MD-ORT 10/10/2018 16:39 PT Treatment Instructions Ordered By: BABAR WORRELL MD-ORT Active Diagnoses : 10/11/2018 00:00 Aftercare following joint replacement surgery Therapy Diagnosis, PT : aftercare following R TKA Admission Date : 10/09/2018 10:38 Co-treated by, PT : Occupational Therapist Personal Devices : Personal Devices Contact lenses Assistive Devices : Assistive Devices No Devices Recorded Precautions in Place : Fall prevention measures RAFAEL SHIN, PT - 10/11/2018 11:14 EST General Status Patient Received Status : Supine in bed, Bed alarm activated, Other: Ice and SCDs applied. Treatment Start Time : 10/11/2018 8:15 EST Patient Left Status : Up in chair, Chair alarm activated, RN/PCT informed, Family/Visitors at bedside, Communication board completed, All needs met and within reach, Other: Ice and SCDs applied. RN/PCT Informed Comment : RN and patient consenting to treatment this date. Treatment End Time : 10/11/2018 9:15 EST Treatment Time : 60 Minute(s) RAFAEL SHIN, PT - 10/11/2018 11:14 EST History and Environment Patient Lives With : Spouse Persons Assisting Patient at Home : Spouse Professional Skilled Services : None Prior LOF Assist with ADL Comment : Patient was fully independent without AD prior to surgery. History and Environment Comment, PT : Patient lives with in single story home that has 1 step to enter, owns RW. RAFAEL SHIN, PT - 10/11/2018 11:14 EST Upper Extremity Upper Extremity Dominance : Right Right UE Active ROM : WFL Right UE Strength : WFL Left UE Active ROM : WFL Left UE Strength : WFL Right UE Strength : WFL Left UE Strength : WFL RAFAEL SHIN, PT - 10/11/2018 11:14 EST Lower Extremity RLE Active ROM : Impaired Right LE Strength : Impaired RAFAEL SHIN, PT - 10/11/2018 11:14 EST RLE ROM Grid Knee Flexion (0-140) Active Assist : 0-112 degrees Comment (Comment: in supine [RAFAEL SHIN, PT - 10/11/2018 11:14 EST] ) RAFAEL SHIN, PT - 10/11/2018 11:14 EST LLE Active ROM : WFL Left LE Strength : WFL RAFAEL SHIN, PT - 10/11/2018 11:14 EST Functional Mobility Mobility Grid Bed Roll Left : Rehab Complete independence Bed Roll Right : Rehab Complete independence Bed Scooting : Rehab Complete independence Supine to Sit : Supervision/set-up Sit to Stand : Supervision/set-up (Comment: with RW [RAFAEL SHIN, PT - 10/11/2018 11:14 EST] ) Bed to Chair : Supervision/set-up (Comment: with RW [RAFAEL SHIN, PT - 10/11/2018 11:14 EST] ) Stand to Sit : Supervision/set-up (Comment: with RW [RAFAEL SHIN, PT - 10/11/2018 11:14 EST] ) RAFAEL SHIN, PT - 10/11/2018 11:14 EST AM PAC Basic Mobility Turning Over in Bed : None Sit Down On/Stand Up From Chair w/ Arms : None Move Back Lying to Sitting Side of Bed : None Moving To/From a Bed to Chair : None Need to Walk in Hospital Room : A little Climbing 3-5 Steps with a Railing : A little [facility] Basic Mobility Raw Score : 22 [facility] Basic Mobility Standardized Score : 53.28 [facility] Basic Mobility CMS 0-100% Score : 20.91 % RAFAEL SHIN, PT - 10/11/2018 11:14 EST Image 1 - Images currently included in the form version of this document have not been included in the text rendition version of the form. Functional Limitation Reporting, PT Functional Limitation Visit Type, PT : Initial evaluation Severity Determination Method, PT : Clinical Judgment, AM [facility] Basic Mobility Mobility G8978 - Current Mod, PT : 20 - 39% impaired, limited or restricted (CJ) Mobility G8979 - Proj Goal Mod, PT : 20 - 39% impaired, limited or restricted (CJ) Mobility G8980 - Discharge Mod, PT : 20 - 39% impaired, limited or restricted (CJ) RAFAEL SHIN, PT - 10/11/2018 11:14 EST Gait Training/Assessment, PT Weight Bearing Order Status : WBAT Weight Bearing Status Maintained : Yes Gait Assistance Level : Assist, minimal Walking Distance : 100 feet Ambulatory Devices : Walker, front wheel Gait Deviations : Yes Gait Training Comment : Patient with moderate pace, reciprocal pattern, mild knee flexion in stance phase. Stair(s) Ascend/Descend Training : Yes Number of Stairs : 1 Stair Height : 6 inches Stair(s) Assist Devices : Walker, front wheel Stair Assist : Supervision RAFAEL SHIN, PT - 10/11/2018 11:14 EST Neuromuscular Reeducation, PT Balance Comment : Normal sitting balance and Good standing balance with RW. RAFAEL SHIN, PT - 10/11/2018 11:14 EST Neurological/Sensory Overall Sensory Response : Intact Response to Pain : Intact RAFAEL SHIN, PT - 10/11/2018 11:14 EST Cognition Assessment, PT Orientation : Oriented x 4 RAFAEL SHIN, PT - 10/11/2018 11:14 EST Edu Topics Physical Therapy Education Grid Balance Training : Verbalizes understanding Bed Mobility Training : Verbalizes understanding Caregiver Training : Verbalizes understanding Gait Training : Verbalizes understanding Home Program/Exercises : Verbalizes understanding Home Safety : Verbalizes understanding Role of Physical Therapy : Verbalizes understanding Safety : Verbalizes understanding Stair Training : Verbalizes understanding Transfer Training : Verbalizes understanding Use of Assistive Device : Verbalizes understanding RAFAEL SHIN, PT - 10/11/2018 11:14 EST Indication Assesessment, PT Physical Therapy Indicated : No Physical Therapy Not Indicated : Other: DC to home today. Interdisciplinary Consultation(s) Needed : No PT Problem List : Impaired, activities daily living, Impaired, bed mobility, Impaired, endurance tolerance, Impaired, gait, Impaired, joint mobility, Impaired, stair mobility, Impaired, standing balance, Impaired, strength, Impaired, transfers, Pain limiting function Potential Barriers To Therapy : None evident Rehabilitation Potential : Good RAFAEL SHIN, PT - 10/11/2018 11:14 EST Plan of Care, PT PT Tx Plan/Goals Established w Patient : No Reason Tx/Plan Not Established W/ Pt PT : Evaluation only. RAFAEL SHIN, PT - 10/11/2018 11:14 EST Treatment Note Subjective Comment : Patient pleasant and cooperative with treatment this date, no complaints of pain at rest. Patient's Response to Treatment : No adverse reactions to treatment. Additional Objective Information : See Evaluation for functional mobility. Patient completed ther ex as follows: 2x10 ankle pumps, quad sets, glut sets, short arc quads, long arc quads, seated knee flexion, heel slides and SLR. Prone hangs x 10 minutes with 5 lb weight. Educated on 4 Miller Rules, verbalized in return. Assessment : Patient discharging to home after evaluation today. Plan for Treatment : OPPT to follow. RAFAEL SHIN, PT - 10/11/2018 11:14 EST Anticipated Discharge Needs, OT/PT Anticipated Discharge to : Outpatient rehabilitation Anticipated Home Equipment : None Anticipated D/C Provider Notified : Nursing Recommend Continued Therapy at Discharge : Yes RAFAEL SHIN, PT - 10/11/2018 11:[address] [facility] Charges PT Therap. Exercise 15 min : 2 Gait Training Each 15 Min : 1 PT Eval Low Complexity : 1 RAFAEL SHIN, PT - 10/11/2018 11:36 EST documented in this encounter Plan of Treatment Not on file documented as of this encounter Visit Diagnoses Not on filedocumented in this encounter
--- OUTSIDE RECORDS SUMMARY | 2025-06-19 09:57 | XMS_ITS | Encounter Summary ---
Author Organization [employer] ([place], [place], [place], [place]) Address [address] [place] [address] Care Team Providers Care Iron Plastic Bullet Maker Name Role Phone Unavailable Primary Care Provider Unavailabl e Encounter Details Date Type Department Care Team (Late st Contact Info) Description 10/11/2018 Transcribed Document [facility] [place] [address] ProviderFlaco [place] [address] Social History Tobacco Use Types [...] Conversion Note - Historical ProviderMD - 10/11/2018 6:00 AM JOB ESTIMATOR Pain Assessment Entered On: 10/11/2018 7:47 EST Performed On: 10/11/2018 7:22 EST by Noni Carreon Rn Intervention Information: traMADol Performed by Julien Magallon Rn on 10/11/2018 06:22:00 EST traMADol,50mg Oral Pain Assessment Pain Assessment : Follow-up assessment Pain Scale Goal : 3 Pain Scale Used : 0-10 Scale Noni Carreon Rn - 10/11/2018 7:47 EST Pain Scale Intensity : 3 Noni Carreon Rn - 10/11/2018 7:47 EST Image 4 - Images currently included in the form version of this document have not been included in the text rendition version of the form. documented in this encounter Plan of Treatment Not on file documented as of this encounter Visit Diagnoses Not on filedocumented in this encounter
--- OUTSIDE RECORDS SUMMARY | 2025-06-19 09:57 | XMS_ITS | Encounter Summary ---
Author Organization [employer] ([place], [place], [place], [place]) Address [address] [place] [address] Care Team Providers Care Stud Beef Cattle Farmer Name Role Phone Unavailable Primary Care Provider Unavailabl e Encounter Details Date Type Department Care Team (Late st Contact Info) Description 10/11/2018 Transcribed Document [facility] [place] [facility] [place] [address] ProviderFlaco MD [facility] [place] [address] Social History Tobacco Use [...] Conversion Note - Historical ProviderMD - 10/11/2018 12:00 AM MERCHANDISING INTERNSHIP Pain Assessment Entered On: 10/11/2018 4:18 EST Performed On: 10/11/2018 2:18 EST by Julien Magallon Rn Intervention Information: traMADol Performed by Julien Magallon Rn on 10/11/2018 01:18:00 EST traMADol,50mg Oral Pain Assessment Pain Assessment [...] form. Electronically signed by Emanuel Mercedes Conversion Senior Research Project Manager Cerner at 01/12/2023 10:27 PM CDT documented in this encounter Plan of Treatment Not on file documented as of this encounter Visit Diagnoses Not on filedocumented in this encounter
--- OUTSIDE RECORDS SUMMARY | 2025-06-19 09:57 | XMS_ITS | Encounter Summary ---
Author Organization [employer] ([place], [place], [place], [place]) Address [address] [place] [address] Care Team Providers Care Inspector And Tester Name Role Phone Unavailable Primary Care Provider Unavailabl e Encounter Details Date Type Department Care Team (Late st Contact Info) Description 10/11/[address] [facility] [place] Family Medicine [facility] [place] [address] ProviderFlaco MD [facility] [place] [address] Social History Tobacco Use Types [...] Conversion Note - Historical ProviderMD - 10/11/2018 9:48 AM PRODUCT SAFETY MANAGER Care Management Assessment/Plan Entered On: 10/11/2018 10:36 EST Performed On: 10/11/2018 10:35 EST by Charlotte Hoffmann Case Management-Truck Service Manager Care Management Note Care Management Note : PT ADMITTED FRO TKA, PT LIVES AT HOME WITH SPOUSE AND PLANS HOME WITH OUT PT PHYSICAL THERAPY AT [facility] SCHEDULED FOR TOMORROW AT 8:30 AM PT HAS A WALKER, HE HAS CPM RENTAL PROVIDED BY [employer] Documentation Status Complete : Yes Charlotte Hoffmann Case Management-Truck Service Manager - 10/11/2018 10:35 EST Discharge Planning Details Discharge Home : Home with spouse/significant other Discharge Home Care Needs : Physical Therapy Discharge Placement Needs : Home Charlotte Hoffmann Case Management-Truck Service Manager - 10/11/2018 10:35 EST Info/List/Choices Provided Patient Offered Choice/Affiliations Explained : Yes Charlotte Hoffmann Case Management-Truck Service Manager - 10/11/2018 10:35 EST Final Discharge Disposition Note-CM Discharge To Care Management : Home/Residential/Senior Care or Self Care -01 Name of Receiving Facility/Provider-CM : [facility] Nicole FOR OUT PT THERAPY, CPM RENTAL FROM [facility] Charlotte Andrew Case Management-Truck Service Manager - 10/11/2018 10:35 EST Electronically signed by Mago [facility] Conversion Surgical Services Coordinator Cerner at 01/12/2023 10:33 PM CDT documented in this encounter Plan of Treatment Not on file documented as of this encounter Visit Diagnoses Not on filedocumented in this encounter
--- OUTSIDE RECORDS SUMMARY | 2025-06-19 09:57 | XMS_ITS | Encounter Summary ---
Author Organization [employer] ([place], [place], [place], [place]) Address [address] [place] [address] Care Team Providers Care Oven Worker Name Role Phone Unavailable Primary Care Provider Unavailabl e Encounter Details Date Type Department Care Team (Late st Contact Info) Description 11/21/2018 Transcribed Document [facility] [place] Family Medicine [facility] [place] [address] ProviderFlaco [place] [address] Social History Tobacco Use Types [...] Conversion Note - Flaco ProviderMD - 11/21/2018 3:29 PM WIND PROJECTS SUPERVISOR Patient: PEDRO PICKARD Age: 68 Years Sex: Male : 1950 Chief Complaint s/p L TKA Primary Care Provider [facility]U CRUZ (REF[facility] History of Present Illness This patient is a pleasant 68 yo WM who presents with left knee pain. The pain has been going on for 6 years but has gotten progressively worse. He describes it as a dull pain. It is now to the point that it is affecting his ADLs. He has tried NSAIDs, narcotics and injections without relief of his pain. He has not fallen. He has not used an assistive device. He saw Dr Thorpe who evaluated him and determined that he has severe DJD affecting the left knee. Pt was offered a Left Total Knee Arthroplasty and agreed to the procedure. Pt denies a h/o DVT/PE. No trouble with anesthesia in the past. No respiratory conditions including COPD/DARIAN/asthma. Pt seen postoperatively. Pain 5/10 in left knee. Denies NVD. Denies CP or SOB. Had successful RTKA done 6 weeks ago. LBM: yesterday. Eager to work with PT. Review of Systems Constitutional: [No fevers, chills, sweats] Eye: [No eye discharge, eye pain, redness] HEENT: [No nasal congestion, sore throat, voice changes] Respiratory: [No shortness of breath, cough, pain on breathing] Cardiovascular: [No Chest pain, palpitations, syncope] Gastrointestinal: [No nausea, vomiting, diarrhea Genitourinary: [No hematuria, dysuria, incontinence] Delbert/Lymph: [Negative for bruising tendency, swollen lymph glands, nosebleeds, history of anticoagulation] Endocrine: [Negative for excessive thirst, excessive hunger, excessive urination, heat or cold intolerance] Musculoskeletal: [+ left knee pain] Integumentary: [No rash, pruritus, abrasions] Neurologic: [No weakness, numbness] Psychiatric: [No anxiety, depression, mood changes] Physical Exam Vitals & Measurements T: 36.6 ??C HR: 89(Monitored) RR: 16 BP: 104/62 SpO2: 94% HT: 177.8 cm WT: 129.55 kg BMI: 41 General: [Alert and oriented, well nourished, no acute distress]. Neurologic: [Awake, alert, and oriented X3, CN II-XII intact]. Eye: [PERRL, EOMI, normal conjunctiva]. HENT: [Normocephalic, normal hearing, moist oral mucosa, no scleral icterus]. Neck: [Supple, no JVD]. Lungs: [Clear to auscultation , breath sounds equal, non-labored respiration]. Heart: [Normal rate, regular rhythm, no murmur, or edema]. Abdomen: [obese, + BS in all 4 quadrants]. Musculoskeletal: [L knee immobilized, 2+ DP pulses, compartments soft and warm]. Skin: [Skin is warm, dry and pink, no rashes]. Psychiatric: [Cooperative, appropriate mood and affect]. Assessment/Plan S/P left Total Knee Arthroplasty no immediate postoperative complications pain control PRN incentive spirometry PT/OT to evaluate and treat DVT prophylaxis per Dr. Thorpe Advanced Degenerative join disease DJD, with severe osteoarthritis of the left knee, status post replacement Started on aspirin and acetaminophen postoperatively Acetaminophen protocol every 6 hour for the immediate postoperative period Gabapentin 300 mg one tablet at bedtime Oxycodone: Every 4 hours as needed for breakthrough pain Coronary Artery disease ( stable ) followed by Dr. Kong received cardiac clearance Essential hypertension I temporarily held the Lisinopril and spironolactone hile in the hospital, to avoid increase in creatinine and kidney functions I resumed Metoprolol ER Monitor vital signs and manage accordingly Morbid obesity, secondary to excess caloric intake Encourage weight loss. Gastrointestinal ( GI ) prophylaxis : Patient is placed on Protonix. DEEP VEIN THROMBOSIS ( DVT ) prophylaxis: Aspirin 81 mg one tablet oral Twice daily ( as per Ortho ) Patient is placed on sequential compression devices ( Compression Boots ) while in bed. Early ambulation with physical therapy postoperatively. CODE STATUS: FULL code. TIME SPENT : 41 minutes in evaluation patient is seen and examined agree with above d/w patient labs are reivewed time spent 50 min Problem List/Past Medical History Ongoing At risk for sleep apnea High blood pressure Impaired vision Insomnia Sinusitis Stented coronary artery Viral cardiomyopathy Vitamin D deficiency Procedure/Surgical History REPLACE OF R KNEE JT WITH SYNTH SUB, CEMENT, OPEN APPROACH (10/10/2018), HEART CATH WITH STENTS TIMES 2, ORIF to left elbow, right TKA, stent placement, tonsils, WISDOM TEETH REMOVED. Medications Inpatient Ancef, 1000 mg= 50 mL, IV Piggyback, Pre Procedure bumetanide, 2 mg= 2 Tab, Oral, Daily cloNIDine 80 mcg + ketorolac 30 mg + ropivacaine 0.5% injectable solution 30 mL + Xylocaine HCl wit EPINEPHrine-lidocaine 1:100,000-2% injectable solution, 10 mL, IntraCATHeter, 1-Time fentaNYL, 100 mcg= 2 mL, IV Push, 1-Time, PRN gabapentin, 300 mg= 1 Cap, Oral, At Bedtime hydrALAZINE, 10 mg= 0.5 mL, IV Push, Q6H, PRN lidocaine 2% injectable solution, 3 mL, IntraDermal, 1-Time Lipitor, 20 mg= 1 Tab, Oral, At Bedtime lisinopril, 2.5 mg= 1 Tab, Oral, BID Metoprolol Succinate ER, 50 mg= 1 Tab, Oral, At Bedtime midazolam, 2 mg= 2 mL, IV Push, Q10Min, PRN morphine, 2 mg= 1 mL, IV Push, Q2H, PRN Nitrostat, 0.4 mg= 1 Tab, SubLINgual, Q5Min, PRN Pepcid, 20 mg= 1 Tab, Oral, Daily Phenergan, 6.25 mg= 0.25 mL, IntraVENous, Q6H, PRN ropivacaine 0.5% injectable solution, 30 mL, IntraCATHeter, 1-Time spironolactone, 25 mg= 1 Tab, Oral, BID Tylenol, 650 mg= 2 Tab, Oral, Q4H, PRN Home aspirin 81 mg oral delayed release tablet, 81 mg= 1 Tab, Oral, BID bumetanide 2 mg oral tablet, 2 mg= 1 Tab, Oral, Daily gabapentin 300 mg oral capsule, 300 mg= 1 Cap, Oral, At Bedtime Lipitor 20 mg oral tablet, 20 mg= 1 Tab, Oral, At Bedtime, 11 refills lisinopril 2.5 mg oral tablet, 2.5 mg= 1 Tab, Oral, BID Metoprolol Succinate ER, 50 mg, Oral, At Bedtime Mobic 15 mg oral tablet, 15 mg= 1 Tab, Oral, Daily Nitrostat 0.4 mg sublingual tablet, 0.4 mg= 1 Tab, SubLINgual, Q5Min, PRN, 6 refills oxyCODONE 5 mg oral tablet, 5 mg= 1 Tab, Oral, Q4H, PRN spironolactone 25 mg oral tablet, 25 mg= 1 Tab, Oral, BID traMADol 50 mg oral tablet, 50 mg= 1 Tab, Oral, Q6H Tylenol, 1000 mg= 2 Tab, Oral, TID Allergies No Known Allergies Social History Alcohol [...] 61. Pt father at 85 from a [place]. Lab Results CBC Results (Current Encounter/Past 24 Hours) Hct 40.4 % 11/21/2018 14:24 Hgb 13.0 Gram/dL LOW 11/21/2018 14:24 documented in this encounter Plan of Treatment Not on file documented as of this encounter Visit Diagnoses Not on filedocumented in this encounter
--- OUTSIDE RECORDS SUMMARY | 2025-06-19 09:57 | XMS_ITS | Referral Summary ---
Author Organization [email or web address] ([place], [place], [place], [place]) Address [address] [place] [address] Care Team Providers Care Dispensary Attendant Name Role Phone Unavailable Primary Care [...]
--- OUTSIDE RECORDS SUMMARY | 2025-06-19 09:57 | XMS_ITS | Encounter Summary ---
Author Organization [employer] ([place], [place], [place], [place]) Address [address] [place] [address] Care Team Providers Care Devulcanizer Operator Name Role Phone Unavailable Primary Care Provider Unavailabl e Encounter Details Date Type Department Care Team (Late st Contact Info) Description 11/21/2018 Transcribed Document [facility] [place] Family Medicine [facility] [place] [address] ProviderFlaco MD [facility] [place] [address] Social History Tobacco Use Types [...] Conversion Note - Historical ProviderMD - 11/21/2018 9:47 AM CARPET INSPECTOR FINISHED Pre Procedure Adult Entered On: 11/21/2018 10:13 EST Performed On: 11/21/2018 9:47 EST by RAMIRO BANUELOS RN Height and Weight, Clinical Dosing Height Source : Stated Height Entry Format : [place] Height, Feet : 5 ft(Converted to: 152 cm, 60 Inch) Height, Inches : 10 Inch(Converted to: 0 ft 10 Inch, 25.40 cm) Clinical Height : 177.8 cm Weight Source : Standing scale Weight Entry Format : [place] Clinical Dosing Weight : 129.55 kg Weight, Pounds : 285 lb Body Surface Area (BSA) : 2.43 m2 Body Mass Index : 41 kg/m2 (>HHI) [place] Body Weight : 72 kg RAMIRO BANUELOS RN - 11/21/2018 9:47 EST Health Histories Smoking Status : Never (less than 100 in lifetime; none in last 30 days) Smokeless Tobacco Status : Never RAMIRO BANUELOS RN - 11/21/2018 9:47 EST Social History (As Of: 11/21/2018 10:13:04 EST) Tobacco: Use in Last 12 Months: [...] Symptoms : None RAMIRO BANUELOS RN - 11/21/2018 9:47 EST Anesthesia/Transfusion History Family History of Anesthesia Reaction : No prior transfusion(s) Transfusion History : Prior anesthesia without reaction Family History of Anesthesia Reaction : None RAMIRO BANUELOS RN - 11/21/2018 9:47 EST Functional Assessment Living Situation : Home Patient Lives With : Spouse Persons Assisting Patient at Home : Spouse Current Daily Living Assistance : None Sensory Deficits : None Mobility Assistance Prior to Admission : Independent SANDY Hx Falls Immediate/Within 3 Months : No Current Home Treatments : None Home Equipment : None Professional Skilled Services : None Special Services and Community Resources : None RAMIRO BANUELOS RN - 11/21/2018 9:47 EST Psychosocial History Do You Have a History of the Following? : Patient denies history Currently in Unsafe Situation : No Do You Have a Support System? : Yes Tried to Harm Yourself in the Past? : No Thoughts of Harming/Killing Yourself : No RAMIRO BANUELOS RN - 11/21/2018 9:47 EST Advance Directive Patient has Advance Directive *Q : Yes, Advance Directive not with the patient Advance Directive Type : Living will, Medical durable power of dairy cattle farmer (proxy) Medical Durable Power of Asic Verification Engineer Name : No Copy Advance Directive Verified/on Chart : No RAMIRO BANUELOS RN - 11/21/2018 9:47 EST Teaching/Learning Assessment Barriers To Learning : None evident Individuals Taught : Patient, Spouse Readiness to Learn : Cooperative Baseline Knowledge of Topic : Good Readiness to Learn : Explanation, Printed materials Learning Style Preferences Patient : Printed materials, Verbal explanation Learning Style Preferences Family : Printed materials, Verbal explanation RAMIRO BANUELOS RN - 11/21/2018 9:47 EST Education Topics, Periop Preadmission Perioperative Education Grid Arrival Time/Place : Verbalizes understanding Falls : Verbalizes understanding IV's : Verbalizes understanding NPO Status/Directions : Verbalizes understanding Pain Management : Verbalizes understanding Preprocedure Preparations : Verbalizes understanding Preprocedure Tests/Labs : Verbalizes understanding Responsible Adult : Verbalizes understanding Take/Hold Medications Pre-Procedure : Verbalizes understanding RAMIRO BANUELOS RN - 11/21/2018 9:47 EST General Info Arrived From : Home Mode of Arrival on Unit : Ambulatory Patient Arrival Date/Time : 11/21/2018 8:20 EST Legal Guardian : Spouse, Unaccompanied Support Person/Patient Senior Internal Auditor : Yes Support Person/Pt Rep Name : Radha spouse Support Person/Pt Rep Contact Information : [phone] Want Family/Rep/Phys Notified of Admit : No Emergency Contact #1 : Radha Emergency Contact #1 Emergency Contact #1 Relationship : Emergency Contact #2 : . Emergency Contact #2 Phone Number : . Emergency Contact #2 Relationship : . Information Obtained From : Patient Primary Language : Tristanian Preferred Communication Mode : Verbal Communication Barrier : None Currently Lactating : N/A Status : N/A ARMIRO BANUELOS RN - 11/21/2018 9:47 EST Sleep Apnea Risk Assmt Hx of Obstructive Sleep Apnea Diagnosis : No Snore Loudly : Yes Tired, Fatigued, or Sleepy During Day : No Observed Stopping Breathing During Sleep : No Have/Are Being Treated for Hypertension : Yes STOP Sleep Apnea Risk Level Score : 2 STOP Sleep Apnea Risk Level : High RAMIRO BANUELOS RN - 11/21/2018 9:47 EST Chris Scale Chris Sensory Perception : No impairment Chris Moisture : Rarely moist Chris Activity : Walks frequently Chris Mobility : Slightly limited Chris Nutrition : Excellent Chris Friction and Shear : No apparent problem Chris Score : 22 RAMIRO BANUELOS RN - 11/21/2018 9:47 EST Oxygen Therapy Oxygen Therapy Mode : Room air RAMIRO BANUELOS RN - 11/21/2018 9:47 EST Pain Assessment Pain Assessment : Initial assessment Pain Scale Used : 0-10 Scale RAMIRO BANUELOS RN - 11/21/2018 9:47 EST Fall Risk Scales ABCs Fall Injury [...] Scale Risk Level : 25-45 Medium Risk Robinson Fall Interventions : Adequate lighting, Bed in low position, Call device within reach, Hourly comfort/safety rounds, Non-slip footwear, Personal items within reach, Upper side-rails up, Wheels locked RAMIRO BANUELOS RN - 11/21/2018 9:47 EST Fall Risk Education Grid Call light use : Verbalizes understanding Nonskid Footwear Use : Verbalizes understanding Siderails use/risks : Verbalizes understanding RAMIOR BANUELOS RN - 11/21/2018 9:47 EST Barriers to Learning : None evident Individuals Taught : Patient, Spouse Readiness to Learn : Cooperative Baseline Knowledge of Topic : Good Teaching Method : Printed materials Learning Style Preferences Family : Printed materials, Verbal explanation Learning Style Preferences Patient : Printed materials, Verbal explanation Teaching Evaluation : Verbalizes understanding RAMIRO BANUELOS RN - 11/21/2018 9:47 EST Education Topics, Day of Surgery DayofSurgery Education Grid Anesthesia/Sedation : Verbalizes understanding Fall Risks : Verbalizes understanding Family Instructions : Verbalizes understanding IV's : Verbalizes understanding Medication Instructions : Verbalizes understanding Pain Management : Verbalizes understanding Responsible Adult : Verbalizes understanding RAMIRO BANUELOS RN - 11/21/2018 9:47 EST Valuables and Belongings Valuables and Belongings : Clothing, Personal items Clothing : Common streetwear Clothing Disposition : With family Personal Items : Cell phone Personal Items Disposition : With family RAMIRO BANUELOS RN - 11/21/2018 9:47 EST Pain Scale Intensity : 0 RAMIRO BANUELOS RN - 11/21/2018 9:47 EST Image 4 - Images currently included in the form version of this document have not been included in the text rendition version of the form. [place] Coma Darek Best Motor Response : Obey commands [place] Best Verbal Response : Oriented [place] Eye Opening Response : Spontaneous Darek Coma Score : 15 RAMIRO BANUELOS RN - 11/21/2018 9:47 EST documented in this encounter Plan of Treatment Not on file documented as of this encounter Visit Diagnoses Not on filedocumented in this encounter
--- OUTSIDE RECORDS SUMMARY | 2025-06-19 09:57 | XMS_ITS | Encounter Summary ---
Author Organization [employer] ([place], [place], [place], [place]) Address [address] [place] [address] Care Team Providers Care Insurance Adjustor Name Role Phone Unavailable Primary Care Provider Unavailabl e Encounter Details Date Type Department Care Team (Late st Contact Info) Description 10/11/2018 Transcribed Document [facility] [place] Family Medicine [facility] [place] [address] ProviderFlaco MD [facility] [place] [address] Social History Tobacco Use Types [...] Conversion Note - Flaco ProviderMD - 10/11/2018 8:31 AM SKILLED LABORER Discharge Instructions Entered On: 10/11/2018 8:31 EST Performed On: 10/11/2018 8:31 EST by WAQAR CABELLO MD-INT DC Instructions HWD Medical Equipment For Home Use : CPM RENTAL PROVIDED BY ITS Compliance [employer]ACING PT HAS A WALKER [facility] : OUT PATIENT PHYSICAL THERAPY AT [facility] 10/12/2018 THURS. AT 8:30 AM [phone] Charlotte Hoffmann, Case Management-Central Control Room Operator - 10/11/2018 10:33 EST Stroke/TIA Discharge Ins : N/A Heart Failure Discharge Ins : N/A Warfarin Discharge Ins : N/A Diet After Discharge : Resume usual diet as tolerated, Do not drink any alcoholic beverages, Other: drink at least 8 glasses of water a day yo prevent constipation. Increase fiber and protein to promote healing. Judith Rodriguez RN - 10/11/2018 8:57 EST Activity After Discharge : No strenuous activities, No heavy lifting over 10 pounds, Full weight bearing, Other: use walker for each step until told otherwise for your safety per MD and PT. Sleep in knee immobilizer for at least 1-2 weeks Judith Rodriguez RN - 10/11/2018 10:42 EST Driving After Discharge : Do not drive Showering/Bathing : No tub bathing, soaking, or swimming, Other: May shower on the 3rd day after surgery. Glad brand product Press & Seal should be used for showering because incision area must remain completely dry Notify Provider of : Call the surgeon for wound drainage that is present beyond 7 days after surgery. Judith Rodriguez RN - 10/11/2018 8:57 EST Wound/Incision Care After Discharge : Keep operative site/wound site clean and dry, Other: You may remove the BIB day after surgery and cover with 4x4 gauze squares and tubular netting .Change daily for 5-7 days ISREAL REMOVED IN OFFICE IN 2-3 WEEKS. Judith Rodriguez RN - 10/11/2018 10:42 EST Wound/Incision Care At Discharge Comment cision Care At Discharge Comment : Continue Tub exercise ([place] with rolled towel or Zero Knee) at [...] worn at all times for DVT prophylaxis. Pain Management DC Instructions : Gabapentin 300 mg tabs, Oxycodone 5mg, Tramadol 50mg tabs tabs will be used for postoperative pain control and should be weaned as the patient can tolerate. polar care 30 minutes on 3-4 times a day do place directly on skin Special Instructions : Bilateral ANTONIO hose are to be worn daily for blood clot prevention. You may remove these for daily skin inspections, but otherwise these are to be worn at all times. Aspirin 81mg twice a day for 45 days Judith Rodriguez RN - 10/11/2018 8:57 EST documented in this encounter Plan of Treatment Not on file documented as of this encounter Visit Diagnoses Not on filedocumented in this encounter
--- OUTSIDE RECORDS SUMMARY | 2025-06-19 09:57 | XMS_ITS | Encounter Summary ---
Author Organization [employer] ([place], [place], [place], [place]) Address [address] [place] [address] Care Team Providers Care Vice Chairman Name Role Phone Unavailable Primary Care Provider Unavailabl e Encounter Details Date Type Department Care Team (Late st Contact Info) Description 11/22/2018 Transcribed Document [facility] [place] Family Medicine [facility] [place] [address] ProviderFlaco MD [facility] [place] [address] Social History Tobacco Use Types [...] - Historical ProviderMD - 11/22/2018 12:00 AM MECHANICAL SOUND TECHNICIAN Pain Assessment Entered On: 11/22/2018 2:00 EST Performed On: 11/22/2018 0:37 EST by Shauna Collazo RN Intervention Information: acetaminophen Performed by Shauna Collazo RN on 11/21/2018 23:37:00 EST acetaminophen,1000mg Oral Pain Assessment Pain Assessment [...] form. Electronically signed by Emanuel Mercedes Conversion Accounts Payable Administrator Cerner at 01/12/2023 10:10 PM CDT documented in this encounter Plan of Treatment Not on file documented as of this encounter Visit Diagnoses Not on filedocumented in this encounter
--- OUTSIDE RECORDS SUMMARY | 2025-06-19 09:57 | XMS_ITS | Encounter Summary ---
Author Organization [employer] ([place], [place], [place], [place]) Address [address] [place] [address] Care Team Providers Care Representative Phlebotomy Services Name Role Phone Unavailable Primary Care Provider Unavailabl e Encounter Details Date Type Department Care Team (Late st Contact Info) Description 11/21/2018 Transcribed Document [facility] [place] Family Medicine [facility] [place] [address] ProviderFlaco MD [facility] [place] [address] Social History Tobacco Use Types [...] - Flaco ProviderMD - 11/21/2018 3:59 PM DENTAL ASSISTANT TEACHER Evaluation, Occupational Therapy Entered On: 11/21/2018 17:25 EST Performed On: 11/21/2018 16:31 EST by KRISTIN GARCIA OTR/L General Information, OT Visit Type, OT : Initial evaluation Patient Orders : Order Date Order Ordering 11/21/2018 16:01 OT Evaluation and Treatment Ordered By: BABAR WORRELL MD-ORT 11/21/2018 16:01 OT Treatment Instructions Ordered By: BABAR WORRELL MD-ORLizeth Active Diagnoses : No Qualifying Diagnoses Therapy Diagnosis, OT : aftercare following joint replacement surgery Onset of Problem, OT : 11/20/2018 EST Admission Date : 11/20/2018 08:29 Personal Devices : Personal Devices No Devices Recorded Assistive Devices : Assistive Devices No Devices Recorded Precautions in Place : Fall prevention measures General Information Comment, OT : left TKA; WBAT; lives w/spouse; I @ PLOF; Ax1; recent right TKA (not need for HS/CT handout); plans to DC w/outpatient rehab; KRISTIN Yates OTR/Ted - 11/21/2018 17:05 EST General Status Patient Received Status : Long sitting in bed, Bed alarm activated, Other: spouse present Treatment Start Time : 11/21/2018 16:14 EST Patient Left Status : Up in chair, Chair alarm activated, Family/Visitors at bedside, All needs met and within reach RN/PCT Informed Comment : nursing ok'ed eval; ID and verified. Treatment End Time : 11/21/2018 16:31 EST Treatment Time : 17 Minute(s) Actual Treatment Time : 17 Minute(s) KRISTIN GARCIA OTR/Ted - 11/21/2018 17:05 EST History and Environment, OT Living Situation, Therapy : Home Patient Lives With : Spouse Persons Assisting Patient at Home : Spouse Professional Skilled Services : None Persons Providing Information : Patient, Spouse Home Equipment, Therapy : Commode, Walker, Wheelchair, Other: CPM Commode : Toilet seat, elevated Walker : Walker, front wheel Wheelchair : Wheelchair, standard Home Setup : One story Stairs : Yes Stair Location(s) : Outside Outside Stairs, Number of Steps : 1 KRISTIN GARCIA OTR/Ted - 11/21/2018 17:05 EST Prior LOF Bathing, OT : Independent Prior LOF Bed Mobility : Independent Prior LOF Upper Body Dressing, OT : Independent Prior LOF Lower Body Dressing, OT : Independent Prior LOF Toileting : Independent Prior LOF Transfer : Independent Prior LOF Grooming, OT : Independent KRISTIN GARCIA OTR/Ted - 11/21/2018 17:05 EST Upper Extremity Upper Extremity Dominance : Right Right UE Active ROM : WFL Right UE Strength : WFL Left UE Active ROM : WFL Left UE Strength : WFL Right Hand AROM Comment : WFL Left Hand AROM Comment : WFL Upper Extremity Strength Impaired : No Right UE Strength : WFL Left UE Strength : WFL KRISTIN GARCIA OTR/Ted - 11/21/2018 17:05 EST Self Care/Home Management, OT Self Feeding Assist Level, OT : Independent, complete Grooming Assist Level, OT : Independent, complete Bathing Assist Level, OT : Assist, minimal Bathing Comment, OT : seated Upper Body Dressing Assist Level, OT : Independent, complete Lower Body Dressing Assist Level, OT : Assist, minimal Toileting Assist Level : Assist, minimal Toileting Device : [id number] commode Toilet Transfer Assist Level : Assist, minimal Toilet Transfer Device : Belt, gait, Walker, rolling, [id number] commode Self Care/Home Management Comment, OT : cues for safety, hand placement, RW-use, and sequencing during ADL eval/tx. KRISTIN GARCIA OTR/L - 11/21/2018 17:05 EST Functional Mobility Mobility Grid Supine to Sit : Supervision/set-up (Comment: SBA + HOB elevated + use of bed rail [KRISTIN GARCIA OTR/L 11/21/2018 17:05 EST] ) Sit to Stand : Rehab Minimal assistance (Comment: Min A + cues for hand placement [KRISTIN GARCIA OTR/L 11/21/2018 17:05 EST] ) Stand to Sit : Supervision/set-up (Comment: CGA + cues for safety/hand placement [KRISTIN GARCIA OTR/Ted 11/21/2018 17:05 EST] ) KRISTIN GARCIA OTR/L 11/21/2018 17:05 EST Functional MobilityComment : Pt demonstrated short distance functional mobility with RW, no LOB, no report of dizziness/lightheadedness, KI donned, and cues for safety/sequencing. See PT eval for further details regarding mobility. KRISTIN GARCIA OTR/L 11/21/2018 17:05 EST AM PAC Daily Activity Putting On/Taking Off Lower Body Clothes : A little Bathing (Washing, Rinsing, Drying) : A little Toileting Includes Toilet, Bedpan, Urinal : A little Putting On/Taking Off Upper Clothing : None Taking Care of Grooming : None Eating Meals : None AM-PAC Daily Activity Raw Score : 21 AM-PAC Daily Activity Standardized Score : 44.27 AM-PAC Daily Activity CMS 0-100% Score : 32.79 % KRISTIN GARCIA OTR/L 11/21/2018 17:05 EST Image 3 - Images currently included in the form version of this document have not been included in the text rendition version of the form. Functional Limitation Reporting, OT Functional Limitation Visit Type, OT : Initial evaluation Severity Determination Method, OT : Clinical Judgment, AM PAC Daily Activity Self Care G8987 - Current Mod, OT : 20 - 39% impaired, limited or restricted (CJ) Self Care G8988 - Proj Goal Mod, OT : 20 - 39% impaired, limited or restricted (CJ) Self Care Mod Rationale, OT : see OT eval/tx. GARCIAKRISTIN OTR/Ted 11/21/2018 17:05 EST Activity Tolerance, OT Activity Comment : Fair tolerance; pt limited by report of mild pain. KRISTIN GARCIA OTR/Ted 11/21/2018 17:05 EST Neurological/Sensory Overall Sensory Response : Intact Response to Pain : Intact Light Touch Response : Intact KRISTIN GARCIA OTR/Ted 11/21/2018 17:05 EST Cognition Assessment, OT Orientation : Oriented x 4 Follows Basic Command Assessment, OT : Intact Attention Assessment : Present KRISTIN GARCIA OTRTed 11/21/2018 17:05 EST Education OT Occupational Therapy Education Grid Activity of Daily Living Training : Verbalizes understanding, Needs further teaching, Returns demonstration Functional Mobility Training : Verbalizes understanding, Returns demonstration, Needs further teaching Role of Occupational Therapy : Verbalizes understanding KRISTIN GARCIA OTR/Ted 11/21/2018 17:05 EST Teaching/Learning Assessment Barriers To Learning : None evident Individuals Taught : Patient Readiness to Learn : Cooperative Readiness to Learn : Explanation Learning Style Preferences Patient : Demonstration, Printed materials, Verbal explanation Learning Style Preferences Family : Demonstration, Printed materials, Verbal explanation KRISTIN GARCIA OTR/Ted 11/21/2018 17:05 EST Indication Assessment, OT Occupational Therapy Indicated : Yes Problem List, OT : Impaired, bed mobility, Impaired, activities daily living, Impaired functional mobility, Impaired, joint mobility, Impaired, standing balance, Impaired, transfers, Pain limiting function Potential Barriers, OT : Pain Rehabilitation Potential, OT : Good KRISTIN GARCIA OTR/Ted 11/21/2018 17:05 EST Plan of Care, OT OT Tx Plan/Goals Established w Patient : Yes OT Frequency Rehab : Other: 3-5 days/wk OT Duration Rehab : Seven Days OT Treatments Planned : Activities of daily living, Balance training, Caregiver training, Cognitive/perceptual, Functional mobility training, Pain management, Safety education, Therapeutic activities, Therapeutic exercises Plan of Care Comment, OT : Pt would benefit from skilled OT services addressing reduced mobility following joint replacement surgery, limiting ADL performance, in order to return to PLOF. GARCIA ARACELY FOSTER/Ted - 11/21/2018 17:05 EST Drum Stenciler Goals, OT Other LTG Grid Goal #1 Goal #2 Goal : Pt will perform LB self-care with CGA, AD prn, and cues. Pt will perform ADL transfer with CGA, AD prn, and cues. Date to Meet : 11/28/2018 EST 11/28/2018 EST Goal Status : Initial goal Initial goal GARCIA ARACELY FOSTER/Ted - 11/21/2018 17:05 EST GARCIA ARACELY FOSTER/Ted - 11/21/2018 17:05 EST Treatment Note Subjective Comment : Pt ok'ed eval/tx. Patient's Response to Treatment : Fair response; pt limited by report of mild pain. Pt cooperative, motivated, and pleasant. Additional Objective Information : EVAL = 9 minutes SELF-CARE = 8 mintues Assessment : Pt would benefit from skilled OT services addressing reduced mobility following joint replacement surgery, limiting ADL performance, in order to return to PLOF. Plan for Treatment : Pt to receive skilled OT services 3-5 days/wk for 7 days. KRISTIN GARCIA OTR/Ted - 11/21/2018 17:05 EST Pain Assessment Pain Scaled Used : 0-10 Pain scale Pain Score Pre-Intervention : 3 Location : Knee, left Pain Comment : Pt instructed to notify RN if pain reaches a 5/10; pt VU. KRISTIN GARCIA OTR/Ted - 11/21/2018 17:05 EST Image 1 - Images currently included in the form version of this document have not been included in the text rendition version of the form. Anticipated Discharge Needs, OT/PT Anticipated Discharge to : Home, with family care, Outpatient rehabilitation Recommend Continued Therapy at Discharge : Yes KRISTIN GARCIA OTR/Ted - 11/21/2018 17:[address] [facility] OT Charges OT Selfcare/Hm Mgmt Ea 15 Min : 1 OT Eval Low Complexity : 1 KRISTIN GARCIA OTR/Ted - 11/21/2018 17:05 EST Electronically signed by [facility] Conversion Repairer Welding Systems And Equipment Cerner at 01/12/2023 10:23 PM CDT documented in this encounter Plan of Treatment Not on file documented as of this encounter Visit Diagnoses Not on filedocumented in this encounter
--- OUTSIDE RECORDS SUMMARY | 2025-06-19 09:57 | XMS_ITS | Encounter Summary ---
Author Organization [employer] ([place], [place], [place], [place]) Address [address] [place] [address] Care Team Providers Care Ring Barker Operator Name Role Phone Unavailable Primary Care Provider Unavailabl e Encounter Details Date Type Department Care Team (Late st Contact Info) Description 11/14/2018 Transcribed Document [facility] [place] Family Medicine [facility] [place] [address] ProviderFlaco MD [facility] [place] [address] Social History Tobacco Use Types Packs/Day Years Used Date Smoking Tobacco: Never Assessed Sex and Gender Information Value Date Recorded Sex Assigned at Male 03/23/2022 7:23 PM CDT Legal Sex Male 7:23 PM CDT Gender Identity Male 03/23/2022 7:23 PM CDT Sexual Orientation Not on file documented as of this encounter Miscellaneous Notes * Cerner Conversion Note - Historical ProviderMD - 11/14/2018 9:29 AM TEACHERS ASSISTANT PAT Adult Entered On: 11/14/2018 9:36 EST Performed On: 11/14/2018 9:29 EST by Dora Ortiz Rn Vital Measurements Temperature Source : Temporal artery scanning Temperature Mode : Fahrenheit Temperature, Fahrenheit : 97.6 Deg F Clinical Temperature, C : 36.4 Deg C Peripheral Pulse Rate : 94 bpm Respiratory Rate : 18 Breaths/Min Systolic Blood Pressure : 138 mmHg Diastolic Blood Pressure : 88 mmHg Oxygen Saturation : 95 % Oxygen Therapy Mode : Room air Dora Ortiz Rn - 11/14/2018 9:29 EST Height and Weight, Clinical Dosing Height Source : Stated Height Entry Format : Sentinel Height, Feet : 5 ft(Converted to: 152 cm, 60 Inch) Height, Inches : 10 Inch(Converted to: 0 ft 10 Inch, 25.40 cm) Clinical Height : 177.8 cm Weight Source : Standing scale Weight Entry Format : Sentinel Clinical Dosing Weight : 129.55 kg Weight, Pounds : 285 lb Body Surface Area (BSA) : 2.43 m2 Body Mass Index : 41 kg/m2 (>HHI) [place] Body Weight : 72 kg Dora Ortiz Rn - 11/14/2018 9:29 EST Health Histories Smoking Status : Never (less than 100 in lifetime; none in last 30 days) Smokeless Tobacco Status : Never Dora Ortiz Rn - 11/14/2018 9:29 EST Social History (As Of: 11/14/2018 09:36:46 EST) Tobacco: Use in Last 12 Months: [...] coffee. (Last Updated: 09/29/2018 15:12:06 EST by Eimly Taylor RN) Home/Environment: Lives with Spouse. (Last [...] Region : No Tuberculosis Symptoms : None Dora Ortiz Rn - 11/14/2018 9:29 EST Anesthesia/Transfusion History Family History of Anesthesia Reaction : No prior transfusion(s) Transfusion History : Prior anesthesia without reaction Family History of Anesthesia Reaction : None Dora Ortiz Rn - 11/14/2018 9:29 EST Advance Directive Patient has Advance Directive *Q : Yes, Advance Directive not with the patient Advance Directive Type : Living will, Medical durable power of film waxer (proxy) Medical Durable Power of Finisher Fine Diamond Dies Name : No Copy Advance Directive Verified/on Chart : No Dora Ortiz Rn - 11/14/2018 9:29 EST Psychosocial History Do You Have a History of the Following? : Patient denies history Currently in Unsafe Situation : No Tried to Harm Yourself in the Past? : No Thoughts of Harming/Killing Yourself : No Dora Ortiz Rn - 11/14/2018 9:29 EST Teaching/Learning Assessment Barriers To Learning : None evident Individuals Taught : Patient Readiness to Learn : Cooperative Readiness to Learn : Explanation, Printed materials Learning Style Preferences Patient : Printed materials, Verbal explanation Dora Ortiz Rn - 11/14/2018 9:29 EST Education Topics, Periop Preadmission Perioperative Education Grid Arrival Time/Place : Verbalizes understanding CHG Preoperative Bathing/Cloths : Verbalizes understanding Infection Control : Verbalizes understanding NPO Status/Directions : Verbalizes understanding Preprocedure Preparations : Verbalizes understanding Preprocedure Tests/Labs : Verbalizes understanding Responsible Adult : Verbalizes understanding Take/Hold Medications Pre-Procedure : Verbalizes understanding Dora Ortiz Rn - 11/14/2018 9:29 EST General Info Arrived From : Home Mode of Arrival on Unit : Ambulatory Legal Guardian : Unaccompanied Support Person/Patient Freelance Data Entry : Yes Support Person/Pt Rep Name : Radha spouse Support Person/Pt Rep Contact Information : [phone] Want Family/Rep/Phys Notified of Admit : No Emergency Contact #1 : Radha Emergency Contact #1 Emergency Contact #1 Relationship : Emergency Contact #2 : . Emergency Contact #2 Phone Number : . Emergency Contact #2 Relationship : . Information Obtained From : Patient Primary Language : French Preferred Communication Mode : Verbal Communication Barrier : None Dora Ortiz Rn - 11/14/2018 9:29 EST Chris Scale Chris Sensory Perception : No impairment Chris Moisture : Rarely moist Chris Activity : Walks frequently Chris Mobility : Slightly limited Chris Nutrition : Adequate Chris Friction and Shear : No apparent problem Chris Score : 21 Dora Ortiz Rn - 11/14/2018 9:29 EST Sleep Apnea Risk Assmt Hx of Obstructive Sleep Apnea Diagnosis : No Snore Loudly : Yes Tired, Fatigued, or Sleepy During Day : No Observed Stopping Breathing During Sleep : No Have/Are Being Treated for Hypertension : Yes STOP Sleep Apnea Risk Level Score : 2 STOP Sleep Apnea Risk Level : High Dora Ortiz Rn - 11/14/2018 9:29 EST Electronically signed by Emanuel Mercedes Conversion Observer Gravity Prospecting Cerner at 01/12/2023 10:20 PM CDT documented in this encounter Plan of Treatment Not on file documented as of this encounter Visit Diagnoses Not on filedocumented in this encounter
--- OUTSIDE RECORDS SUMMARY | 2025-06-19 09:57 | XMS_ITS | Encounter Summary ---
Author Organization [employer] ([place], [place], [place], [place]) Address [address] [place] [address] Care Team Providers Care Braille Duplicating Machine Operator Name Role Phone Unavailable Primary Care Provider Unavailabl e Encounter Details Date Type Department Care Team (Late st Contact Info) Description 11/21/2018 Transcribed Document [facility] [place] Family Medicine [facility] [place] [address] ProviderFlaco MD [address] [place] [address] Social History Tobacco Use Types Packs/Day Years Used Date Smoking Tobacco: Never Assessed Sex and Gender Information Value Date Recorded Sex Assigned at Male 03/23/2022 7:23 PM CDT Legal Sex Male 7:23 PM CDT Gender Identity Male 03/23/2022 7:23 PM CDT Sexual Orientation Not on file documented as of this encounter Miscellaneous Notes * Cerner Conversion Note - Historical ProviderMD - 11/21/2018 3:59 PM SEARCH DEVELOPER Pain Assessment Entered On: 11/22/2018 5:00 EST Performed On: 11/22/2018 4:50 EST by Shauna Collazo RN Intervention Information: oxyCODONE Performed by Shauna Collazo RN on 11/22/2018 03:50:00 EST oxyCODONE,10mg Oral,Pain (Severe 7-10) Pain Assessment Pain Assessment : Follow-up assessment Pain Scale Used : FACES Pain Intervention, Drug : Medicated Pain Improved by Intervention : Yes Shauna Collazo RN - 11/22/2018 5:00 EST Pain Scale Intensity : 1 Shauna Collazo RN - 11/22/2018 5:00 EST Image 4 - Images currently included in the form version of this document have not been included in the text rendition version of the form. documented in this encounter Plan of Treatment Not on file documented as of this encounter Visit Diagnoses Not on filedocumented in this encounter
--- OUTSIDE RECORDS SUMMARY | 2025-06-19 09:57 | XMS_ITS | Encounter Summary ---
Author Organization [employer] ([place], [place], [place], [place]) Address [address] [place] [address] Care Team Providers Care Plumbing Engineering Draftsperson Name Role Phone Unavailable Primary Care Provider Unavailabl e Encounter Details Date Type Department Care Team (Late st Contact Info) Description 11/14/2018 Transcribed Document [facility] Radiology [address] [place] [address] Juana Rae MD [address] [place] [address] [address] [id number] Social History Tobacco Use Types Packs/Day Years Used Date Smoking Tobacco: Never Assessed Sex and Gender Information Value Date Recorded Sex Assigned at Male 03/23/2022 7:23 PM CDT Legal Sex Male 7:23 PM CDT Gender Identity Male 03/23/2022 7:23 PM CDT Sexual Orientation Not on file documented as of this encounter Miscellaneous Notes * Cerner Conversion Note - Juana Rae MD - 11/14/2018 10:20 AM EST Patient: PEDRO PICKARD Age: 68 Years Sex: Male : 1950 Chief Complaint Left Knee Pain PCP Celeste Tay History of [...] vomiting, diarrhea, or constipation. Musculoskeletal: Pos for left knee pain. Neurologic: Neg for headaches or seizures. Psychiatric: Neg for anxiety and depression. Integumentary: Neg for rash. Physical Exam Constitutional: This is a pleasant 68 yo WM in no acute distress. HEENT: Normocephalic, atraumatic. PEERLA. Extraocular muscles intact. Conjunctiva pink without exudate. Oropharynx pink and moist. Neck supple. No JVD. Cardiac: SI, S2. RRR. No M/R/G. Respiratory: Lungs CTA bilaterally. No wheezes, rales, or rhonchi. Abdomen: Soft, nontender, nondistended. Active bowel sounds. No visible masses. Musculoskeletal: Left Knee ROM 0-125. Integumentary: Skin is pink, warm and dry. No rashes. Neurologic: CN II-XII grossly intact. Psychiatric: Judgment and affect appropriate. Assessment/Plan 1. Preoperative Evaluation- Left Knee Pain: Proceed with surgery as scheduled with Dr Thorpe on 11/21/2018. Pt underwent preoperative laboratory workup and diagnostic studies. This included a medical evaluation from his PCP who provided him with clearance to proceed with surgery. 2. Hypertension- Continue Lisinopril, Spironolactone and Metoprolol. 3. CAD- Pt received cardiac clearance from Dr Kong. 4. Hyperlipidemia- Continue Lipitor. BASED ON THE PATIENT'S HISTORY OF CAD, I FEEL THAT THIS PATIENT SHOULD REQUIRE INPATIENT HOSPITALIZATION UNLESS DEEMED OTHERWISE APPROPRIATE BY THE ORTHOPEDIC SURGEON GIVEN THE COMPLEXITY OF THE OPERATION. Problem List/Past Medical History Ongoing At risk for sleep apnea High blood pressure Impaired vision Insomnia Sinusitis Stented coronary artery Viral cardiomyopathy Vitamin D deficiency Procedure/Surgical History REPLACE OF R KNEE JT WITH SYNTH SUB, CEMENT, OPEN APPROACH (10/10/2018), HEART CATH WITH STENTS TIMES 2, ORIF to left elbow, right TKA, stent placement, tonsils, WISDOM TEETH REMOVED. Medications Home aspirin 81 mg oral delayed release [...] 61. Pt father at 86 from a DC. Lab Results UA- neg nitrites, neg LE A1C- 6.0 CBC Results (Current Encounter/Past 24 Hours) WBC 9.5 K/uL 11/14/2018 10:37 Hct 42.1 % 11/14/2018 10:37 Hgb 13.6 Gram/dL LOW 11/14/2018 10:37 Platelet Count 291 K/uL 11/14/2018 10:37 CMP Results (Current Encounter/Past 24 Hours) Creatinine Level 1.24 mg/dL 11/14/2018 10:43 Protein Total 7.4 Gram/dL 11/14/2018 10:43 Globulin 3.5 Gram/dL 11/14/2018 10:43 A/G Ratio 1.1 11/14/2018 10:43 Bun/Creatinine 21.0 LA 11/14/2018 10:43 eGFR >60 mL/min/1.73m2 11/14/2018 10:43 eGFR NonAfrican 58 mL/min/1.73m2 LOW 11/14/2018 10:43 Sodium Level 136 mmol/L 11/14/2018 10:43 Potassium Level 4.6 mmol/L 11/14/2018 10:43 Chloride Level 104 mmol/L 11/14/2018 10:43 Carbon Dioxide Level 24 mmol/L 11/14/2018 10:43 Anion Gap 13 11/14/2018 10:43 Alk Phos 123 Units/Liter 11/14/2018 10:43 ALT 31 Units/Liter 11/14/2018 10:43 AST 20 Units/Liter 11/14/2018 10:43 Blood Urea Nitrogen 26 mg/dL LA 11/14/2018 10:43 Glucose Level 105 mg/dL 11/14/2018 10:43 Albumin Level 3.9 Gram/dL 11/14/2018 10:43 Bilirubin Total 0.6 mg/dL 11/14/2018 10:43 Calcium Level 9.1 mg/dL 11/14/2018 10:43 Coagulation Results (Current Encounter/Past 24 Hours) PT 10.5 Second(s) 11/14/2018 10:44 PTT 29.5 Second(s) 11/14/2018 10:44 INR 1.0 11/14/2018 10:44 Diagnostic Results EKG- NSR, 74 CXR- Mild Cardiomegaly, NAD documented in this encounter Plan of Treatment Not on file documented as of this encounter Visit Diagnoses Not on filedocumented in this encounter
--- OUTSIDE RECORDS SUMMARY | 2025-06-19 09:57 | XMS_ITS | Encounter Summary ---
Author Organization [employer] ([place], [place], [place], [place]) Address [address] [place] [address] Care Team Providers Care Cutter Hot Knife Name Role Phone Unavailable Primary Care Provider Unavailabl e Encounter Details Date Type Department Care Team (Late st Contact Info) Description 10/11/2018 Transcribed Document [facility] [place] [address] [place] [address] ProviderFlaco MD [address] [place] [address] Social History Tobacco Use Types [...] Conversion Note - Historical ProviderMD - 10/11/2018 2:00 AM CHIEF DIGITAL OFFICER Window Installer Details Entered On: 10/11/2018 4:18 EST Performed On: 10/11/2018 2:00 EST by Julien Magallon Rn Order Details Transport Mode Order Detail : Wheelchair Isolation Precautions Order Detail : Standard Precautions Order Detail : N/A IV Order Detail : 1 Oxygen Order Detail : 0 Nurse Collect Order Detail : 0 Lift/Transfer : Moderate assist Central Line Order Detail : No Room Service : Not Appropriate Arterial Line : No Julien Magallon, [place] - 10/11/2018 4:18 EST documented in this encounter Plan of Treatment Not on file documented as of this encounter Visit Diagnoses Not on filedocumented in this encounter
--- OUTSIDE RECORDS SUMMARY | 2025-06-19 09:57 | XMS_ITS | Encounter Summary ---
Author Organization [employer] ([place], [place], [place], [place]) Address [address] [place] [address] Care Team Providers Care Tap Grinder Name Role Phone Unavailable Primary Care Provider Unavailabl e Encounter Details Date Type Department Care Team (Late st Contact Info) Description 11/21/2018 Transcribed Document [facility] [place] Family Medicine [facility] [place] [address] ProviderFlaco MD [facility] [place] [place] [address] Social History Tobacco Use Types [...] - Flaco ProviderMD - 11/21/2018 12:22 PM METER SETTER ANDRY Main OR PreOp Summary Primary Physician: BABAR WORRELL MD-ORT Finalized Date/Time: 11/22/18 10:34:20 Pt. Name: PEDRO PICKARD LESLYE GrimmB./Sex: 1950 Male Med Rec #: [id number] Physician: BABAR WORRELL MD-ORT Financial #: [id number] Pt. Type: I Room/Bed: 506/1 Admit/Disch: 11/21/18 04:57:00 - Institution[place] [facility] [place] Case Times Entry 1 In Preop 11/21/18 08:20:00 Ready for Holding n/a Room Patient Ready for 11/21/18 10:02:00 Surgery Patient Out of Preop 11/21/18 11:47:00 Patient Out of n/a Holding Room Last Modified By: Yas Merida RN 11/21/18 12:39:18 SJE PreOp Case Times Audit 11/21/18 12:39:18 Television Cameraman: LILLIAN Modifier: COMFORT <+> 1 Patient Out of Preop Finalized By: Sandee Concepcion, Mail Deliverer-Nursing Document Signatures Signed By: Yas Merida RN 11/21/18 12:39 Sandee Concepcion, Mail Deliverer-Nursing 11/22/18 10:34 Unfinalized History Date/Time Username Reason for Unfinalizing Freetext Reason for Unfinalizing 11/22/18 10:34 [id number] Modify Pick List documented in this encounter Plan of Treatment Not on file documented as of this encounter Visit Diagnoses Not on filedocumented in this encounter
--- OUTSIDE RECORDS SUMMARY | 2025-06-19 09:57 | XMS_ITS | Encounter Summary ---
Author Organization [employer] ([place], [place], [place]) Address [address] [place] [address] Care Team Providers Care General Engineering Teacher Name Role Phone Unavailable Primary Care Provider Unavailabl e Encounter Details Date Type Department Care Team (Late st Contact Info) Description 11/21/2018 Transcribed Document [facility] [place] [facility] [place] [address] ProviderFlaco MD [facility] [place] [address] Social History Tobacco Use Types [...] - Flaco ProviderMD - 11/21/2018 12:22 PM PRODUCTION COOK [facility] OR PACU Summary Primary Physician: BABAR WORRELL MD-ORT Finalized Date/Time: 11/21/18 15:04:10 Pt. Name: PEDRO PICKARD JOSE GrimmB./Sex: 1950 Male Med Rec #: [id number] Physician: BABAR WORRELL MD-ORLizeth Financial #: [id number] Pt. Type: I Room/Bed: [facility]/ Admit/Disch: 11/20/18 08:29:00 - Institution: [facility] OR PACU Case Times Entry 1 In PACU I 11/21/18 13:44:00 Ready for PACU 11/21/18 14:45:00 Discharge Discharge from PACU 11/21/18 14:45:00 I Last Modified By: Freda Archer, Rn 11/21/18 15:03:42 Finalized By: Freda Archer Rn Document Signatures Signed By: Freda Archer Rn 11/21/18 15:04 Electronically signed by Mago [facility] Conversion Rail Signal Designer Cerner at 01/12/2023 10:18 PM CDT documented in this encounter Plan of Treatment Not on file documented as of this encounter Visit Diagnoses Not on filedocumented in this encounter
--- OUTSIDE RECORDS SUMMARY | 2025-06-19 09:57 | XMS_ITS | Encounter Summary ---
Author Organization [employer] ([place], [place], [place], [place]) Address [address] [place] [address] Care Team Providers Care Bursar Name Role Phone Unavailable Primary Care Provider Unavailabl e Encounter Details Date Type Department Care Team (Late st Contact Info) Description 11/21/2018 Transcribed Document [facility] [place] [facility] [place] [address] ProviderFlaco MD [address] [place] [address] Social History Tobacco Use Types Packs/Day Years Used Date Smoking Tobacco: Never Assessed Sex and Gender Information Value Date Recorded Sex Assigned at Male 03/23/2022 7:23 PM CDT Legal Sex Male 7:23 PM CDT Gender Identity Male 03/23/2022 7:23 PM CDT Sexual Orientation Not on file documented as of this encounter Miscellaneous Notes * Cerner Conversion Note - Flaco ProviderMD - 11/21/2018 6:09 PM POLICE LIEUTENANT [address] , [place] [address] Patient Copy Patient Information: Name: PEDRO PICKARD Current Date: 11/21/2018 18:09:14 : 1950 Patient Address: [place] [address] Patient Attending Physician: TESHA MCCLAIN MD Primary Care Provider: BLU CRUZ (REF)[facility] Primary Care Provider Discharge Diagnosis: S/P knee replacement Weight on Admission: 285 lb, 0 oz Comment: Discharge Instructions: Immunizations Documented During Stay: No [...] cramping, rapid heartbeat, difficulty sleeping, and nervousness. CIGARETTE SMOKING: The facts are clear, cigarette smoking will shorten your life. Smoking can cause many illnesses along the way. As a healthcare provider, we recommend that you stop smoking. Assistance with quitting is available by contacting 1-752-DZRR-NOW. This is a free resource providing counseling, [...] Be sure to sign up for the [employer] patient portal, which gives you 18/04 access to your medical information ??? including these discharge instructions ??? using your computer, smartphone, or tablet. Just go to [facility] to get started. Questions? Call . [facility] would like to thank you for allowing us to assist you with your healthcare needs. MARY Arrieta, PEDRO GAVIN, (or call center support representative) have received the above patient education materials/instructions and have verbalized understanding: Patient Signature _ Date/Time Patient Database Marketing Manager Signature (if needed) Date/Time Clinician/Hospital Database Marketing Manager Signature (if needed) Date/Time Electronically signed by Emanuel Mercedes Conversion Assembler [employer] Spider Milindner at 01/12/2023 10:23 PM CDT documented in this encounter Plan of Treatment Not on file documented as of this encounter Visit Diagnoses Not on filedocumented in this encounter
--- OUTSIDE RECORDS SUMMARY | 2025-06-19 09:57 | XMS_ITS | Encounter Summary ---
Author Organization [employer] ([place], [place], [place], [place]) Address [address] [place] [address] Care Team Providers Care Bulk Folder Name Role Phone Unavailable Primary Care Provider Unavailabl e Encounter Details Date Type Department Care Team (Late st Contact Info) Description 11/21/[address] [facility] [place] Family Medicine [facility] [place] [address] ProviderFlaco MD [facility] [place] [address] Social History Tobacco Use Types [...] Conversion Note - Flaco ProviderMD - 11/21/2018 5:25 PM GEOPHYSICAL DRAFTER Treatment Intervention, OT Entered On: 11/22/2018 8:37 EST Performed On: 11/22/2018 8:11 EST by OCHOA KWONG OTR/L General Information, OT Visit Type, OT : Treatment Note Patient Orders : Order Date Order Ordering 11/21/2018 16:01 OT Evaluation and Treatment Ordered By: BABAR WORRELL MD-ORLizeth 11/21/2018 16:01 OT Treatment Instructions Ordered By: BABAR WORRELL MD-ORT 11/21/2018 17:25 Occupational Therapy Additional Tx Ordered By: Active Diagnoses : 11/21/2018 00:00 Presence of unspecified artificial knee joint Admission Date : 11/20/2018 08:29 Personal Devices : Personal Devices No Devices Recorded Assistive Devices : Assistive Devices No Devices Recorded Precautions in Place : Fall prevention measures OCHOA KWONG OTR/L - 11/22/2018 8:33 EST General Status Patient Received Status : Up in chair, Other: scds, polar care, IV, present Treatment Start Time : 11/22/2018 8:00 EST Patient Left Status : Up in chair, RN/PCT informed, Family/Visitors at bedside, All needs met and within reach, Other: scds, polar care, IV, present RN/PCT Informed Comment : RN okd to tx, ID and verified Treatment End Time : 11/22/2018 8:11 EST Treatment Time : 11 Minute(s) OCHOA KWONG OTR/L - 11/22/2018 8:33 EST Self Care/Home Management, OT Upper Body Dressing Assist Level, OT : Independent, complete Lower Body Dressing Assist Level, OT : Supervision or set-up Bed/Chair/WC Transfer Assist Level : Supervision or set-up Bed/Chair/WC Transfer Device : Belt, gait, Walker, front wheel OCHOA KWONG OTR/L 11/22/2018 8:33 EST Mobility Device/Prosthesis/Wt Bearing Weight Bearing Status Maintained : Yes Weight Bearing Status : As tolerated Functional Mobility Device : Gait belt, Walker, front wheel Functional Mobility with Brace/Splint : No OCHOA KWONG OTR/L 11/22/2018 8:33 EST Functional Mobility Mobility Grid Sit to Stand : Supervision/set-up Bed to Chair : Supervision/set-up Chair to Bed : Supervision/set-up Stand to Sit : Supervision/set-up OCHOA KWONG OTR/L 11/22/2018 8:33 EST Functional MobilityComment : pt is S/mod I for functional mobility and transfers in room using rw assist for line mgt OCHOA KWONG OTR/L 11/22/2018 8:33 EST Education OT Occupational Therapy Education Grid Activity of Daily Living Training : Verbalizes understanding, Returns demonstration Functional Mobility Training : Verbalizes understanding, Returns demonstration Home Safety : Verbalizes understanding OCHOA KWONG OTR/L 11/22/2018 8:33 EST Plan of Care, OT OT Tx Plan/Goals Established w Patient : No Reason OT Treatment/Plan Not Established : goals met OCHOA KWONG OTR/L 11/22/2018 8:33 EST Mcc Goals, OT Other LTG Grid Goal #1 Goal #2 Goal : Pt will perform LB self-care with CGA, AD prn, and cues. Pt will perform ADL transfer with CGA, AD prn, and cues. Date to Meet : 11/28/2018 EST 11/28/2018 EST Goal Status : Goal met Goal met VARGHESE ARACELY PACKER/L - 11/22/2018 8:33 EST VARGHESEOCHOAARACELY/Ted - 11/22/2018 8:33 EST Treatment Note Subjective Comment : pt agrees to tx Additional Objective Information : ADL Assessment : pt met /2 acute care OT goals Plan for Treatment : pt will be discharging home with his today and outpt rehab VARGHESEOCHOAARACELY/Ted - 11/22/2018 8:33 EST Pain Assessment Pain Scaled Used : FACES Pain Score Pre-Intervention : 2 Pain Radiation Location : Knee, Left VARGHESE ARACELY PACKER/L - 11/22/2018 8:33 EST Image 1 - Images currently included in the form version of this document have not been included in the text rendition version of the form. [facility] OT Charges OT Selfcare/Hm Mgmt Ea 15 Min : 1 VARGHESEOCHOA OTR/Ted - 11/22/2018 8:33 EST Electronically signed by Emanuel Mercedes Conversion Medical Detail Representative Cerner at 01/12/2023 10:11 PM CDT documented in this encounter Plan of Treatment Not on file documented as of this encounter Visit Diagnoses Not on filedocumented in this encounter
--- OUTSIDE RECORDS SUMMARY | 2025-06-19 09:57 | XMS_ITS | Clinical Summary ---
Author Organization [facility] Address [address] [place] [address] Care Team Providers Care Bottle Label Inspector Name Role Phone Unavailable Primary Care Provider Unavailabl e Social History Tobacco Use Types Packs/Day Years Used Date Smoking Tobacco: Never Sex and Gender Information Value Date Recorded Sex Assigned at Not on file Legal Sex Male 7:31 PM EDT Gender Identity Not on file Sexual Orientation Not on file Last Filed Vital Signs Vital Sign Reading Time Taken Comments Blood Pressure - - Pulse - - Temperature - - Respiratory Rate - - Oxygen Saturation - - Inhaled Oxygen Concentration - - Weight 142 kg (313 lb 0.2 oz) 01/09/2013 8:29 AM EDT Height 175.3 cm (5' 9 ) 01/09/2013 8:29 AM EDT Body Mass Index 46.22 01/09/2013 8:29 AM EDT Plan of Treatment Not on file
--- OUTSIDE RECORDS SUMMARY | 2025-06-19 09:57 | XMS_ITS | Encounter Summary ---
Author Organization [employer] ([place], [place], [place], [place]) Address [address] [place] [address] Care Team Providers Care Visual Basic .Net Developer Name Role Phone Unavailable Primary Care Provider Unavailabl e Encounter Details Date Type Department Care Team (Late st Contact Info) Description 11/21/2018 Transcribed Document [facility] [place] Family Medicine [facility] [place] [address] ProviderFlaco MD [facility] [place] [address] Social History Tobacco Use [...] Conversion Note - Flaco ProviderMD - 11/21/2018 8:15 AM RADIOPHARMACIST Admission History, Adult Entered On: 11/21/2018 15:28 EST Performed On: 11/21/2018 15:00 EST by Judith Rodriguez RN Advance Directive Patient has Advance Directive *Q : Yes, Advance Directive not with the patient Advance Directive Type : Living will, Medical durable power of associate attorney (proxy) Medical Durable Power of Fiction And Nonfiction Writer Prose Name : No Copy Advance Directive Verified/on Chart : No Judith Rodriguez RN - 11/21/2018 15:24 EST Anesthesia/Transfusion History Family History of Anesthesia Reaction : No prior transfusion(s) Blood Transfusion Acceptable to Patient : Yes Transfusion History : Prior anesthesia without reaction Family History of Anesthesia Reaction : None Judith Rodriguez RN - 11/21/2018 15:24 EST Functional Assessment Living Situation : Home [...] Special Services and Community Resources : None Judith Rodriguez RN - 11/21/2018 15:24 EST General Info Preferred Name : aria Arrived From : Home Mode of Arrival on Unit : Bed Patient Arrival Date/Time : 11/21/2018 14:50 EST Legal Guardian : Spouse, Unaccompanied Support Person/Patient Laboratory Director : Yes Support Person/Pt Rep Name : Radha spouse Support Person/Pt Rep Contact Information : [phone] Want Family/Rep/Phys Notified of Admit : No Emergency Contact #1 : Radha Emergency Contact #1 Emergency Contact #1 Relationship : Emergency Contact #2 : . Emergency Contact #2 Phone Number : . Emergency Contact #2 Relationship : . Information Obtained From : Patient Primary Language : Welsh Preferred Communication Mode : Verbal Communication Barrier : None Currently Lactating : N/A Status : N/A Judith Rodriguez RN - 11/21/2018 15:24 EST Fall Risk Scales ABCs Fall Injury Risk Identification : Surgery ABC Fall Injury Risk : Moderate to high injury risk SANDY Hx Falls Immediate/Within 3 Months : No Sandy Secondary Diagnosis : Yes SANDY Use of Ambulatory Aid : Crutches/Cane/Walker SANDY IV Therapy or IV Access : Yes Sandy Gait/Transferring : Impaired Sandy Mental Status : Oriented to own ability Sandy Fall Risk Score : 70 SANDY Fall Scale Risk Level : 46 or > High Risk [place] Fall Interventions : Adequate lighting, Assistive devices within reach, Bed in low position, Call device within reach, Frequent orientation to surroundings, Hourly comfort/safety rounds, Non-slip footwear, Personal items within reach, Reinforced to call for assistance before getting out of bed, Room free of clutter/spills, Upper side-rails up, Wheels locked, Wires/Cords secured Barriers to Learning : None evident Learning Style Preferences Family : Printed materials, Verbal explanation Learning Style Preferences Patient : Printed materials, Verbal explanation Judith Rodriguez RN - 11/21/2018 15:24 EST Health Histories Smoking Status : Never (less than 100 in lifetime; none in last 30 days) Smokeless Tobacco Status : Never Judith Rodriguez RN - 11/21/2018 15:24 EST Social History (As Of: 11/21/2018 15:28:31 EST) Tobacco: Use in Last 12 Months: [...] 09/29/2018 15:12:23 EST by Emily Taylor RN) Height and Weight, Clinical Dosing Height Source : Stated Height Entry Format : [place] Height, Feet : 5 ft(Converted to: 152 cm, 60 Inch) Height, Inches : 10 Inch(Converted to: 0 ft 10 Inch, 25.40 cm) Clinical Height : 177.8 cm Weight Source : Standing scale Weight Entry Format : [place] Clinical Dosing Weight : 129.55 kg Weight, Pounds : 285 lb Body Surface Area (BSA) : 2.43 m2 Body Mass Index : 41 kg/m2 (>HHI) [place] Body Weight : 72 kg Judith Rodriguez RN - 11/21/2018 15:24 EST Infectious Disease History Infectious Disease History : Chicken pox/Shingles, Measles, Scarlet fever Isolation Needed : Standard Fever/Chills Last 48 Hours : No Travel To Regions with Travel Advisories : No Travel Outside [place] Within Last 30 Days : No Contact With Traveler to Advisory Region : No Exposure to Contagious Illness : No Tuberculosis Symptoms : None Judith Rodriguez RN - 11/21/2018 15:24 EST Tetanus Immunization Status Previous Tetanus Immunizations : No qualifying data available. Judith Rodriguez RN - 11/21/2018 15:24 EST Influenza Vaccine Asmt, Adult Previous Vaccines from Immunization Schedule : No qualifying data available. Influenza Immunization, Current Season : Yes Judith Rodriguez RN - 11/21/2018 15:24 EST Pneumococcal Vaccine Previous Vaccines from Immunization Schedule : No qualifying data available. Pneumonia Immunization Received : Yes Judith Rodriguez RN - 11/21/2018 15:24 EST Nutrition History Feeding Ability : Independent Adaptive Feeding Equipment : None Adaptive Feeding Equipment : Low sodium Oral Medication Administration : By mouth Eating Poorly Due to Decreased Appetite : No Unplanned Weight Loss in Past 3-6 Months : No Malnutrition Screening Tool Total(mal) : 0 Malnutrition Screening Tool Risk Level : Patient not at risk Judith Rodriguez RN - 11/21/2018 15:24 EST Psychosocial History Does Someone Depend on You for Care? : No Do You Have a History of the Following? : Patient denies history Currently in Unsafe Situation : No Do You Have a Support System? : Yes Tried to Harm Yourself in the Past? : No Thoughts of Harming/Killing Yourself : No Judith Rodriguez RN - 11/21/2018 15:24 EST Sleep Apnea Risk Assmt Hx of Obstructive Sleep Apnea Diagnosis : No Snore Loudly : Yes Tired, Fatigued, or Sleepy During Day : No Observed Stopping Breathing During Sleep : No Have/Are Being Treated for Hypertension : Yes STOP Sleep Apnea Risk Level Score : 2 STOP Sleep Apnea Risk Level : High Judith Rodriguez RN - 11/21/2018 15:24 EST Valuables and Belongings Valuables and Belongings : Clothing, Personal items Clothing : Common streetwear Clothing Disposition : With family Personal Items : Cell phone Personal Items Disposition : With family Judith Rodriguez RN - 11/21/2018 15:24 EST documented in this encounter Plan of Treatment Not on file documented as of this encounter Visit Diagnoses Not on filedocumented in this encounter
--- OUTSIDE RECORDS SUMMARY | 2025-06-19 09:57 | XMS_ITS | Encounter Summary ---
Author Organization [employer] ([place], [place], [place], [place]) Address [address] [place] [address] Care Team Providers Care Hedis Analyst Name Role Phone Unavailable Primary Care Provider Unavailabl e Encounter Details Date Type Department Care Team (Late st Contact Info) Description 10/11/2018 Transcribed Document [facility] Radiology [address] [place] [address] Waqar Gupta MD [address] [place] [address] Social History Tobacco Use Types Packs/Day Years Used Date Smoking Tobacco: Never Assessed Sex and Gender Information Value Date Recorded Sex Assigned at Male 03/23/2022 7:23 PM CDT Legal Sex Male 7:23 PM CDT Gender Identity Male 03/23/2022 7:23 PM CDT Sexual Orientation Not on file documented as of this encounter Miscellaneous Notes * Cerner Conversion Note - Waqar Gupta MD - 10/11/2018 9:55 AM EST Patient: PEDRO PICKARD Age: 68 years Sex: Male : 1950 Associated Diagnoses: None Author: WAQAR GUPTA MD Discharge dictated. #[id number]. documented in this encounter Plan of Treatment Not on file documented as of this encounter Visit Diagnoses Not on filedocumented in this encounter
--- OUTSIDE RECORDS SUMMARY | 2025-06-19 09:57 | XMS_ITS | Encounter Summary ---
Author Organization [employer] ([place], [place], [place], [place]) Address [address] [place] [address] Care Team Providers Care Separator Tender Name Role Phone Unavailable Primary Care Provider Unavailabl e Encounter Details Date Type Department Care Team (Late st Contact Info) Description 11/22/2018 Transcribed Document [facility] [place] Family Medicine [facility] [address] ProviderFlaco MD [address] [place] [address] Social History Tobacco Use Types [...] Conversion Note - Flaco ProviderMD - 11/22/2018 10:19 AM CHARTERED WEALTH MANAGER BLU CRUZ, [address] [place] [address] Re: PEDRO MELLY Date of Visit: 11/21/2018 Dear BLU CRUZ Thank you for allowing me to participate in your patient's care. Please see the accompanying information that I would like to share with you regarding your patient. This Document is confidental and intended solely for the use of the individual or entity to which it is addressed. If you are not the named addresssee, please disregard and do not disseminate, distribute or copy this information. If you are the intended recipient any disclosure of this information and its contents is strictly prohibited. Sincerely, MARLEN MONTANEZ [address] [facility] [address] [place] [address] The following document(s) were included in the letter: November 22, 2018 09:55:00 EST - (11/22/2018) Discharge Note documented in this encounter Plan of Treatment Not on file documented as of this encounter Visit Diagnoses Not on filedocumented in this encounter
--- OUTSIDE RECORDS SUMMARY | 2025-06-19 09:57 | XMS_ITS | Encounter Summary ---
Author Organization [employer] ([place], [place], [place], [place]) Address [address] [place] [address] Care Team Providers Care Client Engagement Manager Name Role Phone Unavailable Primary Care Provider Unavailabl e Encounter Details Date Type Department Care Team (Late st Contact Info) Description 11/21/2018 Transcribed Document [facility] [place] [place] Family Medicine [facility] [place] [address] ProviderFlaco MD [facility] [place] [address] Social History Tobacco Use Types [...] - Historical ProviderMD - 11/21/2018 3:59 PM LABORATORY ASSISTANT Care Management Assessment/Plan Entered On: 11/22/2018 9:22 EST Performed On: 11/22/2018 9:20 EST by Charlotte Hoffmann, Case Management-Kettle Room Helper Care Management Note Care Management Note : pt admitted for tka, pt lives at home with spouse and plans to go to out pt therapy at [facility]. he already has his appt made and will get a copy of the order to take with him upon discharge. pt has his walker from his previous surgery. Documentation Status Complete : Yes Charlotte Hoffmann Case Management-Kettle Room Helper - 11/22/2018 9:20 EST Discharge Planning Details Discharge Home : Home with spouse/significant other Discharge Home Care Needs : Physical Therapy Discharge Placement Needs : Home Persons Assisting Patient at Home : Spouse Charlotte Hoffmann, Case Management-Kettle Room Helper - 11/22/2018 9:20 EST Info/List/Choices Provided Patient Offered Choice/Affiliations Explained : Yes Charlotte Hoffmann Case Management-Kettle Room Helper - 11/22/2018 9:20 EST Final Discharge Disposition Note-CM Discharge To Care Management : Home/Residential/Group Home or Self Care -01 Name of Receiving Facility/Provider-CM : Out Patient P.T[facility] at [facility].Charlotte Mustafa Case Management-Kettle Room Helper - 11/22/2018 9:20 EST Electronically signed by [facility], [facility] Conversion Traffic Operator Cerner at 01/12/2023 10:20 PM CDT documented in this encounter Plan of Treatment Not on file documented as of this encounter Visit Diagnoses Not on filedocumented in this encounter
--- OUTSIDE RECORDS SUMMARY | 2025-06-19 09:57 | XMS_ITS | Encounter Summary ---
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 Name Role Phone Unavailable Primary Care Provider Unavailabl e Encounter Details Date Type Department Care Team (Late st Contact Info) Description 11/21/2018 Transcribed Document [facility] [place] [facility] [place] [address] ProviderFlaco MD [address] [place] [id number] Social History Tobacco Use Types Packs/Day Years Used Date Smoking Tobacco: Never Assessed Sex and Gender Information Value Date Recorded Sex Assigned at Male 03/23/2022 7:23 PM CDT Legal Sex Male 7:23 PM CDT Gender Identity Male 03/23/2022 7:23 PM CDT Sexual Orientation Not on file documented as of this encounter Miscellaneous Notes * Cerner Conversion Note - Flaco ProviderMD - 11/21/2018 5:17 PM 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 Treatment Intervention, PT Entered On: 11/22/2018 9:15 EST Performed On: 11/22/2018 9:11 EST by RAFAEL SHIN, PT General Information, PT Visit Type, PT : Treatment Note Patient Orders : Order [...] PT Treatment Instructions Ordered By: BABAR WORRELL MD-ORLizeth 11/21/2018 17:17 PT Additional Treatment Ordered By: Dharmesh Lacy, Physical Therapist Active Diagnoses : 11/21/2018 00:00 Presence of unspecified artificial knee joint Therapy Diagnosis, PT : aftercare following L TKA Admission Date : 11/20/2018 08:29 Personal Devices : Personal Devices No Devices Recorded Assistive Devices : Assistive Devices No Devices Recorded Precautions in Place : Fall prevention measures RAFAEL SHIN, PT - 11/22/2018 9:11 EST General Status Patient Received Status : Supine in bed, Bed alarm activated, Other: Ice and SCDs applied. Treatment Start Time : 11/22/2018 8:15 EST Patient Left Status : Up in chair, Chair alarm activated, RN/PCT informed, Family/Visitors at bedside, Communication board completed, All needs met and within reach, Other: Ice and SCDs applied. RN/PCT Informed Comment : RN and patient consenting to treatment this date. Treatment End Time : 11/22/2018 9:00 EST Treatment Time : 45 Minute(s) RAFAEL SHIN, PT - 11/22/2018 9:[address] [facility] Basic Mobility Turning Over in Bed : None Sit Down On/Stand Up From Chair w/ Arms : None Move Back Lying to Sitting Side of Bed : None Moving To/From a Bed to Chair : None Need to Walk in Hospital Room : A little Climbing 3-5 Steps with a Railing : A little AM-PAC Basic Mobility Raw Score : 22 AM-[facility] Basic Mobility Standardized Score : 53.28 AM-[facility] Basic Mobility CMS 0-100% Score : 20.91 % RAFAEL SHIN, PT - 11/22/2018 9:11 EST Image 1 - Images currently included in the form version of this document have not been included in the text rendition version of the form. Functional Limitation Reporting, PT Functional Limitation Visit Type, PT : At time of discharge Severity Determination Method, PT : Clinical Judgment, AM PAC Basic Mobility Mobility G8979 - Proj Goal Mod, PT : 20 - 39% impaired, limited or restricted (CJ) Mobility G8980 - Discharge Mod, PT : 20 - 39% impaired, limited or restricted (CJ) RAFAEL SHIN, PT - 11/22/2018 9:11 EST [facility] Topics Physical Therapy Education Grid Balance Training [...] : Verbalizes understanding RAFAEL SHIN, PT - 11/22/2018 9:11 EST Plan of Care, PT PT Tx Plan/Goals Established w Patient : Yes RAFAEL SIHN, PT - 11/22/2018 9:11 EST Group Home Goals Other PT LTG Grid Goal #1 [...] Goal Status : Goal met Goal met Goal met Date Met : 11/22/2018 EST 11/22/2018 EST 11/22/2018 EST RAFAEL SHIN, PT - 11/22/2018 9:11 EST RAFAEL SHIN, PT - 11/22/2018 9:11 EST RAFAEL SHIN, PT - 11/22/2018 9:11 EST Treatment Note Subjective Comment : Patient was pleasant and cooperative with treatment this date, reporting no pain at rest. Patient's Response to Treatment : No adverse reactions to treatment this date. Additional Objective Information : Patient is mod I with bed mobility, transfers with RW and ambulation in room with RW. Patient ambulated 100 feet with RW and SBA with moderate pace, downward gaze, wide base of support and increased lean on RW that was corrected with cues. Patient completed 1 step with RW and SBA with good technique and no LOB. Patient completed ther ex as follows: 2x10 ankle pumps, quad sets, glut sets, short arc quads, long arc quads, seated knee flexion, heel slides and SLR. Prone hangs x 10 minutes with 5 lb weight. L KNEE AAROM 0-117 degrees with passive PT overpressure. Assessment : Patient has met 3/3 acute care therapy goals. Plan for Treatment : DC to home this date. RAFAEL SHIN, PT - 11/22/2018 9:[address] [facility] PT Therap. Exercise 15 min : 2 Gait Training Each 15 Min : 1 RAFAEL SHIN, PT - 11/22/2018 9:11 EST Electronically signed by Mago, [facility] Conversion School Cleaner Cerner at 01/12/2023 10:24 PM CDT documented in this encounter Plan of Treatment Not on file documented as of this encounter Visit Diagnoses Not on filedocumented in this encounter
--- OUTSIDE RECORDS SUMMARY | 2025-06-19 09:57 | XMS_ITS | Encounter Summary ---
Author Organization [employer] ([place], [place], [place], [place]) Address [address] [place] [address] Care Team Providers Care Supervisor Framing Mill Name Role Phone Unavailable Primary Care Provider Unavailabl e Encounter Details Date Type Department Care Team (Late st Contact Info) Description 11/21/[address] [facility] [place] [facility] [place] [address] ProviderFlaco MD [facility] [place] [address] Social History Tobacco Use Types Packs/Day Years Used Date Smoking Tobacco: Never Assessed Sex and Gender Information Value Date Recorded Sex Assigned at Male 03/23/2022 7:23 PM CDT Legal Sex Male 7:23 PM CDT Gender Identity Male 03/23/2022 7:23 PM CDT Sexual Orientation Not on file documented as of this encounter Miscellaneous Notes * Cerner Conversion Note - lFaco ProviderMD - 11/21/2018 7:34 AM HAND MIXER Patient: PEDRO PICKARD Age: 68 Years Sex: Male : 1950 Discharge Plan Discharge: Home Procedure: Left TKA Complications: None DVT Prophylaxis: Aspirin 81 [...] patient can tolerate. Discharge Medications Home Medications (12) Active bumetanide 2 mg oral tablet 2 mg = 1 Tab, Oral, Daily Lipitor 20 mg oral tablet 20 mg = 1 Tab, Oral, At Bedtime lisinopril 2.5 mg oral tablet 2.5 mg = 1 Tab, Oral, BID Metoprolol Succinate ER 50 mg, Oral, At Bedtime Nitrostat 0.4 mg sublingual tablet 0.4 mg = 1 Tab, PRN, SubLINgual, Q5Min spironolactone 25 mg oral tablet 25 mg = 1 Tab, Oral, BID Tylenol 1,000 mg = 2 Tab, Oral, TID Oxycodone 5mg 1-2 tabs every 6 hours PRN pain Tramadol 50mg 1 tab Q 6hrs PRN ECASA 81mg BID x 6 weeks Colace 100mg 1 tab daily Gabapentin 300mg 1 tab QHS WOULD NOT RECOMMEND RESUMING HOME NSAIDs UNTIL CONSULTING WITH PCP. PRE OP CREATININE 1.24 documented in this encounter Plan of Treatment Not on file documented as of this encounter Visit Diagnoses Not on filedocumented in this encounter
== END 2025-06-18 23:59 ==
LOC: LAB.DROPOF 06-19 09:45
PROVIDERS: PCP Nurse Practitioner Family; Visit Provider Nurse Practitioner Family
DX: I50.9 Heart failure, unspecified (principal); I11.0 Hypertensive heart disease with heart failure; Z12.5 Encounter for screening for malignant neoplasm of prostate; R73.9 Hyperglycemia, unspecified
CPT/HCPCS: 80053; 80061; 83036; 84443; 85025; G0103